=== PATIENT | male | born 1945 | race Caucasian/White ===

== ENCOUNTER 2016-12-11 10:32 | Inpatient (IN) | payer OTHER ==
[~2016-12-11] VITALS: Ht 175.3 cm; Wt 78.1 kg
[~2016-12-11 10:32] MED LIST: CETI10TA84 PO; IPRA1AER2 INH; ONDA-63 PO; PRLSR20 PO; RANI150T3 PO; ULT50 PO; VNTHFA/IN INH
[2016-12-11] MEDS ORDERED: SODIUM CHLORIDE 0.9% 1000ML 1,000 ML IV ONE (11:33)
[2016-12-11] MEDS ORDERED: SODIUM CHLORIDE 0.9% 1000ML 1,000 ML IV STA (11:33)
--- NOTE | 2016-12-11 12:10 | DIAGNOSTIC IMAGING REPORT ---
CHEST ONE VIEW PORTABLE CLINICAL HISTORY: CHEST PAIN dyspnea COMPARISON STUDY: 09/14/2016 FINDINGS: Somewhat limited study technically due to patient motion. Probable basilar infiltrates. Mid and upper lungs are considered clear. Central catheter in superior vena cava. IMPRESSION: Small bibasilar parenchymal infiltrates Electronically signed by: José Romero M.D. 12/11/2016 12:09 PM Dictated Date/Time: 12/11/2016 12:08 PM
[2016-12-11 12:24] LABS: HEMATOCRIT 26.3 % (42-52); MEAN CELL VOLUME 79.9 fL (80-100); MEAN CORPUSCULAR HEMOGLOBIN 27.4 pg (25-34); MEAN CORPUSCULAR HGB CONC 34.2 g/dl (32-36); MEAN PLATELET VOLUME 9.1 fL (7.4-10.4); PLATELET COUNT 187 K/uL (130-400); RED BLOOD COUNT 3.29 M/uL (4.7-6.1); WHITE BLOOD COUNT 3.93 K/uL (4.8-10.8)
[2016-12-11 12:53] LABS: BUN/CREATININE RATIO 9.5 (10-20); CALCIUM 8.5 mg/dl (8.5-10.1); CREATININE 0.85 mg/dl (0.60-1.40); POTASSIUM 4.1 mmol/L (3.5-5.1)
[2016-12-11 13:02] LABS: ANISOCYTOSIS PRESENT; BASO % 0.5 %; BASO ABS # 0.02 K/uL (0-0.2); COMPLETE YES; EOS % 0.3 %; IG% 3.1 %; LYMPH % 10.4 %; LYMPH ABS # 0.41 K/uL (1.2-3.4); MONO % 10.7 %; OVALOCYTES 1+; POLYCHROMASIA 1+; TOXIC GRANULATION 2+
[2016-12-11] MEDS ORDERED: LEVAQUIN 750MG / 150ML D5W IV STA (13:08)
[2016-12-11 13:19] LABS: URINE APPEARANCE CLEAR (CLEAR); URINE BILIRUBIN NEG (NEG); URINE COLOR YELLOW; URINE NITRITE NEG (NEG); URINE SPECIFIC GRAVITY 1.014 (1.000-1.030); UROBILINOGEN NEG (NEG)
[2016-12-11 13:38] LABS: MANUAL MICROSCOPIC REQUIRED? NO; REVIEW REQ? NO
[2016-12-11] MEDS ORDERED: ACETAMINOPHEN 325 MG TAB PO PRN (14:00)
[2016-12-11] MEDS ORDERED: SENN-65 PO (14:03)
[2016-12-11] MEDS ORDERED: LEVOFLOXACIN CONSULT ACTIVE PRN (14:05)
[2016-12-11] MEDS ORDERED: IPRATROPIUM BROMIDE/ALBUTEROL respimat INH INH PRN (14:15)
[2016-12-11] MEDS ORDERED: PIPERACILL/TAZOBAC CONSULT ACTIVE PRN (14:15)
[2016-12-11] MEDS ORDERED: VANCOMYCIN CONSULT ACTIVE PRN (14:15)
[2016-12-11] MEDS ORDERED: ALBUTEROL HFA 8 GM INHALER INH PRN (14:15)
[2016-12-11 14:36] LABS: PARTIAL THROMBOPLASTIN RATIO 1.1; PROTHROMBIN TIME (PATIENT) 11.2 SECONDS (9.0-12.0)
--- NOTE | 2016-12-11 14:39 | History and Physical ---
History & Physical Date & Time of Service: Dec 11, 2016 at 14:16 Chief Complaint: Fever Joint Pain Primary Care Physician: Faustino Ryan M.D. History of Present Illness Source: patient, family, clinic records, hospital records Patient seen and examined. 71 year old male with PMHx of lymphoma, GERD, and history of tobacco abuse presents to the ED complaining of fever this morning. Patient is currently undergoing chemo therapy and neupogen treatments. His last treatment was 11/26. He reports he gets severe myalgias, bone, and joint pain from the neupogen. He states he takes his temperature twice daily and this morning it was 101.9. He reports yesterday he had some rigors and chills. He reports associated cough with some sputum production and congestion. He has some SOB. He denies sick contacts and reports he is very careful to not be around sick people. He often wears a mask. He denies taking anything for the fever this morning. He did not get a flu shot. He denies chest pain, palpitations, diarrhea, dysuria, edema. He reports ongoing nausea and occasional vomiting secondary to chemo. In the ED patient is mildly tachycardic on arrival which improved with IVFs, BP is stable, he is afebrile, he is pancytopenic but not neutropenic, POC lactate is 2.05. CXR shows possible pneumonia. Blood cultures were drawn and patient was started on Levaquin. He will be admitted for further workup and treatment. Past Medical/Surgical History Medical Problems: (1) DLBCL (diffuse large B cell lymphoma) Status: Chronic (2) GERD (gastroesophageal reflux disease) Status: Chronic Surgical Problems: (1) H/O lymph node biopsy Permanent Comment: BIOPSY LYMPH NODE OPEN SUPERFICIAL performed by Cruz Narayanan MD at [facility] 03/2015 Status: Resolved (2) History of appendectomy Status: Resolved Family History FH: CAD (coronary artery disease) FATHER MOTHER FH: lung cancer SISTER Social History Smoking Status: Former Smoker Alcohol Use: none Drug Use: none Marital Status: Housing status: lives with significant other Occupational Status: employed Allergies Coded Allergies: Tetracycline (Verified Allergy, Unknown, water blisters, 12/11/16) Home Medications Scheduled Omeprazole (Prilosec), 20 MG PO DAILY Ranitidine Hcl (Zantac), 150 MG PO UD Sennosides-Docusate Sodium (Senokot S), 2 TAB PO BID Scheduled PRN Albuterol Hfa (Ventolin Hfa), 2 PUFFS INH Q6H PRN for SOB/Wheezing Cetirizine (Zyrtec), 10 MG PO DAILY PRN for UD Ipratropium-Albuterol (Combivent Respimat), 1 PUFFS INH QID PRN for SOB/Wheezing Ondansetron (Ondansetron HCl), 8 MG PO Q8 PRN for Nausea or Vomiting Tramadol HCl (Tramadol HCl), 50 MG PO Q4 PRN for Pain Review of Systems See above for pertinent positives & negatives. A total of 10 systems reviewed and were otherwise negative. Physical Exam Vital Signs Date Time Temp Pulse Resp B/P Pulse Ox O2 Delivery O2 Flow Rate FiO2 12/11/16 13:05 87 20 124/65 93 Room Air 12/11/16 12:07 92 Nasal Cannula 1.0 12/11/16 12:00 95 19 119/68 88 Room Air 12/11/16 11:26 37.1 12/11/16 10:37 37.1 106 22 124/70 92 Room Air General Appearance: + pertinent finding (Very pleasant WD/WN 71 year old male lying in bed in NAD with family at bedside ) Head: normocephalic, atraumatic Eyes: PERRL, EOMI, sclerae normal ENT: hearing grossly normal, pharynx normal Neck: supple, no JVD Respiratory/Chest: chest non-tender, no respiratory distress, no accessory muscle use, + pertinent finding (diffuse rhonchi, scattered crackles, scattered wheezing ) Cardiovascular: regular rate, rhythm, no edema, no gallop, no JVD, no murmur, normal peripheral pulses Abdomen/GI: normal bowel sounds, non tender, soft Back: normal inspection, no muscle spasm Extremities/Musculoskelatal: normal capillary refill, no pedal edema, + pertinent finding (generalized myalgias ) Neurologic/Psych: alert, oriented x 3, + pertinent finding (no focal deficits noted on gross exam ) Skin: normal color, warm/dry, no rash Lymphatic: no adenopathy Diagnostics Laboratory Results Results Past 24 Hours Test 12/11/16 11:50 12/11/16 11:57 12/11/16 13:00 12/11/16 14:14 Range/Units White Blood Count 3.93 4.8-10.8 K/uL Red Blood Count 3.29 4.7-6.1 M/uL Hemoglobin 9.0 14.0-18.0 g/dL Hematocrit 26.3 42-52 % Mean Corpuscular Volume 79.9 80-100 fL Mean Corpuscular Hemoglobin 27.4 25-34 pg Mean Corpuscular Hemoglobin Concent 34.2 32-36 g/dl Platelet Count 187 130-400 K/uL Mean Platelet Volume 9.1 7.4-10.4 fL Neutrophils (%) (Auto) 75.0 % Lymphocytes (%) (Auto) 10.4 % Monocytes (%) (Auto) 10.7 % Eosinophils (%) (Auto) 0.3 % Basophils (%) (Auto) 0.5 % Neutrophils # (Auto) 2.95 1.4-6.5 K/uL Lymphocytes # (Auto) 0.41 1.2-3.4 K/uL Monocytes # (Auto) 0.42 0.11-0.59 K/uL Eosinophils # (Auto) 0.01 0-0.5 K/uL Basophils # (Auto) 0.02 0-0.2 K/uL RDW Standard Deviation 56.7 36.4-46.3 fL RDW Coefficient of Variation 19.8 11.5-14.5 % Immature Granulocyte % (Auto) 3.1 % Immature Granulocyte # (Auto) 0.12 0.00-0.02 K/uL Toxic Granulation 2+ Polychromasia 1+ Anisocytosis PRESENT Ovalocytes 1+ Sodium Level 134 136-145 mmol/L Potassium Level 4.1 3.5-5.1 mmol/L Chloride Level 100 98-107 mmol/L Carbon Dioxide Level 22 21-32 mmol/L Anion Gap 12.0 3-11 mmol/L Blood Urea Nitrogen 8 7-18 mg/dl Creatinine 0.85 0.60-1.40 mg/dl Est Creatinine Clear Calc Drug Dose 78.6 ml/min Estimated GFR () 100.9 Estimated GFR (Non- 87.1 BUN/Creatinine Ratio 9.5 10-20 Random Glucose 94 70-99 mg/dl Calcium Level 8.5 8.5-10.1 mg/dl Total Bilirubin 0.5 0.2-1 mg/dl Direct Bilirubin 0.1 0-0.2 mg/dl Aspartate Amino Transf (AST/SGOT) 19 15-37 U/L Alanine Aminotransferase (ALT/SGPT) 15 12-78 U/L Alkaline Phosphatase 63 45-117 U/L Total Protein 6.3 6.4-8.2 gm/dl Albumin 3.2 3.4-5.0 gm/dl Lipase 113 73-393 U/L Bedside Lactic Acid Venous 2.05 0.90-1.70 mmol/L Urine Color YELLOW Urine Appearance CLEAR CLEAR Urine pH 7.0 4.5-7.5 Urine Specific [place] 1.014 1.000-1.030 Urine Protein NEG NEG Urine Glucose (UA) NEG NEG Urine Ketones NEG NEG Urine Occult Blood NEG NEG Urine Nitrite NEG NEG Urine Bilirubin NEG NEG Urine Urobilinogen NEG NEG Urine Leukocyte Esterase NEG NEG Microbiology Results 12/11/16 Blood Culture, Received Pending 12/11/16 Blood Culture, Received Pending 12/11/16 Urine Culture, Received Pending Diagnostic Radiology CXR Per radiologist read: IMPRESSION: Small bibasilar parenchymal infiltrates Impression Assessment and Plan 71 year old male with DLBCL actively on chemo presents to the ED complaining of fever SEPSIS - secondary to [facility] [employer] PNEUMONIA -Admit to tele -Presents with fever, tachycardia, elevated lactate -CXR with possible pneumonia -Lactate 2.05 at admission, will repeat in 6h and follow -Receive 1L IVF bolus in ED now on 125ml/hr - last echo with preserved EF -R/O Flu, PCR flu pending -Blood cultures, sputum culture pending -no neutropenia but d/t active chemotherapy will keep on neutropenic precautions -Empirically treat with Levaquin, vancomycin, Zosyn- d/t immunocompromised state. Pharmacy consulted for dosing -CBC, PRP, Mg daily -VSS monitor closely DIFFUSE LARGE B CELL LYMPHOMA -follows with Dr. Ryan, consult placed -recently finished chemo and Neupogen on 11/26 -continue Tramadol for pain -Zofran for nausea -neutropenic precautions GENERALIZED MYALGIAS -secondary to Neupogen, has documented reactions in the past -myalgias including BL calves, patient high risk for DVT, but with know edema, erythema, and diffuse nature of myalgias throughout body will not US at this time -continue Tramadol prn GERD -continue PPI PANCYTOPENIA -Platelets stable today - 187 -Hgb 9 which is baseline -WBC count 3.93- no neutropenia at this time -follow CBC with diff daily -okay to continue DVT prophylaxis at this time as patient is high risk for VTE and platelet count is stable, will follow daily H/O TOBACCO ABUSE -no formal pulmonary diagnosis but has 150 pack year history -continue home inhalers DVT PROPHYLAXIS: Sq Lovenox CODE STATUS: FULL CODE per my discussion with the patient and his DISPO:In my clinical judgment this beneficiary meets acute admission criteria, established by [facility], that includes being hospitalized through two midnights. discharge planning eval Patient seen in collaboration with Dr. Bird ADDENDUM: I have seen and examined the patient and have discussed the case with the provider above. I agree with the assessment and plan as stated. Pelon , DO VTE Prophylaxis VTE Risk Assessment Done? Y/N: Yes Risk Level: Moderate
[2016-12-11 14:45] VITALS: BP 131/71; PULSE 92; TEMP 37; O2SAT 98; Ht 175.3 cm; Wt 78.1 kg
[2016-12-11] MEDS: SODIUM CHLORIDE 0.9% 1000ML 1,000 ML IV SCH ×2 (14:48→22:00)
[2016-12-11] MEDS: TRAMADOL HCL 50 MG TAB PO PRN (14:53)
[2016-12-11 15:20] VITALS: BP 121/76; PULSE 87; TEMP 36.4; O2SAT 94
[2016-12-11] MEDS ORDERED: PIPERACILL/TAZOBAC IV 3.375 GM in DEXTROSE 5% 100ML IV ONE (15:30)
--- NOTE | 2016-12-11 15:31 | Pharmacy Progress Note ---
Pharmacy Antibiotic Consult Date of Service: Dec 11, 2016. Pharmacy Dosing Scope Pharmacy is consulted to initiate VANCOMYCIN + ZOSYN + LEVAQUIN IV dosing therapy, order appropriate labs and adjust drug dose/frequency. Subjective The patient is a 71 year old male admitted on Dec 11, 2016 at 13:56. Objective Height (Feet): 5 Height (Inches): 9.00 Weight (Kilograms): 79.700 Lab Results (24hrs): Laboratory Tests Test 12/11/16 11:50 BUN/Creatinine Ratio 9.5 Blood Urea Nitrogen 8 mg/dl Creatinine 0.85 mg/dl White Blood Count 3.93 K/uL Red Blood Count 3.29 M/uL Hemoglobin 9.0 g/dL Hematocrit 26.3 % Mean Corpuscular Volume 79.9 fL Mean Corpuscular Hemoglobin 27.4 pg Mean Corpuscular Hemoglobin Concent 34.2 g/dl Platelet Count 187 K/uL Mean Platelet Volume 9.1 fL Neutrophils (%) (Auto) 75.0 % Lymphocytes (%) (Auto) 10.4 % Monocytes (%) (Auto) 10.7 % Eosinophils (%) (Auto) 0.3 % Basophils (%) (Auto) 0.5 % Neutrophils # (Auto) 2.95 K/uL Lymphocytes # (Auto) 0.41 K/uL Monocytes # (Auto) 0.42 K/uL Eosinophils # (Auto) 0.01 K/uL Basophils # (Auto) 0.02 K/uL Micro Results: Item Value Date Time Blood Culture Received 12/11/16 1150 Blood Pending Blood Culture Received 12/11/16 1230 Blood Pending Urine Culture Received 12/11/16 1300 Urine , Clean Catch Pending Assessment & Plan ASSESSMENT: 71yo male initiated on broad spectrum empiric abx for sepsis secondary to lung source. Pt at mild risk for MDRO infection based on recent hospitalization within the last 90 days (09/2016) and ongoing chemotherapy. Renal function is normal. BMI within normal limits - mild risk of vancomycin accumulation once at steady state. PLAN: VANCOMYCIN: * Calc PK: ke ~ 0.07h-1 T1/2 ~ 9.9hrs Vd ~ 0.7L/kg * Loading dose: Vancomycin 2,000mg (25mg/kg) IV X 1 dose then: * Vancomycin 1,200mg (15mg/kg) IV every 12 hours. * Goal trough level estimate: between 15 - 20 mcg/mL as recommended by IDSA for complicated infection and for adequate pulmonary penetration * Trough level has been ordered prior to the 4th maintenance dose on: @ 1530. ZOSYN: * Piperacillin/Tazobactam Extended Infusion: * 3.375 grams IV bolus, 3.375 grams CI IV every 8 hours for est CrCL > 20mL/ min. * 3.375 grams IV bolus, 3.375 grams CI IV every 12 hours for est CrCL 20mL/min or below * Consider more aggressive regimen (4.5g) if: * critically ill, obese with BMI 35 or above, cystic fibrosis, EMMY > 16 g/mL LEVAQUIN: * Recommended dosing is Levaquin 750mg IV Q24hrs * No renal dose adjustment necessary for CrCl > 50 ml/min Pharmacy will continue to follow and will adjust dose/frequency as necessary. Thank you
[2016-12-11 16:00] VITALS: O2SAT 94
[2016-12-11] MEDS ORDERED: VANCOMYCIN INJ 2,000 MG in SODIUM CHLORIDE 0.9% 500ML 500 ML IV SCH (16:00)
[2016-12-11] MEDS: ONDANSETRON INJ 2 MG/ML 2 ML VIAL IV PRN (16:46)
[2016-12-11 19:29] VITALS: BP 135/75; PULSE 87; TEMP 36.6; O2SAT 94
[2016-12-11 20:00] VITALS: O2SAT 94
[2016-12-11] MEDS: ENOXAPARIN 40 MG/0.4 ML SYR SC SCH (20:38)
[2016-12-11] MEDS: DOCUSATE SODIUM/SENNA 50/8.6MG TAB PO SCH (20:38)
[2016-12-11] MEDS: PIPERACILL/TAZOBAC IV 3.375 GM in DEXTROSE 5% 100ML 100 ML IV SCH (20:50)
[2016-12-11] MEDS: PANTOprazole SOD 40 MG TAB PO SCH (20:51)
[2016-12-12] VITALS (19 sets, daily range): BP systolic 114–147; BP diastolic 58–80; PULSE 83–106; TEMP 36.4–37.5; O2SAT 90–97
--- NOTE | 2016-12-12 00:17 | Progress Note ---
Progress Note Post Crystalloid Evaluation Date: Dec 11, 2016 Time: 14:30 Subjective Patient seen and examined. 71 year old male with PMHx of lymphoma, GERD, and history of tobacco abuse presents to the ED complaining of fever this morning. Patient is currently undergoing chemo therapy and neupogen treatments. His last treatment was 11/26. He reports he gets severe myalgias, bone, and joint pain from the neupogen. He states he takes his temperature twice daily and this morning it was 101.9. He reports yesterday he had some rigors and chills. He reports associated cough with some sputum production and congestion. He has some SOB. He denies sick contacts and reports he is very careful to not be around sick people. He often wears a mask. He denies taking anything for the fever this morning. He did not get a flu shot. He denies chest pain, palpitations, diarrhea, dysuria, edema. He reports ongoing nausea and occasional vomiting secondary to chemo. In the ED patient is mildly tachycardic on arrival which improved with IVFs, BP is stable, he is afebrile, he is pancytopenic but not neutropenic, POC lactate is 2.05. CXR shows possible pneumonia. Blood cultures were drawn and patient was started on Levaquin. He will be admitted for further workup and treatment. Physical Exam Vital Signs: Vital Signs Date Time Temp Pulse Resp B/P Pulse Ox O2 Delivery O2 Flow Rate FiO2 12/11/16 20:00 94 Nasal Cannula 2.0 12/11/16 19:29 36.6 87 31 135/75 Lungs: lungs clear, normal breath sounds, no respiratory distress, no accessory muscle use Heart: regular rate, rhythm, no edema, no gallop, no JVD Assessment & Plan SEPSIS - secondary to [facility] PNEUMONIA -Admit to tele -Presents with fever, tachycardia, elevated lactate -CXR with possible pneumonia -Lactate 2.05 at admission, will repeat in 6h and follow -Receive 1L IVF bolus in ED now on 125ml/hr - last echo with preserved EF -R/O Flu, PCR flu pending -Blood cultures, sputum culture pending -no neutropenia but d/t active chemotherapy will keep on neutropenic precautions -Empirically treat with Levaquin, vancomycin, Zosyn- d/t immunocompromised state. Pharmacy consulted for dosing -CBC, PRP, Mg daily -VSS monitor closely
[2016-12-12 00:25] LABS: INFLUENZA A PCR Neg for Influ A (NEG); INFLUENZA B PCR Neg for Influ B (NEG)
[2016-12-12] MEDS: VANCOMYCIN INJ 1,200 MG in SODIUM CHLORIDE 0.9% 250ML 250 ML IV SCH ×2 (03:14→15:37)
[2016-12-12] MEDS: SODIUM CHLORIDE 0.9% 1000ML 1,000 ML IV SCH (03:14)
[2016-12-12] MEDS: PIPERACILL/TAZOBAC IV 3.375 GM in DEXTROSE 5% 100ML 100 ML IV SCH ×2 (06:09→13:15)
[2016-12-12 06:10] LABS: HEMATOCRIT 23.1 % (42-52); MEAN CELL VOLUME 79.9 fL (80-100); MEAN CORPUSCULAR HGB CONC 33.8 g/dl (32-36); MEAN PLATELET VOLUME 8.7 fL (7.4-10.4); PLATELET COUNT 179 K/uL (130-400); RED BLOOD COUNT 2.89 M/uL (4.7-6.1); WHITE BLOOD COUNT 2.67 K/uL (4.8-10.8)
[2016-12-12 06:45] LABS: BASO % 0.7 %; BASO ABS # 0.02 K/uL (0-0.2); BUN/CREATININE RATIO 9.9 (10-20); COMPLETE YES; CREATININE 0.75 mg/dl (0.60-1.40); EOS % 0.4 %; IG% 1.9 %; LYMPH % 7.9 %; LYMPH ABS # 0.21 K/uL (1.2-3.4); MAGNESIUM 1.6 mg/dl (1.8-2.4); MONO % 14.2 %; NEUT % 74.9 %; OVALOCYTES 1+; TOXIC GRANULATION 1+
[2016-12-12] MEDS ORDERED: MAGNESIUM SULFATE 1GM / D5W 1 GM in PREMIXED IN D5W 100 ML IV STA (07:41)
[2016-12-12] MEDS: PANTOprazole SOD 40 MG TAB PO SCH (08:20)
[2016-12-12] MEDS: TRAMADOL HCL 50 MG TAB PO PRN ×2 (08:20→18:17)
[2016-12-12] MEDS: ONDANSETRON INJ 2 MG/ML 2 ML VIAL IV PRN ×2 (08:20→18:17)
[2016-12-12] MEDS: DOCUSATE SODIUM/SENNA 50/8.6MG TAB PO SCH ×2 (08:22→20:07)
--- NOTE | 2016-12-12 08:50 | Clinical Documentation Query ---
JULIO Devlin : CLINICAL DOCUMENTATION QUERIES QUERY 1 OF 2 Patient is a 71 year old male admitted for evaluation and treatment of sepsis secondary to healthcare associated pneumonia. He is noted to be "empirically treated with Levaquin and Vancomycin". As appropriate, consider documentation as suggested below as to the possible types of pneumonia in which you are treating. In your clinical opinion is this patient being managed for: ( ) (Possible) gram-negative or MRSA pneumonia ( ) Other explanation of clinical findings (Please Explain) ( ) Unable to determine (Please Define) ( ) Need to Discuss ( ) Not Agree The medical record reflects the following clinical findings, treatment, and risk factors. Clinical Indicators: As above Treatment: IV Levaquin, IV Vancomycin, serial labs, IVF, blood and sputum cultures Risk Factors: Age, lymphoma undergoing chemotherapy/immunosuppression. QUERY 2 OF 2 Patient noted to be currently undergoing chemotherapy treatments. Patient has been recieving Neupogen. He has been transfused irradiated platelets on prior visits. Documentation includes pancytopenia. As appropriate, consider clarification as suggested below. Thank you. In your clinical opinion is this patient being managed for: ( ) Antineoplastic chemotherapy induced pancytopenia ( ) Other explanation of clinical findings (Please Explain) ( ) Unable to determine (Please Define) ( ) Need to Discuss ( ) Not Agree The medical record reflects the following clinical findings, treatment, and risk factors. Clinical Indicators: As above Treatment: Serial hematology, Neupogen, discontinuation of offending chemotherapeutics. Risk Factors: Chemotherapeutic administration. Please clarify and document your clinical opinion in the progress notes and discharge summary. Terms such as "probable", "suspected", "likely", "questionable", "possible", or "still to be ruled out" are acceptable. IF IN AGREEMENT, YOU MUST DOCUMENT ABOVE DIAGNOSTIC STATEMENT IN DAILY PROGRESS NOTES AND DISCHARGE SUMMARY. This document is not part of the patient's record. Thank You, Александр Ley, RN [phone]
--- NOTE | 2016-12-12 10:28 | DIAGNOSTIC IMAGING REPORT ---
CHEST 2 VIEWS ROUTINE CLINICAL HISTORY: Abnormal chest x-ray with basilar airspace opacities COMPARISON STUDY: 12/11/2016 FINDINGS: The cardiac and mediastinal contours remain stable. There is a right-sided A-Port catheter. There are persistent groundglass basal airspace opacities left greater than right, unchanged given the differences in technique.[ IMPRESSION: Bibasal airspace opacities similar to the preceding study. Electronically signed by: Bernard Elizondo M.D. 12/12/2016 10:26 AM Dictated Date/Time: 12/12/2016 10:25 AM
--- NOTE | 2016-12-12 11:26 | Progress Note ---
Subjective Date of Service: Dec 12, 2016. Subjective Pt evaluation today including: conversation w/ patient, physical exam, lab review, review of studies, review of inpatient medication list Saw/examined the patient in room 204 Patient feels weak, but otherwise, doing well +cough, +sputum no shortness of breath, no chest pain, no fevers overnight, no chills while inpatient Problem List Medical Problems: (1) COPD exacerbation Status: Acute (2) Ischemic bowel disease Status: Acute (3) Lactic acidosis Status: Acute (4) Splenic laceration Status: Acute Review of Systems Constitutional: + chills (prior to arrival), + fever Respiratory: + cough, + sputum, No dyspnea on exertion, No shortness of breath , No wheezing Cardiac: No chest pain, No edema, No palpitations Abdomen: No diarrhea, No nausea, No pain, No vomiting Medications Current Inpatient Medications Medications (Trade) Dose Ordered Sig/Flory Route Start Time Stop Time Status Last Admin Dose Admin Acetaminophen (Tylenol Tab) 650 mg Q4H PRN PO 12/11/16 14:00 01/10/17 13:59 Ondansetron HCl 4 mg 4 mg Q6H PRN IV 12/11/16 14:00 01/10/17 13:59 12/12/16 08:20 4 MG Piperacillin Sod/ Tazobactam Sod 3.375 gm/Dextrose 115 ml @ 28.75 mls/ hr Q8H IV 12/11/16 21:00 12/18/16 20:59 12/12/16 06:09 28.75 MLS/HR Levofloxacin/Prmx (Levaquin / D5W/ Premixed D5W) 150 ml @ 100 mls/hr Q24H IV 12/12/16 14:00 12/18/16 13:59 Levofloxacin 1 ea 1 ea UD PRN N/A 12/11/16 14:05 01/10/17 14:04 Vancomycin HCl/ Sodium Chloride (Vancomycin Inj/ Nss 250ml) 274 ml @ 125 mls/hr Q12H IV 12/12/16 04:00 12/19/16 03:59 12/12/16 03:14 125 MLS/HR Senna/Docusate Sodium (Senokot S Tab) 2 tab BID PO 12/11/16 21:00 01/10/17 20:59 12/12/16 08:22 2 TAB Tramadol HCl (Ultram Tab) 50 mg Q4 PRN PO 12/11/16 14:00 01/10/17 13:59 12/12/16 08:20 50 MG Pantoprazole Sodium (Protonix Tab) 40 mg DAILY PO 12/12/16 09:00 01/11/17 08:59 12/12/16 08:20 40 MG Vancomycin HCl (Consult) 1 ea UD PRN N/A 12/11/16 14:15 01/10/17 14:14 Piperacillin Sod/ Tazobactam Sod (Consult) 1 ea UD PRN N/A 12/11/16 14:15 01/10/17 14:14 Enoxaparin Sodium (Lovenox Inj) 40 mg QPM SC 12/11/16 21:00 01/10/17 14:14 12/11/16 20:38 40 MG Albuterol (Ventolin Hfa Inhaler) 2 puffs Q6H PRN INH 12/11/16 14:15 01/10/17 14:14 Albuterol/ Ipratropium (Combivent Respimat Inh) 1 puffs QID PRN INH 12/11/16 14:15 01/10/17 14:14 Objective Vital Signs Date Time Temp Pulse Resp B/P Pulse Ox O2 Delivery O2 Flow Rate FiO2 12/12/16 08:00 Nasal Cannula 2.0 12/12/16 07:00 37.2 93 16 147/74 91 Nasal Cannula 5.0 12/12/16 04:19 Nasal Cannula 2.0 12/12/16 04:06 37.2 84 18 147/75 91 12/12/16 00:16 36.8 83 18 146/63 94 12/12/16 00:00 Nasal Cannula 2.0 12/11/16 20:00 94 Nasal Cannula 2.0 12/11/16 19:29 36.6 87 31 135/75 94 Nasal Cannula 2.0 12/11/16 16:00 94 Nasal Cannula 2.0 12/11/16 15:20 36.4 87 20 121/76 94 Nasal Cannula 2.0 12/11/16 14:45 37.0 92 16 131/71 98 Nasal Cannula 12/11/16 14:33 80 20 126/80 99 12/11/16 13:05 87 20 124/65 93 Room Air 3/9/17 12:07 92 Nasal Cannula 1.0 12/11/16 12:00 95 19 119/68 88 Room Air 12/11/16 11:26 37.1 Physical Exam General Appearance: no apparent distress Respiratory/Chest: lungs clear, normal breath sounds, no respiratory distress, no accessory muscle use Cardiovascular: no edema, no murmur, + tachycardia Abdomen: normal bowel sounds, non tender, soft Extremities: normal inspection, no pedal edema Neurologic/Psychiatric: no motor/sensory deficits, alert, normal mood/affect Laboratory Results Last 24 Hours Test 12/11/16 11:50 12/11/16 11:57 12/11/16 13:00 12/11/16 15:30 White Blood Count 3.93 K/uL Red Blood Count 3.29 M/uL Hemoglobin 9.0 g/dL Hematocrit 26.3 % Mean Corpuscular Volume 79.9 fL Mean Corpuscular Hemoglobin 27.4 pg Mean Corpuscular Hemoglobin Concent 34.2 g/dl Platelet Count 187 K/uL Mean Platelet Volume 9.1 fL Neutrophils (%) (Auto) 75.0 % Lymphocytes (%) (Auto) 10.4 % Monocytes (%) (Auto) 10.7 % Eosinophils (%) (Auto) 0.3 % Basophils (%) (Auto) 0.5 % Neutrophils # (Auto) 2.95 K/uL Lymphocytes # (Auto) 0.41 K/uL Monocytes # (Auto) 0.42 K/uL Eosinophils # (Auto) 0.01 K/uL Basophils # (Auto) 0.02 K/uL RDW Standard Deviation 56.7 fL RDW Coefficient of Variation 19.8 % Immature Granulocyte % (Auto) 3.1 % Immature Granulocyte # (Auto) 0.12 K/uL Toxic Granulation 2+ Polychromasia 1+ Anisocytosis PRESENT Ovalocytes 1+ Prothrombin Time 11.2 SECONDS Prothromb Time International Ratio 1.0 Activated Partial Thromboplast Time 28.9 SECONDS Partial Thromboplastin Ratio 1.1 Sodium Level 134 mmol/L Potassium Level 4.1 mmol/L Chloride Level 100 mmol/L Carbon Dioxide Level 22 mmol/L Anion Gap 12.0 mmol/L Blood Urea Nitrogen 8 mg/dl Creatinine 0.85 mg/dl Est Creatinine Clear Calc Drug Dose 78.6 ml/min Estimated GFR () 100.9 Estimated GFR (Non- 87.1 BUN/Creatinine Ratio 9.5 Random Glucose 94 mg/dl Calcium Level 8.5 mg/dl Total Bilirubin 0.5 mg/dl Direct Bilirubin 0.1 mg/dl Aspartate Amino Transf (AST/SGOT) 19 U/L Alanine Aminotransferase (ALT/SGPT) 15 U/L Alkaline Phosphatase 63 U/L Total Protein 6.3 gm/dl Albumin 3.2 gm/dl Lipase 113 U/L Bedside Lactic Acid Venous 2.05 mmol/L Urine Color YELLOW Urine Appearance CLEAR Urine pH 7.0 Urine Specific [place] 1.014 Urine Protein NEG Urine Glucose (UA) NEG Urine Ketones NEG Urine Occult Blood NEG Urine Nitrite NEG Urine Bilirubin NEG Urine Urobilinogen NEG Urine Leukocyte Esterase NEG Lactic Acid Level 1.7 mmol/L Test 12/11/16 22:35 12/12/16 05:40 Influenza Type A (RT-PCR) Neg for Influ A Influenza Type B (RT-PCR) Neg for Influ B White Blood Count 2.67 K/uL Red Blood Count 2.89 M/uL Hemoglobin 7.8 g/dL Hematocrit 23.1 % Mean Corpuscular Volume 79.9 fL Mean Corpuscular Hemoglobin 27.0 pg Mean Corpuscular Hemoglobin Concent 33.8 g/dl Platelet Count 179 K/uL Mean Platelet Volume 8.7 fL Neutrophils (%) (Auto) 74.9 % Lymphocytes (%) (Auto) 7.9 % Monocytes (%) (Auto) 14.2 % Eosinophils (%) (Auto) 0.4 % Basophils (%) (Auto) 0.7 % Neutrophils # (Auto) 2.00 K/uL Lymphocytes # (Auto) 0.21 K/uL Monocytes # (Auto) 0.38 K/uL Eosinophils # (Auto) 0.01 K/uL Basophils # (Auto) 0.02 K/uL RDW Standard Deviation 57.2 fL RDW Coefficient of Variation 19.6 % Immature Granulocyte % (Auto) 1.9 % Immature Granulocyte # (Auto) 0.05 K/uL Toxic Granulation 1+ Ovalocytes 1+ Sodium Level 138 mmol/L Potassium Level 4.0 mmol/L Chloride Level 104 mmol/L Carbon Dioxide Level 25 mmol/L Anion Gap 9.0 mmol/L Blood Urea Nitrogen 7 mg/dl Creatinine 0.75 mg/dl Est Creatinine Clear Calc Drug Dose 89.1 ml/min Estimated GFR () 106.2 Estimated GFR (Non- 91.6 BUN/Creatinine Ratio 9.9 Random Glucose 94 mg/dl Calcium Level 8.0 mg/dl Magnesium Level 1.6 mg/dl Assessment and Plan This is a 71 year old male with PMH of lymphoma, history of tobacco abuse presents with fevers/chills, found to have pneumonia Mild Sepsis secondary to Pneumonia patient does get chemotherapy; immunocompromised +leukopenia, +thrombocytopenia, +tachycardia, +lactic acidosis Lactic acid is now down to < 2 repeat CXR shows bibasilar airspace consolidation broad spectrum antibiotics - Levaquin, Vanco, Zosyn will continue this for today hold off on additional fluids, encourage PO intake Anemia of chronic disease/inflammation and secondary to chemo/lymphoma appreciate hem/onc input on this patient ordered for two units of PRBCs monitor H/H post-transfusion Hypomagnesemia supplementing recheck in AM Diffuse Large B Cell Lymphoma last chemo and Neupogen dose on November 26 follows with oncology as an outpatient Generalized Myalgias likely related to neupogen use rigors secondary to pneumonia also a possibility DVT ppx Lovenox FULL CODE
[2016-12-12] MEDS: LEVOFLOXACIN / D5W 750 MG in PREMIXED IN D5W 150 ML IV SCH (17:06)
[2016-12-12] MEDS ORDERED: NURSING VERBAL MED ORDER ONE (20:00)
[2016-12-12] MEDS: ENOXAPARIN 40 MG/0.4 ML SYR SC SCH (20:07)
[2016-12-12] MEDS ORDERED: FUROSEMIDE INJ 40 MG in SYRINGE 0 ML IV PRN (20:15)
[2016-12-13] VITALS (10 sets, daily range): BP systolic 120–143; BP diastolic 70–81; PULSE 75–89; TEMP 36.4–36.6; O2SAT 87–95
[2016-12-13] MEDS: PIPERACILL/TAZOBAC IV 3.375 GM in DEXTROSE 5% 100ML 100 ML IV SCH ×2 (00:25→08:26)
[2016-12-13] MEDS: VANCOMYCIN INJ 1,200 MG in SODIUM CHLORIDE 0.9% 250ML 250 ML IV SCH (05:05)
[2016-12-13 06:14] LABS: HEMATOCRIT 30.2 % (42-52); MEAN CELL VOLUME 79.3 fL (80-100); MEAN CORPUSCULAR HEMOGLOBIN 26.8 pg (25-34); MEAN CORPUSCULAR HGB CONC 33.8 g/dl (32-36); MEAN PLATELET VOLUME 8.7 fL (7.4-10.4); PLATELET COUNT 211 K/uL (130-400); RED BLOOD COUNT 3.81 M/uL (4.7-6.1); WHITE BLOOD COUNT 2.57 K/uL (4.8-10.8)
[2016-12-13 06:48] LABS: BUN/CREATININE RATIO 10.5 (10-20); CALCIUM 8.3 mg/dl (8.5-10.1); CREATININE 0.81 mg/dl (0.60-1.40); MAGNESIUM 1.8 mg/dl (1.8-2.4); POTASSIUM 3.6 mmol/L (3.5-5.1)
[2016-12-13] MEDS: PANTOprazole SOD 40 MG TAB PO SCH (08:22)
[2016-12-13] MEDS: DOCUSATE SODIUM/SENNA 50/8.6MG TAB PO SCH (08:22)
[2016-12-13] MEDS: ONDANSETRON INJ 2 MG/ML 2 ML VIAL IV PRN (08:26)
--- NOTE | 2016-12-13 08:47 | HEMATOLOGY CONSULTATION ---
DATE OF CONSULTATION: 12/13/2016 DATE OF CONSULTATION: 12/13/2016. CONSULTATION WAS REQUESTED BY: Dr. Marinelli. REASON FOR CONSULTATION: Lymphoma. HISTORY OF PRESENT ILLNESS: Mr. Jeff is a 71-year-old gentleman whom I have been treating as an outpatient for a non-Hodgkin lymphoma. He was initially diagnosed with a low-grade non-Hodgkin lymphoma which was treated initially with Rituxan therapy. He did very well. Then several months later, he relapsed. Rituxan was again used for treatment, but he did not respond. He was subsequently transferred to the [facility] in [place] where he underwent a biopsy which showed transformation of his low-grade lymphoma to a high grade diffuse large cell lymphoma. He was then started on R-CHOP chemotherapy. He has tolerated his R-CHOP very poorly. He has been given Neupogen support but has tolerated that extremely poorly with severe fever, chills and arthralgias. I have used prednisone and tramadol during his course of Neupogen therapy to try and reduce his symptoms. He is now admitted to [facility] after calling my office complaining of shaking chills and a fever of approximately 102. When I saw him yesterday afternoon he was lying comfortably in bed, although he appeared to be dyspneic at rest. Examination was unremarkable with the exception of bibasilar crackles. On 12/12/2016 his hemoglobin was 7.8 and I ordered 2 units of packed red blood cells to be transfused. This morning his hemoglobin is 10.2. Urine culture was negative and blood cultures are still pending. During this hospitalization he has been afebrile. IMPRESSION: Transformed non-Hodgkin lymphoma. Clinically, he appears to be responding to his current chemotherapy regimen. He is scheduled for an outpatient staging evaluation in approximately 2 weeks with a subsequent follow-up visit with me afterwards. At the present time, he appears clinically stable. His chest x-rays have suggested possible bibasilar pneumonia. He has been afebrile since admission. If his blood cultures return negative and he is feeling stable I think he could be discharged home on oral Levaquin for an additional 5 to 7 days of therapy. I will then follow him as an outpatient. [facility]
--- NOTE | 2016-12-13 10:16 | Progress Note ---
Subjective Date of Service: Dec 13, 2016. Subjective Pt evaluation today including: conversation w/ patient, physical exam, lab review, review of studies, review of inpatient medication list Saw/examined the patient in room 204 No acute problems/issues to note +cough - chronic issue Problem List Medical Problems: (1) COPD exacerbation Status: Acute (2) Ischemic bowel disease Status: Acute (3) Lactic acidosis Status: Acute (4) Splenic laceration Status: Acute Review of Systems Constitutional: + weakness, No chills, No fever Respiratory: + cough, + wheezing, No dyspnea at rest, No dyspnea on exertion, No hemoptysis, No shortness of breath, No sputum Cardiac: No chest pain, No edema, No palpitations Abdomen: No diarrhea, No nausea, No pain, No vomiting Heme: No abnormal bleeding/bruising Medications Current Inpatient Medications Medications (Trade) Dose Ordered Sig/Flory Route Start Time Stop Time Status Last Admin Dose Admin Acetaminophen (Tylenol Tab) 650 mg Q4H PRN PO 12/11/16 14:00 01/10/17 13:59 Ondansetron HCl 4 mg 4 mg Q6H PRN IV 12/11/16 14:00 01/10/17 13:59 12/13/16 08:26 4 MG Piperacillin Sod/ Tazobactam Sod 3.375 gm/Dextrose 115 ml @ 28.75 mls/ hr Q8H IV 12/11/16 21:00 12/18/16 20:59 12/13/16 08:26 28.75 MLS/HR Levofloxacin/Prmx (Levaquin / D5W/ Premixed D5W) 150 ml @ 100 mls/hr Q24H IV 12/12/16 14:00 12/18/16 13:59 12/12/16 17:06 100 MLS/HR Levofloxacin 1 ea 1 ea UD PRN N/A 12/11/16 14:05 01/10/17 14:04 Vancomycin HCl/ Sodium Chloride (Vancomycin Inj/ Nss 250ml) 274 ml @ 125 mls/hr Q12H IV 12/12/16 04:00 12/19/16 03:59 12/13/16 05:05 125 MLS/HR Senna/Docusate Sodium (Senokot S Tab) 2 tab BID PO 12/11/16 21:00 4/8/17 20:59 12/13/16 08:22 2 TAB Tramadol HCl (Ultram Tab) 50 mg Q4 PRN PO 12/11/16 14:00 01/10/17 13:59 12/12/16 18:17 50 MG Pantoprazole Sodium (Protonix Tab) 40 mg DAILY PO 12/12/16 09:00 01/11/17 08:59 12/13/16 08:22 40 MG Vancomycin HCl (Consult) 1 ea UD PRN N/A 12/11/16 14:15 01/10/17 14:14 Piperacillin Sod/ Tazobactam Sod (Consult) 1 ea UD PRN N/A 12/11/16 14:15 01/10/17 14:14 Enoxaparin Sodium (Lovenox Inj) 40 mg QPM SC 12/11/16 21:00 01/10/17 14:14 12/12/16 20:07 40 MG Albuterol (Ventolin Hfa Inhaler) 2 puffs Q6H PRN INH 12/11/16 14:15 01/10/17 14:14 Albuterol/ Ipratropium (Combivent Respimat Inh) 1 puffs QID PRN INH 12/11/16 14:15 01/10/17 14:14 Objective Vital Signs Date Time Temp Pulse Resp B/P Pulse Ox O2 Delivery O2 Flow Rate FiO2 12/13/16 07:45 36.5 75 20 120/70 93 2.0 12/13/16 04:28 36.6 80 20 125/71 91 Nasal Cannula 2.0 12/13/16 04:07 90 Room Air 12/13/16 00:00 36.5 89 16 127/73 90 12/13/16 00:00 90 Room Air 12/12/16 23:59 37.5 93 20 135/69 97 Room Air 12/12/16 23:35 36.8 92 18 125/62 90 12/12/16 22:42 37.3 90 18 125/73 90 12/12/16 22:18 36.5 90 17 119/58 91 12/12/16 22:10 36.4 88 16 122/58 92 0.0 12/12/16 21:02 36.6 100 16 133/75 94 Nasal Cannula 4.0 12/12/16 20:36 36.6 87 16 133/75 94 4.0 12/12/16 20:04 36.8 90 16 131/76 96 5.0 12/12/16 20:00 95 Nasal Cannula 5.0 12/12/16 19:30 36.7 88 18 114/73 94 5.0 12/12/16 19:00 36.7 93 18 130/71 94 12/12/16 18:37 36.7 92 16 119/70 94 5.0 12/12/16 16:00 95 Nasal Cannula 5.0 12/12/16 15:05 36.9 100 18 125/78 92 Nasal Cannula 5.0 12/12/16 13:58 106 22 131/80 92 Nasal Cannula 5.0 12/12/16 12:00 95 Nasal Cannula 5.0 Physical Exam General Appearance: no apparent distress Respiratory/Chest: no respiratory distress, no accessory muscle use, + wheezing (end expiratory wheezing) Cardiovascular: regular rate, rhythm, no edema, no gallop, no JVD, no murmur Abdomen: normal bowel sounds, non tender, soft Extremities: normal inspection, no pedal edema Neurologic/Psychiatric: no motor/sensory deficits, alert, normal mood/affect Laboratory Results Last 24 Hours Test 12/13/16 05:26 12/13/16 05:36 Sodium Level 138 mmol/L Potassium Level 3.6 mmol/L Chloride Level 103 mmol/L Carbon Dioxide Level 24 mmol/L Anion Gap 11.0 mmol/L Blood Urea Nitrogen 9 mg/dl Creatinine 0.81 mg/dl Est Creatinine Clear Calc Drug Dose 82.5 ml/min Estimated GFR () 102.9 Estimated GFR (Non- 88.8 BUN/Creatinine Ratio 10.5 Random Glucose 109 mg/dl Calcium Level 8.3 mg/dl Magnesium Level 1.8 mg/dl White Blood Count 2.57 K/uL Red Blood Count 3.81 M/uL Hemoglobin 10.2 g/dL Hematocrit 30.2 % Mean Corpuscular Volume 79.3 fL Mean Corpuscular Hemoglobin 26.8 pg Mean Corpuscular Hemoglobin Concent 33.8 g/dl RDW Standard Deviation 51.5 fL RDW Coefficient of Variation 18.1 % Platelet Count 211 K/uL Mean Platelet Volume 8.7 fL Assessment and Plan This is a 71 year old male with PMH of lymphoma, history of tobacco abuse presents with fevers/chills, found to have pneumonia Mild Sepsis secondary to Pneumonia 12/13 appreciate Hem/Onc input patient is hemodynamically stable Lactic acid wnl leukopenia - chronic secondary to chemo (lymphoma) he is doing well today; no symptoms afebrile since admission blood cultures negative thus far will d/c home later today with Levaquin 12/12 patient does get chemotherapy; immunocompromised +leukopenia, +thrombocytopenia, +tachycardia, +lactic acidosis Lactic acid is now down to < 2 repeat CXR shows bibasilar airspace consolidation broad spectrum antibiotics - Levaquin, Vanco, Zosyn will continue this for today hold off on additional fluids, encourage PO intake Anemia 12/13 s/p two units PRBCs H/H > 10 12/12 of chronic disease/inflammation and secondary to chemo/lymphoma appreciate hem/onc input on this patient ordered for two units of PRBCs monitor H/H post-transfusion Hypomagnesemia - resolved now resolved after supplementin Diffuse Large B Cell Lymphoma last chemo and Neupogen dose on November 26 follows with oncology as an outpatient Generalized Myalgias likely related to neupogen use rigors secondary to pneumonia also a possibility DVT ppx Lovenox FULL CODE
[2016-12-13] MEDS: LEVOFLOXACIN / D5W 750 MG in PREMIXED IN D5W 150 ML IV SCH (13:21)
[2016-12-13] MEDS ORDERED: LEVO-18 PO (14:49)
--- NOTE | 2016-12-13 14:57 | Discharge Instructions ---
Discharge Instructions Date of Service Dec 13, 2016. Admission Reason for Admission: Fever Joint Pain Discharge Discharge Diagnosis / Problem: Mild sepsis secondary to pneumonia Discharge Goals Goal(s): Decrease discomfort, Improve function Activity Recommendations Activity Limitations: resume your previous activity . Instructions / Follow-Up Instructions / Follow-Up Please follow-up with Dr. Cain - you will get a phone call with an appointment date and time (Thursday, December 17) You will be discharged with Levaquin (antibiotic) for 7 days You will be sent home with oxygen 2L with ambulation - use this with any type of movement and have oxygen saturation rechecked with Dr. Cain Please follow-up with Dr. Ryan Current Hospital Diet Patient's current hospital diet: Regular Diet Discharge Diet Recommended Diet: Regular Diet Pending Studies Studies pending at discharge: no Medical Emergencies . Who to Call and When: Medical Emergencies: If at any time you feel your situation is an emergency, please call 911 immediately. . Non-Emergent Contact Non-Emergency issues call your: Primary Care Provider . . "Provider Documentation" section prepared by Clint Tyson. VTE Core Measure Inpt VTE Proph given/why not?: Enoxaparin (Lovenox)SQ
--- NOTE | 2016-12-13 15:00 | Discharge Summary ---
Discharge Summary Date of Service Dec 13, 2016. Discharge Summary Admission Date: Dec 11, 2016 at 13:56 Discharge Date: Dec 13, 2016 Discharge Disposition: Home Principal Diagnosis: Mild Sepsis secondary to Pneumonia Anemia s/p transfusion Medication Reconciliation New Medications: Levofloxacin (Levaquin) 750 Mg Tab 1 TAB PO DAILY for 7 Days, #7 TAB Oxygen (Oxygen) Gas 2 LITERS NA DIRECTED for 30 Days with exertion Continued Medications: Albuterol Hfa (Ventolin Hfa) 200 Puffs/92909 Mcg Aers 2 PUFFS INH Q6H PRN for SOB/Wheezing, #1 INHALER Cetirizine (Zyrtec) 10 Mg Tab 10 MG PO DAILY PRN for UD, TAB TAKE 1 CAPSULE IN AM BEGINNING 5 DAYS PRIOR TO RITUXAN TX. Ipratropium-Albuterol (Combivent Respimat) 1 Aer Aer 1 PUFFS INH QID PRN for SOB/Wheezing, INH Omeprazole (Prilosec) 20 Mg Capcr 20 MG PO DAILY Ondansetron (Ondansetron HCl) 8 Mg Tab 8 MG PO Q8 PRN for Nausea or Vomiting, #30 Ranitidine Hcl (Zantac) 150 Mg Tab 150 MG PO UD, TAB pretreatment with chemo Sennosides-Docusate Sodium (Senokot S) 1 Tab Tab 2 TAB PO BID for 15 Days, #60 TAB Tramadol HCl (Tramadol HCl) 50 Mg Tab 50 MG PO Q4 PRN for Pain, #50 Admission Information HPI (per Admitting provider): Patient seen and examined. 71 year old male with PMHx of lymphoma, GERD, and history of tobacco abuse presents to the ED complaining of fever this morning. Patient is currently undergoing chemo therapy and neupogen treatments. His last treatment was 11/26. He reports he gets severe myalgias, bone, and joint pain from the neupogen. He states he takes his temperature twice daily and this morning it was 101.9. He reports yesterday he had some rigors and chills. He reports associated cough with some sputum production and congestion. He has some SOB. He denies sick contacts and reports he is very careful to not be around sick people. He often wears a mask. He denies taking anything for the fever this morning. He did not get a flu shot. He denies chest pain, palpitations, diarrhea, dysuria, edema. He reports ongoing nausea and occasional vomiting secondary to chemo. In the ED patient is mildly tachycardic on arrival which improved with IVFs, BP is stable, he is afebrile, he is pancytopenic but not neutropenic, POC lactate is 2.05. CXR shows possible pneumonia. Blood cultures were drawn and patient was started on Levaquin. He will be admitted for further workup and treatment. Physical Exam (per Admitting): General Appearance: + pertinent finding (Very pleasant WD/WN 71 year old male lying in bed in NAD with family at bedside ) Head: normocephalic, atraumatic Eyes: PERRL, EOMI, sclerae normal ENT: hearing grossly normal, pharynx normal Neck: supple, no JVD Respiratory/Chest: chest non-tender, no respiratory distress, no accessory muscle use, + pertinent finding (diffuse rhonchi, scattered crackles, scattered wheezing ) Cardiovascular: regular rate, rhythm, no edema, no gallop, no JVD, no murmur , normal peripheral pulses Abdomen/GI: normal bowel sounds, non tender, soft Back: normal inspection, no muscle spasm Extremities/Musculoskelatal: normal capillary refill, no pedal edema, + pertinent finding (generalized myalgias ) Neurologic/Psych: alert, oriented x 3, + pertinent finding (no focal deficits noted on gross exam ) Skin: normal color, warm/dry, no rash Lymphatic: no adenopathy Hospital Course This is a 71 year old male with PMH of lymphoma, history of tobacco abuse presents with fevers/chills, found to have pneumonia Mild Sepsis secondary to Pneumonia 12/13 appreciate Hem/Onc input patient is hemodynamically stable Lactic acid wnl leukopenia - chronic secondary to chemo (lymphoma) he is doing well today; no symptoms afebrile since admission blood cultures negative thus far will d/c home later today with Levaquin 12/12 patient does get chemotherapy; immunocompromised +leukopenia, +thrombocytopenia, +tachycardia, +lactic acidosis Lactic acid is now down to < 2 repeat CXR shows bibasilar airspace consolidation broad spectrum antibiotics - Levaquin, Vanco, Zosyn will continue this for today hold off on additional fluids, encourage PO intake Anemia 12/13 s/p two units PRBCs H/H > 10 12/12 of chronic disease/inflammation and secondary to chemo/lymphoma appreciate hem/onc input on this patient ordered for two units of PRBCs monitor H/H post-transfusion Hypomagnesemia - resolved now resolved after supplementin Diffuse Large B Cell Lymphoma last chemo and Neupogen dose on November 26 follows with oncology as an outpatient Generalized Myalgias likely related to neupogen use rigors secondary to pneumonia also a possibility DVT ppx Lovenox FULL CODE Total time spent on discharge = 48 minutes This includes examination of the patient, discharge planning, medication reconciliation, and communication with other providers. Discharge Instructions Please follow-up with Dr. Cain - you will get a phone call with an appointment date and time (Thursday, December 17) You will be discharged with Levaquin (antibiotic) for 7 days You will be sent home with oxygen 2L with ambulation - use this with any type of movement and have oxygen saturation rechecked with Dr. Cain Please follow-up with Dr. Ryan
[2016-12-13] MEDS ORDERED: VANCOMYCIN TROUGH SCH (15:30)
[2016-12-13] MEDS ORDERED: OXGN (17:56)
--- NOTE | 2016-12-14 23:34 | EMERGENCY ROOM VISIT NOTE ---
History First contact with patient: 11:13 Chief Complaint: FEVER Stated Complaint: FEVER JOINT PAIN History of Present Illness The patient is a 71 year old male who presents to the Emergency Room with complaints of fever and joint aches. He does have a history of lymphoma and is currently undergoing chemotherapy and last had Neupogen a week or so ago. He tends to get myalgias and aches after the Neupogen but got concerned today when he spiked a temperature this morning of 101.9. He did have some chills with this. He has had occasional cough. He says he feels good right now. He denies dysuria or hematuria. He has no shortness of breath or chest pain no GI symptoms with exception of a occasional nausea. Since he came years temperature did come down. Review of Systems As above. All other systems reviewed were negative unless otherwise stated in history. At least 10 were reviewed Past Medical/Surgical History Medical Problems: (1) DLBCL (diffuse large B cell lymphoma) (2) GERD (gastroesophageal reflux disease) (3) Pneumonia (4) Sepsis (5) Shortness of breath (6) Thrombocytopenia Surgical Problems: (1) H/O lymph node biopsy (2) History of appendectomy Old medical records were reviewed. Nurse's notes were reviewed and I agree with. History is obtained from the patient as well as his was at the bedside. I also talked to Dr. Schumacher, his oncologist Family History FH: CAD (coronary artery disease) FATHER MOTHER FH: lung cancer SISTER Social History Smoking Status: Never Smoker Alcohol Use: none Drug Use: none Marital Status: Housing Status: lives with family Occupation Status: employed Current/Historical Medications Scheduled Levofloxacin (Levaquin), 1 TAB PO DAILY Omeprazole (Prilosec), 20 MG PO DAILY Oxygen (Oxygen), 2 LITERS NA DIRECTED Ranitidine Hcl (Zantac), 150 MG PO UD Sennosides-Docusate Sodium (Senokot S), 2 TAB PO BID Scheduled PRN Albuterol Hfa (Ventolin Hfa), 2 PUFFS INH Q6H PRN for SOB/Wheezing Cetirizine (Zyrtec), 10 MG PO DAILY PRN for UD Ipratropium-Albuterol (Combivent Respimat), 1 PUFFS INH QID PRN for SOB/Wheezing Ondansetron (Ondansetron HCl), 8 MG PO Q8 PRN for Nausea or Vomiting Tramadol HCl (Tramadol HCl), 50 MG PO Q4 PRN for Pain Allergies Coded Allergies: Tetracycline (Verified Allergy, Unknown, water blisters, 12/11/16) Physical Exam Vital Signs Date Time Temp Pulse Resp B/P Pulse Ox O2 Delivery O2 Flow Rate FiO2 12/11/16 13:05 87 20 124/65 93 Room Air 12/11/16 12:07 92 Nasal Cannula 1.0 12/11/16 12:00 95 19 119/68 88 Room Air 12/11/16 11:26 37.1 12/11/16 10:37 37.1 106 22 124/70 92 Room Air Pain Rating (0-10): 0 Physical Exam General: Well developed well nourished female who appears in no acute distress, breathing comfortably on room air. Normal speech HEENT: Normal cephalic atraumatic. Pupils are equal round and reactive to light. No photophobia. Extraocular movements are intact. Oropharynx is pink with moist mucous membranes. No swelling of the mouth lips or tongue. Neck: Supple with a midline trachea. No meningeal signs or stiffness, no JVD or bruits. No Stridor. Chest: Clear to auscultation bilaterally. No wheezes or rhonchi. No increased work of breathing. Heart: Regular rate and rhythm without murmurs or gallops. Abdomen: Soft nontender, nondistended without rebound guarding or rigidity. Extremities: No cyanosis clubbing or edema. No calf tenderness or assymetry Spine/Back. Non tender to palpation. No CVA tenderness Skin: Good turgor without rashes. Neurologic exam: Cranial nerves two through 12 are intact. Motor and sensation are intact and symmetrical throughout. Medical Decision & Procedures ER Provider Diagnostic Interpretation: Chest x-ray: He may have some mild infiltrates in the bases bilaterally Note: I have personally interpreted the x-ray as has the radiologist, and clinical decision-making is based upon my interpretation Laboratory Results Test 12/11/16 11:50 12/11/16 11:57 12/11/16 13:00 Polychromasia 1+ Anisocytosis PRESENT Prothrombin Time 11.2 SECONDS (9.0-12.0) Prothromb Time International Ratio 1.0 (0.9-1.1) Activated Partial Thromboplast Time 28.9 SECONDS (21.0-31.0) Partial Thromboplastin Ratio 1.1 Total Bilirubin 0.5 mg/dl (0.2-1) Direct Bilirubin 0.1 mg/dl (0-0.2) Aspartate Amino Transf (AST/SGOT) 19 U/L (15-37) Alanine Aminotransferase (ALT/SGPT) 15 U/L (12-78) Alkaline Phosphatase 63 U/L (45-117) Total Protein 6.3 gm/dl (6.4-8.2) Albumin 3.2 gm/dl (3.4-5.0) Lipase 113 U/L (73-393) Bedside Lactic Acid Venous 2.05 mmol/L (0.90-1.70) Urine Color YELLOW Urine Appearance CLEAR (CLEAR) Urine pH 7.0 (4.5-7.5) Urine Specific [place] 1.014 (1.000-1.030) Urine Protein NEG (NEG) Urine Glucose (UA) NEG (NEG) Urine Ketones NEG (NEG) Urine Occult Blood NEG (NEG) Urine Nitrite NEG (NEG) Urine Bilirubin NEG (NEG) Urine Urobilinogen NEG (NEG) Urine Leukocyte Esterase NEG (NEG) Date/Time Source Procedure Growth Status 12/11/16 13:00 Urine , Clean Catch Urine Culture - Final NO GROWTH - LESS THAN 1,000 COLONIES/ML Complete Medications Administered Medications (Trade) Dose Ordered Sig/Flory Route Start Time Stop Time Status Last Admin Dose Admin Sodium Chloride 1,000 ml @ 999 mls/hr Q1H1M STAT IV 12/11/16 11:33 12/11/16 12:33 DC 12/11/16 12:00 999 MLS/HR Sodium Chloride (Nss 1000ml) 1,000 ml @ 150 mls/hr Q6H40M ONCE IV 12/11/16 11:33 12/11/16 15:05 DC 12/11/16 13:10 150 MLS/HR Levofloxacin (Levaquin / D5W) 750 mg NOW STAT IV 12/11/16 13:08 12/11/16 13:10 DC 12/11/16 14:22 750 MG Medical Decision Differential diagnosis includes: Sepsis, neutropenia, pneumonia, viral illness, anemia, electrolyte or metabolic abnormality. This patient comes in as described above. He has lymphoma and is receiving chemotherapy and is potentially neutropenic. IV access was established and he was hydrated IV normal saline. He is afebrile here and his blood pressures been stable. His lactic acid is minimally elevated at 2.05. Chest x-ray shows possible infiltrates in the bases. He is not neutropenic. His hemoglobin is 9 which is about baseline for him and his platelets are 187. He had a cultures and urine cultures were obtained . he has nothing to suggest UTI. I did give him Levaquin 750 mg IV. I discussed the case with Dr. Schumacher ,his oncologist, and he felt we should admit him for observation and antibiotics. The patient was initially reluctant but did agree to be admitting for further treatment and evaluation. Impression Primary Impression: Fever Additional Impressions: Anemia DLBCL (diffuse large B cell lymphoma) Pneumonia Departure Information Dispostion Being Evaluated By Hospitalist Condition GOOD Prescriptions Oxygen (Oxygen) Gas 2 LITERS NA DIRECTED for 30 Days with exertion Prov: Clint Tyson DO 12/13/16 Levofloxacin (LEVAQUIN) 750 Mg Tab 1 TAB PO DAILY for 7 Days, #7 TAB Prov: Clint Tyson DO 12/13/16 Referrals Faustino Ryan M.D. (PCP) Forms HOME CARE DOCUMENTATION FORM, IMPORTANT VISIT INFORMATION Patient Instructions [facility] Problem Qualifiers
== END 2016-12-13 19:15 | disposition home or self-care (01) | DRG 871 ==
LOC: ENRESERVTM → CANRESERV → ENRESERVDT → C.EDB 10:34 → C.2E 13:56
PROVIDERS: ADMIT Hospitalist; ATTEND Family Medicine
DX: A41.9 Sepsis, unspecified organism (principal); J18.9 Pneumonia, unspecified organism; D61.810 Antineoplastic chemotherapy induced pancytopenia; C83.30 Diffuse large B-cell lymphoma, unspecified site; T45.1X5A Adverse effect of antineoplastic and immunosuppressive drugs, initial encounter; E83.42 Hypomagnesemia; R11.2 Nausea with vomiting, unspecified; D63.8 Anemia in other chronic diseases classified elsewhere; M79.1 Myalgia; T45.8X5A Adverse effect of other primarily systemic and hematological agents, initial encounter; K21.9 Gastro-esophageal reflux disease without esophagitis; Z99.81 Dependence on supplemental oxygen; Z87.891 Personal history of nicotine dependence; Z79.891 Long term (current) use of opiate analgesic; Z79.899 Other long term (current) drug therapy

== ENCOUNTER 2017-07-30 11:13 | Observation (INO) | payer OTHER ==
[~2017-07-30] VITALS: Ht 175.3 cm; Wt 77.8 kg
[~2017-07-30 11:13] MED LIST changes: +OXGN; +SENN-65 PO
[2017-07-30] MEDS ORDERED: DXM/4 PO ×2 (12:12→16:07)
[2017-07-30] MEDS ORDERED: DEXT30TA7 PO (12:12)
[2017-07-30] MEDS ORDERED: RTXI100 IV (12:12)
[2017-07-30] MEDS ORDERED: ALLO300T2 PO (12:12)
[2017-07-30] MEDS ORDERED: IBRU1CAP PO (12:12)
[2017-07-30] MEDS ORDERED: SODIUM CHLORIDE 0.9% 1000ML 1,000 ML IV STA ×2 (12:20→13:41)
--- NOTE | 2017-07-30 12:22 | EMERGENCY ROOM VISIT NOTE ---
History Report prepared by Myesha: Chanelle Sanderson Under the Supervision of: Dr. Wayne Artis M.D. First contact with patient: 12:11 Chief Complaint: LEG PAIN,LEG INJURY Stated Complaint: LEG CRAMP-LYMPHOMA History of Present Illness The patient is a 72 year old male who presents to the Emergency Room with complaints of persistent bilateral leg cramping over the past month. He currently rates his discomfort as a 4/10 in severity. The patient's daughter states that the patient is currently undergoing treatment for Non-Hodgkin's Mantle Cell Lymphoma. She states that the patient has been on chemotherapy up until this past Thursday, noting that he was taken off once his blood work revealed abnormalities in his liver enzymes. The patient's daughter states that the patient has been receiving his treatments locally, while his main oncologists have been located at [facility]. She states that the patient has been persistently dehydrated since his diagnosis. The patient's daughter states that the patient has been clammy at night, but denies any fever. The patient denies any urinary symptoms. Source of History: patient Onset: past month Position: leg (bilateral) Symptom Intensity: 4/10 Quality: cramping Timing: other (persistent) Associated Symptoms: No fevers, No urinary symptoms Note: Associated Symptoms: dehydration, clammy Review of Systems See HPI for pertinent positives and negatives. A total of ten systems were reviewed and were otherwise negative. Past Medical & Surgical Medical Problems: (1) Mantle cell lymphoma Surgical Problems: (1) History of appendectomy Family History FH: CAD (coronary artery disease) FATHER MOTHER FH: lung cancer SISTER Social History Smoking Status: Former Smoker Alcohol Use: none Drug Use: none Marital Status: Housing Status: lives with family Occupation Status: employed Current/Historical Medications Scheduled Allopurinol (Zyloprim), 300 MG PO DAILY Aspirin (Aspirin), 1 TAB PO DAILY Dexamethasone (Decadron), 5 TAB PO UD Dexamethasone (Decadron), 4 TAB PO DAILY Ibrutinib (Imbruvica), 4 CAP PO DAILY Omeprazole (Prilosec), 20 MG PO DAILY Ranitidine Hcl (Zantac), 150 MG PO UD Rituximab (Rituxan), 1 DOSE IV UD Scheduled PRN Cetirizine (Zyrtec), 10 MG PO UD PRN for UD Dextromethorphan-Guaifenesin (Mucinex Dm), 1 TAB PO BID PRN for Cough Ondansetron (Ondansetron HCl), 8 MG PO Q8 PRN for Nausea or Vomiting Allergies Coded Allergies: Tetracycline (Verified Allergy, Unknown, water blisters, 07/30/17) Physical Exam Vital Signs Date Time Temp Pulse Resp B/P (MAP) Pulse Ox O2 Delivery O2 Flow Rate FiO2 07/30/17 14:35 37.0 82 18 125/62 95 Room Air 07/30/17 12:54 89 07/30/17 11:16 37.0 92 17 148/75 93 Room Air Physical Exam GENERAL: Awake, alert, chronically ill-appearing, in no distress HENT: Normocephalic, atraumatic. Dry mucous membranes. EYES: Normal conjunctiva. Sclera non-icteric. NECK: Supple. No nuchal rigidity. FROM. No JVD. RESPIRATORY: Clear to auscultation. CARDIAC: Regular rate, normal rhythm. Extremities warm and well perfused. Pulses equal. ABDOMEN: Soft, non-distended. No tenderness to palpation. No rebound or guarding. No masses. RECTAL: Deferred. MUSCULOSKELETAL: Chest examination reveals no tenderness. The back is symmetrical on inspection without obvious abnormality. There is no CVA tenderness to palpation. No joint edema. LOWER EXTREMITIES: Mild tenderness in palpation of bilateral calves. No edema. No discoloration. NEURO: Normal sensorium. No sensory or motor deficits noted. SKIN: Pale skin, but warm and dry. No rash or jaundice noted. Medical Decision & Procedures ER Provider Diagnostic Interpretation: Radiology results as stated below per my review and radiologist interpretation: CHEST ONE VIEW PORTABLE CLINICAL HISTORY: ABDOMINAL PAIN/GI pain COMPARISON STUDY: 12/12/2016 FINDINGS: Bilateral parenchymal density/nodularity is again noted. Interstitial changes in the lung bases has improved. Diaphragms smooth. Central catheter remains in superior vena cava. IMPRESSION: 1. Improved exam with the interstitial changes at both lung bases diminished. 2. slight underlying nodular-like change persists. The above report was generated using voice recognition software. It may contain grammatical, syntax or spelling errors. Electronically signed by: José Romero M.D. 07/30/2017 12:46 PM Dictated Date/Time: 07/30/2017 12:39 PM\ BILATERAL LOWER EXTREMITY VENOUS DOPPLER HISTORY: Bilateral lower extremity pain - active cancer COMPARISON STUDY: None. FINDINGS: There is normal compressibility, flow, and augmentation within the bilateral lower extremity deep venous systems. IMPRESSION: No DVT within the right or left lower extremity. Electronically signed by: Fran Rubio M.D. 07/30/2017 2:07 PM Dictated Date/Time: 07/30/2017 2:07 PM Laboratory Results Test 07/30/17 12:17 07/30/17 13:59 Neutrophils % (Manual) 58.9 % Lymphocytes % (Manual) 9.6 % Monocytes % (Manual) 5.5 % Metamyelocytes % 1.4 % Myelocytes % 4.1 % Neutrophils # (Manual) 6.11 K/uL (1.4-6.5) Total Absolute Neutrophils 6.11 K/uL (1.4-6.5) Lymphocytes # (Manual) 1.00 K/uL (1.2-3.4) Total Absolute Lymphocytes 1.00 K/uL (1.2-3.4) Monocytes # (Manual) 0.57 K/uL (0.11-0.59) Metamyelocytes # 0.15 K/uL (0-0) Myelocytes # 0.43 K/uL (0-0) Other Cells # 2.13 K/uL (0-0) Other Cell Type 20.5 % Echinocytes 1+ Phosphorus Level 3.0 mg/dl (2.5-4.9) Direct Bilirubin 0.2 mg/dl (0-0.2) Total Creatine Kinase 16 U/L (39-308) Troponin I < 0.015 ng/ml (0-0.045) Lipase 194 U/L (73-393) Urine Color DK YELLOW Urine Appearance CLEAR (CLEAR) Urine pH 5.5 (4.5-7.5) Urine Specific [place] 1.023 (1.000-1.030) Urine Protein NEG (NEG) Urine Glucose (UA) NEG (NEG) Urine Ketones NEG (NEG) Urine Occult Blood NEG (NEG) Urine Nitrite NEG (NEG) Urine Bilirubin NEG (NEG) Urine Urobilinogen NEG (NEG) Urine Leukocyte Esterase NEG (NEG) Laboratory results reviewed by me Medications Administered Medications (Trade) Dose Ordered Sig/Flory Route Start Time Stop Time Status Last Admin Dose Admin Sodium Chloride 1,000 ml @ 999 mls/hr Q1H1M STAT IV 07/30/17 12:20 07/30/17 13:20 DC 07/30/17 12:20 999 MLS/HR Sodium Chloride 1,000 ml @ 999 mls/hr Q1H1M STAT IV 07/30/17 13:41 07/30/17 14:41 DC 07/30/17 13:41 999 MLS/HR ECG Indication: other (leg cramping) Rate (beats per minute): 83 Rhythm: normal sinus Findings: no acute ischemic change, other (normal axis) ED Course 1213: The patient was evaluated in room C11B. A complete history and physical exam was performed. 1220: Ordered Sodium Chloride 1000 ml @ 999 mls/hr IV. 1341: Ordered Sodium Chloride 1000 ml @ 999 mls/hr IV. 1355: Ordered Vancomycin HCl 1500 mg/Sodium Chloride 530 ml @ 200 mls/hr IV, Zosyn IV 4.5 gm IV. 1425: I reevaluated the patient and he is resting comfortably. I discussed the exam findings with him and I discussed the treatment plan. He verbalized complete understanding and agreement. He will be evaluated for further treatment. 1432: I discussed the patients case with Nikki Neumann. She is going to evaluate the patient for further treatment. Medical Decision I reviewed the patient's past medical history, medications, and the nursing notes as described above. The patient's presentation and history were concerning for Dehydration, electrolyte abnormalities, DVT, pneumonia, bronchitis, UTI, deconditioning. The patient is a 72 y/o gentlemen with a pmhx of mantle cell lymphoma undergoing chemotherapy who presents to the emergency department with worsening fatigue and BLE severe cramping per HPI. On arrival the patient is fatigued appearing but in NAD. AFVSS. Lactate 3.5 but labs otherwise unremarkable with wbc 10. CXR and UA negative. BLe duplex negative for DVT. While patient is AF with temp. of 37 unclear if this is accurate marker to r/o infection. Moreover, patient reports chills and night sweats that have persisted but this has been ongoing in the setting of his lymphoma. Considering patient is immun- compromised with elevated lactate will treat for early sepsis. I discussed plan for admission and abx with patient and family. They requested to hold on abx until they were able to confer with their cancer specialist at [facility]. Plan to hold until further d/w with patient and admitting team. Case d/w Nikki Neumann who will admit the patient for further management. Medication Reconcilliation Current Medication List: was personally reviewed by me Blood Pressure Screening Patient's blood pressure: Normal blood pressure Blood pressure disposition: Did not require urgent referral Consults Time Called: 1428 Consulting Physician: Nikki Neumann Returned Call: 1432 I discussed the patients case with Nikki Neumann. She is going to evaluate the patient for further treatment. Impression Primary Impression: Myalgia Additional Impressions: Sepsis High serum lactate Critical Care I have personally spent greater than 35 minutes of critical care time in the direct management of this patient. This includes bedside care, interpretation of diagnostic studies, and testing, discussion with consultants, patient, and family members, and other required patient management activities. This 35 minutes is in excess of all separately billable procedures. Scribe Attestation The scribe's documentation has been prepared under my direction and personally reviewed by me in its entirety. I confirm that the note above accurately reflects all work, treatment, procedures, and medical decision making performed by me. Departure Information Dispostion Being Evaluated By Hospitalist Faustino Singh M.D. (PCP) Problem Qualifiers
--- NOTE | 2017-07-30 12:47 | DIAGNOSTIC IMAGING REPORT ---
CHEST ONE VIEW PORTABLE CLINICAL HISTORY: ABDOMINAL PAIN/GI pain COMPARISON STUDY: 12/12/2016 FINDINGS: Bilateral parenchymal density/nodularity is again noted. Interstitial changes in the lung bases has improved. Diaphragms smooth. Central catheter remains in superior vena cava. IMPRESSION: 1. Improved exam with the interstitial changes at both lung bases diminished. 2. slight underlying nodular-like change persists. The above report was generated using voice recognition software. It may contain grammatical, syntax or spelling errors. Electronically signed by: José Romero M.D. 07/30/2017 12:46 PM Dictated Date/Time: 07/30/2017 12:39 PM
[2017-07-30 13:15] LABS: ALT/SGPT 89 U/L (12-78); BLOOD UREA NITROGEN 16 mg/dl (7-18); BUN/CREATININE RATIO 19.2 (10-20); CALCIUM 8.4 mg/dl (8.5-10.1); CARBON DIOXIDE 24 mmol/L (21-32); CHLORIDE 102 mmol/L (98-107); CREATININE 0.84 mg/dl (0.60-1.40); GLUCOSE 129 mg/dl (70-99); MAGNESIUM 1.9 mg/dl (1.8-2.4); POTASSIUM 3.5 mmol/L (3.5-5.1); SODIUM 136 mmol/L (136-145)
[2017-07-30 13:18] LABS: ALKALINE PHOSPHATASE 105 U/L (45-117); AST/SGOT 19 U/L (15-37)
[2017-07-30 13:28] LABS: HEMATOCRIT 38.3 % (42-52); MEAN CELL VOLUME 86.1 fL (80-100); MEAN CORPUSCULAR HEMOGLOBIN 28.3 pg (25-34); MEAN CORPUSCULAR HGB CONC 32.9 g/dl (32-36); MEAN PLATELET VOLUME 11.1 fL (7.4-10.4); PLATELET COUNT 88 K/uL (130-400); RED BLOOD COUNT 4.45 M/uL (4.7-6.1); WHITE BLOOD COUNT 10.37 K/uL (4.8-10.8)
[2017-07-30 13:54] LABS: ECHINOCYTES 1+; PLT ESTIMATE DECREASED
[2017-07-30] MEDS ORDERED: PIPERACILLIN/TAZOBACTAM 4.5 GM/100ML D5W IV STA (13:55)
[2017-07-30] MEDS ORDERED: VANCOMYCIN INJ 1,500 MG in SODIUM CHLORIDE 0.9% 500ML 500 ML IV STA (13:55)
[2017-07-30 13:57] LABS: COMPLETE YES; LYMPHOCYTE % 9.6 %; META ABS # 0.15 K/uL (0-0); METAMYELOCYTE % 1.4 %; MYELOCYTE % 4.1 %; NEUTROPHILS % 58.9 %; OTHER CELL TYPE ABS # 2.13 K/uL (0-0)
--- NOTE | 2017-07-30 14:09 | DIAGNOSTIC IMAGING REPORT ---
BILATERAL LOWER EXTREMITY VENOUS DOPPLER HISTORY: Bilateral lower extremity pain - active cancer COMPARISON STUDY: None. FINDINGS: There is normal compressibility, flow, and augmentation within the bilateral lower extremity deep venous systems. IMPRESSION: No DVT within the right or left lower extremity. Electronically signed by: Fran Rubio M.D. 07/30/2017 2:07 PM Dictated Date/Time: 07/30/2017 2:07 PM
[2017-07-30 14:11] LABS: URINE APPEARANCE CLEAR (CLEAR); URINE BILIRUBIN NEG (NEG); URINE COLOR DK YELLOW; URINE NITRITE NEG (NEG); URINE PH 5.5 (4.5-7.5); URINE SPECIFIC GRAVITY 1.023 (1.000-1.030); UROBILINOGEN NEG (NEG); ZZUR CULT IF INDIC CLEAN CATCH NO
[2017-07-30 14:25] LABS: MANUAL MICROSCOPIC REQUIRED? NO; REVIEW REQ? NO
[2017-07-30] MEDS ORDERED: OPTIRAY 320 IV PRN (15:45)
[2017-07-30] MEDS ORDERED: ONDANSETRON INJ 2 MG/ML 2 ML VIAL IV PRN (15:45)
[2017-07-30] MEDS ORDERED: ACETAMINOPHEN 325 MG TAB PO PRN (15:45)
[2017-07-30] MEDS ORDERED: IV FLUIDS COMPLETED PRN (15:45)
[2017-07-30] MEDS ORDERED: DIAZEPAM 5MG TAB PO PRN (16:00)
[2017-07-30] MEDS ORDERED: DIAZEPAM 5MG TAB PO ONE (16:00)
[2017-07-30] MEDS ORDERED: ASPI325T45 PO (16:07)
[2017-07-30 16:30] VITALS: BP 146/73; PULSE 77; TEMP 36.4; O2SAT 96; Ht 175.3 cm; Wt 77.8 kg
--- NOTE | 2017-07-30 16:38 | History and Physical ---
History & Physical Date & Time of Service: Jul 30, 2017 ~ 15:00 Chief Complaint: Leg Cramps Primary Care Physician: Dr. Cain History of Present Illness 72 year old male who presents to the ED with reports of leg cramps. Patient has history of mantel cell lymphoma and has been evaluated at [facility]. Patient was started on a new chemotherapy regimen about 3 weeks ago including Ibrutinib and Rituxan. Therapies were stopped on 07/27 due to increased LFTs. Patient reports increasing leg cramps over the past couple days. He reports it is in the calves and both legs equally. He takes his temperature regularly and has not had any fevers. He has had chills and clamminess since his diagnosis and his thinks they may have been a little worse recently. He also has chronic congestion and cough which is unchanged. He reports his appetite has been good. He denies abdominal pain, nausea, vomiting, or diarrhea. No urinary symptoms. In the ED, work up is essentially unremarkable with the exception of a lactic acid of 3.5. Patient was given IVF. He was ordered to receive Vanco and Zosyn however he declined these. Past Medical/Surgical History Medical Problems: (1) Mantle cell lymphoma Status: Chronic Surgical Problems: (1) History of appendectomy Status: Resolved Family History FH: CAD (coronary artery disease) FATHER MOTHER FH: lung cancer SISTER Social History Smoking Status: Former Smoker Alcohol Use: none Marital Status: Immunizations History of Influenza Vaccine: Yes Influenza Vaccine Date: Aug 08, 2015 History of Tetanus Vaccine?: Yes Tetanus Immunization Date: Oct 05, 2011 History of Pneumococcal: Yes Pneumococcal Date: Aug 08, 2015 Allergies Coded Allergies: Tetracycline (Verified Allergy, Unknown, water blisters, 07/30/17) Home Medications Scheduled Allopurinol (Zyloprim), 300 MG PO DAILY Aspirin (Aspirin), 1 TAB PO DAILY Dexamethasone (Decadron), 5 TAB PO UD Dexamethasone (Decadron), 4 TAB PO DAILY Ibrutinib (Imbruvica), 4 CAP PO DAILY Omeprazole (Prilosec), 20 MG PO DAILY Ranitidine Hcl (Zantac), 150 MG PO UD Rituximab (Rituxan), 1 DOSE IV UD Scheduled PRN Cetirizine (Zyrtec), 10 MG PO UD PRN for UD Dextromethorphan-Guaifenesin (Mucinex Dm), 1 TAB PO BID PRN for Cough Ondansetron (Ondansetron HCl), 8 MG PO Q8 PRN for Nausea or Vomiting Review of Systems ROS per HPI, all other systems reviewed and negative Physical Exam Vital Signs Date Time Temp Pulse Resp B/P (MAP) Pulse Ox O2 Delivery O2 Flow Rate FiO2 07/30/17 14:35 37.0 82 18 125/62 95 Room Air 07/30/17 12:54 89 07/30/17 11:16 37.0 92 17 148/75 93 Room Air General Appearance: WD/WN, no apparent distress Head: normocephalic, atraumatic Eyes: normal inspection, EOMI, sclerae normal ENT: hearing grossly normal, + pertinent finding (moist mucous membranes) Neck: supple, no JVD, trachea midline Respiratory/Chest: lungs clear, normal breath sounds, no respiratory distress Cardiovascular: regular rate, rhythm, no edema, normal peripheral pulses Abdomen/GI: normal bowel sounds, non tender, soft, no organomegaly Extremities/Musculoskelatal: normal inspection, no calf tenderness, normal capillary refill Neurologic/Psych: no motor/sensory deficits, alert, normal mood/affect, oriented x 3 Skin: normal color, warm/dry Diagnostics Laboratory Results Results Past 24 Hours Test 07/30/17 12:17 07/30/17 12:37 07/30/17 13:59 07/30/17 15:45 Range/Units White Blood Count 10.37 4.8-10.8 K/uL Red Blood Count 4.45 4.7-6.1 M/uL Hemoglobin 12.6 14.0-18.0 g/dL Hematocrit 38.3 42-52 % Mean Corpuscular Volume 86.1 80-100 fL Mean Corpuscular Hemoglobin 28.3 25-34 pg Mean Corpuscular Hemoglobin Concent 32.9 32-36 g/dl Platelet Count 88 130-400 K/uL Mean Platelet Volume 11.1 7.4-10.4 fL RDW Standard Deviation 50.4 36.4-46.3 fL RDW Coefficient of Variation 16.0 11.5-14.5 % Neutrophils % (Manual) 58.9 % Lymphocytes % (Manual) 9.6 % Monocytes % (Manual) 5.5 % Metamyelocytes % 1.4 % Myelocytes % 4.1 % Neutrophils # (Manual) 6.11 1.4-6.5 K/uL Total Absolute Neutrophils 6.11 1.4-6.5 K/uL Lymphocytes # (Manual) 1.00 1.2-3.4 K/uL Total Absolute Lymphocytes 1.00 1.2-3.4 K/uL Monocytes # (Manual) 0.57 0.11-0.59 K/uL Metamyelocytes # 0.15 0-0 K/uL Myelocytes # 0.43 0-0 K/uL Other Cells # 2.13 0-0 K/uL Other Cell Type 20.5 % Blood Smear Review Platelet Estimate DECREASED Echinocytes 1+ Sodium Level 136 136-145 mmol/L Potassium Level 3.5 3.5-5.1 mmol/L Chloride Level 102 98-107 mmol/L Carbon Dioxide Level 24 21-32 mmol/L Anion Gap 11.0 3-11 mmol/L Blood Urea Nitrogen 16 7-18 mg/dl Creatinine 0.84 0.60-1.40 mg/dl Est Creatinine Clear Calc Drug Dose 78.4 ml/min Estimated GFR () 100.7 Estimated GFR (Non- 86.9 BUN/Creatinine Ratio 19.2 10-20 Random Glucose 129 70-99 mg/dl Calcium Level 8.4 8.5-10.1 mg/dl Phosphorus Level 3.0 2.5-4.9 mg/dl Magnesium Level 1.9 1.8-2.4 mg/dl Total Bilirubin 0.5 0.2-1 mg/dl Direct Bilirubin 0.2 0-0.2 mg/dl Aspartate Amino Transf (AST/SGOT) 19 15-37 U/L Alanine Aminotransferase (ALT/SGPT) 89 12-78 U/L Alkaline Phosphatase 105 45-117 U/L Total Creatine Kinase 16 39-308 U/L Troponin I < 0.015 0-0.045 ng/ml Total Protein 6.2 6.4-8.2 gm/dl Albumin 2.8 3.4-5.0 gm/dl Lipase 194 73-393 U/L Lactic Acid Level 3.5 0.4-2.0 mmol/L Urine Color DK YELLOW Urine Appearance CLEAR CLEAR Urine pH 5.5 4.5-7.5 Urine Specific [place] 1.023 1.000-1.030 Urine Protein NEG NEG Urine Glucose (UA) NEG NEG Urine Ketones NEG NEG Urine Occult Blood NEG NEG Urine Nitrite NEG NEG Urine Bilirubin NEG NEG Urine Urobilinogen NEG NEG Urine Leukocyte Esterase NEG NEG Microbiology Results 07/30/17 Blood Culture, Received Pending 07/30/17 Blood Culture, Received Pending Diagnostic Radiology CXR IMPRESSION: 1. Improved exam with the interstitial changes at both lung bases diminished. 2. slight underlying nodular-like change persists. BLLE DOPPLER IMPRESSION: No DVT within the right or left lower extremity. Impression Assessment and Plan LACTIC ACIDEMIA LEG CRAMPS - admit to med/surg - patient presenting with increasing leg cramps x 2 days; work up in the ED essentially unrevealing with the exception of a lactic acid of 3.5 - currently no obvious symptoms or clinical signs of infection; afebrile, stable CBC - cased discussed with Dr. Ryan; will hold on antibiotics for now - follow blood cultures and CBC; low threshold for antibiotic initiation - lactic acidemia possibly due to underlying lymphoma or dehydration - leg cramps possibly due to dehydration or side effect of Ibrutinib - for completeness will check TSH, B12, Vitamin D, iron - IVF, recheck lactic acid later today - PRN Valium for severe cramping HX MANTEL CELL LYMPHOMA - follows at [facility] with Dr. Ochoa / Dr. Ryan locally - chemo regimen recently changed to oral Ibrutinib daily and IV Rituxan weekly however therapies placed on hold on 07/27 due to increased LFTs; noted LFTs basically normalized today with the exception of a mildly elevated ALT at 89 - discussed with Dr. Ryan; will check CT chest, abd, and pelvis to check progression of disease and he will evaluate the patient tomorrow DVT PROPHYLAXIS - SQ Lovenox DISPO - The patient will be placed as observation status for now until further work up is complete. - contact info for [facility]: Dr. Ochoa office - [phone], fax - [phone] (patient requesting records be sent at discharge), nurse coordinator - [phone] ADDENDUM: I have reviewed the record, examined the patient and agree with the assessment and plan above. His leg cramps were resolved after one dose of valium this afternoon. Also, his vitamin D was found to be deficient, so will nee weekly doses of ergocalciferol x 12 weeks. He also has iron deficiency, which may be contributing. Consider starting iron but due to constipation and other side effects, will defer to primary team to discuss with patient first. Otherwise he is not ill-appearing, HD stable, with normal WBC count, no fevers and overall doing well. CT c/a/p per Dr. Ryan who will be in to discuss future directions with him tomorrow. As PLTs>50K and no bleeding, cont Lovenox for DVT prophy with close monitoring of PLTs. Pelon, DO Level of Care Telemetry Resuscitation Status FULL RESUSCITATION VTE Prophylaxis VTE Risk Assessment Done? Y/N: Yes Risk Level: High Given or contraindicated: Enoxaparin (Lovenox)SQ
[2017-07-30] MEDS: SODIUM CHLORIDE 0.9% 1000ML 1,000 ML IV SCH (17:07)
--- NOTE | 2017-07-30 18:17 | DIAGNOSTIC IMAGING REPORT ---
CT OF THE CHEST WITH IV CONTRAST CLINICAL HISTORY: Lymphoma ABNORMAL CHEST X-RAY COMPARISON STUDY: 07/29/2016 TECHNIQUE: Following the IV administration of 116 mL of Optiray-320, CT of the thorax was performed from the thoracic inlet to the lung bases. Images are reviewed in the axial, sagittal, and coronal planes. IV contrast was administered without complication. A dose lowering technique was utilized adhering to the principles of ALARA. CT DOSE: FINDINGS: Thyroid: Imaged portions of the thyroid gland are normal in appearance. Thoracic aorta: The thoracic aorta is normal in course and caliber, noting standard 3-vessel arch anatomy. No aneurysm or dissection is seen. Pulmonary vasculature: The pulmonary trunk is normal in caliber. There are no central filling defects identified to suggest pulmonary embolus. Note that this examination was not protocoled for the evaluation of pulmonary emboli. HEART: The heart is normal in size and configuration, without pericardial effusion. There is a right-sided A-Port catheter present. Lungs and pleural spaces: No pleural effusions are visualized. There is pulmonary emphysema. Since the prior study, the patient has developed multiple irregular bilateral pulmonary nodules. There is a 19 mm nodule within the right lung apex. There are 2 tangential right upper lobe pulmonary nodules, each of which measures 9 mm. There are right middle lobe pulmonary nodules the largest of which measure 19 mm and 15 mm. There is a 7 mm left lower lobe pulmonary nodule. There are multiple left upper lobe pulmonary nodules the largest of which measures 26 mm. MEDIASTINUM: Mediastinal lymph nodes Taylor: There are mildly enlarged bilateral hilar lymph nodes Axilla: There is interval decrease in the size of the previously described enlarged left axillary lymph node. This currently measures 10 mm Upper abdomen: There is hepatic steatosis. The spleen is enlarged. Skeletal structures: There are no lytic or blastic osseous lesions. IMPRESSION: 1. Interval development of multiple irregular marginated bilateral pulmonary nodules. The appearance is nonspecific and could be infectious/inflammatory, neoplastic, or related to a drug reaction. 2. Emphysema 3. Mild mediastinal and hilar lymphadenopathy 4. Splenomegaly 5. Interval decrease in the size of the previously identified enlarged left axillary lymph node 6. Hepatic steatosis Electronically signed by: Bernard Elizondo M.D. 07/30/2017 6:15 PM Dictated Date/Time: 07/30/2017 6:07 PM
--- NOTE | 2017-07-30 18:38 | DIAGNOSTIC IMAGING REPORT ---
ABD/PELVIS IV AND ORAL CONT HISTORY: 72 years-old Male hx lymphoma follow-up study in a patient with lymphoma COMPARISON: CT chest of same day, CT abdomen and pelvis 09/14/2016 TECHNIQUE: Multiple axial CT images of the abdomen and pelvis were obtained following the intravenous administration of 116 mL Optiray 320. Oral contrast also administered. A dose lowering technique was used consistent with the principals of MICHEAL. FINDINGS: Nodules of the right lower lobe are seen measuring up to approximately 4-5 mm. Linear subsegmental consolidative opacities of the lung bases suggest atelectasis. No pneumoperitoneum identified. Imaged inferior cardiac chambers are unremarkable with coronary arterial calcifications noted. Liver, gallbladder, pancreas and adrenal glands are unremarkable. The spleen is again enlarged measuring up to approximately 15 cm. Kidneys, ureters are unremarkable. Mild urinary bladder distention. Prostate is mildly enlarged with coarse central calcifications. Moderate plaquing of the abdominal aorta. Redemonstration of bulky retroperitoneal adenopathy including pericaval, periaortic, iliac, inguinal and pelvic sidewall lymph nodes. Index periaortic lymph node on image 207 of series 6 measures 3.0 x 1.5 cm, previously measuring 2.4 x 1.4 cm on study dated 09/14/2016. Pericaval lymph node on image 233 series 6 measuring 2.1 x 1.2 cm previously measured 2.2 x 1.2 cm. Pelvic sidewall lymph node on image 358 series 6 measuring 10 mm in short axis previously measured 10 mm. No definite new lymph nodes identified. Periaortic node on image 181 series 6 measuring 2.1 x 1.4 cm previous measured 2.7 x 1.8 cm. No bowel obstruction. Soft tissues are unremarkable. No suspicious lytic or blastic bony lesions identified. IMPRESSION: 1. Persistent splenomegaly with bulky periaortic, pericaval, iliac chain and pelvic sidewall adenopathy. Lymph nodes appear stable to slightly decreased in size from comparison study 09/14/2016. 2. No bowel obstruction or other acute intra-abdominal abnormality identified. The above report was generated using voice recognition software. It may contain grammatical, syntax or spelling errors. Electronically signed by: Marcus Son M.D. 07/30/2017 6:37 PM Dictated Date/Time: 07/30/2017 6:12 PM
[2017-07-30 19:07] LABS: HEMATOCRIT 36.3 % (42-52); MEAN CELL VOLUME 86.2 fL (80-100); MEAN CORPUSCULAR HEMOGLOBIN 28.5 pg (25-34); MEAN CORPUSCULAR HGB CONC 33.1 g/dl (32-36); RED BLOOD COUNT 4.21 M/uL (4.7-6.1); WHITE BLOOD COUNT 9.29 K/uL (4.8-10.8)
[2017-07-30 19:19] LABS: PROTHROMBIN TIME (PATIENT) 11.2 SECONDS (9.0-12.0)
[2017-07-30 19:34] LABS: MEAN PLATELET VOLUME 10.7 fL (7.4-10.4); PLATELET COUNT 83 K/uL (130-400)
[2017-07-30 19:35] LABS: PLT ESTIMATE DECREASED
[2017-07-30 19:45] VITALS: BP 105/59; PULSE 80; TEMP 37; O2SAT 92
[2017-07-30 19:46] LABS: FERRITIN 594.2 ng/ml (8.0-388.0); THYROID STIMULATING HORMONE 2.26 uIu/ml (0.300-4.500)
[2017-07-30] MEDS ORDERED: ENOXAPARIN 40 MG/0.4 ML SYR SQ SCH (22:00)
[2017-07-31 00:01] VITALS: BP 121/86; PULSE 86; TEMP 37.6; O2SAT 90
[2017-07-31 04:04] VITALS: BP 123/70; PULSE 88; TEMP 37.2; O2SAT 93
[2017-07-31] MEDS: SODIUM CHLORIDE 0.9% 1000ML 1,000 ML IV SCH ×2 (04:22→13:10)
[2017-07-31 06:11] LABS: HEMATOCRIT 33.2 % (42-52); MEAN CELL VOLUME 86.5 fL (80-100); MEAN CORPUSCULAR HEMOGLOBIN 27.9 pg (25-34); MEAN CORPUSCULAR HGB CONC 32.2 g/dl (32-36); RED BLOOD COUNT 3.84 M/uL (4.7-6.1); WHITE BLOOD COUNT 6.93 K/uL (4.8-10.8)
[2017-07-31 06:15] LABS: MEAN PLATELET VOLUME 10.5 fL (7.4-10.4); PLATELET COUNT 74 K/uL (130-400)
[2017-07-31 06:45] LABS: BUN/CREATININE RATIO 18.4 (10-20); CALCIUM 7.5 mg/dl (8.5-10.1); CREATININE 0.66 mg/dl (0.60-1.40); MAGNESIUM 1.9 mg/dl (1.8-2.4); POTASSIUM 3.9 mmol/L (3.5-5.1)
[2017-07-31 06:46] LABS: ALB/GLOB RATIO 0.8 (0.9-2)
[2017-07-31 07:25] VITALS: BP 149/75; PULSE 77; TEMP 36.8; O2SAT 97
[2017-07-31] MEDS ORDERED: PANTOprazole SOD 40 MG TAB PO SCH (08:00)
[2017-07-31] MEDS ORDERED: ERGOCALCIFEROL 50,000 INTER.UNIT CAP PO SCH (09:00)
[2017-07-31 11:40] VITALS: BP 142/77; PULSE 77; TEMP 36.5; O2SAT 94
[2017-07-31 14:59] VITALS: BP 126/73; PULSE 81; TEMP 36.8; O2SAT 92
[2017-07-31 15:36] VITALS: BP 126/73; PULSE 81; TEMP 36.8; O2SAT 92
--- NOTE | 2017-07-31 16:42 | Progress Note ---
Medicine Progress Note Date & Time of Visit: Jul 31, 2017 at 16:24. Subjective Pt was seen and examined Sitting comfortable with no distress Pt said that he feels fine He said that he does not have any leg cram anymore denies any chest pain, palpitation, dizziness and SOB Objective Last 8 Hrs Date Time Temp Pulse Resp B/P (MAP) Pulse Ox O2 Delivery O2 Flow Rate FiO2 07/31/17 15:36 36.8 81 18 92 Room Air 07/31/17 14:59 36.8 81 18 126/73 (90) 92 Room Air 07/31/17 11:40 36.5 77 18 142/77 (98) 94 Room Air 07/31/17 08:50 Room Air Physical Exam: General- No acute distress Head- atraumatic Eyes- PERRL, EOMI ENT- oropharynx clear Neck- supple, no JVD Lungs- clear to auscultation Heart- regular rhythm Abdomen- normal bowel sounds, soft Extremities- no calf tenderness Neuro- alert, oriented x 3; PERRL, EOMI Skin- warm & dry Laboratory Results: Last 24 Hours Test 07/30/17 18:52 07/31/17 05:37 White Blood Count 9.29 K/uL 6.93 K/uL Red Blood Count 4.21 M/uL 3.84 M/uL Hemoglobin 12.0 g/dL 10.7 g/dL Hematocrit 36.3 % 33.2 % Mean Corpuscular Volume 86.2 fL 86.5 fL Mean Corpuscular Hemoglobin 28.5 pg 27.9 pg Mean Corpuscular Hemoglobin Concent 33.1 g/dl 32.2 g/dl RDW Standard Deviation 49.8 fL 50.2 fL RDW Coefficient of Variation 15.9 % 15.8 % Platelet Count 83 K/uL 74 K/uL Mean Platelet Volume 10.7 fL 10.5 fL Platelet Estimate DECREASED Prothrombin Time 11.2 SECONDS Prothromb Time International Ratio 1.0 Lactic Acid Level 1.7 mmol/L Iron Level 26 mcg/dl Total Iron Binding Capacity 194 mcg/dl Ferritin 594.2 ng/ml Vitamin B12 Level 1941 pg/mL 25-Hydroxy Vitamin D Total 18.4 ng/ml Thyroid Stimulating Hormone (TSH) 2.260 uIu/ml Blood Smear Review Sodium Level 139 mmol/L Potassium Level 3.9 mmol/L Chloride Level 107 mmol/L Carbon Dioxide Level 23 mmol/L Anion Gap 9.0 mmol/L Blood Urea Nitrogen 12 mg/dl Creatinine 0.66 mg/dl Est Creatinine Clear Calc Drug Dose 99.7 ml/min Estimated GFR () 111.2 Estimated GFR (Non- 95.9 BUN/Creatinine Ratio 18.4 Random Glucose 87 mg/dl Calcium Level 7.5 mg/dl Magnesium Level 1.9 mg/dl Total Bilirubin 0.5 mg/dl Aspartate Amino Transf (AST/SGOT) 15 U/L Alanine Aminotransferase (ALT/SGPT) 61 U/L Alkaline Phosphatase 87 U/L Total Protein 5.3 gm/dl Albumin 2.3 gm/dl Globulin 3.0 gm/dl Albumin/Globulin Ratio 0.8 Assessment & Plan LACTIC ACIDEMIA Possibly due to underlying lymphoma or dehydration Presenting with increasing leg cramps with elevated lactic acid on admission No signs of infection, afebrile, no leukocytosis Refused IV abx in the ER No abx given On IVF Lactic acid resolved UA negative Blood cx pending Clinically stable LEG CRAMP Possibly due to dehydration or side effect of Ibrutinib Received IV fluid Ambulating with no discomfort Symptoms resolved HX MANTEL CELL LYMPHOMA Follows at [facility] with Dr. Ochoa / Dr. Ryan locally Chemo regimen recently changed to oral Ibrutinib daily and IV Rituxan weekly however therapies placed on hold on 07/27 due to increased LFTs Oncology on board Case discussed with Dr. Ryan Follow up with Hem/Oncology CT abd/pelvis showed Persistent splenomegaly with bulky periaortic, pericaval, iliac chain and pelvic sidewall adenopathy. Lymph nodes appear stable to slightly decreased in size from comparison study 09/14/2016. CT Chest showed Interval development of multiple irregular marginated bilateral pulmonary nodules. DVT PROPHYLAXIS - SQ Lovenox DISPOSITION Follow up with primary care provider Dr. Cain on 08/06 @ 12:00 Follow up with Oncology Consultants: Oncology Current Inpatient Medications: Current Inpatient Medications Medications (Trade) Dose Ordered Sig/Flory Route Start Time Stop Time Status Last Admin Dose Admin Acetaminophen (Tylenol Tab) 650 mg Q4H PRN PO 07/30/17 15:45 08/29/17 15:44 Ondansetron HCl (Zofran Inj) 4 mg Q6H PRN IV 07/30/17 15:45 08/29/17 15:44 Miscellaneous (Iv Fluids Completed) 1 ea PRN PRN N/A 07/30/17 15:45 07/30/18 15:44 Sodium Chloride 1,000 ml @ 100 mls/hr Q10H IV 07/30/17 15:45 08/29/17 15:44 07/31/17 13:10 100 MLS/HR Ioversol (Optiray 320) 100 ml UD PRN IV 07/30/17 15:45 08/03/17 15:44 Diazepam (Valium Tab) 5 mg TID PRN PO 07/30/17 16:00 08/29/17 15:59 Pantoprazole Sodium (Protonix Tab) 40 mg DAILY PO 07/31/17 08:00 08/30/17 08:59 07/31/17 08:48 40 MG Enoxaparin Sodium (Lovenox Inj) 40 mg Q24H SQ 07/30/17 22:00 08/29/17 21:59 07/30/17 22:00 40 MG Ergocalciferol (Vitamin D Cap) 50,000 interunit Q7D PO 07/31/17 09:00 10/16/17 09:01 07/31/17 08:50 50,000 INTERUNIT
--- NOTE | 2017-07-31 16:50 | Discharge Instructions ---
Discharge Instructions Date of Service Jul 31, 2017. Admission Reason for Admission: Leg Cramps Discharge Discharge Diagnosis / Problem: Elevated Lactic Acid, Leg Cramp, HX MANTEL CELL LYMPHOMA Discharge Goals Goal(s): Decrease discomfort, Improve function, Improve disease control Activity Recommendations Activity Limitations: resume your previous activity (as tolerated) . Instructions / Follow-Up Instructions / Follow-Up Follow up with your primary care provider Dr. Cain on 08/06 @ 12:30 PM Follow up with oncology Dr. Ryan Continue holding chemotherapy agents Ibrutinib and Rituxan until Dr. Ryan instructs you to resume them. Keep yourself hydrate Blood culture pending ( your primary care physician will have the result) Current Hospital Diet Patient's current hospital diet: Regular Diet Discharge Diet Recommended Diet: Regular Diet Pending Studies Studies pending at discharge: yes List of pending studies: Blood culture Medical Emergencies . Who to Call and When: Medical Emergencies: If at any time you feel your situation is an emergency, please call 911 immediately. . Non-Emergent Contact Non-Emergency issues call your: Primary Care Provider, Oncologist Call Non-Emergent contact if: you have a fever, you have any medication questions . . "Provider Documentation" section prepared by David Rosen. . VTE Core Measure Inpt VTE Proph given/why not?: Enoxaparin (Lovenox)SQ
[2017-07-31 18:21] LABS: DOHLE BODIES 1+; ECHINOCYTES 1+
[2017-07-31 18:25] LABS: COMPLETE YES; EOSINOPHIL % 0.9 %; LYMPH ABS # 0.78 K/uL (1.2-3.4); LYMPHOCYTE % 11.2 %; MYELOCYTE % 2.6 %; NEUTROPHILS % 65.5 %; OTHER CELL TYPE ABS # 0.96 K/uL (0-0)
--- NOTE | 2017-08-03 07:44 | Discharge Summary ---
Discharge Summary Date of Service Aug 03, 2017. Discharge Summary Admission Date: Jul 30, 2017 at 14:45 Discharge Date: Jul 31, 2017 Discharge Disposition: Home Principal Diagnosis: Leg Cramp Secondary Diagnoses/Problems: Elevated Lactic Acid Leg Cramp HX MANTEL CELL LYMPHOMA Procedures: ABD/PELVIS IV AND ORAL CONT HISTORY: 72 years-old Male hx lymphoma follow-up study in a patient with lymphoma COMPARISON: CT chest of same day, CT abdomen and pelvis 09/14/2016 TECHNIQUE: Multiple axial CT images of the abdomen and pelvis were obtained following the intravenous administration of 116 mL Optiray 320. Oral contrast also administered. A dose lowering technique was used consistent with the principals of MICHEAL. FINDINGS: Nodules of the right lower lobe are seen measuring up to approximately 4-5 mm. Linear subsegmental consolidative opacities of the lung bases suggest atelectasis. No pneumoperitoneum identified. Imaged inferior cardiac chambers are unremarkable with coronary arterial calcifications noted. Liver, gallbladder, pancreas and adrenal glands are unremarkable. The spleen is again enlarged measuring up to approximately 15 cm. Kidneys, ureters are unremarkable. Mild urinary bladder distention. Prostate is mildly enlarged with coarse central calcifications. Moderate plaquing of the abdominal aorta. Redemonstration of bulky retroperitoneal adenopathy including pericaval, periaortic, iliac, inguinal and pelvic sidewall lymph nodes. Index periaortic lymph node on image 207 of series 6 measures 3.0 x 1.5 cm, previously measuring 2.4 x 1.4 cm on study dated 09/14/2016. Pericaval lymph node on image 233 series 6 measuring 2.1 x 1.2 cm previously measured 2.2 x 1.2 cm. Pelvic sidewall lymph node on image 358 series 6 measuring 10 mm in short axis previously measured 10 mm. No definite new lymph nodes identified. Periaortic node on image 181 series 6 measuring 2.1 x 1.4 cm previous measured 2.7 x 1.8 cm. No bowel obstruction. Soft tissues are unremarkable. No suspicious lytic or blastic bony lesions identified. IMPRESSION: 1. Persistent splenomegaly with bulky periaortic, pericaval, iliac chain and pelvic sidewall adenopathy. Lymph nodes appear stable to slightly decreased in size from comparison study 09/14/2016. 2. No bowel obstruction or other acute intra-abdominal abnormality identified. The above report was generated using voice recognition software. It may contain grammatical, syntax or spelling errors. Electronically signed by: Marcus Son M.D. 07/30/2017 6:37 PM Dictated Date/Time: 07/30/2017 6:[address] OF THE CHEST WITH IV CONTRAST CLINICAL HISTORY: Lymphoma ABNORMAL CHEST X-RAY COMPARISON STUDY: 07/29/2016 TECHNIQUE: Following the IV administration of 116 mL of Optiray-320, CT of the thorax was performed from the thoracic inlet to the lung bases. Images are reviewed in the axial, sagittal, and coronal planes. IV contrast was administered without complication. A dose lowering technique was utilized adhering to the principles of ALARA. CT DOSE: FINDINGS: Thyroid: Imaged portions of the thyroid gland are normal in appearance. Thoracic aorta: The thoracic aorta is normal in course and caliber, noting standard 3-vessel arch anatomy. No aneurysm or dissection is seen. Pulmonary vasculature: The pulmonary trunk is normal in caliber. There are no central filling defects identified to suggest pulmonary embolus. Note that this examination was not protocoled for the evaluation of pulmonary emboli. HEART: The heart is normal in size and configuration, without pericardial effusion. There is a right-sided A-Port catheter present. Lungs and pleural spaces: No pleural effusions are visualized. There is pulmonary emphysema. Since the prior study, the patient has developed multiple irregular bilateral pulmonary nodules. There is a 19 mm nodule within the right lung apex. There are 2 tangential right upper lobe pulmonary nodules, each of which measures 9 mm. There are right middle lobe pulmonary nodules the largest of which measure 19 mm and 15 mm. There is a 7 mm left lower lobe pulmonary nodule. There are multiple left upper lobe pulmonary nodules the largest of which measures 26 mm. MEDIASTINUM: Mediastinal lymph nodes Taylor: There are mildly enlarged bilateral hilar lymph nodes Axilla: There is interval decrease in the size of the previously described enlarged left axillary lymph node. This currently measures 10 mm Upper abdomen: There is hepatic steatosis. The spleen is enlarged. Skeletal structures: There are no lytic or blastic osseous lesions. IMPRESSION: 1. Interval development of multiple irregular marginated bilateral pulmonary nodules. The appearance is nonspecific and could be infectious/inflammatory, neoplastic, or related to a drug reaction. 2. Emphysema 3. Mild mediastinal and hilar lymphadenopathy 4. Splenomegaly 5. Interval decrease in the size of the previously identified enlarged left axillary lymph node 6. Hepatic steatosis Electronically signed by: Bernard Elizondo M.D. 07/30/2017 6:15 PM Dictated Date/Time: 07/30/2017 6:07 PM BILATERAL LOWER EXTREMITY VENOUS DOPPLER HISTORY: Bilateral lower extremity pain - active cancer COMPARISON STUDY: None. FINDINGS: There is normal compressibility, flow, and augmentation within the bilateral lower extremity deep venous systems. IMPRESSION: No DVT within the right or left lower extremity. Electronically signed by: Fran Rubio M.D. 07/30/2017 2:07 PM Dictated Date/Time: 07/30/2017 2:07 PM CHEST ONE VIEW PORTABLE CLINICAL HISTORY: ABDOMINAL PAIN/GI pain COMPARISON STUDY: 12/12/2016 FINDINGS: Bilateral parenchymal density/nodularity is again noted. Interstitial changes in the lung bases has improved. Diaphragms smooth. Central catheter remains in superior vena cava. IMPRESSION: 1. Improved exam with the interstitial changes at both lung bases diminished. 2. slight underlying nodular-like change persists. The above report was generated using voice recognition software. It may contain grammatical, syntax or spelling errors. Electronically signed by: José Romero M.D. 07/30/2017 12:46 PM Consultations: Oncology Medication Reconciliation Continued Medications: Allopurinol (Zyloprim) 300 Mg Tab 300 MG PO DAILY, TAB on hold since 07/27 Aspirin (Aspirin) 325 Mg Tab 1 TAB PO DAILY Cetirizine (Zyrtec) 10 Mg Tab 10 MG PO UD PRN for UD, TAB TAKE 1 CAPSULE IN AM BEGINNING 5 DAYS PRIOR TO RITUXAN TX. Dexamethasone (Decadron) 4 Mg Tab 5 TAB PO UD, TAB 5 TAB HS AND 5 TAB QAM MORNING OF RITUXIN TREATMENT. Dexamethasone (Decadron) 4 Mg Tab 4 TAB PO DAILY for 2 Days, #8 TAB on hold since 07/27 Dextromethorphan-Guaifenesin (Mucinex Dm) 1 Tab Tab 1 TAB PO BID PRN for Cough, TAB Ibrutinib (Imbruvica) 140 Mg Cap 4 CAP PO DAILY on hold since 07/27 Omeprazole (Prilosec) 20 Mg Capcr 20 MG PO DAILY Ondansetron (Ondansetron HCl) 8 Mg Tab 8 MG PO Q8 PRN for Nausea or Vomiting Ranitidine Hcl (Zantac) 150 Mg Tab 150 MG PO UD, TAB TAKE FOR 5 DAYS PRIOR TO RITUXIN TREATMENT Rituximab (Rituxan) 10 Mg/Ml Inj 1 DOSE IV UD for MONDAYS Admission Information HPI (per Admitting provider): 72 year old male who presents to the ED with reports of leg cramps. Patient has history of mantel cell lymphoma and has been evaluated at [facility]. Patient was started on a new chemotherapy regimen about 3 weeks ago including Ibrutinib and Rituxan. Therapies were stopped on 07/27 due to increased LFTs. Patient reports increasing leg cramps over the past couple days. He reports it is in the calves and both legs equally. He takes his temperature regularly and has not had any fevers. He has had chills and clamminess since his diagnosis and his thinks they may have been a little worse recently. He also has chronic congestion and cough which is unchanged. He reports his appetite has been good. He denies abdominal pain, nausea, vomiting, or diarrhea. No urinary symptoms. In the ED, work up is essentially unremarkable with the exception of a lactic acid of 3.5. Patient was given IVF. He was ordered to receive Vanco and Zosyn however he declined these. Physical Exam (per Admitting): General Appearance: WD/WN, no apparent distress Head: normocephalic, atraumatic Eyes: normal inspection, EOMI, sclerae normal ENT: hearing grossly normal, + pertinent finding (moist mucous membranes) Neck: supple, no JVD, trachea midline Respiratory/Chest: lungs clear, normal breath sounds, no respiratory distress Cardiovascular: regular rate, rhythm, no edema, normal peripheral pulses Abdomen/GI: normal bowel sounds, non tender, soft, no organomegaly Extremities/Musculoskelatal: normal inspection, no calf tenderness, normal capillary refill Neurologic/Psych: no motor/sensory deficits, alert, normal mood/affect, oriented x 3 Skin: normal color, warm/dry Hospital Course LACTIC ACIDEMIA Possibly due to underlying lymphoma or dehydration Presenting with increasing leg cramps with elevated lactic acid on admission No signs of infection, afebrile, no leukocytosis Refused IV abx in the ER No abx given On IVF Lactic acid resolved UA negative Blood cx pending Clinically stable LEG CRAMP Possibly due to dehydration or side effect of Ibrutinib Received IV fluid Ambulating with no discomfort Symptoms resolved HX MANTEL CELL LYMPHOMA Follows at [facility] with Dr. Ochoa / Dr. Ryan locally Chemo regimen recently changed to oral Ibrutinib daily and IV Rituxan weekly however therapies placed on hold on 07/27 due to increased LFTs Oncology on board Case discussed with Dr. Ryan Follow up with Hem/Oncology CT abd/pelvis showed Persistent splenomegaly with bulky periaortic, pericaval, iliac chain and pelvic sidewall adenopathy. Lymph nodes appear stable to slightly decreased in size from comparison study 09/14/2016. CT Chest showed Interval development of multiple irregular marginated bilateral pulmonary nodules. DVT PROPHYLAXIS - SQ Lovenox DISPOSITION Follow up with primary care provider Dr. Cain on 08/06 @ 12:00 Follow up with Oncology Total time spent on discharge = 35 minutes This includes examination of the patient, discharge planning, medication reconciliation, and communication with other providers. Discharge Instructions Discharge Instructions Date of Service Jul 31, 2017. Admission Reason for Admission: Leg Cramps Discharge Discharge Diagnosis / Problem: Elevated Lactic Acid, Leg Cramp, HX MANTEL CELL LYMPHOMA Discharge Goals Goal(s): Decrease discomfort, Improve function, Improve disease control Activity Recommendations Activity Limitations: resume your previous activity (as tolerated) . Instructions / Follow-Up Instructions / Follow-Up Follow up with your primary care provider Dr. Cain on 08/06 @ 12:30 PM Follow up with oncology Dr. Ryan Continue holding chemotherapy agents Ibrutinib and Rituxan until Dr. Ryan instructs you to resume them. Keep yourself hydrate Blood culture pending ( your primary care physician will have the result) Current Hospital Diet Patient's current hospital diet: Regular Diet Discharge Diet Recommended Diet: Regular Diet Pending Studies Studies pending at discharge: yes List of pending studies: Blood culture Medical Emergencies . Who to Call and When: Medical Emergencies: If at any time you feel your situation is an emergency, please call 911 immediately. . Non-Emergent Contact Non-Emergency issues call your: Primary Care Provider, Oncologist Call Non-Emergent contact if: you have a fever, you have any medication questions . . "Provider Documentation" section prepared by David Rosen. . VTE Core Measure Inpt VTE Proph given/why not?: Enoxaparin (Lovenox)SQ Additional Copies To Mikael Cain M.D.
== END 2017-07-31 17:12 | disposition home or self-care (01) ==
LOC: C.EDB 11:14 → C.4E 14:45 → ENRESERV 15:12
PROVIDERS: ADMIT Hospitalist; ATTEND Internal Medicine
DX: E87.2 Acidosis (principal); R25.2 Cramp and spasm; C83.13 Mantle cell lymphoma, intra-abdominal lymph nodes; Z87.891 Personal history of nicotine dependence; Z82.49 Family history of ischemic heart disease and other diseases of the circulatory system; Z80.1 Family history of malignant neoplasm of trachea, bronchus and lung; Z79.82 Long term (current) use of aspirin; Z79.899 Other long term (current) drug therapy

== ENCOUNTER 2017-08-25 12:11 | Emergency (ER) | payer OTHER ==
[~2017-08-25] VITALS: Ht 175.3 cm; Wt 80.3 kg
[~2017-08-25 12:11] MED LIST changes: +ALLO300T2 PO; +ASPI325T45 PO; +DEXT30TA7 PO; +DXM/4 PO; +IBRU1CAP PO; -IPRA1AER2 INH; -OXGN; +RTXI100 IV; -SENN-65 PO; -ULT50 PO; -VNTHFA/IN INH
[2017-08-25 12:19] VITALS: TEMP 36.4; Ht 175.3 cm; Wt 80.3 kg
[2017-08-25 12:46] LABS: HEMATOCRIT 32.5 % (42-52); IMMATURE RETIC FRACTION 20.9 % (2.3-13.4); MEAN CELL VOLUME 83.5 fL (80-100); MEAN CORPUSCULAR HEMOGLOBIN 27.8 pg (25-34); MEAN CORPUSCULAR HGB CONC 33.2 g/dl (32-36); MEAN PLATELET VOLUME 10.5 fL (7.4-10.4); PLATELET COUNT 100 K/uL (130-400); RED BLOOD COUNT 3.89 M/uL (4.7-6.1); RETHE 26.6 PG (28.2-36.6); WHITE BLOOD COUNT 10.19 K/uL (4.8-10.8)
[2017-08-25 12:47] VITALS: O2SAT 97
[2017-08-25] MEDS ORDERED: ZNTT/150 PO (12:47)
[2017-08-25 12:53] LABS: ISTAT CREATININE 0.9 mg/dl (0.6-1.3); ISTAT HEMOGLOBIN 10.5 g/dl (14.0-18.0); ISTAT IONIZED CALCIUM 1.1 mmol/l (1.12-1.32)
[2017-08-25 12:54] LABS: PARTIAL THROMBOPLASTIN RATIO 1.1; PROTHROMBIN TIME (PATIENT) 11.1 SECONDS (9.0-12.0)
[2017-08-25 13:04] LABS: ALT/SGPT 11 U/L (12-78); BLOOD UREA NITROGEN 13 mg/dl (7-18); BUN/CREATININE RATIO 13.1 (10-20); CALCIUM 8.4 mg/dl (8.5-10.1); CARBON DIOXIDE 24 mmol/L (21-32); CHLORIDE 104 mmol/L (98-107); CREATININE 0.97 mg/dl (0.60-1.40); GLUCOSE 110 mg/dl (70-99); POTASSIUM 3.8 mmol/L (3.5-5.1); SODIUM 138 mmol/L (136-145)
--- NOTE | 2017-08-25 13:07 | DIAGNOSTIC IMAGING REPORT ---
CHEST ONE VIEW PORTABLE CLINICAL HISTORY: palpitations cardiac arrhythmia COMPARISON STUDY: 07/30/2017 FINDINGS: Central catheter remains in superior vena cava. Lungs are clear. Diaphragms are smooth. Minimal residual interstitial change from the prior study improved. IMPRESSION: Improved exam with no acute process at the current time. The above report was generated using voice recognition software. It may contain grammatical, syntax or spelling errors. Electronically signed by: José Romero M.D. 08/25/2017 1:06 PM Dictated Date/Time: 08/25/2017 1:05 PM
[2017-08-25 13:10] LABS: ALKALINE PHOSPHATASE 81 U/L (45-117); AST/SGOT 12 U/L (15-37)
--- NOTE | 2017-08-25 13:18 | EMERGENCY ROOM VISIT NOTE ---
History Report prepared by Myesha: Marly Ibarra Under the Supervision of: Dr. Truman Ca D.O. First contact with patient: 12:27 Chief Complaint: TACHYCARDIA Stated Complaint: HEART POUNDING, SOB, POSSIBLE LOW PLATELETES Nursing Triage Summary: triage note: pt ambulatory to triage. pt has hx of lymphoma. pt reports he has had no energy for the past month. pt reports rash to bilat legs "they think the platelets are dropping." pt reports "my heart gets to be thumping pretty good." History of Present Illness The patient is a 72 year old male who presents to the Emergency Room with complaints of worsening fatigue for the past week. The patient has a history of lymphoma. He is currently being treated with chemotherapy pills. He stopped receiving chemotherapy treatments in January 2017. The patient follows with Dr. Ryan of oncology. He did not see Dr. Ryan today but was advised by their office to come into the ED for further evaluation. Daughter notes that the patient has a rash on his bilateral lower extremities, which is new. She is concerned that his platelet counts are low because she states that they have been dropping over the past few weeks. The patient is feeling more tired than usual. He appears pale. He has been experiencing some shortness of breath and palpitations. These symptoms are not worsened with exertion. He states that even when he is sitting still he feels like his heart is "pounding" and "racing. " The patient denies fever, headache, chest pain, abdominal pain, melena, and hematochezia. He denies any recent changes to his medications. He has had a transfusion in the past. He estimates it was about 1 year ago. He denies any history of bleeding problems. He has never had bleeding in his bowels or in his brain. The patient has a PET scan scheduled for tomorrow. Source of History: patient, family (daughter) Onset: 1 week ago Position: other (global) Quality: other (fatigue) Timing: worsening Associated Symptoms: + SOB, + rash, No fevers, No headache, No chest pain, No abdominal pain, No melena, No hematochezia Review of Systems See HPI for pertinent positives & negatives. A total of 10 systems reviewed and were otherwise negative. Past Medical & Surgical Medical Problems: (1) Mantle cell lymphoma Surgical Problems: (1) History of appendectomy Family History FH: CAD (coronary artery disease) FATHER MOTHER FH: lung cancer SISTER Social History Smoking Status: Never Smoker Alcohol Use: none Marital Status: Housing Status: lives with family Current/Historical Medications Scheduled Ibrutinib (Imbruvica), 4 CAP PO DAILY Omeprazole (Prilosec), 20 MG PO DAILY Ranitidine (Zantac), 300 MG PO DAILY Rituximab (Rituxan), 1 DOSE IV UD Scheduled PRN Ondansetron (Ondansetron HCl), 8 MG PO Q8 PRN for Nausea or Vomiting Allergies Coded Allergies: Tetracycline (Verified Allergy, Unknown, water blisters, 08/25/17) Physical Exam Vital Signs Date Time Temp Pulse Resp B/P (MAP) Pulse Ox O2 Delivery O2 Flow Rate FiO2 08/25/17 14:52 77 16 108/75 96 Room Air 08/25/17 13:48 78 16 119/64 97 Nasal Cannula 2.0 08/25/17 12:47 97 Nasal Cannula 2.0 08/25/17 12:31 84 08/25/17 12:19 36.4 90 18 138/76 96 Room Air Physical Exam GENERAL: Patient is awake, alert, and in no acute distress. Patient is resting comfortably and showing no signs of anxiety EYES: The conjunctivae are clear. The pupils are round and reactive. EARS, NOSE, MOUTH AND THROAT: The nose is without any evidence of any deformity. Mucous membranes are moist tongue is midline NECK: The neck is nontender and supple. RESPIRATORY: Diminished breath sounds noted in both bases. Rales in both bases. Normal respiratory effort is noted. No tachypnea or conversational dyspnea. CARDIOVASCULAR: Regular rate and rhythm noted there no murmurs rubs or gallops normal S1 normal S2 GASTROINTESTINAL: The abdomen is soft. Bowel sounds are present in all quadrants. Abdomen is nontender MUSCULOSKELETAL/EXTREMITIES: There is no evidence of gross deformity full range of motion is noted in the hips and shoulders SKIN: Pedal edema bilaterally. Skin is cool and dry.Petechial rash in both lower extremities.No pallor or cyanosis noted. NEUROLOGIC: Patient is awake alert and oriented x3. Medical Decision & Procedures ER Provider Diagnostic Interpretation: Radiology results as stated below per my review and radiologist interpretation: CHEST ONE VIEW PORTABLE CLINICAL HISTORY: palpitations cardiac arrhythmia COMPARISON STUDY: 07/30/2017 FINDINGS: Central catheter remains in superior vena cava. Lungs are clear. Diaphragms are smooth. Minimal residual interstitial change from the prior study improved. IMPRESSION: Improved exam with no acute process at the current time. The above report was generated using voice recognition software. It may contain grammatical, syntax or spelling errors. Electronically signed by: José Romero M.D. 08/25/2017 1:06 PM Dictated Date/Time: 08/25/2017 1:05 PM Laboratory Results 08/25/17 12:35 Red Blood Count 3.89, Mean Corpuscular Volume 83.5, Mean Corpuscular Hemoglobin 27.8, Mean Corpuscular Hemoglobin Concent 33.2, Mean Platelet Volume 10.5 08/25/17 12:35 Test 08/25/17 12:35 08/25/17 12:40 08/25/17 13:15 White Blood Count 10.19 K/uL (4.8-10.8) Red Blood Count 3.89 M/uL (4.7-6.1) Hemoglobin 10.8 g/dL (14.0-18.0) Hematocrit 32.5 % (42-52) Mean Corpuscular Volume 83.5 fL (80-100) Mean Corpuscular Hemoglobin 27.8 pg (25-34) Mean Corpuscular Hemoglobin Concent 33.2 g/dl (32-36) Platelet Count 100 K/uL (130-400) Mean Platelet Volume 10.5 fL (7.4-10.4) RDW Standard Deviation 46.5 fL (36.4-46.3) RDW Coefficient of Variation 15.3 % (11.5-14.5) Neutrophils % (Manual) 32.2 % Lymphocytes % (Manual) 23.5 % Variant Lymphocytes % (manual) 33.9 % Monocytes % (Manual) 7.8 % Basophils % (Manual) 0.9 % (0-2) Metamyelocytes % 1.7 % Neutrophils # (Manual) 3.28 K/uL (1.4-6.5) Total Absolute Neutrophils 3.28 K/uL (1.4-6.5) Lymphocytes # (Manual) 2.39 K/uL (1.2-3.4) Absolute Variant Lymphocytes 3.45 K/uL Total Absolute Lymphocytes 5.85 K/uL (1.2-3.4) Monocytes # (Manual) 0.79 K/uL (0.11-0.59) Basophils # (Manual) 0.09 K/uL (0-0.2) Metamyelocytes # 0.17 K/uL (0-0) Absolute Reticulocyte Count 0.11 10^6/uL (0.02-0.10) Percent Reticulocyte Count 2.7 % (0.5-2.0) Immature Reticulocyte Fraction 20.9 % (2.3-13.4) Reticulocyte Hemoglobin Content 26.6 PG (28.2-36.6) Prothrombin Time 11.1 SECONDS (9.0-12.0) Prothromb Time International Ratio 1.0 (0.9-1.1) Activated Partial Thromboplast Time 27.9 SECONDS (21.0-31.0) Partial Thromboplastin Ratio 1.1 Est Creatinine Clear Calc Drug Dose 67.9 ml/min Estimated GFR () 89.4 Estimated GFR (Non- 77.1 BUN/Creatinine Ratio 13.1 (10-20) Calcium Level 8.4 mg/dl (8.5-10.1) Total Bilirubin 0.4 mg/dl (0.2-1) Direct Bilirubin 0.2 mg/dl (0-0.2) Aspartate Amino Transf (AST/SGOT) 12 U/L (15-37) Alanine Aminotransferase (ALT/SGPT) 11 U/L (12-78) Alkaline Phosphatase 81 U/L (45-117) Total Creatine Kinase 19 U/L (39-308) Creatine Kinase MB < 0.5 ng/ml (0.5-3.6) Creatine Kinase MB Ratio (0-3.0) Troponin I < 0.015 ng/ml (0-0.045) Total Protein 6.2 gm/dl (6.4-8.2) Albumin 2.8 gm/dl (3.4-5.0) Lipase 158 U/L (73-393) Bedside Hemoglobin 10.5 g/dl (14.0-18.0) Bedside Hematocrit 31 % (42-52) Bedside Sodium 139 mEq/L (135-144) Bedside Potassium 3.8 mEq/L (3.3-5.0) Bedside Chloride 101 mEq/L (101-112) Bedside Total CO2 24 mEq/l (24-31) Anion Gap 19.0 mmol/L (16-25) Bedside Blood Urea Nitrogen 11 mg/dl (7-18) Bedside Creatinine 0.9 mg/dl (0.6-1.3) Bedside Glucose (other) 110 mg/dl (70-99) Bedside Ionized Calcium ([place]) 1.10 mmol/l (1.12-1.32) Urine Color DK YELLOW Urine Appearance CLOUDY (CLEAR) Urine pH 5.0 (4.5-7.5) Urine Specific [place] 1.028 (1.000-1.030) Urine Protein NEG (NEG) Urine Glucose (UA) NEG (NEG) Urine Ketones TRACE (NEG) Urine Occult Blood NEG (NEG) Urine Nitrite NEG (NEG) Urine Bilirubin NEG (NEG) Urine Urobilinogen NEG (NEG) Urine Leukocyte Esterase NEG (NEG) Urine WBC (Auto) 1-5 /hpf (0-5) Urine RBC (Auto) 0-4 /hpf (0-4) Urine Hyaline Casts (Auto) 5-10 /lpf (0-5) Urine Epithelial Cells (Auto) >30 /lpf (0-5) Urine Bacteria (Auto) NEG (NEG) Urine Renal Epithelial Cells 0-5 /lpf (0-5) Urine Crystals CALCIUM OXALATE (NONE Urine Mucus PRESENT (NONE PRSENT) Laboratory results per my review. ECG Indication: palpitations Rate (beats per minute): 80 Rhythm: normal sinus Findings: no acute ischemic change, no ectopy Comparison ECG Date: 07/30/2017 Change: no significant change ED Course 1227: The patient was evaluated in room A9B. A complete history and physical examination were performed. 1410: Upon reevaluation the patient is doing well. I updated him on the results. 1447: I spoke with Dr. Mistry of oncology. We discussed the patient's case. Dr. Mistry recommends followup in the office as an outpatient. 1459: I reassessed the patient at this time. He is feeling better and resting comfortably. I discussed the results and treatment plan with the patient. I answered all pertaining questions that he had. He expressed understanding and verbalized agreement. The patient will be discharged home. Case management set up a follow-up appointment for tomorrow. Medical Decision Differential diagnosis: Etiologies such as metabolic, infection, hypo/hyperglycemia, electrolyte abnormalities, cardiac sources, intracerebral event, toxicologic, neurologic, as well as others were entertained. Nursing notes reviewed. Additional history is obtained from the patient's family member. The patient is a 72-year-old male who has a history of lymphoma who presented to emergency department for rash and lower extremity's. The patient had a rash which appeared to be petechial nature. She has had thrombocytopenia in the past and his platelet count this time does not appear to be much lower than the last few lab draws. He also was found have some anemia compared to his baseline but it is not low enough to require transfusion. I discussed the patient's laboratory and radiographic studies with him. I discussed his case with the covering oncologist. At this time they've recommended outpatient follow-up. I encouraged him to continue all medications as prescribed and follow-up with his primary called us as soon as possible. He also has been having problems with palpitations. Given the medications that he is on he may be having atrial fibrillation. I recommended that he discuss this possibility with his primary care physician and discuss getting and a Holter monitor. Otherwise he was encouraged to return to the emergency department if symptoms change worsen or the need arises. Medication Reconcilliation Current Medication List: was personally reviewed by me Blood Pressure Screening Patient's blood pressure: Normal blood pressure Consults Time Called: 1445 Consulting Physician: Dr. Mistry Returned Call: [phone] Mistry of oncology. We discussed the patient's case. Dr. Mistry recommends followup in the office as an outpatient. Impression Primary Impression: Weakness Additional Impressions: Palpitations Thrombocytopenia Anemia Scribe Attestation The scribe's documentation has been prepared under my direction and personally reviewed by me in its entirety. I confirm that the note above accurately reflects all work, treatment, procedures, and medical decision making performed by me. Departure Information Dispostion Home / Self-Care Referrals Faustino Ryan M.D. (PCP) Kady Pendleton MD Forms HOME CARE DOCUMENTATION FORM, IMPORTANT VISIT INFORMATION, WORK / SCHOOL INSTRUCTIONS Patient Instructions ED Weakness [facility], Heart Palpitations, My [facility] Additional Instructions Follow-up tomorrow for your outpatient testing as scheduled. Continue all medications as prescribed. Rest and avoid any strenuous ectopy. Follow-up with your oncologist tomorrow. Return to the emergency department immediately if symptoms change worsen or the need arises. Problem Qualifiers Additional Impressions: Anemia Anemia type: unspecified type Qualified Codes: D64.9 - Anemia, unspecified
[2017-08-25 13:19] LABS: BASO ABS # 0.09 K/uL (0-0.2); BASOPHIL % 0.9 % (0-2); COMPLETE YES; LYMPH ABS # 2.39 K/uL (1.2-3.4); LYMPHOCYTE % 23.5 %; META ABS # 0.17 K/uL (0-0); METAMYELOCYTE % 1.7 %; NEUTROPHILS % 32.2 %; VARIANT LYM ABS # 3.45 K/uL; VARIANT LYMPHOCYTE % 33.9 %
[2017-08-25 13:28] LABS: URINE APPEARANCE CLOUDY (CLEAR); URINE BILIRUBIN NEG (NEG); URINE COLOR DK YELLOW; URINE EPITHELIAL CELL AUTO >30 /lpf (0-5); URINE NITRITE NEG (NEG); URINE SPECIFIC GRAVITY 1.028 (1.000-1.030); UROBILINOGEN NEG (NEG)
[2017-08-25 13:30] LABS: MANUAL MICROSCOPIC REQUIRED? NO; REVIEW REQ? YES
[2017-08-25 13:46] LABS: URINE MUCUS PRESENT (NONE PRSENT)
[2017-08-25 14:52] VITALS: BP 108/75; PULSE 77; O2SAT 96
== END 2017-08-25 15:23 | disposition home or self-care (01) ==
LOC: C.EDB 12:12 → C.EDA 15:23
DX: R53.1 Weakness (principal); R00.2 Palpitations; D69.6 Thrombocytopenia, unspecified; D64.9 Anemia, unspecified; Z85.72 Personal history of non-Hodgkin lymphomas; Z98.890 Other specified postprocedural states; Z79.899 Other long term (current) drug therapy; Z88.8 Allergy status to other drugs, medicaments and biological substances; Z82.49 Family history of ischemic heart disease and other diseases of the circulatory system

== ENCOUNTER 2017-09-18 10:41 | Inpatient (IN) | payer OTHER ==
[2017-09-18] VITALS (11 sets, daily range): BP systolic 104–146; BP diastolic 56–74; PULSE 70–91; TEMP 36.4–36.8; O2SAT 95–100; Ht 175.3 cm; Wt 72.6 kg
[~2017-09-18] VITALS: Ht 175.3 cm; Wt 72.6 kg
[~2017-09-18 10:41] MED LIST changes: -ALLO300T2 PO; -ASPI325T45 PO; -CETI10TA84 PO; -DEXT30TA7 PO; -DXM/4 PO; -RANI150T3 PO; +ZNTT/150 PO
[2017-09-18] MEDS ORDERED: ULT50 PO (11:00)
[2017-09-18] MEDS ORDERED: PROM25TA9 PO (11:00)
[2017-09-18] MEDS ORDERED: SODIUM CHLORIDE 0.9% 1000ML 1,000 ML IV STA (11:50)
--- NOTE | 2017-09-18 11:56 | EMERGENCY ROOM VISIT NOTE ---
History Report prepared by Myesha: Jessi Ramirez Under the Supervision of: Dr. Wayne Artis M.D. First contact with patient: 11:44 Chief Complaint: COUGH Stated Complaint: CHEMO PATIENT - COUGHING/CONGESTION Nursing Triage Summary: pt reports cough and congestion for 11-12 pt reports yellow mucus cough is worse when lying " I start wheezing and can not stop" last chemo 7 days ago History of Present Illness The patient is a 72 year old male who presents to the Emergency Room with complaints of a worsening cough for the past 2 weeks. He is accompanied by his . He has a history of mantle cell lymphoma and is currently taking chemotherapy. His last chemo treatment was 7 days CUPOLA MELTER and his chemo regime includes Imbruvica and Rituxan. The patient states when he starts coughing, he can't stop wheezing and has been unable to sleep because of his breathing issues. The cough is productive with yellow sputum. He also complains of a fever that started this morning, a sore throat and the chills. His states his temperature was over 100 when she checked it at home. The patient denies any recent chest pain, nausea, vomiting, urinary symptoms. His states his recent blood work has been stable. Source of History: patient Onset: 2 weeks CUPOLA MELTER Position: chest Timing: worsening Associated Symptoms: + fevers, + chills, + sorethroat, No chest pain, No nausea, No vomiting, No urinary symptoms Review of Systems See HPI for pertinent positives and negatives. A total of ten systems were reviewed and were otherwise negative. Past Medical & Surgical Medical Problems: (1) Mantle cell lymphoma Surgical Problems: (1) History of appendectomy Family History FH: CAD (coronary artery disease) FATHER MOTHER FH: lung cancer SISTER Social History Smoking Status: Never Smoker Alcohol Use: none Drug Use: none Marital Status: Housing Status: lives with family Occupation Status: retired Current/Historical Medications Scheduled Dexamethasone (Decadron), 4 MG PO QAM Dexamethasone (Decadron), 2 MG PO QPM Omeprazole (Prilosec), 20 MG PO DAILY Rituximab (Rituxan), 1 DOSE IV MONTHLY Scheduled PRN Ondansetron (Ondansetron HCl), 8 MG PO Q8 PRN for Nausea or Vomiting Promethazine Hcl (Phenergan), 25 MG PO Q4 PRN for Nausea Tramadol HCl (Tramadol HCl), 50 MG PO Q6 PRN for Pain Allergies Coded Allergies: Tetracycline (Verified Allergy, Unknown, water blisters, 09/18/17) Physical Exam Vital Signs Date Time Temp Pulse Resp B/P (MAP) Pulse Ox O2 Delivery O2 Flow Rate FiO2 09/18/17 13:21 95 20 121/64 100 Nebulizer 7.0 09/18/17 12:54 70 20 96 Room Air 09/18/17 12:47 88 09/18/17 11:22 96 Room Air 09/18/17 11:11 98 09/18/17 10:45 36.5 102 20 133/77 97 Room Air Physical Exam GENERAL: Awake, alert, chronically ill-appearing, uncomfortable appearing, in no distress HENT: Normocephalic, atraumatic. Oropharynx unremarkable. Dry cracked mucous membranes. EYES: Normal conjunctiva. Sclera non-icteric. NECK: Supple. No nuchal rigidity. FROM. No JVD. RESPIRATORY: Scattered rhonchi. CARDIAC: Regular rate, normal rhythm. Extremities warm and well perfused. Pulses equal. ABDOMEN: Soft, non-distended. No tenderness to palpation. No rebound or guarding. No masses. RECTAL: Deferred. MUSCULOSKELETAL: Chest examination reveals no tenderness. The back is symmetrical on inspection without obvious abnormality. There is no CVA tenderness to palpation. No joint edema. LOWER EXTREMITIES: Calves are equal size bilaterally and non-tender. No edema. No discoloration. NEURO: Normal sensorium. No sensory or motor deficits noted. SKIN: No rash or jaundice noted. Medical Decision & Procedures ER Provider Diagnostic Interpretation: Radiology results as stated below per my review and radiologist interpretation: CHEST ONE VIEW PORTABLE CLINICAL HISTORY: CHEST PAIN dyspnea COMPARISON STUDY: 08/25/2017 FINDINGS: Lungs remain clear. Central catheter in superior vena cava. No evidence for cardiac enlargement. Diaphragms are smooth. IMPRESSION: No acute process. The lungs are clear. The above report was generated using voice recognition software. It may contain grammatical, syntax or spelling errors. Electronically signed by: José Romero M.D. 09/18/2017 12:17 PM (CHEST FOR PE) ANGIO WITH CT DOSE: 354.07 mGycm HISTORY: 72 years-old Male acute atypical chest pain TECHNIQUE: Multiple CTA images of the chest were obtained after the intravenous administration of 93 ml Optiray 320. Coronal and sagittal MIPS were obtained from the axial data set and were submitted for review. A dose lowering technique was utilized adhering to the principles of ALARA. COMPARISON: Chest CT 07/30/2017. FINDINGS: CTA: Heart is upper limits of normal in size. Coronary arterial disease. Moderate atherosclerosis of the aorta without aneurysm or dissection. Imaged great vessels appear patent. The urinary arterial tree is opacified to the level of the segmental branches. The distal segmental and subsegmental branches are not well-seen secondary to respiratory motion. No definite pulmonary embolus identified. Right pectoral Accvmg-v-Bczi catheter is noted, distal tip in the SVC. CT CHEST: Thyroid is homogeneous without dominant nodule identified. Mild mediastinal and hilar adenopathy redemonstrated. Right hilar lymph nodes measure up to 1.6 x 1.17 m. Left hilar lymph nodes measure up to 9 mm in short axis. 1.4 x 1.2 cm AP window lymph node is unchanged. Moderate severe upper lobe predominant emphysema. 6 x 6 mm solid nodule with peripheral groundglass attenuation is seen within the right lung apex, image 212 series 4 which has decreased from prior study, previously measuring 1.9 cm on study dated 07/30/2017. There is only minimal scattered groundglass opacities of the lungs bilaterally correlating with previous described nodular densities. 4 mm pulmonary nodule of the left upper lobe on image 152 series 4 likely correlates with previously noted 9 mm pulmonary nodule. No new pulmonary nodules identified. Minimal irregular consolidation of the right lower lobe on image 103 series 4 appears new from prior exam. Mild dependent subsegmental bibasilar atelectasis. Central airways are patent. Mild bilateral bronchial wall thickening. Spleen is enlarged, 15 x 12 cm. No acute abnormality of the imaged upper abdomen. Bones appear intact without suspicious lytic or blastic bony lesions. IMPRESSION: 1. No acute aortic pathology or evidence of pulmonary thromboembolic disease. 2. Improved aeration of the bilateral lungs with near complete resolution of the previously described multiple irregular bilateral pulmonary nodules. A few scattered pulmonary nodules persist measuring up to 6 mm. Mild residual groundglass opacities are also seen suggesting resolving pneumonitis. 3. Subsegmental bibasilar dependent opacities suggest atelectasis. 4. Emphysema. 5. Unchanged mediastinal and hilar lymphadenopathy. 6. Splenomegaly. The above report was generated using voice recognition software. It may contain grammatical, syntax or spelling errors. Electronically signed by: Marcus Son M.D. 09/18/2017 2:50 PM Laboratory Results 09/18/17 11:15 Red Blood Count 3.20, Mean Corpuscular Volume 82.2, Mean Corpuscular Hemoglobin 26.3, Mean Corpuscular Hemoglobin Concent 31.9 09/18/17 11:15 Test 09/18/17 11:15 09/18/17 14:00 White Blood Count 0.69 K/uL (4.8-10.8) Red Blood Count 3.20 M/uL (4.7-6.1) Hemoglobin 8.4 g/dL (14.0-18.0) Hematocrit 26.3 % (42-52) Mean Corpuscular Volume 82.2 fL (80-100) Mean Corpuscular Hemoglobin 26.3 pg (25-34) Mean Corpuscular Hemoglobin Concent 31.9 g/dl (32-36) Platelet Count 3 K/uL (130-400) RDW Standard Deviation 45.7 fL (36.4-46.3) RDW Coefficient of Variation 15.1 % (11.5-14.5) Neutrophils % (Manual) 1.2 % Lymphocytes % (Manual) 56.4 % Variant Lymphocytes % (manual) 42.4 % Neutrophils # (Manual) 0.01 K/uL (1.4-6.5) Total Absolute Neutrophils 0.01 K/uL (1.4-6.5) Lymphocytes # (Manual) 0.39 K/uL (1.2-3.4) Absolute Variant Lymphocytes 0.29 K/uL Total Absolute Lymphocytes 0.68 K/uL (1.2-3.4) Platelet Estimate SIGNIFIC DECREASED Ovalocytes 1+ Anion Gap 9.0 mmol/L (3-11) Est Creatinine Clear Calc Drug Dose 91.4 ml/min Estimated GFR () 107.3 Estimated GFR (Non- 92.5 BUN/Creatinine Ratio 23.2 (10-20) Calcium Level 8.4 mg/dl (8.5-10.1) Total Bilirubin 1.0 mg/dl (0.2-1) Direct Bilirubin 0.3 mg/dl (0-0.2) Aspartate Amino Transf (AST/SGOT) 20 U/L (15-37) Alanine Aminotransferase (ALT/SGPT) 29 U/L (12-78) Alkaline Phosphatase 83 U/L (45-117) Troponin I 0.020 ng/ml (0-0.045) Pro-B-Type Natriuretic Peptide 390 pg/ml (0-900) Total Protein 6.1 gm/dl (6.4-8.2) Albumin 2.6 gm/dl (3.4-5.0) Lipase 149 U/L (73-393) Urine Color YELLOW Urine Appearance CLEAR (CLEAR) Urine pH 5.0 (4.5-7.5) Urine Specific [place] 1.016 (1.000-1.030) Urine Protein NEG (NEG) Urine Glucose (UA) NEG (NEG) Urine Ketones NEG (NEG) Urine Occult Blood NEG (NEG) Urine Nitrite NEG (NEG) Urine Bilirubin NEG (NEG) Urine Urobilinogen NEG (NEG) Urine Leukocyte Esterase NEG (NEG) Laboratory results reviewed by me Medications Administered Medications (Trade) Dose Ordered Sig/Flory Route Start Time Stop Time Status Last Admin Dose Admin Albuterol/ Ipratropium (Duoneb) 12 ml ONE ONCE INH 09/18/17 12:00 09/18/17 12:01 DC 09/18/17 12:54 12 ML Sodium Chloride 1,000 ml @ 999 mls/hr Q1H1M STAT IV 09/18/17 11:50 09/18/17 12:50 DC 09/18/17 11:50 999 MLS/HR Levofloxacin (Levaquin / D5W) 750 mg NOW ONCE IV 09/18/17 15:00 09/18/17 15:01 DC 09/18/17 16:10 750 MG ED Course 1149: The patient was evaluated in room C9. A complete history and physical exam was performed. 1405: Nursing informed me the patient would like me to speak to his oncologist. 1413: I discussed the patients case with [facility] Roca Hematology/ Oncology. He recommends I discuss the patients case with the inpatient hospital medicine team. 1458: I reevaluated the patient. I discussed my recommendation he remain in hospital for further evaluation and management and he and his verbalized complete understanding and agreement. 1500: I discussed the patients case with Pilar Jefferson PA-C, [facility] Hospitalist. The patient will be further evaluated. Medical Decision I reviewed the patient's past medical history, medications, and the nursing notes as described above. Differential Diagnoses: Pneumonia, bronchitis, ACS, CHF, PE, UTI and sepsis. The patient is a 72-year-old gentleman with a past medical history of mantle cell lymphoma currently undergoing chemotherapy who presents to emergency department with generalized fatigue, chills, productive cough and shortness of breath per hpi. On arrival the patient is chronically ill-appearing but in no acute distress, afebrile with stable vital signs. Labs notable for neutropenia with WBC 0.69 and ANC of 0.01 and thrombocytopenia with platelets of 3. CT PE study negative for PE or discrete pneumonia. Case was discussed with Dr. Schumacher, patient's oncologist, and we agree that given patient's profound neutropenia and persistent respiratory symptoms will treat empirically with levofloxacin. Also recommending transfusion of platelets given his profound thrombocytopenia. Given no signs of active bleeding at this time and hospital shortage of platelets will defer platelet transfusion to admitting team for transfusion at some point during this admission. Case was d/w Nikki Coronado, who will admit the patient for further management. Medication Reconcilliation Current Medication List: was personally reviewed by me Blood Pressure Screening Patient's blood pressure: Normal blood pressure Blood pressure disposition: Did not require urgent referral Consults Time Called: 1410 Consulting Physician: Nikki Roca Hemoatology/Oncology Returned Call: 1413 I discussed the patients case with Nikki Roca Hematology/Oncology. He recommends I discuss the patients case with the inpatient hospital medicine team. Additional Consults: Time Called: 1456 Consulted Physician: Pilar Jefferson PA-C, [facility]ist Returned Call: 1500 Additional Comments: I discussed the patients case with Pilar Jefferson PA-C, [facility] Hospitalist. The patient will be further evaluated. Impression Primary Impression: Neutropenia Additional Impression: Bronchitis Scribe Attestation The scribe's documentation has been prepared under my direction and personally reviewed by me in its entirety. I confirm that the note above accurately reflects all work, treatment, procedures, and medical decision making performed by me. Departure Information Dispostion Being Evaluated By Hospitalist Referrals Faustino Ryan M.D. (PCP) Patient Instructions My [facility] Problem Qualifiers
[2017-09-18] MEDS ORDERED: ALBUT/IPRATROP 3MG/0.5MG NEB 3 ML VIAL INH ONE (12:00)
--- NOTE | 2017-09-18 12:18 | DIAGNOSTIC IMAGING REPORT ---
CHEST ONE VIEW PORTABLE CLINICAL HISTORY: CHEST PAIN dyspnea COMPARISON STUDY: 08/25/2017 FINDINGS: Lungs remain clear. Central catheter in superior vena cava. No evidence for cardiac enlargement. Diaphragms are smooth. IMPRESSION: No acute process. The lungs are clear. The above report was generated using voice recognition software. It may contain grammatical, syntax or spelling errors. Electronically signed by: José Romero M.D. 09/18/2017 12:17 PM Dictated Date/Time: 09/18/2017 12:17 PM
[2017-09-18 12:20] LABS: BUN/CREATININE RATIO 23.2 (10-20); CALCIUM 8.4 mg/dl (8.5-10.1); CREATININE 0.72 mg/dl (0.60-1.40); POTASSIUM 4.4 mmol/L (3.5-5.1)
[2017-09-18 12:24] LABS: HEMATOCRIT 26.3 % (42-52); MEAN CELL VOLUME 82.2 fL (80-100); MEAN CORPUSCULAR HEMOGLOBIN 26.3 pg (25-34); MEAN CORPUSCULAR HGB CONC 31.9 g/dl (32-36); WHITE BLOOD COUNT 0.69 K/uL (4.8-10.8)
[2017-09-18 12:45] LABS: OVALOCYTES 1+; PLT ESTIMATE SIGNIFIC DECREASED
[2017-09-18 12:48] LABS: COMPLETE YES; LYMPH ABS # 0.39 K/uL (1.2-3.4); LYMPHOCYTE % 56.4 %; NEUTROPHILS % 1.2 %; PLATELET COUNT 3 K/uL (130-400); VARIANT LYM ABS # 0.29 K/uL; VARIANT LYMPHOCYTE % 42.4 %
[2017-09-18] MEDS ORDERED: DXM/4 PO ×2 (13:24)
[2017-09-18] MEDS ORDERED: OPTIRAY 320 IV PRN (13:30)
[2017-09-18 14:13] LABS: URINE APPEARANCE CLEAR (CLEAR); URINE BILIRUBIN NEG (NEG); URINE COLOR YELLOW; URINE NITRITE NEG (NEG); URINE SPECIFIC GRAVITY 1.016 (1.000-1.030); UROBILINOGEN NEG (NEG); ZZUR CULT IF INDIC CLEAN CATCH NO
[2017-09-18 14:15] LABS: MANUAL MICROSCOPIC REQUIRED? NO; REVIEW REQ? NO
--- NOTE | 2017-09-18 14:51 | DIAGNOSTIC IMAGING REPORT ---
(CHEST FOR PE) ANGIO WITH CT DOSE: 354.07 mGycm HISTORY: 72 years-old Male acute atypical chest pain TECHNIQUE: Multiple CTA images of the chest were obtained after the intravenous administration of 93 ml Optiray 320. Coronal and sagittal MIPS were obtained from the axial data set and were submitted for review. A dose lowering technique was utilized adhering to the principles of ALARA. COMPARISON: Chest CT 07/30/2017. FINDINGS: CTA: Heart is upper limits of normal in size. Coronary arterial disease. Moderate atherosclerosis of the aorta without aneurysm or dissection. Imaged great vessels appear patent. The urinary arterial tree is opacified to the level of the segmental branches. The distal segmental and subsegmental branches are not well-seen secondary to respiratory motion. No definite pulmonary embolus identified. Right pectoral Yglnsi-p-Beto catheter is noted, distal tip in the SVC. CT CHEST: Thyroid is homogeneous without dominant nodule identified. Mild mediastinal and hilar adenopathy redemonstrated. Right hilar lymph nodes measure up to 1.6 x 1.17 m. Left hilar lymph nodes measure up to 9 mm in short axis. 1.4 x 1.2 cm AP window lymph node is unchanged. Moderate severe upper lobe predominant emphysema. 6 x 6 mm solid nodule with peripheral groundglass attenuation is seen within the right lung apex, image 212 series 4 which has decreased from prior study, previously measuring 1.9 cm on study dated 07/30/2017. There is only minimal scattered groundglass opacities of the lungs bilaterally correlating with previous described nodular densities. 4 mm pulmonary nodule of the left upper lobe on image 152 series 4 likely correlates with previously noted 9 mm pulmonary nodule. No new pulmonary nodules identified. Minimal irregular consolidation of the right lower lobe on image 103 series 4 appears new from prior exam. Mild dependent subsegmental bibasilar atelectasis. Central airways are patent. Mild bilateral bronchial wall thickening. Spleen is enlarged, 15 x 12 cm. No acute abnormality of the imaged upper abdomen. Bones appear intact without suspicious lytic or blastic bony lesions. IMPRESSION: 1. No acute aortic pathology or evidence of pulmonary thromboembolic disease. 2. Improved aeration of the bilateral lungs with near complete resolution of the previously described multiple irregular bilateral pulmonary nodules. A few scattered pulmonary nodules persist measuring up to 6 mm. Mild residual groundglass opacities are also seen suggesting resolving pneumonitis. 3. Subsegmental bibasilar dependent opacities suggest atelectasis. 4. Emphysema. 5. Unchanged mediastinal and hilar lymphadenopathy. 6. Splenomegaly. The above report was generated using voice recognition software. It may contain grammatical, syntax or spelling errors. Electronically signed by: Marcus Son M.D. 09/18/2017 2:50 PM Dictated Date/Time: 09/18/2017 2:41 PM
[2017-09-18] MEDS ORDERED: LEVAQUIN 750MG / 150ML D5W IV ONE (15:00)
[2017-09-18] MEDS ORDERED: ENOXAPARIN 40 MG/0.4 ML SYR SQ SCH (15:30)
[2017-09-18] MEDS ORDERED: ONDANSETRON 8 MG TAB PO PRN (15:30)
[2017-09-18] MEDS ORDERED: PROMETHAZINE HCL 25 MG TAB PO PRN (15:30)
[2017-09-18] MEDS ORDERED: ACETAMINOPHEN 325 MG TAB PO PRN (15:30)
[2017-09-18] MEDS: BOOST VANILLA PO SCH ×2 (17:48)
--- NOTE | 2017-09-18 18:12 | History and Physical ---
History & Physical Date & Time of Service: Sep 18, 2017 at 17:50 Chief Complaint: Bronchitis, Mantle Cell Lymphoma, Neutropenia Primary Care Physician: Faustino Ryan M.D. History of Present Illness Source: patient, clinic records, hospital records This is a 72 year old male with a PMH of mantle cell lymphoma and ongoing chemotherapy, presents with a two week history of cough, congestion. He has been feeling weak and decreased PO intake as well. States that the cough has been keeping him up at night. He was seen by Hematology on 09/15, was given some IVFs - and recommendation was made for ER evaluation, but he declined at that time. He received Neupogen from 09/08 to 09/11. No fevers/chills, no chest pain, no palpitations. Past Medical/Surgical History Medical Problems: (1) Mantle cell lymphoma Status: Chronic Surgical Problems: (1) History of appendectomy Status: Resolved Family History FH: CAD (coronary artery disease) FATHER MOTHER FH: lung cancer SISTER Social History Smoking Status: Never Smoker Drug Use: none Marital Status: Occupational Status: retired Immunizations History of Influenza Vaccine: Yes Influenza Vaccine Date: Aug 08, 2015 History of Tetanus Vaccine?: Yes Tetanus Immunization Date: Oct 05, 2011 History of Pneumococcal: Yes Pneumococcal Date: Aug 08, 2015 Allergies Coded Allergies: Tetracycline (Verified Allergy, Unknown, water blisters, 09/18/17) Home Medications Scheduled Dexamethasone (Decadron), 4 MG PO QAM Dexamethasone (Decadron), 2 MG PO QPM Omeprazole (Prilosec), 20 MG PO DAILY Rituximab (Rituxan), 1 DOSE IV MONTHLY Scheduled PRN Ondansetron (Ondansetron HCl), 8 MG PO Q8 PRN for Nausea or Vomiting Promethazine Hcl (Phenergan), 25 MG PO Q4 PRN for Nausea Tramadol HCl (Tramadol HCl), 50 MG PO Q6 PRN for Pain Review of Systems Constitutional: + weakness, + fatigue, + problem reported (decreased appetite) , No fever, No chills Respiratory: + cough, + sputum, No wheezing, No shortness of breath, No dyspnea on exertion, No dyspnea at rest, No hemoptysis Cardiovascular: No chest pain, No edema, No palpitations Abdomen: No pain, No nausea, No vomiting, No diarrhea, No constipation, No GI bleeding Musculoskeletal: No joint pain, No muscle pain Genitourinary - Male: No hematuria, No dysuria, No urinary frequency, No urinary urgency Neurologic: + weakness, No memory loss, No vertigo Psychiatric: No depression symptoms, No anxiety, No insomnia Endocrine: No fatigue, No excessive urination Hematologic / Lymphatic: No abnormal bleeding/bruising Integumentary: No rash Allergic / Immunologic: No environmental allergies, No seasonal allergies Physical Exam Vital Signs Date Time Temp Pulse Resp B/P (MAP) Pulse Ox O2 Delivery O2 Flow Rate FiO2 09/18/17 16:53 36.5 85 18 118/70 (86) 100 Room Air 09/18/17 16:12 90 20 90/48 95 Room Air 09/18/17 13:21 95 20 121/64 100 Nebulizer 7.0 09/18/17 12:54 70 20 96 Room Air 09/18/17 12:47 88 09/18/17 11:22 96 Room Air 09/18/17 11:11 98 09/18/17 10:45 36.5 102 20 133/77 97 Room Air General Appearance: no apparent distress, + pertinent finding (weak, chronically ill appearing) Head: normocephalic, atraumatic Eyes: normal inspection ENT: hearing grossly normal Neck: supple Respiratory/Chest: chest non-tender, lungs clear, normal breath sounds, no respiratory distress, no accessory muscle use Cardiovascular: regular rate, rhythm, no edema, no murmur Abdomen/GI: normal bowel sounds, non tender, soft Extremities/Musculoskelatal: normal capillary refill, no pedal edema Neurologic/Psych: no motor/sensory deficits, alert, normal mood/affect Skin: normal color Lymphatic: no adenopathy Diagnostics Laboratory Results Results Past 24 Hours Test 09/18/17 11:15 09/18/17 14:00 Range/Units White Blood Count 0.69 4.8-10.8 K/uL Red Blood Count 3.20 4.7-6.1 M/uL Hemoglobin 8.4 14.0-18.0 g/dL Hematocrit 26.3 42-52 % Mean Corpuscular Volume 82.2 80-100 fL Mean Corpuscular Hemoglobin 26.3 25-34 pg Mean Corpuscular Hemoglobin Concent 31.9 32-36 g/dl Platelet Count 3 130-400 K/uL RDW Standard Deviation 45.7 36.4-46.3 fL RDW Coefficient of Variation 15.1 11.5-14.5 % Neutrophils % (Manual) 1.2 % Lymphocytes % (Manual) 56.4 % Variant Lymphocytes % (manual) 42.4 % Neutrophils # (Manual) 0.01 1.4-6.5 K/uL Total Absolute Neutrophils 0.01 1.4-6.5 K/uL Lymphocytes # (Manual) 0.39 1.2-3.4 K/uL Absolute Variant Lymphocytes 0.29 K/uL Total Absolute Lymphocytes 0.68 1.2-3.4 K/uL Platelet Estimate SIGNIFIC DECREASED Ovalocytes 1+ Sodium Level 134 136-145 mmol/L Potassium Level 4.4 3.5-5.1 mmol/L Chloride Level 100 98-107 mmol/L Carbon Dioxide Level 25 21-32 mmol/L Anion Gap 9.0 3-11 mmol/L Blood Urea Nitrogen 17 7-18 mg/dl Creatinine 0.72 0.60-1.40 mg/dl Est Creatinine Clear Calc Drug Dose 91.4 ml/min Estimated GFR () 107.3 Estimated GFR (Non- 92.5 BUN/Creatinine Ratio 23.2 10-20 Random Glucose 97 70-99 mg/dl Calcium Level 8.4 8.5-10.1 mg/dl Total Bilirubin 1.0 0.2-1 mg/dl Direct Bilirubin 0.3 0-0.2 mg/dl Aspartate Amino Transf (AST/SGOT) 20 15-37 U/L Alanine Aminotransferase (ALT/SGPT) 29 12-78 U/L Alkaline Phosphatase 83 45-117 U/L Troponin I 0.020 0-0.045 ng/ml Pro-B-Type Natriuretic Peptide 390 0-900 pg/ml Total Protein 6.1 6.4-8.2 gm/dl Albumin 2.6 3.4-5.0 gm/dl Lipase 149 73-393 U/L Urine Color YELLOW Urine Appearance CLEAR CLEAR Urine pH 5.0 4.5-7.5 Urine Specific [place] 1.016 1.000-1.030 Urine Protein NEG NEG Urine Glucose (UA) NEG NEG Urine Ketones NEG NEG Urine Occult Blood NEG NEG Urine Nitrite NEG NEG Urine Bilirubin NEG NEG Urine Urobilinogen NEG NEG Urine Leukocyte Esterase NEG NEG Microbiology Results 09/18/17 Blood Culture, Received Pending 09/18/17 Blood Culture, Received Pending Diagnostic Radiology CHEST ONE VIEW PORTABLE CLINICAL HISTORY: CHEST PAIN dyspnea COMPARISON STUDY: 08/25/2017 FINDINGS: Lungs remain clear. Central catheter in superior vena cava. No evidence for cardiac enlargement. Diaphragms are smooth. IMPRESSION: No acute process. The lungs are clear. (CHEST FOR PE) ANGIO WITH CT DOSE: 354.07 mGycm HISTORY: 72 years-old Male acute atypical chest pain TECHNIQUE: Multiple CTA images of the chest were obtained after the intravenous administration of 93 ml Optiray 320. Coronal and sagittal MIPS were obtained from the axial data set and were submitted for review. A dose lowering technique was utilized adhering to the principles of ALARA. COMPARISON: Chest CT 07/30/2017. FINDINGS: CTA: Heart is upper limits of normal in size. Coronary arterial disease. Moderate atherosclerosis of the aorta without aneurysm or dissection. Imaged great vessels appear patent. The urinary arterial tree is opacified to the level of the segmental branches. The distal segmental and subsegmental branches are not well-seen secondary to respiratory motion. No definite pulmonary embolus identified. Right pectoral [id number] catheter is noted, distal tip in the SVC. CT CHEST: Thyroid is homogeneous without dominant nodule identified. Mild mediastinal and hilar adenopathy redemonstrated. Right hilar lymph nodes measure up to 1.6 x 1.17 m. Left hilar lymph nodes measure up to 9 mm in short axis. 1.4 x 1.2 cm AP window lymph node is unchanged. Moderate severe upper lobe predominant emphysema. 6 x 6 mm solid nodule with peripheral groundglass attenuation is seen within the right lung apex, image 212 series 4 which has decreased from prior study, previously measuring 1.9 cm on study dated 07/30/2017. There is only minimal scattered groundglass opacities of the lungs bilaterally correlating with previous described nodular densities. 4 mm pulmonary nodule of the left upper lobe on image 152 series 4 likely correlates with previously noted 9 mm pulmonary nodule. No new pulmonary nodules identified. Minimal irregular consolidation of the right lower lobe on image 103 series 4 appears new from prior exam. Mild dependent subsegmental bibasilar atelectasis. Central airways are patent. Mild bilateral bronchial wall thickening. Spleen is enlarged, 15 x 12 cm. No acute abnormality of the imaged upper abdomen. Bones appear intact without suspicious lytic or blastic bony lesions. IMPRESSION: 1. No acute aortic pathology or evidence of pulmonary thromboembolic disease. 2. Improved aeration of the bilateral lungs with near complete resolution of the previously described multiple irregular bilateral pulmonary nodules. A few scattered pulmonary nodules persist measuring up to 6 mm. Mild residual groundglass opacities are also seen suggesting resolving pneumonitis. 3. Subsegmental bibasilar dependent opacities suggest atelectasis. 4. Emphysema. 5. Unchanged mediastinal and hilar lymphadenopathy. 6. Splenomegaly. EKG Normal sinus rhythm Normal ECG Impression Assessment and Plan This is a 72 year old male with a PMH of mantle cell lymphoma and ongoing chemotherapy presents with cough and weakness Viral Bronchitis possible viral bronchitis, with chest congestion, cough, CXR negative CT ruled out PE; possible pneumonitis spoke with Dr. Ryan; recommendation made for Levaquin, which we will start nebs added as needed Tessalon as needed for cough cont. home dose of dexamethasone check a flu swab Chemo-induced Neutropenia patient received Neupogen on 09/08 to 09/11 WBC still very low < 1k neutropenic precautions consulted hematology for possible Neupogen use? Thrombocytopenia platelets at 3k will transfuse 1 unit of platelets patient has had platelets in the past hematology consulted for further input DVT ppx SCDs secondary to thrombocytopenia DNR VTE Prophylaxis VTE Risk Assessment Done? Y/N: Yes Risk Level: Moderate
[2017-09-18] MEDS: LEVALBUTEROL 0.63MG/3 ML NEB INH SCH (19:00)
[2017-09-18] MEDS: DEXAMETHASONE 4 MG TAB PO SCH (20:39)
[2017-09-18 22:40] LABS: INFLUENZA A PCR Neg for Influ A (NEG); INFLUENZA B PCR Neg for Influ B (NEG)
[2017-09-18] MEDS ORDERED: COUGH DROP (SUGAR FREE) LOZ 24 LOZ/1 BOX ONE (23:44)
[2017-09-18] MEDS ORDERED: COUGH DROP (SUGAR FREE) LOZ 24 LOZ/1 BOX PO PRN (23:45)
[2017-09-19] VITALS (16 sets, daily range): BP systolic 111–126; BP diastolic 60–74; PULSE 78–90; TEMP 36.4–36.9; O2SAT 93–99
[2017-09-19] MEDS: TRAMADOL HCL 50 MG TAB PO PRN ×2 (01:03→07:41)
[2017-09-19] MEDS: LEVALBUTEROL 0.63MG/3 ML NEB INH SCH ×4 (01:51→19:20)
[2017-09-19] MEDS ORDERED: VANCOMYCIN INJ 0 MG in SODIUM CHLORIDE 0.9% 250ML 250 ML IV STA (06:37)
[2017-09-19] MEDS ORDERED: VANCOMYCIN CONSULT ACTIVE PRN (07:00)
[2017-09-19] MEDS ORDERED: VANCOMYCIN INJ 2,000 MG in SODIUM CHLORIDE 0.9% 500ML 500 ML IV SCH (07:00)
[2017-09-19] MEDS: DEXAMETHASONE 4 MG TAB PO SCH ×2 (07:38→20:52)
[2017-09-19] MEDS: PANTOprazole SOD 40 MG TAB PO SCH (07:38)
[2017-09-19] MEDS: BENZONATATE 100MG CAP PO PRN ×3 (07:39→23:11)
[2017-09-19] MEDS: BOOST VANILLA PO SCH ×4 (07:42→19:39)
[2017-09-19 07:57] LABS: BUN/CREATININE RATIO 27.4 (10-20); CALCIUM 8.6 mg/dl (8.5-10.1); CREATININE 0.64 mg/dl (0.60-1.40); POTASSIUM 4.5 mmol/L (3.5-5.1)
[2017-09-19 07:59] LABS: HEMATOCRIT 23.4 % (42-52); MEAN CORPUSCULAR HEMOGLOBIN 26.6 pg (25-34); MEAN CORPUSCULAR HGB CONC 32.9 g/dl (32-36); MEAN PLATELET VOLUME 8.3 fL (7.4-10.4); PLATELET COUNT 11 K/uL (130-400); RED BLOOD COUNT 2.89 M/uL (4.7-6.1); WHITE BLOOD COUNT 1.06 K/uL (4.8-10.8)
[2017-09-19 08:16] LABS: BASO % 0.9 %; BASO ABS # 0.01 K/uL (0-0.2); COMPLETE YES; LYMPH % 86.8 %; LYMPH ABS # 0.92 K/uL (1.2-3.4); MONO % 12.3 %; TEAR DROP CELLS 1+
--- NOTE | 2017-09-19 10:25 | Pharmacy Progress Note ---
Pharmacy Abx Dose Short Note Date of Service Sep 19, 2017. Assessment & Plan Assessment 72 year old male receiving VANC/LVQ for treatment of BACTEREMIA (Vanc) & pulmonary source (LVQ--per hematology) * Day # 1 of antimicrobial therapy. Pertinent PMH: Immunosuppression on chemo (mantle cell), neutropenic. Received Neupogen recently. Blood culture 1/2 Gm+ cocci. Plan Vancomycin * Estimated p'kinetic: Vd~0.7L/kg, Ke~0.0741hr-1, T1/2~9 hrs * LOADING DOSE: Vanc 2000mg (~24mg/kg) IV x 1 * MAINTENANCE DOSE: VANC 1250mg (~15mg/kg) IV q 12 hours * Goal trough level: 15 to 20 mcg/mL * VANC Trough level @ Css prior to 09/21/17 0600 dose. Pharmacy will continue to follow and will adjust dose/frequency as necessary. Thank you.
[2017-09-19] MEDS ORDERED: LEVOFLOXACIN / D5W 750 MG in PREMIXED IN D5W 150 ML IV SCH (16:00)
[2017-09-19] MEDS: VANCOMYCIN INJ 1,250 MG in SODIUM CHLORIDE 0.9% 250ML 250 ML IV SCH (17:38)
--- NOTE | 2017-09-19 17:53 | Progress Note ---
Progress Note Date of Service Sep 19, 2017. Progress Note Subjective Patient seen and examined. Patient denies acute pain. Breathing on room air. Reports that he feels some chest discomfort when lying flat and is comfortable in a reclined position. Some cough. Otherwise no other acute complaints Physical Exam General Appearance: no apparent distress Head: normocephalic, atraumatic Eyes: normal inspection ENT: hearing grossly normal Neck: supple Respiratory/Chest: chest non-tender, lungs clear, normal breath sounds, no respiratory distress, no accessory muscle use Cardiovascular: regular rate, rhythm, no edema, no murmur Abdomen/GI: normal bowel sounds, non tender, soft Extremities/Musculoskelatal: normal capillary refill, no pedal edema Neurologic/Psych: no motor deficits, alert, normal mood/affect Skin: normal color Imaging to date 09/18/17 CT scan of Chest 1. No acute aortic pathology or evidence of pulmonary thromboembolic disease. 2. Improved aeration of the bilateral lungs with near complete resolution of the previously described multiple irregular bilateral pulmonary nodules. A few scattered pulmonary nodules persist measuring up to 6 mm. Mild residual groundglass opacities are also seen suggesting resolving pneumonitis. 3. Subsegmental bibasilar dependent opacities suggest atelectasis. 4. Emphysema. 5. Unchanged mediastinal and hilar lymphadenopathy. 6. Splenomegaly. Plan This is a 72 year old male with a PMH of mantle cell lymphoma and ongoing chemotherapy presents with cough and weakness with labs significant for thrombocytopenia and neutropenia Viral Bronchitis possible viral bronchitis, with chest congestion, cough, CXR negative Flu swab negative CT ruled out PE; possible pneumonitis Dr. Ryan; recommendation made for Levaquin, which was started nebs added as needed Tessalon as needed for cough cont. home dose of dexamethasone Chemo-induced Neutropenia patient received Neupogen on 09/08 to 09/11 WBC trended up from 0.63 on admission 09/18/17 to 1.06 on 09/19/17, continue to trend WBC neutropenic precautions Hematology consult recommendations on 09/19/17: Dr. Pendleton recommended to give Neupogen 480 mcg Thrombocytopenia on 09/18/17 platelets was 3000, s/p 1 unit of platelet with 09/19/17 lab of 11, 000 No bleeding Hematology consult recommendations on 09/19/17: Dr. Pendleton recommended to transfuse platelets if platelets less than 10,000 Anemia No bleeding Hgb 8.4 to 7.7 Hematology consult recommendations on 09/19/17: Dr. Pendleton recommended to transfuse 1 unit PRBC to maintain Hgb above 8 DVT ppx SCDs
[2017-09-19] MEDS ORDERED: FILGRASTIM 480 MCG/1.6 ML VIAL SC ONE (20:00)
[2017-09-20] VITALS (10 sets, daily range): BP systolic 106–130; BP diastolic 57–75; PULSE 81–106; TEMP 36.4–36.9; O2SAT 93–98
[2017-09-20] MEDS: LEVALBUTEROL 0.63MG/3 ML NEB INH SCH ×3 (01:38→14:24)
[2017-09-20] MEDS: VANCOMYCIN INJ 1,250 MG in SODIUM CHLORIDE 0.9% 250ML 250 ML IV SCH ×2 (05:35→17:44)
[2017-09-20 06:31] LABS: CREATININE 0.67 mg/dl (0.60-1.40)
[2017-09-20] MEDS: DEXAMETHASONE 4 MG TAB PO SCH ×2 (08:13→20:08)
[2017-09-20] MEDS: PANTOprazole SOD 40 MG TAB PO SCH (08:13)
--- NOTE | 2017-09-20 08:55 | DIAGNOSTIC IMAGING REPORT ---
CHEST 2 VIEWS ROUTINE CLINICAL HISTORY: 72 years-old Male presenting with cough. TECHNIQUE: PA and lateral views of the chest were obtained. COMPARISON: 09/18/2017. FINDINGS: Right internal jugular Mediport terminates at the superior cavoatrial junction. Atherosclerosis of aortic arch. Cardiac silhouette normal in size. Osseous structures normal. Upper abdomen normal. IMPRESSION: 1. No acute cardiopulmonary disease. Electronically signed by: Mikael Langford M.D. 09/20/2017 8:53 AM Dictated Date/Time: 09/20/2017 8:52 AM
[2017-09-20] MEDS: BOOST VANILLA PO SCH ×4 (09:47→19:35)
[2017-09-20 11:12] LABS: COMPLETE YES; DOHLE BODIES 1+; HEMATOCRIT 29.2 % (42-52); LYMPH ABS # 1.78 K/uL (1.2-3.4); MEAN CELL VOLUME 82.5 fL (80-100); MEAN CORPUSCULAR HEMOGLOBIN 26.6 pg (25-34); MEAN CORPUSCULAR HGB CONC 32.2 g/dl (32-36); MEAN PLATELET VOLUME 8.7 fL (7.4-10.4); OVALOCYTES 1+; PLATELET COUNT 14 K/uL (130-400); RED BLOOD COUNT 3.54 M/uL (4.7-6.1); TEAR DROP CELLS 1+; WHITE BLOOD COUNT 2.17 K/uL (4.8-10.8)
[2017-09-20] MEDS ORDERED: SENNA 8.6 MG TAB PO STA (14:36)
--- NOTE | 2017-09-20 14:43 | Progress Note ---
Internal Med Progress Note Date of Service: Sep 20, 2017. Provider Documentation: Subjective Patient seen and examined. Patient denies acute pain. Breathing on room air. Reports that he feels some chest discomfort when lying flat and is comfortable in a reclined position. Otherwise no other acute complaints Physical Exam General Appearance: no apparent distress Head: normocephalic, atraumatic Eyes: normal inspection ENT: hearing grossly normal Neck: no JVD Respiratory/Chest: chest non-tender, lungs clear, normal breath sounds, no respiratory distress, no accessory muscle use Cardiovascular: regular rate, rhythm, no edema, no murmur Abdomen/GI: normal bowel sounds, non tender, soft Extremities/Musculoskelatal: pedal edema Neurologic/Psych: no motor deficits, alert, normal mood/affect Skin: normal color ASSESSMENT & PLAN: Imaging to date 09/18/17 CT scan of Chest 1. No acute aortic pathology or evidence of pulmonary thromboembolic disease. 2. Improved aeration of the bilateral lungs with near complete resolution of the previously described multiple irregular bilateral pulmonary nodules. A few scattered pulmonary nodules persist measuring up to 6 mm. Mild residual groundglass opacities are also seen suggesting resolving pneumonitis. 3. Subsegmental bibasilar dependent opacities suggest atelectasis. 4. Emphysema. 5. Unchanged mediastinal and hilar lymphadenopathy. 6. Splenomegaly. 09/20/17 CXR Right internal jugular Mediport terminates at the superior cavoatrial junction. Atherosclerosis of aortic arch. Cardiac silhouette normal in size. Osseous structures normal. Upper abdomen normal. IMPRESSION: 1. No acute cardiopulmonary disease Plan This is a 72 year old male with a PMH of mantle cell lymphoma and ongoing chemotherapy presents with cough and weakness with labs significant for thrombocytopenia and neutropenia Viral Bronchitis possible viral bronchitis, with chest congestion, cough Flu swab negative CT ruled out PE; possible pneumonitis patient of Dr. Ryan and recommendation made for Levaquin which was started on 09/19/17 nebulizers Tessalon as needed for cough cont. home dose of dexamethasone patient has been receiving IV vancomycin since 09/19/17 for gram positive cocci from blood culture drawn on 09/18/17, the same blood culture has resulted as ALPHA STREP NOT S.PNE/ENTEROCO Blood culture ordered on 09/20/17 to confirm possible blood culture contamination, will continue IV vancomycin for now, will stop Levaquin IV on as no acute pulmonary process, ID consultation requested Chemo-induced Neutropenia patient received Neupogen on 09/08 to 09/11 as outpatient WBC trended up from 0.63 on admission 09/18/17 to 1.06 on 09/19/17, 09/20/17 WBC is 2.16 but total absolute neutrophils still low, continue to trend Hematology consult recommendations on 09/19/17: Dr. Pendleton recommended to give Neupogen 480 mcg neutropenic precautions Thrombocytopenia on 09/18/17 platelets was 3000, s/p 1 unit of platelet with 09/19/17 lab of 11, 000, 09/20/17 platelet level is 14,000, continue to trend platelets No bleeding Hematology consult recommendations on 09/19/17: Dr. Pendleton recommended to transfuse platelets if platelets less than 10,000 Anemia No bleeding Hgb 8.4 to 7.7 Hematology consult recommendations on 09/19/17: Dr. Pendleton recommended to transfuse 1 unit PRBC to maintain Hgb above 8, 09/20/17 CBC is 9.4 DVT ppx SCDs Vital Signs: Date Time Temp Pulse Resp B/P (MAP) Pulse Ox O2 Delivery O2 Flow Rate FiO2 09/20/17 14:25 81 18 98 Room Air 09/20/17 11:09 36.7 97 20 122/66 (84) 95 Room Air 09/20/17 08:00 Room Air 09/20/17 07:42 106 18 96 Room Air 09/20/17 07:15 36.6 87 16 130/73 (92) 93 Room Air 09/20/17 04:36 36.7 86 20 118/75 (89) 96 Room Air 09/20/17 01:38 81 18 97 Room Air 09/20/17 00:00 Room Air 09/19/17 23:10 36.6 78 18 126/74 96 09/19/17 22:10 36.7 82 18 122/70 97 09/19/17 21:40 36.7 87 18 122/70 95 09/19/17 21:10 36.7 85 18 121/69 96 09/19/17 20:55 36.5 90 18 111/69 95 09/19/17 20:40 36.5 84 20 119/70 95 09/19/17 19:39 36.9 85 18 117/60 (79) 99 Room Air 09/19/17 19:22 84 20 96 Room Air 09/19/17 16:00 Room Air 09/19/17 15:00 36.4 85 18 125/68 (87) 93 Lab Results: Results Past 24 Hours Test 09/20/17 05:19 09/20/17 10:00 Range/Units Creatinine 0.67 0.60-1.40 mg/dl Est Creatinine Clear Calc Drug Dose 98.2 ml/min Estimated GFR () 110.5 Estimated GFR (Non- 95.3 White Blood Count 2.17 4.8-10.8 K/uL Red Blood Count 3.54 4.7-6.1 M/uL Hemoglobin 9.4 14.0-18.0 g/dL Hematocrit 29.2 42-52 % Mean Corpuscular Volume 82.5 80-100 fL Mean Corpuscular Hemoglobin 26.6 25-34 pg Mean Corpuscular Hemoglobin Concent 32.2 32-36 g/dl Platelet Count 14 130-400 K/uL Mean Platelet Volume 8.7 7.4-10.4 fL RDW Standard Deviation 45.0 36.4-46.3 fL RDW Coefficient of Variation 14.8 11.5-14.5 % Neutrophils % (Manual) 5.0 % Lymphocytes % (Manual) 82.0 % Monocytes % (Manual) 13.0 % Neutrophils # (Manual) 0.11 1.4-6.5 K/uL Total Absolute Neutrophils 0.11 1.4-6.5 K/uL Lymphocytes # (Manual) 1.78 1.2-3.4 K/uL Total Absolute Lymphocytes 1.78 1.2-3.4 K/uL Monocytes # (Manual) 0.28 0.11-0.59 K/uL Dohle Bodies 1+ Tear Drop Cells 1+ Ovalocytes 1+ Microbiology Results 09/20/17 Blood Culture, Ordered Pending 09/20/17 Blood Culture, Ordered Pending
[2017-09-20] MEDS: BENZONATATE 100MG CAP PO PRN ×2 (15:09→20:08)
--- NOTE | 2017-09-20 18:08 | Medical Consult ---
Consultation Date of Consultation: Sep 20, 2017. Attending Physician: Oliver Sharma M.D. Reason for Consultation: Neutropenic patient, on chemotherapy, positive blood culture History of Present Illness 72-year-old male with history of mantle cell lymphoma, currently receiving chemotherapy, who was now admitted to the hospital with 1-2 week history of progressively worsening cough and fever. He has been having difficulty with shortness of breath, and finds it impossible to lie flat in bed without severe coughing fits. His workup thus far shows significant neutropenia which has now improved, and pulmonary nodules which have improved since last scan, no obvious worsening pneumonia. Now with single positive blood culture for alpha Streptococcus. Patient currently on IV vancomycin, follow-up blood cultures are pending. Apart from his cough, patient denies any specific complaints. No other localizing symptoms. Past Medical/Surgical History Medical Problems: (1) Anemia Status: Acute (2) Bronchitis Status: Acute (3) COPD exacerbation Status: Acute (4) High serum lactate Status: Acute (5) Ischemic bowel disease Status: Acute (6) Lactic acidosis Status: Acute (7) Myalgia Status: Acute (8) Neutropenia Status: Acute (9) Palpitations Status: Acute (10) Splenic laceration Status: Acute (11) Thrombocytopenia Status: Acute (12) Weakness Status: Acute Medical Problems: (1) Mantle cell lymphoma Surgical Problems: (1) History of appendectomy Family History FH: CAD (coronary artery disease) FATHER MOTHER FH: lung cancer SISTER Social History Smoking Status: Never Smoker Drug Use: none Marital Status: Housing Status: lives with family Occupation Status: retired Allergies Coded Allergies: Tetracycline (Verified Allergy, Unknown, water blisters, 09/18/17) Current Inpatient Medications Current Inpatient Medications Medications (Trade) Dose Ordered Sig/Flory Route Start Time Stop Time Status Last Admin Dose Admin Ioversol (Optiray 320) 111 ml UD PRN IV 09/18/17 13:30 09/22/17 13:29 Acetaminophen (Tylenol Tab) 650 mg Q4H PRN PO 09/18/17 15:30 10/18/17 15:29 Dexamethasone (Decadron Tab) 2 mg QPM PO 09/18/17 21:00 10/18/17 20:59 09/19/17 20:52 2 MG Dexamethasone (Decadron Tab) 4 mg QAM PO 09/19/17 08:00 10/19/17 08:59 09/20/17 08:13 4 MG Ondansetron HCl (Zofran Tab) 8 mg Q8 PRN PO 09/18/17 15:30 10/18/17 15:29 Promethazine HCl (Phenergan Tab) 25 mg Q4 PRN PO 09/18/17 15:30 10/18/17 15:29 Tramadol HCl (Ultram Tab) 50 mg Q6 PRN PO 09/18/17 15:30 10/18/17 15:29 09/19/17 07:41 50 MG Pantoprazole Sodium (Protonix Tab) 40 mg DAILY PO 09/19/17 08:00 10/19/17 08:59 09/20/17 08:13 40 MG Benzonatate (Tessalon Perles Cap) 100 mg TID PRN PO 09/18/17 16:00 10/18/17 15:59 09/20/17 15:09 100 MG Menthol (Nice Eleazar) 1 eleazar Q2H PRN PO 09/18/17 23:45 10/18/17 23:44 Vancomycin HCl (Consult) 1 ea UD PRN N/A 09/19/17 07:00 10/19/17 06:59 Vancomycin HCl 1250 mg/Sodium Chloride 275 ml @ 125 mls/hr Q12H IV 09/19/17 18:00 10/03/17 17:59 09/20/17 17:44 125 MLS/HR Enteral Nutritional Formula (Boost) 1 can BID PO 09/19/17 20:00 10/19/17 19:59 09/20/17 09:47 1 CAN Senna (Senokot Tab) 8.6 mg QAM PO 09/21/17 08:00 10/21/17 07:59 Levalbuterol (Xopenex 0.63 Mg/ 3 Ml Neb) 0.63 mg Q6H PRN INH 09/20/17 15:00 10/20/17 14:59 Review of Systems Constitutional: + fever, + weakness, + fatigue Eyes: No problem reported ENT: No problem reported Respiratory: + cough, + shortness of breath Cardiovascular: No problem reported Abdomen: No problem reported Musculoskeletal: No problem reported Genitourinary - Male: No problem reported Neurologic: No problem reported Psychiatric: No problem reported Endocrine: No problem reported Hematologic / Lymphatic: No problem reported Integumentary: No problem reported Allergic / Immunologic: No problem reported Physical Exam Date Time Temp Pulse Resp B/P (MAP) Pulse Ox O2 Delivery O2 Flow Rate FiO2 09/20/17 16:00 Room Air 09/20/17 14:54 36.7 94 16 115/70 (85) 94 09/20/17 14:25 81 18 98 Room Air 09/20/17 11:09 36.7 97 20 122/66 (84) 95 Room Air 09/20/17 08:00 Room Air 09/20/17 07:42 106 18 96 Room Air 09/20/17 07:15 36.6 87 16 130/73 (92) 93 Room Air 09/20/17 04:36 36.7 86 20 118/75 (89) 96 Room Air 09/20/17 01:38 81 18 97 Room Air 09/20/17 00:00 Room Air 09/19/17 23:10 36.6 78 18 126/74 96 09/19/17 22:10 36.7 82 18 122/70 97 09/19/17 21:40 36.7 87 18 122/70 95 09/19/17 21:10 36.7 85 18 121/69 96 09/19/17 20:55 36.5 90 18 111/69 95 09/19/17 20:40 36.5 84 20 119/70 95 09/19/17 19:39 36.9 85 18 117/60 (79) 99 Room Air 09/19/17 19:22 84 20 96 Room Air General Appearance: WD/WN, no apparent distress Head: normocephalic, atraumatic Eyes: normal inspection, EOMI, sclerae normal ENT: normal ENT inspection, hearing grossly normal, pharynx normal Neck: supple, no adenopathy, thyroid normal, trachea midline Respiratory/Chest: chest non-tender, lungs clear, normal breath sounds, no respiratory distress Cardiovascular: regular rate, rhythm, no gallop, no murmur Abdomen/GI: normal bowel sounds, non tender, soft, no organomegaly Back: normal inspection, no CVA tenderness Extremities/Musculoskelatal: no calf tenderness, non-tender Neurologic/Psych: alert, oriented x 3 Skin: normal color, warm/dry, no rash Lymphatic: no adenopathy Laboratory Results RUN DATE: 09/20/17 [facility] LAB PAGE 1 RUN TIME: 1146 Specimen Inquiry PATIENT: NAVYA ANDERSEN LOC: [facility] U # : [id number] AGE/SX: 72/M ROOM: [facility] REG : 09/18/[address]: Oliver Sharma M.D. : 1945 BED: 1 DIS : STATUS: ADM IN TLOC: SPEC #: [id number] DOYLE: 09/18/17 STATUS: RES REQ #: [id number] RECD: 09/18/17-[address]: Wayne Artis M.D. SOURCE: BLOOD ENTR: 09/18/17-1157 [facility] DR: Faustino Ryan M.D. [facility]: ORDERED: BLOOD CULTURE Procedure Result Verified Site BLD CULT Preliminary 09/20/17-1146 Organism 1 ALPHA STREP NOT S.PNE/ENTEROCO SENS NO SENSITIVITY TO FOLLOW Phoned Positive Blood Culture Gram Stain Report to DOMINIC PHELPS on 09/19/17 At 0633 By [employer]. Results were verbalized back to [employer]. One set of two positive. Isolation does not necessarily mean infection. No susceptibility tests performed. Contact microbiology laboratory [phone]) if further studies are indicated. Date/Time Source Procedure Growth Status 09/20/17 15:09 Blood Blood Culture Pending Received 09/20/17 14:56 Blood Blood Culture Pending Received Last 24 Hours Test 09/20/17 05:19 09/20/17 10:00 Creatinine 0.67 mg/dl Est Creatinine Clear Calc Drug Dose 98.2 ml/min Estimated GFR () 110.5 Estimated GFR (Non- 95.3 White Blood Count 2.17 K/uL Red Blood Count 3.54 M/uL Hemoglobin 9.4 g/dL Hematocrit 29.2 % Mean Corpuscular Volume 82.5 fL Mean Corpuscular Hemoglobin 26.6 pg Mean Corpuscular Hemoglobin Concent 32.2 g/dl Platelet Count 14 K/uL Mean Platelet Volume 8.7 fL RDW Standard Deviation 45.0 fL RDW Coefficient of Variation 14.8 % Neutrophils % (Manual) 5.0 % Lymphocytes % (Manual) 82.0 % Monocytes % (Manual) 13.0 % Neutrophils # (Manual) 0.11 K/uL Total Absolute Neutrophils 0.11 K/uL Lymphocytes # (Manual) 1.78 K/uL Total Absolute Lymphocytes 1.78 K/uL Monocytes # (Manual) 0.28 K/uL Dohle Bodies 1+ Tear Drop Cells 1+ Ovalocytes 1+ Patient Name: NAVYA ANDERSEN Unit Number: [id number] Dictated: 09/20/17851 Transcribed: 09/20/17851 PBS Printed Date/Time: [~ rep prt dt]/[~ rep prt tm] [~ rep ct labl] - [~ rep ct ivnm] [facility] [place] [address] Dictated: 09/20/17851 Transcribed: 09/20/17851 PBS Printed Date/Time: [~ rep prt dt]/[~ rep prt tm] [~ rep ct labl] - [~ rep ct ivnm] [~ rep ct add3]] CHEST 2 VIEWS ROUTINE CLINICAL HISTORY: 72 years-old Male presenting with cough. TECHNIQUE: PA and lateral views of the chest were obtained. COMPARISON: 09/18/2017. FINDINGS: Right internal jugular Mediport terminates at the superior cavoatrial junction. Atherosclerosis of aortic arch. Cardiac silhouette normal in size. Osseous structures normal. Upper abdomen normal. IMPRESSION: 1. No acute cardiopulmonary disease. Electronically signed by: Mikael Langford M.D. 09/20/2017 8:53 AM Dictated Date/Time: 09/20/2017 8:52 AM The status of this report is Signed. Draft = Not yet reviewed or approved by Radiologist. Signed = Reviewed and approved by Radiologist. <AttendingPhy>Oliver Sharma M.D.</AttendingPhy> <FamilyPhy>Faustino Ryan M.D. </FamilyPhy> <PrimaryPhy>Faustino Ryan M.D.</PrimaryPhy> <UnitNumber> [id number]</UnitNumber> <VisitNumber>[id number]</VisitNumber> <PatientName> NAVYA ANDERSEN</PatientName> <DateOfBirth>1945</DateOfBirth> <Location> C.4E</Location> <ServiceDate>09/18/17</ServiceDate> <MNE>ESINDI</MNE> < OrderingPhy>Oliver Sharma M.D.</OrderingPhy> <OrderingPhyMNE>f rep ord dr whitman</ OrderingPhyMNE> <DictatingPhyMNE>f rep dict dr whitman</DictatingPhyMNE> <CCListMNE> f rep ct mne</CCListMNE> <AdmittingPhyMNE>f pt admit dr whitman</AdmittingPhyMNE> < AttendingPhyMNE>f pt attend dr whitman</AttendingPhyMNE> <ConsultingPhyMNE>f pt consult dr whitman</ConsultingPhyMNE> <FamilyPhyMNE>f pt fam dr whitman</FamilyPhyMNE> <OtherPhyMNE>f pt other dr whitman</OtherPhyMNE> < PrimaryPhyMNE>f pt prim care dr whitman</PrimaryPhyMNE> <ReferringPhyMNE>f pt referring dr whitman</ReferringPhyMNE> Assessment & Plan 72-year-old male with history of mantle cell lymphoma on chemotherapy, now presents with fever and profound neutropenia, which appears to have recovered with Neulasta. Single positive blood culture for Streptococcus of unclear significance, given indwelling a port must be concerned about potential line infection. Not clear whether this is related to his pulmonary symptoms. Patient be continued on IV antibiotics, follow-up blood cultures have been obtained. Discussed with Dr. Sharma. Will follow.
[2017-09-20] MEDS: LEVALBUTEROL 0.63MG/3 ML NEB INH PRN (20:22)
[2017-09-21] VITALS (8 sets, daily range): BP systolic 102–119; BP diastolic 54–74; PULSE 73–95; TEMP 36.6–36.8; O2SAT 95–98
[2017-09-21] MEDS ORDERED: VANCOMYCIN TROUGH ONE (05:30)
[2017-09-21] MEDS: VANCOMYCIN INJ 1,250 MG in SODIUM CHLORIDE 0.9% 250ML 250 ML IV SCH ×3 (05:54→21:17)
[2017-09-21 06:25] LABS: CREATININE 0.71 mg/dl (0.60-1.40)
[2017-09-21 06:53] LABS: HEMATOCRIT 27.4 % (42-52); MEAN CELL VOLUME 81.8 fL (80-100); MEAN CORPUSCULAR HEMOGLOBIN 26.9 pg (25-34); MEAN CORPUSCULAR HGB CONC 32.8 g/dl (32-36); PLATELET COUNT 13 K/uL (130-400); RED BLOOD COUNT 3.35 M/uL (4.7-6.1); WHITE BLOOD COUNT 3.21 K/uL (4.8-10.8)
[2017-09-21 07:40] LABS: DOHLE BODIES 1+; OVALOCYTES 1+; TOXIC GRANULATION 1+
[2017-09-21 07:45] LABS: COMPLETE YES; LYMPH ABS # 2.71 K/uL (1.2-3.4); LYMPHOCYTE % 84.3 %; META ABS # 0.06 K/uL (0-0); NEUTROPHILS % 7.8 %
[2017-09-21] MEDS: BOOST VANILLA PO SCH ×4 (08:00→20:00)
[2017-09-21] MEDS: PANTOprazole SOD 40 MG TAB PO SCH (08:11)
[2017-09-21] MEDS: SENNA 8.6 MG TAB PO SCH (08:11)
[2017-09-21] MEDS: DEXAMETHASONE 4 MG TAB PO SCH ×2 (08:11→21:16)
--- NOTE | 2017-09-21 09:52 | Pharmacy Progress Note ---
Pharmacy Abx Dose Short Note Date of Service Sep 21, 2017. Assessment & Plan Assessment * 72 year old male receiving vancomycin IV for treatment of gram + cocci bacteremia * Day # 3 of antimicrobial therapy * Alpha-strep growing in 1 of 2 BLCX's (preliminary report) * Neutrophil count improving daily, however still neutropenic * Renal fxn is stable / unchanged based upon labs Plan Vancomycin * Trough level of 9 mcg/mL is subtherapeutic. Prior doses had been hung on schedule and this level was drawn at the appropriate time. * Change to 1250 mg IV every 8 hours * Goal trough level for bacteremia in the setting of neutropenia : 15 to 20 mcg/ mL * Trough level ordered for: 09/22/17 w/ 5th dose of new regimen * Monitor renal fxn closely with Q 8 hr regimen Pharmacy will continue to follow and will adjust dose/frequency as necessary. Thank you.
[2017-09-21] MEDS ORDERED: GUAIFENESIN SUGAR FREE 100 MG/5 ML UDC PO STA (11:25)
--- NOTE | 2017-09-21 12:10 | Clinical Documentation Query ---
MANNY Michelle : CLINICAL DOCUMENTATION QUERY Patient is a 72 year old male admitted for evaluation and treatment of cough and weakness, currently being treated for viral bronchitis in the setting of mantle cell lymphoma undergoing current chemotherapy. He is recieving Neupogen, has been transfused a unit of PRBC's, recent transfusion of platelets. As appropriate, consider documentation as suggested below in order to capture the severity of illness and risk of mortality associated with this important clinical diagnosis. In your clinical opinion is this patient being managed for: ( x) Chemotherapy induced pancytopenia ( ) Not Agree ( ) Other explanation of clinical findings (Please Explain) ( ) Unable to determine (Please Define) ( ) Need to Discuss The medical record reflects the following clinical findings, treatment, and risk factors. Clinical Indicators: As above Treatment: As above Risk Factors: Mantle cell lymphoma, associated chemotherapy Please clarify and document your clinical opinion in the progress notes and discharge summary. Terms such as "probable", "suspected", "likely", "questionable", "possible", or "still to be ruled out" are acceptable. IF IN AGREEMENT, YOU MUST DOCUMENT ABOVE DIAGNOSTIC STATEMENT IN DAILY PROGRESS NOTES AND DISCHARGE SUMMARY. This document is not part of the patient's record. Thank You, Александр Ley, RN [phone]
--- NOTE | 2017-09-21 14:24 | Progress Note ---
Internal Med Progress Note Date of Service: Sep 21, 2017. Provider Documentation: Subjective Patient seen and examined. Patient denies acute pain. Breathing on room air. Still Reports that he feels some chest discomfort when lying flat and is comfortable in a reclined position. Continues to have cough without sputum Physical Exam General Appearance: no apparent distress Head: normocephalic, atraumatic Eyes: normal inspection ENT: hearing grossly normal Neck: no JVD Respiratory/Chest: chest non-tender, lungs clear, normal breath sounds, no respiratory distress, no accessory muscle use Cardiovascular: regular rate, rhythm, no edema, no murmur Abdomen/GI: normal bowel sounds, non tender, soft Extremities/Musculoskelatal: pedal edema Neurologic/Psych: no motor deficits, alert, normal mood/affect Skin: normal color ASSESSMENT & PLAN: ASSESSMENT & PLAN: Imaging to date 09/18/17 CT scan of Chest 1. No acute aortic pathology or evidence of pulmonary thromboembolic disease. 2. Improved aeration of the bilateral lungs with near complete resolution of the previously described multiple irregular bilateral pulmonary nodules. A few scattered pulmonary nodules persist measuring up to 6 mm. Mild residual groundglass opacities are also seen suggesting resolving pneumonitis. 3. Subsegmental bibasilar dependent opacities suggest atelectasis. 4. Emphysema. 5. Unchanged mediastinal and hilar lymphadenopathy. 6. Splenomegaly. 09/20/17 CXR Right internal jugular Mediport terminates at the superior cavoatrial junction. Atherosclerosis of aortic arch. Cardiac silhouette normal in size. Osseous structures normal. Upper abdomen normal. IMPRESSION: 1. No acute cardiopulmonary disease Plan This is a 72 year old male with a PMH of mantle cell lymphoma and ongoing chemotherapy presents with cough and weakness with labs significant for Chemotherapy-induced pancytopenia with severe thrombocytopenia and neutropenia. Patient's preliminary admission diagnosis of viral bronchitis however Flu swab negative and no acute infectious pulmonary process noted on CT of lungs ( negative for pulmonary embolism) and on repeated Chest X rays. Levaquin started on 09/19/17 has been discontinued on 09/20/17. Patient has not had fever but may not be able to mount febrile response given neutropenia. Still, patient has been doing well on room air and not tachypneic. However having dry cough and mainly does not feel comfortably when lying on his back. Patient's symptoms managed with nebulizers, Tessalon, home dose dexamethasone, adding Robitussin today for symptomatic relief Patient does have 1 positive blood culture: patient has been receiving IV vancomycin since 09/19/17 for gram positive cocci from blood culture drawn on 09/18/17, the same blood culture has resulted as ALPHA STREP NOT S.PNE/ENTEROCO Blood culture ordered on 09/20/17 to confirm possible blood culture contamination, will continue IV vancomycin for now, will stop Levaquin IV on as no acute pulmonary process, ID consultation on 09/20/17 "given indwelling a port must be concerned about potential line infection recommending continuing IV antibiotic," blood culture drawn on 09/21/17 As discussed with the patient, even if cough is unremitting and if pulmonary bronchoscopy may be needed for further diagnosis, these interventions cannot be done at this time due to pancytopenia. Patient needs hematology-oncology consultation to continue follow the patient and further assist in management of pancytopenia Chemotherapy-induced Neutropenia patient received Neupogen on 09/08 to 09/11 as outpatient WBC trended up from 0.63 on admission 09/18/17 to 1.06 on 09/19/17, to 2.16 on 09/20/17, to 3.21 on 09/21/17 but total absolute neutrophils still low, continue to trend Hematology consult recommendations on 09/19/17: Dr. Pendleton recommended to give Neupogen 480 mcg neutropenic precautions Chemotherapy-induced thrombocytopenia on 09/18/17 platelets was 3000, s/p 1 unit of platelet with 09/19/17 lab of 11, 000, 09/20/17 platelet level is 14,000, 09/21/17 is 13,000. No bleeding Hematology consult recommendations on 09/19/17: Dr. Pendleton recommended to transfuse platelets if platelets less than 10,000 Chemotherapy-induced anemia, anemia of chronic disease no acute bleed Hematology consult recommendations on 09/19/17: Dr. Pendleton recommended to transfuse 1 unit PRBC to maintain Hgb above 8, 09/20/17 Hgb is 9.4, 09/21/17 Hgb is 9 Acute cardiac process unlikely but given persistent cough without acute pulmonary process and inability to lay flat, will try to obtain echocardiogram to noninvasiveness explore other cardio-pulmonary possible differentials for symptoms DVT ppx SCDs Vital Signs: Date Time Temp Pulse Resp B/P (MAP) Pulse Ox O2 Delivery O2 Flow Rate FiO2 09/21/17 15:42 88 18 97 Room Air 09/21/17 14:42 36.8 75 18 112/66 (81) 95 Room Air 09/21/17 11:56 36.6 93 22 103/60 (74) 95 Room Air 09/21/17 09:00 Room Air 09/21/17 07:30 36.8 73 16 113/71 (85) 98 Room Air 09/21/17 03:47 36.6 85 18 119/74 (89) 95 Room Air 09/21/17 00:00 Room Air 09/20/17 22:54 36.9 85 18 106/57 (73) 93 Room Air 09/20/17 20:22 88 18 94 Room Air 09/20/17 20:00 Room Air 09/20/17 19:32 36.4 84 16 106/59 (75) 94 Room Air Lab Results: Results Past 24 Hours Test 09/21/17 05:17 Range/Units White Blood Count 3.21 4.8-10.8 K/uL Red Blood Count 3.35 4.7-6.1 M/uL Hemoglobin 9.0 14.0-18.0 g/dL Hematocrit 27.4 42-52 % Mean Corpuscular Volume 81.8 80-100 fL Mean Corpuscular Hemoglobin 26.9 25-34 pg Mean Corpuscular Hemoglobin Concent 32.8 32-36 g/dl Platelet Count 13 130-400 K/uL Mean Platelet Volume 9.0 7.4-10.4 fL RDW Standard Deviation 44.8 36.4-46.3 fL RDW Coefficient of Variation 14.9 11.5-14.5 % Neutrophils % (Manual) 7.8 % Lymphocytes % (Manual) 84.3 % Monocytes % (Manual) 5.9 % Metamyelocytes % 2.0 % Neutrophils # (Manual) 0.25 1.4-6.5 K/uL Total Absolute Neutrophils 0.25 1.4-6.5 K/uL Lymphocytes # (Manual) 2.71 1.2-3.4 K/uL Total Absolute Lymphocytes 2.71 1.2-3.4 K/uL Monocytes # (Manual) 0.19 0.11-0.59 K/uL Metamyelocytes # 0.06 0-0 K/uL Toxic Granulation 1+ Dohle Bodies 1+ Ovalocytes 1+ Creatinine 0.71 0.60-1.40 mg/dl Est Creatinine Clear Calc Drug Dose 92.7 ml/min Estimated GFR () 107.9 Estimated GFR (Non- 93.1 Vancomycin Level Trough 9.0 SEE COMMENT mcg/ml Microbiology Results 09/21/17 Blood Culture, Received Pending 09/21/17 Blood Culture, Received Pending
[2017-09-21] MEDS: BENZONATATE 100MG CAP PO PRN (15:23)
[2017-09-21] MEDS: LEVALBUTEROL 0.63MG/3 ML NEB INH PRN ×2 (15:42→22:25)
--- NOTE | 2017-09-21 17:30 | Infectious Disease Progress Nt ---
Progress Note Date of Service Sep 21, 2017. Subjective Pt evaluation today including: conversation w/ patient, physical exam, chart review, lab review, review of studies, conversation w/ clinical consultant, review of inpatient medication list Patient offering no new complaints today. Remains afebrile. Follow-up blood cultures negative to date. All Other Systems: Reviewed and Negative Medications Current Inpatient Medications Medications (Trade) Dose Ordered Sig/Flory Route Start Time Stop Time Status Last Admin Dose Admin Ioversol (Optiray 320) 111 ml UD PRN IV 09/18/17 13:30 09/22/17 13:29 Acetaminophen (Tylenol Tab) 650 mg Q4H PRN PO 09/18/17 15:30 10/18/17 15:29 Dexamethasone (Decadron Tab) 2 mg QPM PO 09/18/17 21:00 10/18/17 20:59 09/20/17 20:08 2 MG Dexamethasone (Decadron Tab) 4 mg QAM PO 09/19/17 08:00 10/19/17 08:59 09/21/17 08:11 4 MG Ondansetron HCl (Zofran Tab) 8 mg Q8 PRN PO 09/18/17 15:30 10/18/17 15:29 Promethazine HCl (Phenergan Tab) 25 mg Q4 PRN PO 09/18/17 15:30 10/18/17 15:29 Tramadol HCl (Ultram Tab) 50 mg Q6 PRN PO 09/18/17 15:30 10/18/17 15:29 09/19/17 07:41 50 MG Pantoprazole Sodium (Protonix Tab) 40 mg DAILY PO 09/19/17 08:00 10/19/17 08:59 09/21/17 08:11 40 MG Benzonatate (Tessalon Perles Cap) 100 mg TID PRN PO 09/18/17 16:00 10/18/17 15:59 09/21/17 15:23 100 MG Menthol (Nice Eleazar) 1 eleazar Q2H PRN PO 09/18/17 23:45 10/18/17 23:44 Vancomycin HCl (Consult) 1 ea UD PRN N/A 09/19/17 07:00 10/19/17 06:59 Enteral Nutritional Formula (Boost) 1 can BID PO 09/19/17 20:00 10/19/17 19:59 09/20/17 09:47 1 CAN Senna (Senokot Tab) 8.6 mg QAM PO 09/21/17 08:00 10/21/17 07:59 09/21/17 08:11 8.6 MG Levalbuterol (Xopenex 0.63 Mg/ 3 Ml Neb) 0.63 mg Q6H PRN INH 09/20/17 15:00 10/20/17 14:59 09/21/17 15:42 0.63 MG Vancomycin HCl 1250 mg/Sodium Chloride 275 ml @ 125 mls/hr Q8H IV 09/21/17 14:00 10/03/17 17:59 09/21/17 15:13 125 MLS/HR Guaifenesin (Robitussin Sugar Free Syrup) 100 mg Q6H PRN PO 09/21/17 17:30 10/21/17 17:29 Objective Vital Signs Date Time Temp Pulse Resp B/P (MAP) Pulse Ox O2 Delivery O2 Flow Rate FiO2 09/21/17 15:42 88 18 97 Room Air 09/21/17 14:42 36.8 75 18 112/66 (81) 95 Room Air 09/21/17 11:56 36.6 93 22 103/60 (74) 95 Room Air 09/21/17 09:00 Room Air 09/21/17 07:30 36.8 73 16 113/71 (85) 98 Room Air 09/21/17 03:47 36.6 85 18 119/74 (89) 95 Room Air 09/21/17 00:00 Room Air 09/20/17 22:54 36.9 85 18 106/57 (73) 93 Room Air 09/20/17 20:22 88 18 94 Room Air 09/20/17 20:00 Room Air 09/20/17 19:32 36.4 84 16 106/59 (75) 94 Room Air Physical Exam General Appearance: WD/WN, no apparent distress Eyes: normal inspection, EOMI, sclerae normal ENT: normal ENT inspection, pharynx normal Neck: supple, no adenopathy, thyroid normal, trachea midline Respiratory/Chest: chest non-tender, lungs clear, normal breath sounds, no respiratory distress Cardiovascular: regular rate, rhythm, no gallop, no murmur Abdomen: normal bowel sounds, non tender, soft, no organomegaly Extremities: non-tender, no calf tenderness Neurologic/Psychiatric: alert, oriented x 3 Skin: normal color, warm/dry, no rash Lymphatic: no adenopathy Laboratory Results Last 24 Hours Test 09/21/17 05:17 White Blood Count 3.21 K/uL Red Blood Count 3.35 M/uL Hemoglobin 9.0 g/dL Hematocrit 27.4 % Mean Corpuscular Volume 81.8 fL Mean Corpuscular Hemoglobin 26.9 pg Mean Corpuscular Hemoglobin Concent 32.8 g/dl Platelet Count 13 K/uL Mean Platelet Volume 9.0 fL RDW Standard Deviation 44.8 fL RDW Coefficient of Variation 14.9 % Neutrophils % (Manual) 7.8 % Lymphocytes % (Manual) 84.3 % Monocytes % (Manual) 5.9 % Metamyelocytes % 2.0 % Neutrophils # (Manual) 0.25 K/uL Total Absolute Neutrophils 0.25 K/uL Lymphocytes # (Manual) 2.71 K/uL Total Absolute Lymphocytes 2.71 K/uL Monocytes # (Manual) 0.19 K/uL Metamyelocytes # 0.06 K/uL Toxic Granulation 1+ Dohle Bodies 1+ Ovalocytes 1+ Creatinine 0.71 mg/dl Est Creatinine Clear Calc Drug Dose 92.7 ml/min Estimated GFR () 107.9 Estimated GFR (Non- 93.1 Vancomycin Level Trough 9.0 mcg/ml Assessment and Plan 72-year-old male with history of mantle cell lymphoma on chemotherapy, now presents with fever and profound neutropenia, which appears to have recovered with Neulasta. Single positive blood culture for Streptococcus of unclear significance, repeat blood cultures suggesting this may be contaminant. May be able discontinue antibiotics tomorrow if cultures remain negative. Will discuss with all involved. Will follow.
--- NOTE | 2017-09-21 18:24 | Medical Consult ---
Consultation Date of Consultation: Sep 21, 2017. Attending Physician: Oliver Sharma M.D. History of Present Illness NAME: Joey Jeff :1945 72-year-old male DIAGNOSIS: Mantle cell lymphoma Follicular lymphoma Diffuse large B-cell lymphoma CURRENT TREATMENT: ON 09/08/2017 started on following chemotherapy schedule: Rituxan 375 mg/M2 IV day 1 Bendamustine 70 mg/M2 IV days 2-3 Cytarabine 500 mg/M2 IV days 2, 3 & 4 PREVIOUS TREATMENT: - Bendamustine and Rituxan x4 between 03/29/2015-07/04/2015 - Rituxan x2 and steroid August, - R-CHOP September,-January, - Rituxan and Ibrutinib between 07/07/2017-09/02/2017. DIAGNOSTIC WORKUP: - Diagnosed a case of follicular lymphoma in 2008, he remained under observation. -In Feb, 2015 imaging study showed progressive lymphadenopathy, biopsy from the right neck lymph nodes showed grade 2/3A predominantly follicular pattern of lymphoma. He received 4 cycles of chemotherapy with bendamustine Rituxan between 03/29/2015 -07/04/2015. PET-CT scan done in August, showed very good response with no evidence of lymphoma. Follow-up PET-CT scan done in January, showed recurrence of lymphoma involving left axilla, right external iliac and right inguinal lymph nodes. He remained asymptomatic and so decided to observe. In June,, he started having more increasing fatigue, PET-CT scan done at that time showed marked progression of the lymphadenopathy in the mediastinal , hilar, periportal, portacaval, mesenteric and retroperitoneal region, bilateral inguinal lymph nodes, splenomegaly, diffuse activity noted in the bones consistent bone marrow infiltration. His platelet count was around 112, hemoglobin was 12, WBC was around 5400 at that time. -He received Rituxan in August, Biopsy of right groin node from 09/17/16 confirmed transformation to DLBCL. R-CHOP x 6 between September,-January,. PET-CT scan from 12/24/16 showed dramatic improvement in size, number, and metabolic activity in the extensive adenopathy, and in the spleen. 0.9 cm right inguinal node with SUV max 6.3 remains. Dramatic improvement in the skeleton including clavicles, scapula, ribs, diaphysis of bilateral humeri and femori, and osseous structures including acetabula. The most intense uptake is noted in T5 and L2. Deauville 4 , uptake slightly to moderately higher than the liver. PET-CT scan from 03/18/17: Subcentimeter mild metabolically active lymph node in right cervical area with SUV of 3.7 is new. Metabolically active lymph nodes in the left lower paratracheal, subcarinal, and bilateral hilar regions with SUV max 10 in the left hilum versus 4.1 on previous exam. Metabolically active mediastinal lymphadenopathy is new. Increased metabolic activity identified in 1.4 x 1.1 cm right inguinal node with SUV max of 24.1 previously 6.4. The spleen is borderline enlarged without significant activity. No discrete focal uptake at T5 or L2, where increased activity was seen on previous PET-CT. 06/24/[address] Yuliet Ochoa from [facility]: Pathology was reviewed over there, also tested positive for mantle cell lymphoma involvement. Pathology: - Right cervical excisional node biopsy from 03/21/15 showed follicular lymphoma grade 2-3A. - Excisional biopsy of right groin lymph node from 09/17/16 showed DLBCL positive for BCL-2 and positive for c-MYC (double expressor). Positive for additional copies of IGH gene ore chromosome 14, negative for gene rearrangements. - Right external iliac lymph node excisional biopsy from 04/10/17 reportedly again showed DLBCL non-GCB subtype. - Pathology reviewed at [facility], he also reported to have mantle cell lymphoma.(06/2017) His slides were reviewed at [facility] which confirmed follicular lymphoma involving the right cervical lymph node from 2014 but also mantle cell lymphoma involvement noted. - Rituxan and Ibrutinib between 07/07/2017-09/02/2017. -PET-CT scan done on 08/26/2017 showed progressive hypermetabolic lymphadenopathy noted in the neck, chest, abdomen and pelvis. Left T8 around vertebral lesion and right iliac wing the lesion noted. New splenomegaly noted. New multiple bilateral subcentimeter lung nodules noted. Past medical and surgical history: -nephrolithiasis, GERD, appendectomy in the past, removal of the kidney stone, -cervical lymph melvina biopsy in 2014, a right inguinal lymph melvina biopsy in August,, right external iliac lymph melvina biopsy in March,. Social history: Nonsmoker, denies any ETOH abuse. Family history: Not significant. Medications: Please review his chart for detailed list of medications. Allergies: He has allergy to Neulasta, Neupogen but I am not sure about the the exact nature of that at this time. INTERVAL HISTORY: Now he is admitted at [facility] on 2016 for increasing cough, congestion, feeling weak and tired, decreased oral intake, he received 1 unit of PRBC, 1 unit of platelet, no fever, received 1 dose of Neupogen, he says that he is feeling much better, no fever or chills at present, REVIEW OF SYSTEMS: Constitutional: no weight loss, weakness and fatigue, no fever. Head: No new headache, no dizziness Eyes: no recent change in the vision, no diplopia ENT: no hearing loss, no earache.No epistaxis, No nasal discharge or stuffiness Resp: cough and shortness of breath, no hemoptysis, no chest pain, No wheezing. Cardiac: no anginal chest pain, no dyspnea on exertion and no edema GI: no abdominal pain, no heartburn, no diarrhea, no constipation, no blood/ melena, no nausea, no vomiting Musculoskeletal: no significant joint or muscle pain and no swelling : no nocturia and no frequency, no hematuria. Neuro: no memory loss, no weakness, no falling, no numbness or tingling and no vertigo Psych: Spirits good. No depression. No anxiety. No psychosis Heme: No bleeding, no swollen nodes Endo: no thyroid disease; Skin: No rash, no itching. no bruising. Legs: no leg edema. Current weight --> 160 lb On exam: - Alert and oriented x3, well built man, not in any distress. - HEENT: no icterus, no pallor, Throat: Normal. - Neck: No palpable cervical lymphadenopathy. - Chest: clear to auscultation. - Abdomen: soft, nontender, no hepatomegaly, no splenomegaly. - No focal neuro deficit. - Extremities: no finger clubbing, no leg edema. Lab: Blood workup done on 09/15/2017: -WBC 3700, H&H of 9.3/29, Platelet count of 35,000, ANC 3000, absolute lymphocyte count 270 -BUN/Creat: 20/0.9, calcium 9.0, normal liver function test. -WBC 0.69, H&H of 8.4/26.3, Platelet count of 3000. He received 1 dose of Neupogen on 09/18/2017. -white blood cell count increased to around 3200 on 09/21/2017, he received 1 unit of PRBC, hemoglobin level is around 9 g/dL, he also received 1 unit of platelet transfusion, platelet count increased to around 13,000. -BUN/Creat: 18/0.6, normal liver function test -proBNP 390 which is in normal range. Imaging: -CT scan of chest done on 09/18/2017--> no evidence of pulmonary embolism, improvement of the previously noted lung nodules noted. Atelectatic changes noted. Unchanged mediastinal hilar lymphadenopathy, splenomegaly noted. (Hilar lymph node measuring 1.6 x 1.1 cm, left hilar lymph node measuring 9 mm, AP window lymph node measuring 1.4 x 1.2 cm) ASSESSMENT AND PLAN:72-year-old male, history of stage LORIN follicular lymphoma diagnosed in 2008 but did not require treatment until 2014, he received 4 cycles of chemotherapy with bendamustine Rituxan which resulted in complete response on the follow-up PET-CT scan done in 2014. In July, he had thrombocytopenia, generalized weakness, lethargic status , he received steroid, Rituxan x2, unfortunately disease further progressed and in September, he had excisional biopsy which is considered transformation to diffuse large B-cell lymphoma, Excisional biopsy of right groin lymph node from 09/17/16 showed DLBCL positive for BCL-2 and positive for c-MYC (double expressor). Positive for additional copies of IGH gene ore chromosome 14, negative for gene rearrangements. He then received 6 cycles of R-CHOP. His slides were reviewed at [facility] which confirmed follicular lymphoma involving the right cervical lymph node from 2014 but also mantle cell lymphoma involvement noted. In fact relapse noted in the late 2015 was of mantle cell component with blastoid features which responded with R-CHOP chemotherapy briefly. His case was discussed lung cancer and recommended to have Rituxan and IIbrutinib. He received Rituxan weekly between 07/07/2017-09/08/2017 and Ibrutinib 560 mg daily. He had abnormal liver function test required a dose reduction with Ibrutinib. Blood workup done on 09/08/2017: -WBC 06179, H&H of 9.8/31, Platelet count of 109,000. -ANC 7300, absolute lymphocyte count 1800. Some limited WBC and nucleated RBCs noted. -BUN/Creat: 70.6, calcium 9.3, normal liver function test. On 09/08/2017 started on following chemotherapy schedule: Rituxan 375 mg/M2 IV day 1 Bendamustine 70 mg/M2 IV days 2-3 Cytarabine 500 mg/M2 IV days 2, 3 & 4 He received 5 days of Neupogen as an outpatient between day 5 0- day 10, last dose of Neupogen was received on 09/16/2017. Now he is admitted Hospital for increasing cough, shortness of breath, Single positive blood culture for Streptococcus of unclear significance, seen by ID, repeat culture is pending. Presently he is receiving vancomycin, also received Neupogen x1 dose, blood and platelet transfusion x1, clinically he is doing much better, hemodynamically stable. Gradual improvement of the white cell count noted. Platelet count has remained on the lower side around 13,000-14, 000 without any new bleeding episodes. He is due for next cycle of chemotherapy on 10/06/2016. Once he is discharged from the hospital, he will have daily CBCD checkup at the local clinic and the will decide further need for blood component support. If he needs blood complement support, he will come at [facility] for that. Thanks for the consultation. Dr. John Mistry Hem/Onc (This note was completed using the dictation program Fluency Direct. As such, there may be misspellings, word substitutions, or other variations that should not change the essence of the clinical content of this encounter note. If there is need for further clarification, please direct questions to the provider listed above.) Past Medical/Surgical History Medical Problems: (1) Anemia Status: Acute (2) Bronchitis Status: Acute (3) COPD exacerbation Status: Acute (4) High serum lactate Status: Acute (5) Ischemic bowel disease Status: Acute (6) Lactic acidosis Status: Acute (7) Myalgia Status: Acute (8) Neutropenia Status: Acute (9) Palpitations Status: Acute (10) Splenic laceration Status: Acute (11) Thrombocytopenia Status: Acute (12) Weakness Status: Acute Family History FH: CAD (coronary artery disease) FATHER MOTHER FH: lung cancer SISTER Social History Smoking Status: Never Smoker Drug Use: none Marital Status: Housing Status: lives with family Occupation Status: retired Allergies Coded Allergies: Tetracycline (Verified Allergy, Unknown, water blisters, 09/18/17) Current Inpatient Medications Current Inpatient Medications Medications (Trade) Dose Ordered Sig/Flory Route Start Time Stop Time Status Last Admin Dose Admin Ioversol (Optiray 320) 111 ml UD PRN IV 09/18/17 13:30 09/22/17 13:29 Acetaminophen (Tylenol Tab) 650 mg Q4H PRN PO 09/18/17 15:30 10/18/17 15:29 Dexamethasone (Decadron Tab) 2 mg QPM PO 09/18/17 21:00 10/18/17 20:59 09/20/17 20:08 2 MG Dexamethasone (Decadron Tab) 4 mg QAM PO 09/19/17 08:00 10/19/17 08:59 09/21/17 08:11 4 MG Ondansetron HCl (Zofran Tab) 8 mg Q8 PRN PO 09/18/17 15:30 10/18/17 15:29 Promethazine HCl (Phenergan Tab) 25 mg Q4 PRN PO 09/18/17 15:30 10/18/17 15:29 Tramadol HCl (Ultram Tab) 50 mg Q6 PRN PO 09/18/17 15:30 10/18/17 15:29 09/19/17 07:41 50 MG Pantoprazole Sodium (Protonix Tab) 40 mg DAILY PO 09/19/17 08:00 10/19/17 08:59 09/21/17 08:11 40 MG Benzonatate (Tessalon Perles Cap) 100 mg TID PRN PO 09/18/17 16:00 10/18/17 15:59 09/21/17 15:23 100 MG Menthol (Nice Eleazar) 1 eleazar Q2H PRN PO 09/18/17 23:45 10/18/17 23:44 Vancomycin HCl (Consult) 1 ea UD PRN N/A 09/19/17 07:00 10/19/17 06:59 Enteral Nutritional Formula (Boost) 1 can BID PO 09/19/17 20:00 10/19/17 19:59 09/20/17 09:47 1 CAN Senna (Senokot Tab) 8.6 mg QAM PO 09/21/17 08:00 10/21/17 07:59 09/21/17 08:11 8.6 MG Levalbuterol (Xopenex 0.63 Mg/ 3 Ml Neb) 0.63 mg Q6H PRN INH 09/20/17 15:00 10/20/17 14:59 09/21/17 15:42 0.63 MG Vancomycin HCl 1250 mg/Sodium Chloride 275 ml @ 125 mls/hr Q8H IV 09/21/17 14:00 10/03/17 17:59 09/21/17 15:13 125 MLS/HR Guaifenesin (Robitussin Sugar Free Syrup) 100 mg Q6H PRN PO 09/21/17 17:30 10/21/17 17:29 Physical Exam Date Time Temp Pulse Resp B/P (MAP) Pulse Ox O2 Delivery O2 Flow Rate FiO2 09/21/17 15:42 88 18 97 Room Air 09/21/17 14:42 36.8 75 18 112/66 (81) 95 Room Air 09/21/17 11:56 36.6 93 22 103/60 (74) 95 Room Air 09/21/17 09:00 Room Air 09/21/17 07:30 36.8 73 16 113/71 (85) 98 Room Air 09/21/17 03:47 36.6 85 18 119/74 (89) 95 Room Air 09/21/17 00:00 Room Air 09/20/17 22:54 36.9 85 18 106/57 (73) 93 Room Air 09/20/17 20:22 88 18 94 Room Air 09/20/17 20:00 Room Air 09/20/17 19:32 36.4 84 16 106/59 (75) 94 Room Air Laboratory Results Last 24 Hours Test 09/21/17 05:17 White Blood Count 3.21 K/uL Red Blood Count 3.35 M/uL Hemoglobin 9.0 g/dL Hematocrit 27.4 % Mean Corpuscular Volume 81.8 fL Mean Corpuscular Hemoglobin 26.9 pg Mean Corpuscular Hemoglobin Concent 32.8 g/dl Platelet Count 13 K/uL Mean Platelet Volume 9.0 fL RDW Standard Deviation 44.8 fL RDW Coefficient of Variation 14.9 % Neutrophils % (Manual) 7.8 % Lymphocytes % (Manual) 84.3 % Monocytes % (Manual) 5.9 % Metamyelocytes % 2.0 % Neutrophils # (Manual) 0.25 K/uL Total Absolute Neutrophils 0.25 K/uL Lymphocytes # (Manual) 2.71 K/uL Total Absolute Lymphocytes 2.71 K/uL Monocytes # (Manual) 0.19 K/uL Metamyelocytes # 0.06 K/uL Toxic Granulation 1+ Dohle Bodies 1+ Ovalocytes 1+ Creatinine 0.71 mg/dl Est Creatinine Clear Calc Drug Dose 92.7 ml/min Estimated GFR () 107.9 Estimated GFR (Non- 93.1 Vancomycin Level Trough 9.0 mcg/ml
[2017-09-21] MEDS: GUAIFENESIN SUGAR FREE 100 MG/5 ML UDC PO PRN (21:15)
--- NOTE | 2017-09-22 05:54 | Clinical Documentation Query ---
ARTHUR Cuevas : CLINICAL DOCUMENTATION QUERY Patient is a 72 year old male admitted for evaluation and treatment of cough and weakness, currently being treated for viral bronchitis in the setting of mantle cell lymphoma undergoing current chemotherapy. He is recieving Neupogen, has been transfused a unit of PRBC's, recent transfusion of platelets. As appropriate, consider documentation as suggested below in order to capture the severity of illness and risk of mortality associated with this important clinical diagnosis. In your clinical opinion is this patient being managed for: ( ) Chemotherapy induced pancytopenia ( ) Not Agree ( ) Other explanation of clinical findings (Please Explain) ( ) Unable to determine (Please Define) ( ) Need to Discuss The medical record reflects the following clinical findings, treatment, and risk factors. Clinical Indicators: As above Treatment: As above Risk Factors: Mantle cell lymphoma, associated chemotherapy Please clarify and document your clinical opinion in the progress notes and discharge summary. Terms such as "probable", "suspected", "likely", "questionable", "possible", or "still to be ruled out" are acceptable. IF IN AGREEMENT, YOU MUST DOCUMENT ABOVE DIAGNOSTIC STATEMENT IN DAILY PROGRESS NOTES AND DISCHARGE SUMMARY. This document is not part of the patient's record. Thank You, Александр Ley, RN [phone]
[2017-09-22] MEDS: VANCOMYCIN INJ 1,250 MG in SODIUM CHLORIDE 0.9% 250ML 250 ML IV SCH (06:06)
[2017-09-22] MEDS: GUAIFENESIN SUGAR FREE 100 MG/5 ML UDC PO PRN (06:12)
[2017-09-22 07:17] VITALS: BP 118/71; PULSE 73; TEMP 36.6; O2SAT 96
[2017-09-22] MEDS: LEVALBUTEROL 0.63MG/3 ML NEB INH PRN (07:33)
[2017-09-22 07:35] VITALS: PULSE 83; O2SAT 96
[2017-09-22] MEDS: BOOST VANILLA PO SCH ×2 (08:00)
[2017-09-22] MEDS: SENNA 8.6 MG TAB PO SCH (08:18)
[2017-09-22] MEDS: BENZONATATE 100MG CAP PO PRN (08:18)
[2017-09-22] MEDS: DEXAMETHASONE 4 MG TAB PO SCH (08:19)
[2017-09-22] MEDS: PANTOprazole SOD 40 MG TAB PO SCH (08:19)
[2017-09-22 09:26] LABS: ALB/GLOB RATIO 0.9 (0.9-2); BUN/CREATININE RATIO 24.1 (10-20); CALCIUM 8.7 mg/dl (8.5-10.1); CREATININE 0.72 mg/dl (0.60-1.40); POTASSIUM 3.7 mmol/L (3.5-5.1)
[2017-09-22] MEDS ORDERED: POTASSIUM CHLORIDE 20 MEQ TABCR PO ONE (10:00)
--- NOTE | 2017-09-22 10:01 | Infectious Disease Progress Nt ---
Progress Note Date of Service Sep 22, 2017. Subjective Pt evaluation today including: conversation w/ patient, physical exam, chart review, lab review, review of studies, conversation w/ pre sales technical consultant, review of inpatient medication list Patient feeling much better. Able to sleep lying flat. No fever. Follow-up blood cultures negative. WBC im proved. All Other Systems: Reviewed and Negative Medications Current Inpatient Medications Medications (Trade) Dose Ordered Sig/Flory Route Start Time Stop Time Status Last Admin Dose Admin Ioversol (Optiray 320) 111 ml UD PRN IV 09/18/17 13:30 09/22/17 13:29 Acetaminophen (Tylenol Tab) 650 mg Q4H PRN PO 09/18/17 15:30 10/18/17 15:29 Dexamethasone (Decadron Tab) 2 mg QPM PO 09/18/17 21:00 10/18/17 20:59 09/21/17 21:16 2 MG Dexamethasone (Decadron Tab) 4 mg QAM PO 09/19/17 08:00 10/19/17 08:59 09/22/17 08:19 4 MG Ondansetron HCl (Zofran Tab) 8 mg Q8 PRN PO 09/18/17 15:30 10/18/17 15:29 Promethazine HCl (Phenergan Tab) 25 mg Q4 PRN PO 09/18/17 15:30 10/18/17 15:29 Tramadol HCl (Ultram Tab) 50 mg Q6 PRN PO 09/18/17 15:30 10/18/17 15:29 09/19/17 07:41 50 MG Pantoprazole Sodium (Protonix Tab) 40 mg DAILY PO 09/19/17 08:00 10/19/17 08:59 09/22/17 08:19 40 MG Benzonatate (Tessalon Perles Cap) 100 mg TID PRN PO 09/18/17 16:00 10/18/17 15:59 09/22/17 08:18 100 MG Menthol (Nice Eleazar) 1 eleazar Q2H PRN PO 09/18/17 23:45 10/18/17 23:44 Vancomycin HCl (Consult) 1 ea UD PRN N/A 09/19/17 07:00 10/19/17 06:59 Enteral Nutritional Formula (Boost) 1 can BID PO 09/19/17 20:00 10/19/17 19:59 09/20/17 09:47 1 CAN Senna (Senokot Tab) 8.6 mg QAM PO 09/21/17 08:00 10/21/17 07:59 09/22/17 08:18 8.6 MG Levalbuterol (Xopenex 0.63 Mg/ 3 Ml Neb) 0.63 mg Q6H PRN INH 09/20/17 15:00 10/20/17 14:59 09/22/17 07:33 0.63 MG Vancomycin HCl 1250 mg/Sodium Chloride 275 ml @ 125 mls/hr Q8H IV 09/21/17 14:00 10/03/17 17:59 09/22/17 06:06 125 MLS/HR Guaifenesin (Robitussin Sugar Free Syrup) 100 mg Q6H PRN PO 09/21/17 17:30 10/21/17 17:29 09/22/17 06:12 100 MG Potassium Chloride (Klor-Con Tab) 20 meq NOW ONCE PO 09/22/17 10:00 09/22/17 10:01 Objective Vital Signs Date Time Temp Pulse Resp B/P (MAP) Pulse Ox O2 Delivery O2 Flow Rate FiO2 09/22/17 08:30 Room Air 09/22/17 07:35 83 18 96 Room Air 09/22/17 07:17 36.6 73 16 118/71 (87) 96 09/22/17 00:00 Room Air 09/21/17 23:32 36.6 95 18 117/61 (79) 95 Room Air 09/21/17 22:26 80 18 95 Room Air 09/21/17 20:06 36.6 84 18 102/54 (70) 97 Room Air 09/21/17 15:42 88 18 97 Room Air 09/21/17 14:42 36.8 75 18 112/66 (81) 95 Room Air 09/21/17 11:56 36.6 93 22 103/60 (74) 95 Room Air Physical Exam General Appearance: WD/WN, no apparent distress Eyes: normal inspection, EOMI, sclerae normal ENT: normal ENT inspection, pharynx normal Neck: supple, no adenopathy, thyroid normal, trachea midline Respiratory/Chest: chest non-tender, lungs clear, normal breath sounds, no respiratory distress Cardiovascular: regular rate, rhythm, no gallop, no murmur Abdomen: normal bowel sounds, non tender, soft, no organomegaly Extremities: non-tender, no calf tenderness Neurologic/Psychiatric: alert, oriented x 3 Skin: normal color, warm/dry, no rash Lymphatic: no adenopathy Laboratory Results RUN DATE: 09/22/17 [facility] PAGE 1 RUN TIME: 703 Specimen Inquiry PATIENT: NAVYA ANDERSEN LOC: Von # : [id number] AGE/SX: 72/M ROOM: [facility] REG : 09/18/[address]: Oliver Sharma M.D. : 1945 BED: 1 DIS : STATUS: ADM IN TLOC: SPEC #: [id number] DOYLE: 09/21/17 STATUS: RES REQ #: [id number] RECD: 09/21/[address]: Oliver Sharma M.D. SOURCE: BLOOD ENTR: 09/21/17-[address]: Keron Boateng MD [facility]: Clint Tyson DO Schreckengost, Janea ., Faustino Salazar M.D. ORDERED: BLOOD CULTURE Procedure Result Verified Site BLD CULT Preliminary 09/22/17-702 NO GROWTH TO DATE. Last 24 Hours Test 09/22/17 08:34 09/22/17 09:51 Sodium Level 136 mmol/L Potassium Level 3.7 mmol/L Chloride Level 102 mmol/L Carbon Dioxide Level 24 mmol/L Anion Gap 11.0 mmol/L Blood Urea Nitrogen 17 mg/dl Creatinine 0.72 mg/dl Est Creatinine Clear Calc Drug Dose 91.4 ml/min Estimated GFR () 107.3 Estimated GFR (Non- 92.5 BUN/Creatinine Ratio 24.1 Random Glucose 160 mg/dl Calcium Level 8.7 mg/dl Total Bilirubin 0.4 mg/dl Aspartate Amino Transf (AST/SGOT) 12 U/L Alanine Aminotransferase (ALT/SGPT) 19 U/L Alkaline Phosphatase 74 U/L Total Protein 5.8 gm/dl Albumin 2.7 gm/dl Globulin 3.1 gm/dl Albumin/Globulin Ratio 0.9 CHEST 2 VIEWS ROUTINE CLINICAL HISTORY: 72 years-old Male presenting with cough. TECHNIQUE: PA and lateral views of the chest were obtained. COMPARISON: 09/18/2017. FINDINGS: Right internal jugular Mediport terminates at the superior cavoatrial junction. Atherosclerosis of aortic arch. Cardiac silhouette normal in size. Osseous structures normal. Upper abdomen normal. IMPRESSION: 1. No acute cardiopulmonary disease. Assessment and Plan 72-year-old male with history of mantle cell lymphoma on chemotherapy, presented with fever and profound neutropenia, which appears to have recovered with Neulasta. Single positive blood culture for Streptococcus likely represents "contaminant". Recommend d/c of vancomycin. Will discuss.
[2017-09-22 10:27] LABS: HEMATOCRIT 26.8 % (42-52); MEAN CELL VOLUME 81.5 fL (80-100); MEAN CORPUSCULAR HEMOGLOBIN 26.7 pg (25-34); MEAN CORPUSCULAR HGB CONC 32.8 g/dl (32-36); PLATELET COUNT 12 K/uL (130-400); RED BLOOD COUNT 3.29 M/uL (4.7-6.1); WHITE BLOOD COUNT 4.33 K/uL (4.8-10.8)
[2017-09-22 10:49] LABS: COMPLETE YES; LYMPH ABS # 1.95 K/uL (1.2-3.4)
[2017-09-22 11:03] LABS: DOHLE BODIES 1+; OVALOCYTES 1+; TOXIC GRANULATION 2+
[2017-09-22 11:08] VITALS: BP 116/72; PULSE 83; TEMP 36.6; O2SAT 96
--- NOTE | 2017-09-22 11:43 | Progress Note ---
Internal Med Progress Note Date of Service: Sep 22, 2017. Provider Documentation: Subjective Patient seen and examined. Patient today denies further cough and pleuritic chest pain. He reports that he was able to sleep yesterday night on his back without significant discomfort Physical Exam General Appearance: no apparent distress Head: normocephalic, atraumatic Eyes: normal inspection ENT: hearing grossly normal Neck: no JVD Respiratory/Chest: chest non-tender, lungs clear, normal breath sounds, no respiratory distress, no accessory muscle use Cardiovascular: regular rate, rhythm, no edema, no murmur Abdomen/GI: normal bowel sounds, non tender, soft Extremities/Musculoskelatal: pedal edema Neurologic/Psych: no motor deficits, alert, normal mood/affect Skin: normal color ASSESSMENT & PLAN: ASSESSMENT & PLAN: Imaging to date 09/18/17 CT scan of Chest 1. No acute aortic pathology or evidence of pulmonary thromboembolic disease. 2. Improved aeration of the bilateral lungs with near complete resolution of the previously described multiple irregular bilateral pulmonary nodules. A few scattered pulmonary nodules persist measuring up to 6 mm. Mild residual groundglass opacities are also seen suggesting resolving pneumonitis. 3. Subsegmental bibasilar dependent opacities suggest atelectasis. 4. Emphysema. 5. Unchanged mediastinal and hilar lymphadenopathy. 6. Splenomegaly. 09/20/17 CXR Right internal jugular Mediport terminates at the superior cavoatrial junction. Atherosclerosis of aortic arch. Cardiac silhouette normal in size. Osseous structures normal. Upper abdomen normal. IMPRESSION: 1. No acute cardiopulmonary disease Assessment This is a 72 year old male with a PMH of mantle cell lymphoma and ongoing chemotherapy presents with cough, chest/back discomfort suggestive of pleuritic chest pain (could not lay flat to sleep at night)with labs significant for Chemotherapy-induced pancytopenia with severe thrombocytopenia and neutropenia. Patient's preliminary admission diagnosis of viral bronchitis however Flu swab negative and no acute infectious pulmonary process noted on CT of lungs ( negative for pulmonary embolism) and on repeated Chest X rays. Levaquin started on 09/19/17 has been discontinued on 09/20/17. Patient's symptoms managed with nebulizers, Tessalon, home dose dexamethasone, an Robitussin for symptomatic relief patient has been receiving IV vancomycin since 09/19/17 for gram positive cocci from blood culture drawn on 09/18/17, the same blood culture has resulted as ALPHA STREP NOT S.PNE/ENTEROCO Blood cultures from 09/20/17 to 09/21/17 with no growth to date As per infectious disease service: vancomycin to be stopped on 09/22/17 as the 09/18/17 likely to be a contaminant Chemotherapy-induced Neutropenia patient received Neupogen on 09/08 to 09/11 as outpatient Hematology consult recommendations on 09/19/17: Dr. Pendleton recommended to give Neupogen 480 mcg WBC trended up from 0.63 on admission 09/18/17 to 1.06 on 09/19/17, to 2.16 on 09/20/17, to 3.21 on 09/21/17, to 4.33 on 09/22/17 Chemotherapy-induced thrombocytopenia Hematology consult recommendations on 09/19/17: Dr. Pendleton recommended to transfuse platelets if platelets less than 10,000 on 09/18/17 platelets was 3000, s/p 1 unit of platelet with 09/19/17 lab of 11, 000, 09/20/17 platelet level is 14,000, 09/21/17 is 13,000, 09/22/17 is 12,000 No bleeding As discussed with Hematology, Dr. Mistry with whom patient has appointment on 10/06, patient's platelet count is okay for hospital discharge Chemotherapy-induced anemia, anemia of chronic disease no acute bleed Hematology consult recommendations on 09/19/17: Dr. Pendleton recommended to transfuse 1 unit PRBC to maintain Hgb above 8, 09/20/17 Hgb is 9.4, 09/21/17 Hgb is 9, 09/22/17 Hgb is 8.8 Echocardiogram was performed on this admission, Mycoplasma, and Legionella studies have been sent because of cough and pleuritic chest pain. However symptoms have resolved Discharge home and follow up appointments: 09/23/2017 9:00 AM Lab [facility] Laboratory [facility] 09/23/2017 10:00 AM [facility] Nurse Hem/Onc Hematology/Oncology [facility] 09/24/2017 10:40 AM Mikael Cain MD [facility] 09/30/2017 9:00 AM Lab [facility] Laboratory [facility] 09/30/2017 10:00 AM [facility] Nurse Hem/Onc Hematology/Oncology [facility] 10/06/2017 11:15 AM John Mistry MD Hematology/Oncology [facility] 10/06/2017 11:45 AM Chair 4 Hem Onc [facility] 2:00 PM Mikael Cain MD [facility] Vital Signs: Date Time Temp Pulse Resp B/P (MAP) Pulse Ox O2 Delivery O2 Flow Rate FiO2 09/22/17 11:08 36.6 83 18 116/72 (87) 96 09/22/17 08:30 Room Air 09/22/17 07:35 83 18 96 Room Air 09/22/17 07:17 36.6 73 16 118/71 (87) 96 09/22/17 00:00 Room Air 09/21/17 23:32 36.6 95 18 117/61 (79) 95 Room Air 09/21/17 22:26 80 18 95 Room Air 09/21/17 20:06 36.6 84 18 102/54 (70) 97 Room Air 09/21/17 15:42 88 18 97 Room Air 09/21/17 14:42 36.8 75 18 112/66 (81) 95 Room Air 09/21/17 11:56 36.6 93 22 103/60 (74) 95 Room Air Lab Results: Results Past 24 Hours Test 09/22/17 08:34 09/22/17 09:51 Range/Units Sodium Level 136 136-145 mmol/L Potassium Level 3.7 3.5-5.1 mmol/L Chloride Level 102 98-107 mmol/L Carbon Dioxide Level 24 21-32 mmol/L Anion Gap 11.0 3-11 mmol/L Blood Urea Nitrogen 17 7-18 mg/dl Creatinine 0.72 0.60-1.40 mg/dl Est Creatinine Clear Calc Drug Dose 91.4 ml/min Estimated GFR () 107.3 Estimated GFR (Non- 92.5 BUN/Creatinine Ratio 24.1 10-20 Random Glucose 160 70-99 mg/dl Calcium Level 8.7 8.5-10.1 mg/dl Total Bilirubin 0.4 0.2-1 mg/dl Aspartate Amino Transf (AST/SGOT) 12 15-37 U/L Alanine Aminotransferase (ALT/SGPT) 19 12-78 U/L Alkaline Phosphatase 74 45-117 U/L Total Protein 5.8 6.4-8.2 gm/dl Albumin 2.7 3.4-5.0 gm/dl Globulin 3.1 2.5-4.0 gm/dl Albumin/Globulin Ratio 0.9 0.9-2 White Blood Count 4.33 4.8-10.8 K/uL Red Blood Count 3.29 4.7-6.1 M/uL Hemoglobin 8.8 14.0-18.0 g/dL Hematocrit 26.8 42-52 % Mean Corpuscular Volume 81.5 80-100 fL Mean Corpuscular Hemoglobin 26.7 25-34 pg Mean Corpuscular Hemoglobin Concent 32.8 32-36 g/dl Platelet Count 12 130-400 K/uL RDW Standard Deviation 44.5 36.4-46.3 fL RDW Coefficient of Variation 14.8 11.5-14.5 % Neutrophils % (Manual) 36.0 % Lymphocytes % (Manual) 45.0 % Monocytes % (Manual) 9.0 % Myelocytes % 7.0 % Promyelocytes % 3.0 % Neutrophils # (Manual) 1.56 1.4-6.5 K/uL Total Absolute Neutrophils 1.56 1.4-6.5 K/uL Lymphocytes # (Manual) 1.95 1.2-3.4 K/uL Total Absolute Lymphocytes 1.95 1.2-3.4 K/uL Monocytes # (Manual) 0.39 0.11-0.59 K/uL Myelocytes # 0.30 0-0 K/uL Promyelocytes # 0.13 0-0 K/uL Toxic Granulation 2+ Dohle Bodies 1+ Ovalocytes 1+
--- NOTE | 2017-09-22 11:53 | Discharge Instructions ---
Discharge Instructions Date of Service Sep 22, 2017. Admission Reason for Admission: Bronchitis, Mantle Cell Lymphoma, Neutropenia Discharge Discharge Diagnosis / Problem: cough and pleuritic chest discomfort (pain), pancytopenia from chemotherapy Discharge Goals Goal(s): Decrease discomfort, Improve function, Increase independence Activity Recommendations Activity Limitations: resume your previous activity Shower/Bathe: no limitations . Instructions / Follow-Up Instructions / Follow-Up Imaging to date 09/18/17 CT scan of Chest 1. No acute aortic pathology or evidence of pulmonary thromboembolic disease. 2. Improved aeration of the bilateral lungs with near complete resolution of the previously described multiple irregular bilateral pulmonary nodules. A few scattered pulmonary nodules persist measuring up to 6 mm. Mild residual groundglass opacities are also seen suggesting resolving pneumonitis. 3. Subsegmental bibasilar dependent opacities suggest atelectasis. 4. Emphysema. 5. Unchanged mediastinal and hilar lymphadenopathy. 6. Splenomegaly. 09/20/17 CXR Right internal jugular Mediport terminates at the superior cavoatrial junction. Atherosclerosis of aortic arch. Cardiac silhouette normal in size. Osseous structures normal. Upper abdomen normal. IMPRESSION: 1. No acute cardiopulmonary disease Assessment This is a 72 year old male with a PMH of mantle cell lymphoma and ongoing chemotherapy presents with cough, chest/back discomfort suggestive of pleuritic chest pain (could not lay flat to sleep at night)with labs significant for Chemotherapy-induced pancytopenia with severe thrombocytopenia and neutropenia. Patient's preliminary admission diagnosis of viral bronchitis however Flu swab negative and no acute infectious pulmonary process noted on CT of lungs ( negative for pulmonary embolism) and on repeated Chest X rays. Levaquin started on 09/19/17 has been discontinued on 09/20/17. Patient's symptoms managed with nebulizers, Tessalon, home dose dexamethasone, an Robitussin for symptomatic relief patient has been receiving IV vancomycin since 09/19/17 for gram positive cocci from blood culture drawn on 09/18/17, the same blood culture has resulted as ALPHA STREP NOT S.PNE/ENTEROCO Blood cultures from 09/20/17 to 09/21/17 with no growth to date As per infectious disease service: vancomycin to be stopped on 09/22/17 as the 09/18/17 likely to be a contaminant Chemotherapy-induced Neutropenia patient received Neupogen on 09/08 to 09/11 as outpatient Hematology consult recommendations on 09/19/17: Dr. Pendleton recommended to give Neupogen 480 mcg WBC trended up from 0.63 on admission 09/18/17 to 1.06 on 09/19/17, to 2.16 on 09/20/17, to 3.21 on 09/21/17, to 4.33 on 09/22/17 Chemotherapy-induced thrombocytopenia Hematology consult recommendations on 09/19/17: Dr. Pendleton recommended to transfuse platelets if platelets less than 10,000 on 09/18/17 platelets was 3000, s/p 1 unit of platelet with 09/19/17 lab of 11, 000, 09/20/17 platelet level is 14,000, 09/21/17 is 13,000, 09/22/17 is 12,000 No bleeding As discussed with Hematology, Dr. Mistry with whom patient has appointment on 10/06, patient's platelet count is okay for hospital discharge Chemotherapy-induced anemia, anemia of chronic disease no acute bleed Hematology consult recommendations on 09/19/17: Dr. Pendleton recommended to transfuse 1 unit PRBC to maintain Hgb above 8, 09/20/17 Hgb is 9.4, 09/21/17 Hgb is 9, 09/22/17 Hgb is 8.8 Echocardiogram was performed on this admission, Mycoplasma, and Legionella studies have been sent because of cough and pleuritic chest pain. However symptoms have resolved Discharge home and follow up appointments: 09/23/2017 9:00 AM Lab [facility] 09/23/2017 10:00 AM [facility] Nurse Hem/Onc Hematology/Oncology [facility] 09/24/2017 10:40 AM Mikael Cain MD [facility] 09/30/2017 9:00 AM Lab [facility] Laboratory [facility] 09/30/2017 10:00 AM [facility] Nurse Hem/Onc Hematology/Oncology [facility] 10/06/2017 11:15 AM John Mistry MD Hematology/Oncology [facility] 10/06/2017 11:45 AM Chair 4 Hem Onc [facility] Hematology/Oncology [facility] 11/04/2017 2:00 PM Mikael Cain MD [facility] [place] Current Hospital Diet Patient's current hospital diet: Regular Diet Discharge Diet Recommended Diet: Regular Diet Pending Studies Studies pending at discharge: yes List of pending studies: echocardiogram, legionella, mycoplasma Laboratory Results 09/22/17 09:51 Red Blood Count 3.29, Mean Corpuscular Volume 81.5, Mean Corpuscular Hemoglobin 26.7, Mean Corpuscular Hemoglobin Concent 32.8 09/22/17 08:34 Test 09/18/17 11:15 09/18/17 14:00 09/18/17 20:35 09/19/17 07:11 Variant Lymphocytes % (manual) 42.4 % Absolute Variant Lymphocytes 0.29 K/uL Platelet Estimate SIGNIFIC DECREASED Direct Bilirubin 0.3 mg/dl (0-0.2) Troponin I 0.020 ng/ml (0-0.045) Pro-B-Type Natriuretic Peptide 390 pg/ml (0-900) Lipase 149 U/L (73-393) Urine Color YELLOW Urine Appearance CLEAR (CLEAR) Urine pH 5.0 (4.5-7.5) Urine Specific [place] 1.016 (1.000-1.030) Urine Protein NEG (NEG) Urine Glucose (UA) NEG (NEG) Urine Ketones NEG (NEG) Urine Occult Blood NEG (NEG) Urine Nitrite NEG (NEG) Urine Bilirubin NEG (NEG) Urine Urobilinogen NEG (NEG) Urine Leukocyte Esterase NEG (NEG) Influenza Type A (RT-PCR) Neg for Influ A (NEG) Influenza Type A Antigen Neg for Influ A (NEG) Influenza Type B Antigen Neg for Influ B (NEG) Influenza Type B (RT-PCR) Neg for Influ B (NEG) Immature Granulocyte % (Auto) 0.0 % White Blood Count 1.06 K/uL (4.8-10.8) Red Blood Count 2.89 M/uL (4.7-6.1) Hemoglobin 7.7 g/dL (14.0-18.0) Hematocrit 23.4 % (42-52) Mean Corpuscular Volume 81.0 fL (80-100) Mean Corpuscular Hemoglobin 26.6 pg (25-34) Mean Corpuscular Hemoglobin Concent 32.9 g/dl (32-36) Platelet Count 11 K/uL (130-400) Mean Platelet Volume 8.3 fL (7.4-10.4) Neutrophils (%) (Auto) 0.0 % Lymphocytes (%) (Auto) 86.8 % Monocytes (%) (Auto) 12.3 % Eosinophils (%) (Auto) 0.0 % Basophils (%) (Auto) 0.9 % Neutrophils # (Auto) 0.00 K/uL (1.4-6.5) Lymphocytes # (Auto) 0.92 K/uL (1.2-3.4) Monocytes # (Auto) 0.13 K/uL (0.11-0.59) Eosinophils # (Auto) 0.00 K/uL (0-0.5) Basophils # (Auto) 0.01 K/uL (0-0.2) Immature Granulocyte # (Auto) 0.00 K/uL (0.00-0.02) Test 09/20/17 10:00 09/21/17 05:17 09/22/17 08:34 09/22/17 09:51 Tear Drop Cells 1+ White Blood Count 3.21 K/uL (4.8-10.8) 4.33 K/uL (4.8-10.8) Red Blood Count 3.35 M/uL (4.7-6.1) 3.29 M/uL (4.7-6.1) Hemoglobin 9.0 g/dL (14.0-18.0) 8.8 g/dL (14.0-18.0) Hematocrit 27.4 % (42-52) 26.8 % (42-52) Mean Corpuscular Volume 81.8 fL (80-100) 81.5 fL (80-100) Mean Corpuscular Hemoglobin 26.9 pg (25-34) 26.7 pg (25-34) Mean Corpuscular Hemoglobin Concent 32.8 g/dl (32-36) 32.8 g/dl (32-36) Platelet Count 13 K/uL (130-400) 12 K/uL (130-400) Mean Platelet Volume 9.0 fL (7.4-10.4) Metamyelocytes % 2.0 % Metamyelocytes # 0.06 K/uL (0-0) Vancomycin Level Trough 9.0 mcg/ml (SEE COMMENT) Anion Gap 11.0 mmol/L (3-11) Est Creatinine Clear Calc Drug Dose 91.4 ml/min Estimated GFR () 107.3 Estimated GFR (Non- 92.5 BUN/Creatinine Ratio 24.1 (10-20) Calcium Level 8.7 mg/dl (8.5-10.1) Total Bilirubin 0.4 mg/dl (0.2-1) Aspartate Amino Transf (AST/SGOT) 12 U/L (15-37) Alanine Aminotransferase (ALT/SGPT) 19 U/L (12-78) Alkaline Phosphatase 74 U/L (45-117) Total Protein 5.8 gm/dl (6.4-8.2) Albumin 2.7 gm/dl (3.4-5.0) Globulin 3.1 gm/dl (2.5-4.0) Albumin/Globulin Ratio 0.9 (0.9-2) RDW Standard Deviation 44.5 fL (36.4-46.3) RDW Coefficient of Variation 14.8 % (11.5-14.5) Neutrophils % (Manual) 36.0 % Lymphocytes % (Manual) 45.0 % Monocytes % (Manual) 9.0 % Myelocytes % 7.0 % Promyelocytes % 3.0 % Neutrophils # (Manual) 1.56 K/uL (1.4-6.5) Total Absolute Neutrophils 1.56 K/uL (1.4-6.5) Lymphocytes # (Manual) 1.95 K/uL (1.2-3.4) Total Absolute Lymphocytes 1.95 K/uL (1.2-3.4) Monocytes # (Manual) 0.39 K/uL (0.11-0.59) Myelocytes # 0.30 K/uL (0-0) Promyelocytes # 0.13 K/uL (0-0) Toxic Granulation 2+ Dohle Bodies 1+ Ovalocytes 1+ Date/Time Source Procedure Growth Status 09/21/17 05:30 Blood Blood Culture - Preliminary NO GROWTH TO DATE. Resulted Medical Emergencies . Who to Call and When: Medical Emergencies: If at any time you feel your situation is an emergency, please call 911 immediately. . Non-Emergent Contact Non-Emergency issues call your: Primary Care Provider, Oncologist Call Non-Emergent contact if: you have a fever . . "Provider Documentation" section prepared by Oliver Sharma. . VTE Core Measure Inpt VTE Proph given/why not?: SCD's
[2017-09-22 11:57] VITALS: BP 116/72; PULSE 83; TEMP 36.6; O2SAT 96
--- NOTE | 2017-09-22 11:58 | Discharge Summary ---
Discharge Summary Date of Service Sep 22, 2017. Discharge Summary Admission Date: Sep 18, 2017 at 15:34 Discharge Date: Sep 22, 2017 Discharge Disposition: Home Principal Diagnosis: persistent cough, chest pain (pleuritic), possible bronchitis, pancytopenia ( severe thrombocytopenia, and neutropenia) from recent chemotherapy for mantle cell lymphoma Pending Studies/Follow-Up: echocardiogram results, serum legionella, serum mycoplasma Medication Reconciliation Continued Medications: Dexamethasone (Decadron) 4 Mg Tab 4 MG PO QAM Dexamethasone (Decadron) 4 Mg Tab 2 MG PO QPM, TAB Omeprazole (Prilosec) 20 Mg Capcr 20 MG PO DAILY Ondansetron (Ondansetron HCl) 8 Mg Tab 8 MG PO Q8 PRN for Nausea or Vomiting Promethazine Hcl (Phenergan) 25 Mg Tab 25 MG PO Q4 PRN for Nausea Rituximab (Rituxan) 10 Mg/Ml Inj 1 DOSE IV MONTHLY Tramadol HCl (Tramadol HCl) 50 Mg Tab 50 MG PO Q6 PRN for Pain Admission Information HPI (per Admitting provider): This is a 72 year old male with a PMH of mantle cell lymphoma and ongoing chemotherapy, presents with a two week history of cough, congestion. He has been feeling weak and decreased PO intake as well. States that the cough has been keeping him up at night. He was seen by Hematology on 09/15, was given some IVFs - and recommendation was made for ER evaluation, but he declined at that time. He received Neupogen from 09/08 to 09/11. No fevers/chills, no chest pain, no palpitations. Physical Exam (per Admitting): General Appearance: no apparent distress, + pertinent finding (weak, chronically ill appearing) Head: normocephalic, atraumatic Eyes: normal inspection ENT: hearing grossly normal Neck: supple Respiratory/Chest: chest non-tender, lungs clear, normal breath sounds, no respiratory distress, no accessory muscle use Cardiovascular: regular rate, rhythm, no edema, no murmur Abdomen/GI: normal bowel sounds, non tender, soft Extremities/Musculoskelatal: normal capillary refill, no pedal edema Neurologic/Psych: no motor/sensory deficits, alert, normal mood/affect Skin: normal color Lymphatic: no adenopathy Hospital Course ASSESSMENT & PLAN: Imaging to date 09/18/17 CT scan of Chest 1. No acute aortic pathology or evidence of pulmonary thromboembolic disease. 2. Improved aeration of the bilateral lungs with near complete resolution of the previously described multiple irregular bilateral pulmonary nodules. A few scattered pulmonary nodules persist measuring up to 6 mm. Mild residual groundglass opacities are also seen suggesting resolving pneumonitis. 3. Subsegmental bibasilar dependent opacities suggest atelectasis. 4. Emphysema. 5. Unchanged mediastinal and hilar lymphadenopathy. 6. Splenomegaly. 09/20/17 CXR Right internal jugular Mediport terminates at the superior cavoatrial junction. Atherosclerosis of aortic arch. Cardiac silhouette normal in size. Osseous structures normal. Upper abdomen normal. IMPRESSION: 1. No acute cardiopulmonary disease Assessment This is a 72 year old male with a PMH of mantle cell lymphoma and ongoing chemotherapy presents with cough, chest/back discomfort suggestive of pleuritic chest pain (could not lay flat to sleep at night)with labs significant for Chemotherapy-induced pancytopenia with severe thrombocytopenia and neutropenia. Patient's preliminary admission diagnosis of viral bronchitis however Flu swab negative and no acute infectious pulmonary process noted on CT of lungs ( negative for pulmonary embolism) and on repeated Chest X rays. Levaquin started on 09/19/17 has been discontinued on 09/20/17. Patient's symptoms managed with nebulizers, Tessalon, home dose dexamethasone, an Robitussin for symptomatic relief patient has been receiving IV vancomycin since 09/19/17 for gram positive cocci from blood culture drawn on 09/18/17, the same blood culture has resulted as ALPHA STREP NOT S.PNE/ENTEROCO Blood cultures from 09/20/17 to 09/21/17 with no growth to date As per infectious disease service: vancomycin to be stopped on 09/22/17 as the 09/18/17 likely to be a contaminant Chemotherapy-induced Neutropenia patient received Neupogen on 09/08 to 09/11 as outpatient Hematology consult recommendations on 09/19/17: Dr. Pendleton recommended to give Neupogen 480 mcg WBC trended up from 0.63 on admission 09/18/17 to 1.06 on 09/19/17, to 2.16 on 09/20/17, to 3.21 on 09/21/17, to 4.33 on 09/22/17 Chemotherapy-induced thrombocytopenia Hematology consult recommendations on 09/19/17: Dr. Pendleton recommended to transfuse platelets if platelets less than 10,000 on 09/18/17 platelets was 3000, s/p 1 unit of platelet with 09/19/17 lab of 11, 000, 09/20/17 platelet level is 14,000, 09/21/17 is 13,000, 09/22/17 is 12,000 No bleeding As discussed with Hematology, Dr. Mistry with whom patient has appointment on 10/06, patient's platelet count is okay for hospital discharge Chemotherapy-induced anemia, anemia of chronic disease no acute bleed Hematology consult recommendations on 09/19/17: Dr. Pendleton recommended to transfuse 1 unit PRBC to maintain Hgb above 8, 09/20/17 Hgb is 9.4, 09/21/17 Hgb is 9, 09/22/17 Hgb is 8.8 Echocardiogram was performed on this admission, Mycoplasma, and Legionella studies have been sent because of cough and pleuritic chest pain. However symptoms have resolved Discharge home and follow up appointments: 09/23/2017 9:00 AM Lab [facility] 09/23/2017 10:00 AM [facility] Nurse Hem/Onc Hematology/Oncology [facility] 09/24/2017 10:40 AM Mikael Cain MD [facility] 09/30/2017 9:00 AM Lab [facility] 09/30/2017 10:00 AM [facility] Nurse Hem/Onc Hematology/Oncology [facility] 10/06/2017 11:15 AM John Mistry MD Hematology/Oncology [facility] 10/06/2017 11:45 AM Chair 4 Hem Onc [facility] Hematology/Oncology [facility] 11/04/2017 2:00 PM Mikael Cain MD [facility] Total time spent on discharge = 60 minutes This includes examination of the patient, discharge planning, medication reconciliation, and communication with other providers. Discharge Instructions see above
--- NOTE | 2017-09-22 13:01 | ECHOCARDIOGRAM REPORT ---
*NOTICE TO RECEIVING LIBERTARIAN AGENCY This information is strictly Confidential and protected under [place] law. [place] law prohibits you from making any further disclosure of this information unless further disclosure is expressly permitted by the written consent of the person to whom it pertains or is authorized by law. A general authorization for the release of medical or other information is not sufficient for this purpose. Hospital accepts no responsibility if the information is made available to any other person, INCLUDING THE PATIENT. Interpretation Summary * Name: NAVYA ANDERSEN Study Date: 09/22/2017 06:44 AM BP: 118/71 mmHg * Patient Location: C.4E\S\E410\S\1 HR: 83 * : 1945 (M/d/yyyy) Gender: Male Height: 69 in * Age: 72 yrs Ethnicity: CA Weight: 161 lb * Ordering Physician: Oliver Sharma * Referring Physician: No Doctor, Assigned * Performed By: Chanelle Stewart RDCS * * Reason For Study: PERSISTENT COUGH WITHOUT ACUTE PULMONARY PROCESS * BSA: 1.9 m2 * -- Conclusions -- * Normal LV chamber size with mild concentric LVH. * Normal LV systolic function, EF 55-60%. * No segmental left ventricular wall motion abnormalities are noted. * Grade I diastolic dysfunction. * No significant valvular pathology. Procedure Details * A complete two-dimensional transthoracic echocardiogram was performed (2D, M-mode, Doppler and color flow Doppler). Left Ventricle * The left ventricle is normal in size. * There is mild concentric left ventricular hypertrophy. * Ejection Fraction = 55-60%. * Left ventricular systolic function is normal. * No segmental left ventricular wall motion abnormalities are noted. * The left ventricular wall motion is normal. Right Ventricle * The right ventricular cavity size is normal (basal dimension <4.2 cm in right ventricular apical 4-chamber view). * The right ventricular systolic function is normal as assessed by tricuspid annular plane systolic excursion (TAPSE) (normal >1.5 cm). Atria * The left atrial size is normal. * Right atrial size is normal. * No ASD detected; PFO is not assessed. Mitral Valve * The mitral valve is normal in structure and function. Tricuspid Valve * The tricuspid valve is normal in structure and function. Aortic Valve * The aortic valve is normal in structure and function. Pulmonic Valve * The pulmonary valve is not well seen, but the Doppler examination is normal without significant regurgitation or stenosis. Great Vessels * The aortic root is normal size. Pericardium/Pleural * There is no pericardial effusion. Left Ventricular Diastolic Function * Grade I diastolic dysfunction, (abnormal relaxation pattern). MMode 2D Measurements and Calculations IVSd 1.4 cm IVSs 2.1 cm LVIDd 4.5 cm LVIDs 3.2 cm LVPWd 1.2 cm LVPWs 1.9 cm IVS/LVPW 1.2 FS 28.4 % EDV(Teich) 94.2 ml ESV(Teich) 42.5 ml EF(Teich) 54.9 % EDV(cubed) 93.4 ml ESV(cubed) 34.3 ml EF(cubed) 63.3 % % IVS thick 44.8 % % LVPW thick 50.1 % LV mass(C)d 236.9 grams LV mass(C)dI 125.8 grams/m\S\2 LV mass(C)s 284.0 grams LV mass(C)sI 150.8 grams/m\S\2 SV(Teich) 51.8 ml SI(Teich) 27.5 ml/m\S\2 SV(cubed) 59.1 ml SI(cubed) 31.4 ml/m\S\2 Ao root diam 3.4 cm Ao root area 9.0 cm\S\2 LA dimension 3.6 cm LA/Ao 1.1 LVAd ap4 31.8 cm\S\2 LVLd ap4 9.0 cm EDV(MOD-sp4) 92.2 ml EDV(sp4-el) 95.2 ml LVAs ap4 20.3 cm\S\2 LVLs ap4 7.9 cm ESV(MOD-sp4) 43.3 ml ESV(sp4-el) 44.2 ml EF(MOD-sp4) 53.0 % EF(sp4-el) 53.5 % LVAd ap2 28.7 cm\S\2 LVLd ap2 8.8 cm EDV(MOD-sp2) 77.4 ml EDV(sp2-el) 79.5 ml LVAs ap2 18.1 cm\S\2 LVLs ap2 7.6 cm ESV(MOD-sp2) 40.3 ml ESV(sp2-el) 36.4 ml EF(MOD-sp2) 47.9 % EF(sp2-el) 54.2 % LVLd %diff -2.07 % EDV(MOD-bp) 85.7 ml LVLs %diff -3.98 % ESV(MOD-bp) 41.6 ml EF(MOD-bp) 51.5 % SV(MOD-sp4) 48.8 ml SI(MOD-sp4) 25.9 ml/m\S\2 SV(MOD-sp2) 37.1 ml SI(MOD-sp2) 19.7 ml/m\S\2 SV(MOD-bp) 44.1 ml SI(MOD-bp) 23.4 ml/m\S\2 SV(sp4-el) 51.0 ml SI(sp4-el) 27.1 ml/m\S\2 SV(sp2-el) 43.1 ml SI(sp2-el) 22.9 ml/m\S\2 Doppler Measurements and Calculations MV E max naga 59.5 cm/sec MV A max naga 86.2 cm/sec MV E/A 0.69 MV dec time 0.16 sec Ao V2 max 117.0 cm/sec Ao max PG 5.5 mmHg Ao max PG (full) 2.1 mmHg LV V1 max PG 3.3 mmHg LV V1 max 91.2 cm/sec
[2017-09-22] MEDS ORDERED: BOOST VANILLA PO SCH ×2 (20:00)
[2017-09-22] MEDS ORDERED: VANCOMYCIN TROUGH ONE (21:30)
== END 2017-09-22 13:40 | disposition home or self-care (01) | DRG 809 ==
LOC: C.EDB 10:42 → C.4E 15:34 → UNDOADMIN 15:34 → ENRESERV 15:48
PROVIDERS: ADMIT Family Medicine; ATTEND Internal Medicine
DX: D61.810 Antineoplastic chemotherapy induced pancytopenia (principal); C83.10 Mantle cell lymphoma, unspecified site; J20.8 Acute bronchitis due to other specified organisms; Z79.899 Other long term (current) drug therapy; Z79.52 Long term (current) use of systemic steroids; Z66 Do not resuscitate; Z80.1 Family history of malignant neoplasm of trachea, bronchus and lung; Z82.49 Family history of ischemic heart disease and other diseases of the circulatory system

== ENCOUNTER 2017-10-05 10:49 | Inpatient (IN) | payer OTHER ==
[~2017-10-05] VITALS: Ht 175.3 cm; Wt 72.1 kg
[~2017-10-05 10:49] MED LIST changes: +DXM/4 PO; -IBRU1CAP PO; +PROM25TA9 PO; +ULT50 PO; -ZNTT/150 PO
[2017-10-05] MEDS ORDERED: ACETAMINOPHEN 325 MG TAB PO STA (11:14)
[2017-10-05] MEDS ORDERED: CEFEPIME IV 2,000 MG in DEXTROSE 5% 100ML 100 ML IV STA (11:14)
[2017-10-05] MEDS ORDERED: MoRPHine SULFATE 4 MG/ML 1 ML CARP\\VIAL IV STA (11:14)
[2017-10-05] MEDS ORDERED: ALBUT/IPRATROP 3MG/0.5MG NEB 3 ML VIAL INH STA ×2 (11:14→13:03)
[2017-10-05] MEDS ORDERED: SODIUM CHLORIDE 0.9% 1000ML 2,000 ML IV STA (11:14)
[2017-10-05] MEDS ORDERED: RANI150T2 PO (11:18)
[2017-10-05] MEDS ORDERED: CETI10TA84 PO (11:31)
[2017-10-05] MEDS ORDERED: VANCOMYCIN INJ 2,000 MG in SODIUM CHLORIDE 0.9% 500ML 500 ML IV STA (11:38)
[2017-10-05 11:49] LABS: HEMATOCRIT 31.9 % (42-52); HEMOGLOBIN 10.2 g/dL (14.0-18.0); MEAN CELL VOLUME 85.3 fL (80-100); MEAN CORPUSCULAR HEMOGLOBIN 27.3 pg (25-34); MEAN PLATELET VOLUME 9.4 fL (7.4-10.4); NUCLEATED RED BLOOD CELL ABS 0.04 K/uL (0-0); PLATELET COUNT 107 K/uL (130-400); RED CELL DISTRIBUTION WIDTH CV 18.6 % (11.5-14.5); RED CELL DISTRIBUTION WIDTH SD 56.4 fL (36.4-46.3)
--- NOTE | 2017-10-05 12:00 | EMERGENCY ROOM VISIT NOTE ---
History First contact with patient: 11:04 Chief Complaint: FEVER Stated Complaint: PT HAS LYMPHOMA,FEVER,SOB History of Present Illness The patient is a 72 year old male who presents to the Emergency Room with complaints of fevers >101 with body aches, shortness of breath, and increasing cough since last night. He has wheezing associated with the cough. He also notes constant sinus drainage that seems to be triggering his coughing spells. Patient has lymphoma, is being treated with chemotherapy, his last treatment was 3 weeks ago and he is due to have another treatment tomorrow. He has an indwelling Mediport for chemo treatments. Patient states he was recently admitted 2 weeks ago for similar symptoms of cough and trouble breathing, was noted to be neutropenic and was also possibly septic. He states that he was discharged home on 09/[address] Mistry is his oncologist that he follows with routinely. He took a Tramadol for his pain and fever, with some relief. Patient denies any headaches, vision changes, neck pain or stiffness, sore throat, ear pain, chest pain, abdominal pain, nausea/vomiting, diarrhea, bloody or black stools, or rash. Review of Systems A complete 10 point review of systems was reviewed with the patient with pertinent positives and negatives as per history of present illness. All else were negative. Past Medical/Surgical History Medical Problems: (1) Fever (2) Mantle cell lymphoma (3) Right maxillary sinusitis Surgical Problems: (1) History of appendectomy (2) Status post chemotherapy Family History FH: CAD (coronary artery disease) FATHER MOTHER FH: lung cancer SISTER Social History Smoking Status: Never Smoker Alcohol Use: none Drug Use: none Marital Status: Housing Status: lives with family Occupation Status: retired Current/Historical Medications Scheduled Dexamethasone (Decadron), 4 MG PO QAM Omeprazole (Prilosec), 20 MG PO DAILY Ranitidine HCl (Ranitidine HCl), 150 MG PO UD Rituximab (Rituxan), 1 DOSE IV MONTHLY Scheduled PRN Cetirizine (Zyrtec), 10 MG PO UD PRN for PRIOR TO CHEMO Ondansetron (Ondansetron HCl), 8 MG PO Q8 PRN for Nausea or Vomiting Promethazine Hcl (Phenergan), 25 MG PO Q4 PRN for Nausea Tramadol HCl (Tramadol HCl), 50 MG PO Q6 PRN for Pain Allergies Reviewed in chart Physical Exam Vital Signs Date Time Temp Pulse Resp B/P (MAP) Pulse Ox O2 Delivery O2 Flow Rate FiO2 10/05/17 14:35 112 21 10/05/17 14:30 138/59 10/05/17 14:05 108 20 91 10/05/17 14:00 125/64 10/05/17 13:30 129/62 10/05/17 13:05 114 22 92 10/05/17 13:01 118/43 10/05/17 12:35 120 19 93 10/05/17 12:30 144/62 10/05/17 12:24 120 10/05/17 12:19 126 27 93 10/05/17 12:14 128 17 93 10/05/17 12:09 132 23 95 Room Air 10/05/17 12:04 129 24 94 10/05/17 12:01 147/76 95 Room Air 10/05/17 11:59 130 22 95 10/05/17 11:54 135 21 98 10/05/17 11:49 129 21 118/89 99 10/05/17 11:47 95 Room Air 10/05/17 11:44 132 20 10/05/17 11:02 37.7 137 20 133/75 95 Room Air Physical Exam CONSTITUTIONAL: No acute distress, but appears uncomfortable. Moderately dehydrated. Pale. HEENT: Normocephalic, atraumatic. Pupils equal, round and reactive to light, EOMI. TMs normal. Pharynx normal. Dry mucous membranes. NECK: Supple, full active range of motion without discomfort. RESPIRATORY: Diminished bilaterally with scant expiratory wheezing, no crackles , rhonchi or stridor. Mildly tachypneic. Able to speak in full sentences. No accessory muscle use. Equal expansion bilaterally. CARDIOVASCULAR: Tachycardic. Regular rhythm with no murmurs, rubs or gallops. Normal peripheral perfusion. No edema. GASTROINTESTINAL: Soft, nontender, nondistended. No palpable masses or HSM. Bowel sounds present in all quadrants. MUSCULOSKELETAL: Generalized tenderness to palpation of the bilateral legs. No swelling or erythema of the calves. Full range of motion of all joints without discomfort. INTEGUMENTARY: No rash or other significant dermatologic conditions noted. NEUROLOGIC: Alert and oriented X 4 with normal affect. Cranial nerves II-XII grossly intact. No focal neurologic deficits noted. Medical Decision & Procedures ER Provider Diagnostic Interpretation: SINGLE VIEW CHEST CLINICAL HISTORY: Fever. Sepsis. FINDINGS: An AP, portable, upright chest radiograph is compared to study dated 09/20/2017 and correlated with chest CT dated 09/18/2017. The examination is degraded by portable technique and patient rotation. A right subclavian central venous infusion port is unchanged in position. The cardiomediastinal silhouette is unremarkable. There is atherosclerotic calcification of the thoracic aorta. The lungs and pleural spaces are clear noting minimal left basilar atelectasis. No pneumothorax is seen. The skeletal structures appear osteopenic. The bony thorax is grossly intact. IMPRESSION: No acute cardiopulmonary abnormality. Laboratory Results 10/05/17 11:28 Red Blood Count 3.74, Mean Corpuscular Volume 85.3, Mean Corpuscular Hemoglobin 27.3, Mean Corpuscular Hemoglobin Concent 32.0, Mean Platelet Volume 9.4 10/05/17 11:28 Test 10/05/17 11:14 10/05/17 11:28 10/05/17 11:30 10/05/17 11:36 White Blood Count 10.00 K/uL (4.8-10.8) Red Blood Count 3.74 M/uL (4.7-6.1) Hemoglobin 10.2 g/dL (14.0-18.0) Hematocrit 31.9 % (42-52) Mean Corpuscular Volume 85.3 fL (80-100) Mean Corpuscular Hemoglobin 27.3 pg (25-34) Mean Corpuscular Hemoglobin Concent 32.0 g/dl (32-36) Platelet Count 107 K/uL (130-400) Mean Platelet Volume 9.4 fL (7.4-10.4) RDW Standard Deviation 56.4 fL (36.4-46.3) RDW Coefficient of Variation 18.6 % (11.5-14.5) Nucleated RBC Absolute Count (auto) 0.04 K/uL (0-0) Neutrophils % (Manual) 59.7 % Lymphocytes % (Manual) 28.9 % Monocytes % (Manual) 7.9 % Myelocytes % 3.5 % Nucleated Red Blood Cells % 0.4 % Neutrophils # (Manual) 5.97 K/uL (1.4-6.5) Total Absolute Neutrophils 5.97 K/uL (1.4-6.5) Lymphocytes # (Manual) 2.89 K/uL (1.2-3.4) Total Absolute Lymphocytes 2.89 K/uL (1.2-3.4) Monocytes # (Manual) 0.79 K/uL (0.11-0.59) Myelocytes # 0.35 K/uL (0-0) Red Blood Cell Morphology Unremarkable Anion Gap 10.0 mmol/L (3-11) Est Creatinine Clear Calc Drug Dose 72.6 ml/min Estimated GFR () 88.3 Estimated GFR (Non- 76.2 BUN/Creatinine Ratio 20.1 (10-20) Calcium Level 8.6 mg/dl (8.5-10.1) Total Bilirubin 0.6 mg/dl (0.2-1) Direct Bilirubin 0.2 mg/dl (0-0.2) Aspartate Amino Transf (AST/SGOT) 14 U/L (15-37) Alanine Aminotransferase (ALT/SGPT) 21 U/L (12-78) Alkaline Phosphatase 80 U/L (45-117) Total Creatine Kinase 10 U/L (39-308) Troponin I < 0.015 ng/ml (0-0.045) Total Protein 6.5 gm/dl (6.4-8.2) Albumin 3.0 gm/dl (3.4-5.0) Influenza Type A Antigen Neg for Influ A (NEG) Influenza Type B Antigen Neg for Influ B (NEG) Bedside Lactic Acid Venous 3.96 mmol/L (0.90-1.70) Test 10/05/17 12:09 Venous Blood pH 7.44 (7.36-7.41) Venous Blood Partial Pressure CO2 37 mmHg (38.0-50.0) Venous Blood Partial Pressure O2 35 mmHg Venous Blood HCO3 24 mmol/L Venous Blood Oxygen Saturation 65.6 % Venous Blood Base Excess 0.2 mEq/L Medications Administered Medications (Trade) Dose Ordered Sig/Flory Route Start Time Stop Time Status Last Admin Dose Admin Sodium Chloride 2,000 ml @ 999 mls/hr Q2H1M STAT IV 10/05/17 11:14 10/05/17 13:14 DC 10/05/17 11:51 999 MLS/HR Albuterol/ Ipratropium (Duoneb) 3 ml NOW STAT INH 1/1/18 11:14 10/05/17 11:20 DC 10/05/17 11:49 3 ML Acetaminophen (Tylenol Tab) 650 mg NOW STAT PO 10/05/17 11:14 10/05/17 11:20 DC 10/05/17 11:53 650 MG Morphine Sulfate (MoRPHine SULFATE INJ) 4 mg NOW STAT IV 10/05/17 11:14 10/05/17 11:20 DC 10/05/17 11:50 4 MG Cefepime HCl 2000 mg/Dextrose 122 ml @ 200 mls/hr NOW STAT IV 10/05/17 11:14 10/05/17 11:50 DC 10/05/17 11:50 200 MLS/HR Vancomycin HCl 2000 mg/Sodium Chloride 540 ml @ 200 mls/hr ONE STAT IV 10/05/17 11:38 10/05/17 14:19 DC 10/05/17 12:16 200 MLS/HR Albuterol/ Ipratropium (Duoneb) 3 ml NOW STAT INH 10/05/17 13:03 10/05/17 13:05 DC 10/05/17 13:19 3 ML ECG Indication: SOB/dyspnea, tachycardia Rate (beats per minute): 136 Rhythm: sinus tachycardia Findings: nonspecific-ST abn (Anterolateral), no ectopy Change: nonspecific ST changes when compared to EKG from 09/18/2017 Medical Decision CC: Patient presenting with complaint of fever and SOB Interpretation of Labs: No leukocytosis, mild anemia (improved from baseline), no significant electrolyte abnormalities, normal renal function, normal liver enzymes. Negative troponin. Negative total creatinine kinase. Elevated lactic acid. Influenza A/B is negative. UA pending. Differential Diagnosis: Includes, but not limited to viral URI, bronchitis, pneumonia, influenza, COPD exacerbation, CHF, ACS, dehydration, sepsis/ bacteremia, UTI, sinusitis, among others. Medication Reconciliation: I attest that I have personally reviewed the patient' s current medication list. Vital signs review: I reviewed the patient's vital signs and interpret them as follows: T: Febrile (38.1); BP: Normotensive; HR: Tachycardic; RR: Tachypneic ; Pulse Ox:[]. Blood pressure screening: The patient was found to have normal blood pressure on screening and does not require follow-up for repeat blood pressure check. Summary: Patient was evaluated at bedside, history and physical exam performed. Patient is alert and oriented, in no acute distress but does appear uncomfortable. He is mildly tachypneic, but speaking in full sentences and not using accessory muscles. Oxygen saturations are within normal limits on room air. Lungs are diminished throughout with excellent or wheezes, no focal consolidation or rhonchi heard. Patient is noted to be febrile and quite tachycardic on arrival, and also appears moderately dehydrated. Given his history of lymphoma and previous neutropenia, the patient was immediately placed on neutropenic precautions. Orders were placed for sepsis workup at bedside for labs, blood culture 2 (one set from [facility]), UA and urine culture, lactic acid level, Tylenol for fever, EKG, chest x-ray to evaluate for pneumonia. DuoNeb treatment was ordered for wheezing. Broad-spectrum antibiotics with IV cefepime and vancomycin ordered. 2 L IV fluid bolus. I did speak briefly on the phone with Dr. Mistry, patient's oncologist, who agreed with our workup and agreed that the port should be accessed to rule out line infection. Patient discussed with Dr. Ca, ED attending, who agrees with my assessment and plan. On reassessment after DuoNeb treatment, patient states he feels somewhat improved. Reassessment of his lungs reveals better movement of air and increased expiratory wheezes. Given improvement but continued wheezing, a second DuoNeb was ordered. Labs reviewed as above, patient is not neutropenic. Lactic acid level is significantly elevated. Troponin is negative. Negative influenza. EKG shows sinus tachycardia with nonspecific ST changes. Chest x-ray does not show any signs of pneumonia or acute cardiopulmonary disease. Patient was discussed with Dr. Beaver, hospitalist, who agrees to admit the patient for further management and sepsis workup. Patient reassessed multiple times throughout ED stay, continues to feel improved , tachycardia improving with IV fluids and treatment of fever. Patient also reports that his body aches are improved. I discussed all results and plan for admission with the patient and his , they verbalized understanding and were agreeable to this plan. Patient was stable at time of admission. Head Trauma GCS Score: 15 Medication Reconcilliation Current Medication List: was personally reviewed by me Blood Pressure Screening Patient's blood pressure: Normal blood pressure Impression Primary Impression: Sepsis Additional Impression: Shortness of breath Departure Information Referrals Mikael Cain M.D. (PCP) Patient Instructions My [facility] Problem Qualifiers Primary Impression: Sepsis Sepsis type: sepsis due to unspecified organism Qualified Codes: A41.9 - Sepsis, unspecified organism
[2017-10-05 12:02] LABS: ALT/SGPT 21 U/L (12-78); BLOOD UREA NITROGEN 20 mg/dl (7-18); CALCIUM 8.6 mg/dl (8.5-10.1); CARBON DIOXIDE 24 mmol/L (21-32); CREATININE 0.98 mg/dl (0.60-1.40); GLUCOSE 104 mg/dl (70-99); POTASSIUM 4.2 mmol/L (3.5-5.1); SODIUM 134 mmol/L (136-145)
[2017-10-05 12:07] LABS: ALKALINE PHOSPHATASE 80 U/L (45-117); AST/SGOT 14 U/L (15-37); TOTAL PROTEIN 6.5 gm/dl (6.4-8.2)
--- NOTE | 2017-10-05 12:09 | DIAGNOSTIC IMAGING REPORT ---
SINGLE VIEW CHEST CLINICAL HISTORY: Fever. Sepsis. FINDINGS: An AP, portable, upright chest radiograph is compared to study dated 09/20/2017 and correlated with chest CT dated 09/18/2017. The examination is degraded by portable technique and patient rotation. A right subclavian central venous infusion port is unchanged in position. The cardiomediastinal silhouette is unremarkable. There is atherosclerotic calcification of the thoracic aorta. The lungs and pleural spaces are clear noting minimal left basilar atelectasis. No pneumothorax is seen. The skeletal structures appear osteopenic. The bony thorax is grossly intact. IMPRESSION: No acute cardiopulmonary abnormality. Electronically signed by: Dixon Orozco M.D. 10/05/2017 12:08 PM Dictated Date/Time: 10/05/2017 12:07 PM
[2017-10-05 12:43] LABS: INFLUENZA B ANTIGEN Neg for Influ B (NEG)
--- NOTE | 2017-10-05 14:03 | DIAGNOSTIC IMAGING REPORT ---
CT SCAN OF THE PARANASAL SINUSES CLINICAL HISTORY: Sinusitis. COMPARISON STUDY: No priors. TECHNIQUE: High-resolution CT scan of the paranasal sinuses is performed. Images are reviewed in the axial, sagittal, and coronal planes. IV contrast was not administered for this examination. A dose lowering technique was utilized adhering to the principles of ALARA. CT DOSE: 568.67 mGy.cm FINDINGS: Maxillary antra: There is near complete opacification of the right maxillary antrum with frothy secretions. Trace mucosal thickening is seen on the left. Anterior ethmoid sinuses: Clear. Posterior ethmoid sinuses: Clear. Sphenoid sinuses: Clear. Frontal sinuses: Clear. Ostiomeatal complexes: The right ostiomeatal complex is significantly narrowed by mucosal thickening. The right ostiomeatal complex is patent. Frontoethmoidal and sphenoethmoidal recesses: Patent bilaterally. Carotid arteries: The carotid arteries are covered and without septal attachments. Ethmoid roofs: The ethmoid roofs are symmetric. Nasal turbinates: Normal in appearance. Nasal septum: There is minimal rightward deviation of the bony nasal septum. Optic nerves: Covered. Orbits: The bony orbits are intact. Orbital contents are normal in appearance. Calvarium: The imaged calvarium is normal in appearance Mastoid air cells: There is a trace left mastoid effusion. The right mastoid air cells are clear. Brain parenchyma: Partially visualized brain parenchyma is within normal limits. IMPRESSION: Right maxillary sinus disease as above. Electronically signed by: Dixon Orozco M.D. 10/05/2017 2:02 PM Dictated Date/Time: 10/05/2017 1:58 PM
[2017-10-05] MEDS ORDERED: RANITIDINE HCL 150 MG TAB PO PRN (15:00)
[2017-10-05] MEDS ORDERED: ONDANSETRON INJ 2 MG/ML 2 ML VIAL IV PRN (15:00)
[2017-10-05] MEDS ORDERED: PROMETHAZINE HCL 25 MG TAB PO PRN (15:00)
[2017-10-05] MEDS ORDERED: CETIRIZINE HCL 10 MG TAB PO PRN (15:00)
--- NOTE | 2017-10-05 16:14 | HISTORY & PHYSICAL EXAMINATION ---
DATE OF ADMISSION: 10/05/2017 PRIMARY CARE PHYSICIAN: Dr. Cain. CHIEF COMPLAINT: Congestion in the head since about with a postnasal drip and cough with wheezing. HISTORY OF PRESENT COMPLAINT: He is a 72-year-old male with significant past medical history of diffuse large B cell lymphoma with ongoing chemotherapy and also history of chemotherapy-induced neutropenia and thrombocytopenia, nephrolithiasis, GERD and also history of emphysema, apparently was discharged from the hospital following an attack of neutropenia on 22 of September. According to the patient, he has not been feeling well since discharge. He complained about sinus congestion with postnasal drip and cough, following the cough he has had attack of wheezing with some shortness of breath. He received his chemotherapy about 3 weeks ago and he is supposed to receive 1 chemo tomorrow. He has had chills and also fever yesterday and this morning and that is the reason he was brought into the Emergency Room. He denies to have any chest pain, but does have cough with productive of whitish yellow phlegm with some wheezing and some shortness of breath. He complains to have pain in the sinus area, mostly maxillary on right side with some postnasal drip. He does not have any abdominal pain, no nausea, no vomiting. He denies to have any numbness or tingling in the extremities, but he complained to have nonspecific pain at the back, thigh and the legs and he has been generally weak. He does not have any headache, any blurred vision, any numbness or tingling in the extremities or any weakness involving any side. PAST MEDICAL HISTORY: Significant for diffuse large B cell lymphoma, mantle cell lymphoma with ongoing chemo, chemotherapy-induced thrombocytopenia and neutropenia in the past, nephrolithiasis, GERD and also emphysema. PAST SURGICAL HISTORY: Significant for a lymph node biopsy quite a few times, appendectomy as a child and Lithotripsy of kidney stone in the past. FAMILY HISTORY: Significant that father had CAD, mother had CAD, and brother has heart disorder. SOCIAL HISTORY: He is single. He has 2 children. He quit smoking in 1986 with a 2-pack per day smoking for 5 years. He does not use any alcohol and he has been reasonably ambulant. ALLERGIES: TETRACYCLINE. MEDICATIONS: He has been on dexamethasone 4 mg in the morning, Zofran 8 mg q. 8 hourly p.r.n. for nausea, Rituxan 10 mg IV monthly, cetirizine 10 mg daily, omeprazole 20 mg daily, Phenergan 25 mg q. 4 hourly p.r.n., ranitidine 150 mg as directed, and Ultram 50 mg q. 6 hourly p.r.n. REVIEW OF SYSTEMS: Other system reviewed are unremarkable except those mentioned in history of present complaint. PHYSICAL EXAMINATION: GENERAL: On examination in the Emergency Room, he was having moderate distress at rest with some shortness of breath and wheezing. VITAL SIGNS: Temperature 37.7, pulse initially 137.91 that went down to 129, blood pressure 147/76, saturation 94% on room air. HEENT: Remarkable for flushed facies with right maxillary sinus area tenderness. NECK: Supple. No JVD, no bruit. CHEST: Decreased breath sounds all over with wheezing all over. HEART: S1, S2 regular. ABDOMEN: Soft, benign, nontender, no organomegaly. Bowel sounds present. EXTREMITIES: Negative for any edema. MUSCULOSKELETAL: Did not show any acute arthritis involving any joint. CENTRAL NERVOUS SYSTEM: He was alert, awake, oriented x3, no focal sensory and/or motor deficit appreciated. SPINE: Examination of the lumbar spine did not show any significant abnormality. LABORATORY DATA: Noted today - white count was 10.0, H&H 10.2/31.9, platelets was 107. Venous blood gas - pH 7.44, pCO2 of 37, pO2 35. Sodium was 134, potassium 4.2, chloride 99, carbon dioxide 24, BUN 20, creatinine 0.98, random glucose 104. Lactic acid was 3.7. LFTs unremarkable. Albumin of 3.0. Influenza A and B negative. IMAGING DATA: Chest x-ray, no acute cardiopulmonary abnormality and sinus CT showed near complete opacification of the right maxillary antrum with frothy secretions. EKG was in sinus rhythm, rate of 136 per minute and minor nonspecific ST-T wave abnormalities. Troponin was less than 0.015. IMPRESSION AND PLAN: 1. Fever with ongoing chemotherapy, likely secondary to maxillary sinusitis. Blood culture and urine culture has been taken. He was started with broad spectrum antibiotics with vancomycin, cefepime. Will continue the antibiotics for now. We need to change to Augmentin on discharge, if the blood culture comes back negative. 2. Right maxillary sinusitis with postnasal drip and cough, and wheezing. Treatment as above. 3. Emphysema with exacerbation. He has a [id number] history of smoking and he has emphysema. He may have exacerbation with acute bronchitis, no pneumonia. He will be given Solu-Medrol and also nebulized bronchodilator. He may need at p.r.n. inhaler on discharge. 4. Mantle cell lymphoma with ongoing chemo. He got the chemo 3 sets, supposed to get chemo tomorrow as well. We will hold the chemo for now. We may inform Dr. Mistry about that. 5. Gastroesophageal reflux disease. Continue with antireflux medications. 6. Deep venous thrombosis prophylaxis. Platelet count is going down. We will hold off any pharmacological anticoagulation right now, sequential compression devices and advice ambulation. He has had very low platelet count during his last admission. 7. Code status. He will be a full code. In my clinical judgment, the beneficiary meets criteria as per CMS for 2-midnight stay in the hospital. MTDD
[2017-10-05] MEDS: SODIUM CHLORIDE 0.9% 1000ML 1,000 ML IV SCH (16:22)
[2017-10-05 16:28] VITALS: BP 133/72; PULSE 107; TEMP 36.6; O2SAT 92
[2017-10-05] MEDS ORDERED: VANCOMYCIN CONSULT ACTIVE PRN (16:30)
[2017-10-05] MEDS ORDERED: METHYLPREDNISOLONE IV 40 MG in SYRINGE 0 ML IV ONE (16:30)
--- NOTE | 2017-10-05 16:35 | Pharmacy Progress Note ---
Pharmacy Abx Dose Short Note Date of Service Oct 05, 2017. Assessment & Plan Item Value Date Time Urine Culture Received 10/05/17 1330 Urine , Clean Catch Pending Blood Culture Received 10/05/17 1202 Blood Pending Blood Culture Received 10/05/17 1125 Blood Pending White Blood Count 10.00 K/uL 10/05/17 1128 Neutrophils # (Manual) 5.97 K/uL 10/05/17 1128 Creatinine 0.98 mg/dl 10/05/17 1128 Est Creatinine Clear Calc Drug Dose 72.6 ml/min 10/05/17 1128 Vital Signs Label Value Date Time Patient Temperature 37.7 C. H 10/05/17 1550 Assessment 72 year old male receiving VANC/Cefepime for empiric treatment of febrile neutropenia. Cultures pending. Day # 1/2 of antimicrobial therapy. Please reorder these antibiotics if should continue beyond 48 hours? Plan Vancomycin * On Vanc-IV with recent ADM 09/19/17. Similar weight & renal function. Will use similar dose/interval. * LOADING DOSE: VANC 2000mg (~24m/kg) IV x 1 in ED * MAINTENANCE DOSE: VANC 1250mg (~15mg/kg) IV every 10 hours * Goal trough level: 15 to 20 mcg/mL * Ordered Trough level @ [facility] prior to 10/07/17 0400 dose. Pharmacy will continue to follow and will adjust dose/frequency as necessary. Thank you.
[2017-10-05 17:00] VITALS: BP 133/72; PULSE 107; TEMP 36.6; O2SAT 92; BMI 27.7
[2017-10-05] MEDS: TRAMADOL HCL 50 MG TAB PO PRN (18:58)
[2017-10-05] MEDS: ALBUTEROL 0.083% NEBU SOLN 3 ML VIAL INH SCH (19:16)
[2017-10-05 19:19] VITALS: PULSE 110; O2SAT 93
[2017-10-05] MEDS: CEFEPIME IV 2,000 MG in SYRINGE 7.5 ML IV SCH (20:07)
[2017-10-05] MEDS: VANCOMYCIN INJ 1,250 MG in SODIUM CHLORIDE 0.9% 250ML 250 ML IV SCH (21:37)
[2017-10-05 23:40] VITALS: BP 104/56; PULSE 91; TEMP 36.6; O2SAT 92
[2017-10-05] MEDS: METHYLPREDNISOLONE IV 40 MG in SYRINGE 0 ML IV SCH (23:44)
[2017-10-06] VITALS (10 sets, daily range): BP systolic 111–135; BP diastolic 61–79; PULSE 73–86; TEMP 34.7–36.5; O2SAT 80–94
[2017-10-06] MEDS: ALBUTEROL 0.083% NEBU SOLN 3 ML VIAL INH SCH ×4 (01:37→19:15)
[2017-10-06] MEDS: CEFEPIME IV 2,000 MG in SYRINGE 7.5 ML IV SCH ×3 (04:02→20:43)
[2017-10-06] MEDS: SODIUM CHLORIDE 0.9% 1000ML 1,000 ML IV SCH (05:03)
[2017-10-06 06:37] LABS: HEMATOCRIT 28.6 % (42-52); HEMOGLOBIN 9.2 g/dL (14.0-18.0); MEAN CELL VOLUME 84.4 fL (80-100); MEAN CORPUSCULAR HEMOGLOBIN 27.1 pg (25-34); MEAN CORPUSCULAR HGB CONC 32.2 g/dl (32-36); RED CELL DISTRIBUTION WIDTH CV 18.5 % (11.5-14.5); RED CELL DISTRIBUTION WIDTH SD 55.8 fL (36.4-46.3); WHITE BLOOD COUNT 6.06 K/uL (4.8-10.8)
[2017-10-06 06:48] LABS: PLATELET COUNT 86 K/uL (130-400)
[2017-10-06 07:08] LABS: CALCIUM 8.5 mg/dl (8.5-10.1); CREATININE 0.64 mg/dl (0.60-1.40); PHOSPHORUS 5.7 mg/dl (2.5-4.9); POTASSIUM 4.3 mmol/L (3.5-5.1)
[2017-10-06] MEDS: VANCOMYCIN INJ 1,250 MG in SODIUM CHLORIDE 0.9% 250ML 250 ML IV SCH ×3 (07:52→22:00)
[2017-10-06] MEDS: METHYLPREDNISOLONE IV 40 MG in SYRINGE 0 ML IV SCH ×2 (07:52→15:56)
[2017-10-06] MEDS: PANTOprazole SOD 40 MG TAB PO SCH (07:52)
[2017-10-06] MEDS ORDERED: MAGNESIUM SULFATE 1GM / D5W 1 GM in PREMIXED IN D5W 100 ML IV ONE (12:30)
--- NOTE | 2017-10-06 16:11 | Progress Note ---
Subjective Date of Service: Oct 06, 2017. Subjective Pt evaluation today including: conversation w/ patient, physical exam, lab review, review of studies, review of inpatient medication list Saw/examined the patient in room 404 He feels better today, breathing status improved; cough is improving Some sinus pressure on R side remains No chest pain, good PO intake Problem List Medical Problems: (1) Anemia Status: Acute (2) Bronchitis Status: Acute (3) COPD exacerbation Status: Acute (4) High serum lactate Status: Acute (5) Ischemic bowel disease Status: Acute (6) Lactic acidosis Status: Acute (7) Myalgia Status: Acute (8) Neutropenia Status: Acute (9) Palpitations Status: Acute (10) Sepsis Status: Acute (11) Shortness of breath Status: Acute (12) Splenic laceration Status: Acute (13) Thrombocytopenia Status: Acute (14) Weakness Status: Acute Review of Systems Constitutional: No fever, No chills, No weakness Respiratory: + cough, + wheezing, + shortness of breath, No sputum, No dyspnea on exertion, No dyspnea at rest, No hemoptysis Cardiac: No chest pain, No edema, No palpitations Heme: No abnormal bleeding/bruising Medications Current Inpatient Medications Medications (Trade) Dose Ordered Sig/Flory Route Start Time Stop Time Status Last Admin Dose Admin Ondansetron HCl (Zofran Inj) 4 mg Q6H PRN IV 10/05/17 15:00 11/04/17 14:59 Cetirizine HCl (zyrTEC TAB) 10 mg UD PRN PO 10/05/17 15:00 11/04/17 14:59 Promethazine HCl (Phenergan Tab) 25 mg Q4H PRN PO 10/05/17 15:00 11/04/17 14:59 Ranitidine HCl (zANTac TAB) 150 mg DAILY PRN PO 10/05/17 15:00 11/04/17 14:59 Tramadol HCl (Ultram Tab) 50 mg Q6H PRN PO 10/05/17 15:00 11/04/17 14:59 10/05/17 18:58 50 MG Pantoprazole Sodium (Protonix Tab) 40 mg DAILY PO 10/06/17 08:00 11/05/17 08:59 10/06/17 07:52 40 MG Methylprednisolone Sodium Succinate 40 mg/Syringe 0.64 ml @ 1.5 mls/min Q8H IV 10/06/17 00:00 11/05/17 00:00 10/06/17 07:52 1.5 MLS/MIN Albuterol Sulfate (Ventolin 0.083% 2.5MG/3ML Neb) 2.5 mg Q6R INH 10/05/17 15:00 11/04/17 14:59 10/06/17 14:25 2.5 MG Cefepime HCl 2000 mg/Syringe 20 ml @ 5 mls/min Q8H IV 10/05/17 20:00 10/07/17 04:03 10/06/17 12:04 5 MLS/MIN Vancomycin HCl (Consult) 1 ea UD PRN N/A 10/05/17 16:30 11/04/17 16:29 Vancomycin HCl 1250 mg/Sodium Chloride 275 ml @ 125 mls/hr Q8H IV 10/06/17 14:00 10/07/17 23:59 10/06/17 13:16 125 MLS/HR Objective Vital Signs Date Time Temp Pulse Resp B/P (MAP) Pulse Ox O2 Delivery O2 Flow Rate FiO2 10/06/17 14:26 76 16 94 Room Air 10/06/17 11:15 36.3 79 18 111/65 (80) 94 10/06/17 09:00 Room Air 10/06/17 07:25 36.5 77 18 111/61 (78) 93 Room Air 10/06/17 07:12 84 16 91 Room Air 10/06/17 03:58 36.5 83 135/79 (97) 92 Room Air 10/06/17 01:37 86 18 92 Room Air 10/06/17 00:05 Room Air 10/05/17 23:40 36.6 91 17 104/56 (72) 92 Room Air 10/05/17 19:19 110 18 93 Room Air 10/05/17 17:00 36.6 107 18 133/72 92 Room Air 10/05/17 16:28 36.6 107 18 133/72 (92) 92 Room Air Physical Exam General Appearance: no apparent distress Respiratory/Chest: no respiratory distress, no accessory muscle use, + decreased breath sounds Cardiovascular: regular rate, rhythm, no edema, no murmur Extremities: normal inspection, no pedal edema Neurologic/Psychiatric: no motor/sensory deficits, alert, normal mood/affect Laboratory Results Last 24 Hours Test 10/05/17 18:32 10/06/17 06:04 Lactic Acid Level 5.1 mmol/L White Blood Count 6.06 K/uL Red Blood Count 3.39 M/uL Hemoglobin 9.2 g/dL Hematocrit 28.6 % Mean Corpuscular Volume 84.4 fL Mean Corpuscular Hemoglobin 27.1 pg Mean Corpuscular Hemoglobin Concent 32.2 g/dl RDW Standard Deviation 55.8 fL RDW Coefficient of Variation 18.5 % Platelet Count 86 K/uL Mean Platelet Volume 10.0 fL Sodium Level 136 mmol/L Potassium Level 4.3 mmol/L Chloride Level 101 mmol/L Carbon Dioxide Level 25 mmol/L Anion Gap 10.0 mmol/L Blood Urea Nitrogen 15 mg/dl Creatinine 0.64 mg/dl Est Creatinine Clear Calc Drug Dose 102.8 ml/min Estimated GFR () 112.6 Estimated GFR (Non- 97.1 BUN/Creatinine Ratio 23.9 Random Glucose 180 mg/dl Calcium Level 8.5 mg/dl Phosphorus Level 5.7 mg/dl Magnesium Level 1.6 mg/dl Assessment and Plan This is a 72 year old male with a PMH of mantle cell lymphoma with ongoing chemotherapy with hx. of chemo-induced neutropenia/thrombocytopenia, hx. of emphysema, recurrent sinusitis presents with sinus congestion, shortness of breath and cough Acute Maxillary Sinusitis Acute COPD Exacerbation patient presents with facial congestion CT of the sinuses suggest maxillary sinusitis +wheezing on exam added Solu-medrol 40mg q8, will taper in AM (10/07) Vancomycin and Cefepime cultures pending Mantle Cell Lymphoma hold chemotherapy for now outpatient follow-up with oncology Chronic Thrombocytopenia monitor platelets DVT ppx SCDs FULL CODE
[2017-10-07] VITALS (12 sets, daily range): BP systolic 120–137; BP diastolic 71–87; PULSE 73–99; TEMP 36.3–36.4; O2SAT 92–96
[2017-10-07] MEDS: METHYLPREDNISOLONE IV 40 MG in SYRINGE 0 ML IV SCH ×3 (00:25→16:14)
[2017-10-07] MEDS: ALBUTEROL 0.083% NEBU SOLN 3 ML VIAL INH SCH ×4 (03:23→19:38)
[2017-10-07] MEDS ORDERED: VANCOMYCIN TROUGH ONE ×2 (03:30→07:30)
[2017-10-07] MEDS: CEFEPIME IV 2,000 MG in SYRINGE 7.5 ML IV SCH (04:03)
[2017-10-07] MEDS: VANCOMYCIN INJ 1,250 MG in SODIUM CHLORIDE 0.9% 250ML 250 ML IV SCH (06:14)
[2017-10-07] MEDS: PANTOprazole SOD 40 MG TAB PO SCH (08:15)
[2017-10-07 08:18] LABS: HEMATOCRIT 26.2 % (42-52); HEMOGLOBIN 8.5 g/dL (14.0-18.0); MEAN CORPUSCULAR HEMOGLOBIN 27.2 pg (25-34); MEAN CORPUSCULAR HGB CONC 32.4 g/dl (32-36); RED CELL DISTRIBUTION WIDTH CV 18.3 % (11.5-14.5); RED CELL DISTRIBUTION WIDTH SD 54.6 fL (36.4-46.3); WHITE BLOOD COUNT 9.37 K/uL (4.8-10.8)
[2017-10-07 08:23] LABS: MEAN PLATELET VOLUME 9.5 fL (7.4-10.4); PLATELET COUNT 79 K/uL (130-400)
[2017-10-07 09:14] LABS: CALCIUM 8.7 mg/dl (8.5-10.1); CREATININE 0.71 mg/dl (0.60-1.40); POTASSIUM 4.1 mmol/L (3.5-5.1)
[2017-10-07] MEDS: AMPICILLIN/SULBACTAM SOD INJ 3,000 MG in SODIUM CHLORIDE 0.9% 100ML 100 ML IV SCH ×3 (10:51→23:09)
[2017-10-07] MEDS ORDERED: CETIRIZINE HCL 10 MG TAB PO ONE (16:00)
--- NOTE | 2017-10-07 16:36 | Progress Note ---
Subjective Date of Service: Oct 07, 2017. Subjective Pt evaluation today including: conversation w/ patient, physical exam, lab review, review of studies, review of inpatient medication list Saw/examined the patient in room 404 States his sinus congestion and pain are worse today Breathing is about the same Denies chest pain/palpitations or fevers/chills Problem List Medical Problems: (1) Anemia Status: Acute (2) Bronchitis Status: Acute (3) COPD exacerbation Status: Acute (4) High serum lactate Status: Acute (5) Ischemic bowel disease Status: Acute (6) Lactic acidosis Status: Acute (7) Myalgia Status: Acute (8) Neutropenia Status: Acute (9) Palpitations Status: Acute (10) Sepsis Status: Acute (11) Shortness of breath Status: Acute (12) Splenic laceration Status: Acute (13) Thrombocytopenia Status: Acute (14) Weakness Status: Acute Review of Systems Constitutional: No fever, No chills Respiratory: + wheezing, + shortness of breath, No cough, No sputum Cardiac: No chest pain Abdomen: No pain, No nausea, No vomiting, No diarrhea Medications Current Inpatient Medications Medications (Trade) Dose Ordered Sig/Flory Route Start Time Stop Time Status Last Admin Dose Admin Ondansetron HCl (Zofran Inj) 4 mg Q6H PRN IV 10/05/17 15:00 11/04/17 14:59 Cetirizine HCl (zyrTEC TAB) 10 mg UD PRN PO 10/05/17 15:00 11/04/17 14:59 Promethazine HCl (Phenergan Tab) 25 mg Q4H PRN PO 10/05/17 15:00 11/04/17 14:59 Ranitidine HCl (zANTac TAB) 150 mg DAILY PRN PO 10/05/17 15:00 11/04/17 14:59 10/06/17 18:44 150 MG Tramadol HCl (Ultram Tab) 50 mg Q6H PRN PO 10/05/17 15:00 11/04/17 14:59 10/05/17 18:58 50 MG Pantoprazole Sodium (Protonix Tab) 40 mg DAILY PO 10/06/17 08:00 11/05/17 08:59 10/07/17 08:15 40 MG Methylprednisolone Sodium Succinate 40 mg/Syringe 0.64 ml @ 1.5 mls/min Q8H IV 10/06/17 00:00 11/05/17 00:00 10/07/17 16:14 1.5 MLS/MIN Albuterol Sulfate (Ventolin 0.083% 2.5MG/3ML Neb) 2.5 mg Q6R INH 10/05/17 15:00 11/04/17 14:59 10/07/17 14:35 2.5 MG Ampicillin Sodium/ Sulbactam Sodium 3000 mg/Sodium Chloride 108 ml @ 200 mls/hr Q6H IV 10/07/17 10:00 10/17/17 09:44 10/07/17 16:14 200 MLS/HR Objective Vital Signs Date Time Temp Pulse Resp B/P (MAP) Pulse Ox O2 Delivery O2 Flow Rate FiO2 10/07/17 16:07 36.4 94 18 129/71 (90) 92 Room Air 10/07/17 14:35 82 18 95 Room Air 10/07/17 11:43 36.4 78 18 120/71 (87) 93 Room Air 10/07/17 08:30 95 Room Air 10/07/17 08:10 86 18 95 Room Air 10/07/17 07:21 36.3 82 18 128/75 (92) 95 Room Air 10/07/17 03:51 36.4 85 16 133/75 (94) 94 Room Air 10/07/17 03:24 77 18 93 Room Air 10/07/17 00:23 Room Air 10/07/17 00:01 36.3 81 16 135/72 (93) 96 Room Air 10/06/17 19:48 34.7 80 18 120/72 (88) 80 Room Air 10/06/17 19:17 79 16 94 Room Air Physical Exam General Appearance: no apparent distress ENT: + pertinent finding (+sinus pain to palpation) Respiratory/Chest: no respiratory distress, no accessory muscle use, + wheezing (end expiratory wheezing diffusely) Cardiovascular: regular rate, rhythm, no edema, no murmur Extremities: normal inspection, no pedal edema Laboratory Results Last 24 Hours Test 10/07/17 00:00 10/07/17 07:37 Urine Color YELLOW Urine Appearance CLEAR Urine pH 5.0 Urine Specific [place] 1.028 Urine Protein NEG Urine Glucose (UA) TRACE Urine Ketones NEG Urine Occult Blood NEG Urine Nitrite NEG Urine Bilirubin NEG Urine Urobilinogen NEG Urine Leukocyte Esterase NEG Urine WBC (Auto) 1-5 /hpf Urine RBC (Auto) 0-4 /hpf Urine Hyaline Casts (Auto) 1-5 /lpf Urine Epithelial Cells (Auto) 5-10 /lpf Urine Bacteria (Auto) NEG White Blood Count 9.37 K/uL Red Blood Count 3.12 M/uL Hemoglobin 8.5 g/dL Hematocrit 26.2 % Mean Corpuscular Volume 84.0 fL Mean Corpuscular Hemoglobin 27.2 pg Mean Corpuscular Hemoglobin Concent 32.4 g/dl RDW Standard Deviation 54.6 fL RDW Coefficient of Variation 18.3 % Platelet Count 79 K/uL Mean Platelet Volume 9.5 fL Sodium Level 139 mmol/L Potassium Level 4.1 mmol/L Chloride Level 107 mmol/L Carbon Dioxide Level 23 mmol/L Anion Gap 9.0 mmol/L Blood Urea Nitrogen 16 mg/dl Creatinine 0.71 mg/dl Est Creatinine Clear Calc Drug Dose 92.7 ml/min Estimated GFR () 107.9 Estimated GFR (Non- 93.1 BUN/Creatinine Ratio 22.8 Random Glucose 162 mg/dl Calcium Level 8.7 mg/dl Vancomycin Level Trough 35.8 mcg/ml Assessment and Plan This is a 72 year old male with a PMH of mantle cell lymphoma with ongoing chemotherapy with hx. of chemo-induced neutropenia/thrombocytopenia, hx. of emphysema, recurrent sinusitis presents with sinus congestion, shortness of breath and cough Acute Maxillary Sinusitis Acute COPD Exacerbation 1/3 continue Solu-medrol added Zyrtec and Flonase for sinusitis Currently on Unasyn will switch to Augmentin on discharge chemotherapy next week 1/2 patient presents with facial congestion CT of the sinuses suggest maxillary sinusitis +wheezing on exam added Solu-medrol 40mg q8, will taper in AM (3) Vancomycin and Cefepime cultures pending Mantle Cell Lymphoma hold chemotherapy for now outpatient follow-up with oncology Chronic Thrombocytopenia monitor platelets DVT ppx SCDs FULL CODE
[2017-10-08] VITALS (7 sets, daily range): BP systolic 120–139; BP diastolic 64–81; PULSE 59–88; TEMP 36.4–36.6; O2SAT 94–97
[2017-10-08] MEDS: ALBUTEROL 0.083% NEBU SOLN 3 ML VIAL INH SCH ×4 (02:34→20:02)
[2017-10-08] MEDS: AMPICILLIN/SULBACTAM SOD INJ 3,000 MG in SODIUM CHLORIDE 0.9% 100ML 100 ML IV SCH ×4 (05:07→22:05)
[2017-10-08 06:07] LABS: HEMATOCRIT 25.5 % (42-52); MEAN CELL VOLUME 85.3 fL (80-100); MEAN CORPUSCULAR HEMOGLOBIN 26.8 pg (25-34); MEAN CORPUSCULAR HGB CONC 31.4 g/dl (32-36); NUCLEATED RED BLOOD CELL ABS 0.03 K/uL (0-0); RED CELL DISTRIBUTION WIDTH CV 18.6 % (11.5-14.5); RED CELL DISTRIBUTION WIDTH SD 56.4 fL (36.4-46.3); WHITE BLOOD COUNT 9.47 K/uL (4.8-10.8)
[2017-10-08 06:08] LABS: MEAN PLATELET VOLUME 9.6 fL (7.4-10.4); PLATELET COUNT 75 K/uL (130-400)
[2017-10-08 06:49] LABS: CALCIUM 8.5 mg/dl (8.5-10.1); CREATININE 0.71 mg/dl (0.60-1.40)
[2017-10-08] MEDS: PANTOprazole SOD 40 MG TAB PO SCH (08:01)
[2017-10-08] MEDS: FLUTICASONE PROPIONATE NA SPR 16 GM BTL NAE SCH (08:02)
--- NOTE | 2017-10-08 18:31 | Progress Note ---
Subjective Date of Service: Oct 08, 2017. Subjective Pt evaluation today including: conversation w/ patient, physical exam, lab review, review of studies, review of inpatient medication list Problem List Medical Problems: (1) Anemia Status: Acute (2) Bronchitis Status: Acute (3) COPD exacerbation Status: Acute (4) High serum lactate Status: Acute (5) Ischemic bowel disease Status: Acute (6) Lactic acidosis Status: Acute (7) Myalgia Status: Acute (8) Neutropenia Status: Acute (9) Palpitations Status: Acute (10) Sepsis Status: Acute (11) Shortness of breath Status: Acute (12) Splenic laceration Status: Acute (13) Thrombocytopenia Status: Acute (14) Weakness Status: Acute Review of Systems Constitutional: No fever, No chills, No weakness ENT: No nasal symptoms, No sore throat, No trouble swallowing Respiratory: No cough, No sputum, No wheezing, No shortness of breath, No dyspnea on exertion, No dyspnea at rest, No hemoptysis Cardiac: No chest pain Medications Current Inpatient Medications Medications (Trade) Dose Ordered Sig/Flory Route Start Time Stop Time Status Last Admin Dose Admin Ondansetron HCl (Zofran Inj) 4 mg Q6H PRN IV 10/05/17 15:00 11/04/17 14:59 Cetirizine HCl (zyrTEC TAB) 10 mg UD PRN PO 10/05/17 15:00 11/04/17 14:59 Promethazine HCl (Phenergan Tab) 25 mg Q4H PRN PO 10/05/17 15:00 11/04/17 14:59 Ranitidine HCl (zANTac TAB) 150 mg DAILY PRN PO 10/05/17 15:00 11/04/17 14:59 10/06/17 18:44 150 MG Tramadol HCl (Ultram Tab) 50 mg Q6H PRN PO 10/05/17 15:00 11/04/17 14:59 10/05/17 18:58 50 MG Pantoprazole Sodium (Protonix Tab) 40 mg DAILY PO 10/06/17 08:00 11/05/17 08:59 10/08/17 08:01 40 MG Albuterol Sulfate (Ventolin 0.083% 2.5MG/3ML Neb) 2.5 mg Q6R INH 10/05/17 15:00 11/04/17 14:59 10/08/17 14:16 2.5 MG Ampicillin Sodium/ Sulbactam Sodium 3000 mg/Sodium Chloride 108 ml @ 200 mls/hr Q6H IV 10/07/17 10:00 10/17/17 09:44 10/08/17 17:27 200 MLS/HR Fluticasone Propionate (Flonase Nasal [place]) 2 sprays QAM PERLA 10/08/17 08:00 11/07/17 07:59 10/08/17 08:02 2 SPRAYS Prednisone (PredniSONE TAB) 40 mg DAILY PO 10/08/17 08:00 11/07/17 07:59 10/08/17 08:02 40 MG Objective Vital Signs Date Time Temp Pulse Resp B/P (MAP) Pulse Ox O2 Delivery O2 Flow Rate FiO2 10/08/17 14:55 36.6 85 18 120/66 (84) 94 Room Air 10/08/17 14:17 88 16 96 Room Air 10/08/17 09:26 Room Air 10/08/17 07:23 36.5 59 18 126/77 (93) 97 Room Air 10/08/17 07:07 74 16 97 Room Air 10/08/17 03:33 36.6 74 19 139/81 (100) 95 Room Air 10/08/17 00:00 Room Air 10/07/17 23:59 36.3 73 20 137/82 (100) 96 Room Air 10/07/17 20:00 Room Air 10/07/17 19:39 99 16 95 Room Air 10/07/17 19:11 36.4 94 18 136/87 (103) 96 Room Air Physical Exam General Appearance: no apparent distress ENT: + pertinent finding (no sinus pressure/tenderness) Respiratory/Chest: chest non-tender, lungs clear, normal breath sounds, no respiratory distress, no accessory muscle use Cardiovascular: regular rate, rhythm Laboratory Results Last 24 Hours Test 10/07/17 19:55 10/08/17 05:18 10/08/17 07:35 10/08/17 11:40 Bedside Glucose 290 mg/dl 98 mg/dl 101 mg/dl White Blood Count 9.47 K/uL Red Blood Count 2.99 M/uL Hemoglobin 8.0 g/dL Hematocrit 25.5 % Mean Corpuscular Volume 85.3 fL Mean Corpuscular Hemoglobin 26.8 pg Mean Corpuscular Hemoglobin Concent 31.4 g/dl RDW Standard Deviation 56.4 fL RDW Coefficient of Variation 18.6 % Platelet Count 75 K/uL Mean Platelet Volume 9.6 fL Nucleated RBC Absolute Count (auto) 0.03 K/uL Nucleated Red Blood Cells % 0.3 % Sodium Level 140 mmol/L Potassium Level 4.0 mmol/L Chloride Level 107 mmol/L Carbon Dioxide Level 24 mmol/L Anion Gap 9.0 mmol/L Blood Urea Nitrogen 20 mg/dl Creatinine 0.71 mg/dl Est Creatinine Clear Calc Drug Dose 92.7 ml/min Estimated GFR () 107.9 Estimated GFR (Non- 93.1 BUN/Creatinine Ratio 27.5 Random Glucose 101 mg/dl Calcium Level 8.5 mg/dl Test 10/08/17 16:42 Bedside Glucose 168 mg/dl Assessment and Plan This is a 72 year old male with a PMH of mantle cell lymphoma with ongoing chemotherapy with hx. of chemo-induced neutropenia/thrombocytopenia, hx. of emphysema, recurrent sinusitis presents with sinus congestion, shortness of breath and cough Acute Maxillary Sinusitis Acute COPD Exacerbation 10/08 plan to continue Flonase changed to prednisone, which we can continue for now Unasyn for now, Augmentin on discharge for a total of 10 days 10/07 continue Solu-medrol added Zyrtec and Flonase for sinusitis Currently on Unasyn will switch to Augmentin on discharge chemotherapy next week 1/2 patient presents with facial congestion CT of the sinuses suggest maxillary sinusitis +wheezing on exam added Solu-medrol 40mg q8, will taper in AM (10/07) Vancomycin and Cefepime cultures pending Mantle Cell Lymphoma hold chemotherapy for now outpatient follow-up with oncology 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
[2017-10-09] VITALS (10 sets, daily range): BP systolic 122–160; BP diastolic 70–81; PULSE 80–118; TEMP 36.6–38.5; O2SAT 90–95; BMI 24.5
[2017-10-09] MEDS: ALBUTEROL 0.083% NEBU SOLN 3 ML VIAL INH SCH ×4 (02:15→18:11)
[2017-10-09] MEDS: AMPICILLIN/SULBACTAM SOD INJ 3,000 MG in SODIUM CHLORIDE 0.9% 100ML 100 ML IV SCH ×4 (03:49→22:04)
[2017-10-09] MEDS: TRAMADOL HCL 50 MG TAB PO PRN ×3 (03:54→18:04)
[2017-10-09] MEDS ORDERED: ACETAMINOPHEN 325 MG TAB PO ONE (05:03)
[2017-10-09] MEDS ORDERED: ACETAMINOPHEN 325 MG TAB PO PRN (05:15)
[2017-10-09] MEDS ORDERED: SODIUM CHLORIDE 0.9% 1000ML 1,000 ML IV ONE (05:15)
[2017-10-09 06:00] LABS: HEMATOCRIT 30.5 % (42-52); HEMOGLOBIN 9.7 g/dL (14.0-18.0); MEAN CELL VOLUME 85.9 fL (80-100); MEAN CORPUSCULAR HEMOGLOBIN 27.3 pg (25-34); MEAN CORPUSCULAR HGB CONC 31.8 g/dl (32-36); NUCLEATED RED BLOOD CELL ABS 0.06 K/uL (0-0); RED CELL DISTRIBUTION WIDTH CV 18.6 % (11.5-14.5); RED CELL DISTRIBUTION WIDTH SD 57.1 fL (36.4-46.3); WHITE BLOOD COUNT 8.53 K/uL (4.8-10.8)
[2017-10-09 06:01] LABS: MEAN PLATELET VOLUME 9.8 fL (7.4-10.4); PLATELET COUNT 78 K/uL (130-400)
[2017-10-09 06:36] LABS: CREATININE 0.82 mg/dl (0.60-1.40); POTASSIUM 3.9 mmol/L (3.5-5.1)
[2017-10-09 06:49] LABS: BASO % 0.2 %; BASO ABS # 0.02 K/uL (0-0.2); EOS % 0.5 %; EOS ABS # 0.04 K/uL (0-0.5); IG# 0.74 K/uL (0.00-0.02); LYMPH % 14.5 %; LYMPH ABS # 1.24 K/uL (1.2-3.4); MONO % 11.5 %; MONO ABS # 0.98 K/uL (0.11-0.59); NEUT % 64.6 %; NEUT ABS # 5.51 K/uL (1.4-6.5)
[2017-10-09] MEDS: PANTOprazole SOD 40 MG TAB PO SCH (07:42)
[2017-10-09] MEDS: FLUTICASONE PROPIONATE NA SPR 16 GM BTL NAE SCH (07:43)
[2017-10-09] MEDS ORDERED: NURSING VERBAL MED ORDER ONE (08:00)
[2017-10-09] MEDS ORDERED: MAGNESIUM SULFATE 1GM / D5W 1 GM in PREMIXED IN D5W 100 ML IV ONE (08:00)
[2017-10-09] MEDS ORDERED: CETIRIZINE HCL 10 MG TAB PO ONE (10:30)
--- NOTE | 2017-10-09 17:55 | Progress Note ---
Subjective Date of Service: Oct 09, 2017. Subjective Pt evaluation today including: conversation w/ patient, physical exam, lab review, review of studies, review of inpatient medication list Saw/examined the patient in room 404 He is doing worse today; worsening facial pressure +cough, shortness of breath Problem List Medical Problems: (1) Anemia Status: Acute (2) Bronchitis Status: Acute (3) COPD exacerbation Status: Acute (4) High serum lactate Status: Acute (5) Ischemic bowel disease Status: Acute (6) Lactic acidosis Status: Acute (7) Myalgia Status: Acute (8) Neutropenia Status: Acute (9) Palpitations Status: Acute (10) Sepsis Status: Acute (11) Shortness of breath Status: Acute (12) Splenic laceration Status: Acute (13) Thrombocytopenia Status: Acute (14) Weakness Status: Acute Review of Systems Constitutional: + fever, + chills, + weakness Eyes: No worsening of vision ENT: + problem reported (+sinus pressure) Respiratory: + cough, + shortness of breath Cardiac: No chest pain, No edema, No palpitations Medications Current Inpatient Medications Medications (Trade) Dose Ordered Sig/Flory Route Start Time Stop Time Status Last Admin Dose Admin Ondansetron HCl (Zofran Inj) 4 mg Q6H PRN IV 10/05/17 15:00 11/04/17 14:59 Cetirizine HCl (zyrTEC TAB) 10 mg UD PRN PO 10/05/17 15:00 11/04/17 14:59 Promethazine HCl (Phenergan Tab) 25 mg Q4H PRN PO 10/05/17 15:00 11/04/17 14:59 Ranitidine HCl (zANTac TAB) 150 mg DAILY PRN PO 10/05/17 15:00 11/04/17 14:59 10/06/17 18:44 150 MG Tramadol HCl (Ultram Tab) 50 mg Q6H PRN PO 10/05/17 15:00 11/04/17 14:59 10/09/17 11:26 50 MG Pantoprazole Sodium (Protonix Tab) 40 mg DAILY PO 10/06/17 08:00 11/05/17 08:59 10/09/17 07:42 40 MG Albuterol Sulfate (Ventolin 0.083% 2.5MG/3ML Neb) 2.5 mg Q6R INH 10/05/17 15:00 11/04/17 14:59 10/09/17 14:10 2.5 MG Ampicillin Sodium/ Sulbactam Sodium 3000 mg/Sodium Chloride 108 ml @ 200 mls/hr Q6H IV 10/07/17 10:00 10/17/17 09:44 10/09/17 16:29 200 MLS/HR Fluticasone Propionate (Flonase Nasal [place]) 2 sprays QAM PERLA 10/08/17 08:00 11/07/17 07:59 10/09/17 07:43 2 SPRAYS Prednisone (PredniSONE TAB) 40 mg DAILY PO 10/08/17 08:00 11/07/17 07:59 10/09/17 07:42 40 MG Acetaminophen (Tylenol Tab) 650 mg Q6H PRN PO 10/09/17 05:15 11/08/17 05:14 Cetirizine HCl (zyrTEC TAB) 10 mg QAM PO 10/10/17 08:00 11/09/17 07:59 Objective Vital Signs Date Time Temp Pulse Resp B/P (MAP) Pulse Ox O2 Delivery O2 Flow Rate FiO2 10/09/17 14:10 102 18 92 Room Air 10/09/17 11:18 36.8 118 18 153/77 (102) 91 10/09/17 08:45 Room Air 10/09/17 07:49 37.3 113 18 135/77 (96) 90 Room Air 10/09/17 06:54 113 18 93 Room Air 10/09/17 04:43 38.5 105 20 151/76 (101) 94 Room Air 10/09/17 00:18 36.7 80 20 160/81 (107) 95 Room Air 10/09/17 00:00 94 Room Air 10/08/17 19:18 36.4 79 18 130/64 (86) 96 Room Air Physical Exam General Appearance: no apparent distress ENT: + pertinent finding (+sinus pressure) Respiratory/Chest: lungs clear, normal breath sounds, no respiratory distress, no accessory muscle use, + decreased breath sounds Cardiovascular: regular rate, rhythm, no edema, no murmur Extremities: non-tender, normal inspection, no pedal edema Neurologic/Psychiatric: no motor/sensory deficits, alert, normal mood/affect Laboratory Results Last 24 Hours Test 10/08/17 20:05 10/08/17 23:44 10/09/17 05:26 10/09/17 05:47 Bedside Glucose 146 mg/dl 117 mg/dl White Blood Count 8.53 K/uL Red Blood Count 3.55 M/uL Hemoglobin 9.7 g/dL Hematocrit 30.5 % Mean Corpuscular Volume 85.9 fL Mean Corpuscular Hemoglobin 27.3 pg Mean Corpuscular Hemoglobin Concent 31.8 g/dl Platelet Count 78 K/uL Mean Platelet Volume 9.8 fL Neutrophils (%) (Auto) 64.6 % Lymphocytes (%) (Auto) 14.5 % Monocytes (%) (Auto) 11.5 % Eosinophils (%) (Auto) 0.5 % Basophils (%) (Auto) 0.2 % Neutrophils # (Auto) 5.51 K/uL Lymphocytes # (Auto) 1.24 K/uL Monocytes # (Auto) 0.98 K/uL Eosinophils # (Auto) 0.04 K/uL Basophils # (Auto) 0.02 K/uL RDW Standard Deviation 57.1 fL RDW Coefficient of Variation 18.6 % Immature Granulocyte % (Auto) 8.7 % Immature Granulocyte # (Auto) 0.74 K/uL Nucleated RBC Absolute Count (auto) 0.06 K/uL Nucleated Red Blood Cells % 0.7 % Toxic Vacuolation 1+ Poikilocytosis PRESENT Sodium Level 138 mmol/L Potassium Level 3.9 mmol/L Chloride Level 102 mmol/L Carbon Dioxide Level 29 mmol/L Anion Gap 7.0 mmol/L Blood Urea Nitrogen 15 mg/dl Creatinine 0.82 mg/dl Est Creatinine Clear Calc Drug Dose 80.3 ml/min Estimated GFR () 101.7 Estimated GFR (Non- 87.7 BUN/Creatinine Ratio 18.8 Random Glucose 61 mg/dl Calcium Level 9.0 mg/dl Magnesium Level 1.7 mg/dl Procalcitonin 0.12 ng/ml Lactic Acid Level 4.6 mmol/L Test 10/09/17 06:41 10/09/17 07:41 10/09/17 11:24 10/09/17 13:00 Bedside Glucose 73 mg/dl 77 mg/dl 94 mg/dl Lactic Acid Level 2.1 mmol/L Test 10/09/17 16:47 Bedside Glucose 122 mg/dl Assessment and Plan This is a 72 year old male with a PMH of mantle cell lymphoma with ongoing chemotherapy with hx. of chemo-induced neutropenia/thrombocytopenia, hx. of emphysema, recurrent sinusitis presents with sinus congestion, shortness of breath and cough Acute on Chronic Maxillary Sinusitis Acute COPD Exacerbation 10/09 still spiking fevers even with Unasyn tried some Zyrtec and Flonase, but condition is not improving will consult ENT in the AM; possibly fungal sinusitis due to immunocompromised state? 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
[2017-10-10] VITALS (12 sets, daily range): BP systolic 118–153; BP diastolic 72–75; PULSE 71–109; TEMP 36.2–37.6; O2SAT 90–100; Ht 175.3 cm; Wt 72.1 kg
[2017-10-10] MEDS: ALBUTEROL 0.083% NEBU SOLN 3 ML VIAL INH SCH ×4 (01:42→19:54)
[2017-10-10] MEDS: AMPICILLIN/SULBACTAM SOD INJ 3,000 MG in SODIUM CHLORIDE 0.9% 100ML 100 ML IV SCH ×4 (03:31→19:40)
[2017-10-10 06:55] LABS: HEMOGLOBIN 8.5 g/dL (14.0-18.0); MEAN CELL VOLUME 84.9 fL (80-100); MEAN CORPUSCULAR HEMOGLOBIN 26.7 pg (25-34); MEAN CORPUSCULAR HGB CONC 31.5 g/dl (32-36); NUCLEATED RED BLOOD CELL ABS 0.03 K/uL (0-0); RED CELL DISTRIBUTION WIDTH CV 18.8 % (11.5-14.5); RED CELL DISTRIBUTION WIDTH SD 56.8 fL (36.4-46.3); WHITE BLOOD COUNT 6.17 K/uL (4.8-10.8)
[2017-10-10 07:19] LABS: PLATELET COUNT 63 K/uL (130-400)
[2017-10-10 07:26] LABS: CALCIUM 8.3 mg/dl (8.5-10.1); CREATININE 0.75 mg/dl (0.60-1.40); POTASSIUM 3.7 mmol/L (3.5-5.1)
[2017-10-10] MEDS: CETIRIZINE HCL 10 MG TAB PO SCH (07:59)
[2017-10-10] MEDS: PANTOprazole SOD 40 MG TAB PO SCH (07:59)
[2017-10-10] MEDS: FLUTICASONE PROPIONATE NA SPR 16 GM BTL NAE SCH (07:59)
--- NOTE | 2017-10-10 10:53 | Medical Consult ---
Consultation Date of Consultation: Oct 10, 2017. Attending Physician: Clint Tyson DO History of Present Illness 72 yo male with lymphoma undergoing chemotherapy admitted with acute sinusitis. Has had issues with recurrent sinusitis for the past 2 months. He was admitted on for sinusitis. Had CT scan on 10/06/17 which showed right sided maxillary sinusitis with air fluid level and frothy secretions consistent with an acute sinusitis. All of the other sinuses were normal appearing. Patient is on unasyn and prednisone. Still symptomatic with nasal congestion and post nasal drip. He does state that he feels much better than he did when he was initially admitted. He has been afebrile the last 24 hrs. No history of sinus surgery. He is thrombocytopenic and anemic. Is not currently on any saline irrigations or afrin spray. He is on flonase. He specifically denies any facial pain or paraesthesias. States at time of admission he was coughing up and blowing out purulent mucous. This has improved. Past Medical/Surgical History Medical Problems: (1) Anemia Status: Acute (2) Bronchitis Status: Acute (3) COPD exacerbation Status: Acute (4) High serum lactate Status: Acute (5) Ischemic bowel disease Status: Acute (6) Lactic acidosis Status: Acute (7) Myalgia Status: Acute (8) Neutropenia Status: Acute (9) Palpitations Status: Acute (10) Sepsis Status: Acute (11) Shortness of breath Status: Acute (12) Splenic laceration Status: Acute (13) Thrombocytopenia Status: Acute (14) Weakness Status: Acute Family History FH: CAD (coronary artery disease) FATHER MOTHER FH: lung cancer SISTER Social History Smoking Status: Never Smoker Drug Use: none Marital Status: Housing Status: lives with family Occupation Status: retired Allergies Coded Allergies: Tetracycline (Verified Allergy, Unknown, water blisters, 10/05/17) Current Inpatient Medications Current Inpatient Medications Medications (Trade) Dose Ordered Sig/Flory Route Start Time Stop Time Status Last Admin Dose Admin Ondansetron HCl (Zofran Inj) 4 mg Q6H PRN IV 10/05/17 15:00 11/04/17 14:59 Cetirizine HCl (zyrTEC TAB) 10 mg UD PRN PO 10/05/17 15:00 11/04/17 14:59 Promethazine HCl (Phenergan Tab) 25 mg Q4H PRN PO 10/05/17 15:00 11/04/17 14:59 Ranitidine HCl (zANTac TAB) 150 mg DAILY PRN PO 10/05/17 15:00 11/04/17 14:59 10/06/17 18:44 150 MG Tramadol HCl (Ultram Tab) 50 mg Q6H PRN PO 10/05/17 15:00 11/04/17 14:59 10/09/17 18:04 50 MG Pantoprazole Sodium (Protonix Tab) 40 mg DAILY PO 10/06/17 08:00 11/05/17 08:59 10/10/17 07:59 40 MG Albuterol Sulfate (Ventolin 0.083% 2.5MG/3ML Neb) 2.5 mg Q6R INH 10/05/17 15:00 11/04/17 14:59 10/10/17 07:36 2.5 MG Ampicillin Sodium/ Sulbactam Sodium 3000 mg/Sodium Chloride 108 ml @ 200 mls/hr Q6H IV 10/07/17 10:00 10/17/17 09:44 10/10/17 09:42 200 MLS/HR Fluticasone Propionate (Flonase Nasal [place]) 2 sprays QAM PERLA 10/08/17 08:00 11/07/17 07:59 10/10/17 07:59 2 SPRAYS Prednisone (PredniSONE TAB) 40 mg DAILY PO 10/08/17 08:00 11/07/17 07:59 10/10/17 08:00 40 MG Acetaminophen (Tylenol Tab) 650 mg Q6H PRN PO 10/09/17 05:15 11/08/17 05:14 Cetirizine HCl (zyrTEC TAB) 10 mg QAM PO 10/10/17 08:00 11/09/17 07:59 10/10/17 07:59 10 MG Review of Systems Constitutional: No fever, No chills, No sweats, No weight loss, No weakness, No fatigue, No problem reported Eyes: No worsening of vision, No eye pain, No redness, No discharge, No diplopia, No problem reported ENT: + problem reported (see HPI) Respiratory: No cough, No sputum, No wheezing, No shortness of breath, No dyspnea on exertion, No dyspnea at rest, No hemoptysis, No problem reported Cardiovascular: No chest pain, No orthopnea, No PND, No edema, No claudication , No palpitations, No problem reported Abdomen: No pain, No nausea, No vomiting, No diarrhea, No constipation, No GI bleeding, No problem reported Musculoskeletal: No joint pain, No muscle pain, No swelling, No calf pain, No problem reported Integumentary: No rash, No itch, No new/changing skin lesions, No color change , No bleeding, No problem reported Physical Exam Date Time Temp Pulse Resp B/P (MAP) Pulse Ox O2 Delivery O2 Flow Rate FiO2 10/10/17 07:40 37.6 101 20 153/74 (100) 100 10/10/17 07:37 92 18 91 Room Air 10/10/17 04:03 36.7 87 20 123/72 (89) 91 Room Air 10/10/17 01:42 94 18 90 Room Air 10/10/17 00:00 92 Room Air 10/09/17 23:14 36.8 82 20 122/70 (87) 93 Room Air 10/09/17 19:56 36.6 94 20 135/73 (93) 94 Room Air 10/09/17 18:11 90 18 92 Room Air 10/09/17 16:00 Room Air 10/09/17 14:10 102 18 92 Room Air 10/09/17 11:18 36.8 118 18 153/77 (102) 91 PROCEDURE The nose was decongested and anesthetized with afrin and lidocaine spray. Attention was directed to each side of the nose using the 30 degree telescope. The right middle meatus had scan mucopus which was cultured. The left middle meatus was clear. There was an accessory ostium in the lateral nasal wall. The left maxillary antrum was visualized through this ostium and noted to be normal appearing. There was no mucosal necrosis or pallor or any other stigmata of fungal sinusitis noted on endoscopic examination. Nasopharynx was normal appearing. Patient tolerated procedure. General Appearance: WD/WN, no apparent distress Head: normocephalic, atraumatic Eyes: normal inspection, PERRL, EOMI ENT: hearing grossly normal, pharynx normal, + pertinent finding (Palate normal appearing. No necrosis or pallor. Oropharyngeal exam normal. Oral cavity normal. ) Neck: supple, no adenopathy Respiratory/Chest: no respiratory distress, no accessory muscle use Cardiovascular: no edema, no JVD Neurologic/Psych: machine edge bander II-XII nml as tested Skin: normal color, warm/dry Lymphatic: no adenopathy Laboratory Results Last 24 Hours Test 10/09/17 11:24 10/09/17 13:00 10/09/17 16:47 10/09/17 20:02 Bedside Glucose 94 mg/dl 122 mg/dl 126 mg/dl Lactic Acid Level 2.1 mmol/L Test 10/10/17 06:22 10/10/17 07:34 White Blood Count 6.17 K/uL Red Blood Count 3.18 M/uL Hemoglobin 8.5 g/dL Hematocrit 27.0 % Mean Corpuscular Volume 84.9 fL Mean Corpuscular Hemoglobin 26.7 pg Mean Corpuscular Hemoglobin Concent 31.5 g/dl RDW Standard Deviation 56.8 fL RDW Coefficient of Variation 18.8 % Platelet Count 63 K/uL Mean Platelet Volume 10.0 fL Nucleated RBC Absolute Count (auto) 0.03 K/uL Nucleated Red Blood Cells % 0.4 % Sodium Level 135 mmol/L Potassium Level 3.7 mmol/L Chloride Level 100 mmol/L Carbon Dioxide Level 28 mmol/L Anion Gap 7.0 mmol/L Blood Urea Nitrogen 13 mg/dl Creatinine 0.75 mg/dl Est Creatinine Clear Calc Drug Dose 87.8 ml/min Estimated GFR () 105.5 Estimated GFR (Non- 91.0 BUN/Creatinine Ratio 17.0 Random Glucose 78 mg/dl Calcium Level 8.3 mg/dl Magnesium Level 1.9 mg/dl Bedside Glucose 85 mg/dl Assessment & Plan 72 yo male with lymphoma, undergoing chemotherapy who has an acute right sided maxillary sinusitis, no physical exam or endoscopic evidence of fungal sinusitis - no evidence of fungal sinusitis. - recommend addition of afrin nasal spray BID and saline irrigation/spray every 4 hrs while awake - unasyn is usually adequate coverage for acute sinusitis but will not cover gram negative bacteria. Primary team could consider switching to levaquin or considering ID consult for assistance with antibiotic choice - continue prednisone - no acute surgical intervention warranted at this time. - will follow.
[2017-10-10] MEDS ORDERED: LEVOFLOXACIN / D5W 750 MG in PREMIXED IN D5W 150 ML IV SCH (12:00)
--- NOTE | 2017-10-10 12:29 | Medical Consult ---
Consultation Date of Consultation: Oct 10, 2017. Attending Physician: Clint Tyson DO Reason for Consultation: Recurrent sinusitis History of Present Illness 72-year-old male known to me from recent hospitalization with history of aggressive B-cell lymphoma, status post chemotherapy 3 weeks ago, hospitalized with neutropenia with improvement, and now with 2nd round of chemo upcoming. Patient has had several weeks of complaints of sinus congestion, nasal discharge , slight cough, slight shortness of breath, with CT scan showing significant right-sided sinusitis. He was admitted to the hospital and started on IV Unasyn and prednisone, and has noted some improvement. He was seen by ENT today , and they felt that there was no evidence of fungal sinusitis. He was changed to levofloxacin. Still complaining of moderate right-sided sinus tenderness, cough, slight shortness of breath. Currently afebrile. Blood cultures have been negative. Cultures of secretions are pending. Past Medical/Surgical History Medical Problems: (1) Anemia Status: Acute (2) Bronchitis Status: Acute (3) COPD exacerbation Status: Acute (4) High serum lactate Status: Acute (5) Ischemic bowel disease Status: Acute (6) Lactic acidosis Status: Acute (7) Myalgia Status: Acute (8) Neutropenia Status: Acute (9) Palpitations Status: Acute (10) Sepsis Status: Acute (11) Shortness of breath Status: Acute (12) Splenic laceration Status: Acute (13) Thrombocytopenia Status: Acute (14) Weakness Status: Acute Medical Problems: (1) Fever (2) Mantle cell lymphoma (3) Right maxillary sinusitis Surgical Problems: (1) History of appendectomy (2) Status post chemotherapy Family History FH: CAD (coronary artery disease) FATHER MOTHER FH: lung cancer SISTER Social History Smoking Status: Never Smoker Drug Use: none Marital Status: Housing Status: lives with family Occupation Status: retired Allergies Coded Allergies: Tetracycline (Verified Allergy, Unknown, water blisters, 10/05/17) Current Inpatient Medications Current Inpatient Medications Medications (Trade) Dose Ordered Sig/Flory Route Start Time Stop Time Status Last Admin Dose Admin Ondansetron HCl (Zofran Inj) 4 mg Q6H PRN IV 10/05/17 15:00 11/04/17 14:59 Cetirizine HCl (zyrTEC TAB) 10 mg UD PRN PO 1/1/18 15:00 11/04/17 14:59 Promethazine HCl (Phenergan Tab) 25 mg Q4H PRN PO 10/05/17 15:00 11/04/17 14:59 Ranitidine HCl (zANTac TAB) 150 mg DAILY PRN PO 10/05/17 15:00 11/04/17 14:59 10/06/17 18:44 150 MG Tramadol HCl (Ultram Tab) 50 mg Q6H PRN PO 10/05/17 15:00 11/04/17 14:59 10/09/17 18:04 50 MG Pantoprazole Sodium (Protonix Tab) 40 mg DAILY PO 10/06/17 08:00 11/05/17 08:59 10/10/17 07:59 40 MG Albuterol Sulfate (Ventolin 0.083% 2.5MG/3ML Neb) 2.5 mg Q6R INH 10/05/17 15:00 11/04/17 14:59 10/10/17 07:36 2.5 MG Fluticasone Propionate (Flonase Nasal [place]) 2 sprays QAM PERLA 10/08/17 08:00 11/07/17 07:59 10/10/17 07:59 2 SPRAYS Prednisone (PredniSONE TAB) 40 mg DAILY PO 10/08/17 08:00 11/07/17 07:59 10/10/17 08:00 40 MG Acetaminophen (Tylenol Tab) 650 mg Q6H PRN PO 10/09/17 05:15 11/08/17 05:14 Cetirizine HCl (zyrTEC TAB) 10 mg QAM PO 10/10/17 08:00 11/09/17 07:59 10/10/17 07:59 10 MG Oxymetazoline HCl (Afrin 0.05% Nasal [place]) 2 sprays BID NA 10/10/17 20:00 10/13/17 19:59 Sodium Chloride (Chaun[place]y Nasal [place]) 2 sprays Q4 NA 10/10/17 12:00 11/09/17 11:59 Levofloxacin 750 mg/Prmx 150 ml @ 100 mls/hr Q24H IV 10/10/17 12:00 10/20/17 10:59 Review of Systems All systems were reviewed and are negative except as per HPI Physical Exam Date Time Temp Pulse Resp B/P (MAP) Pulse Ox O2 Delivery O2 Flow Rate FiO2 10/10/17 11:32 37.5 102 18 118/72 (87) 90 10/10/17 07:40 37.6 101 20 153/74 (100) 100 10/10/17 07:37 92 18 91 Room Air 10/10/17 04:03 36.7 87 20 123/72 (89) 91 Room Air 10/10/17 01:42 94 18 90 Room Air 10/10/17 00:00 92 Room Air 10/09/17 23:14 36.8 82 20 122/70 (87) 93 Room Air 10/09/17 19:56 36.6 94 20 135/73 (93) 94 Room Air 10/09/17 18:11 90 18 92 Room Air 10/09/17 16:00 Room Air 10/09/17 14:10 102 18 92 Room Air General Appearance: WD/WN, no apparent distress Head: normocephalic, atraumatic Eyes: normal inspection, EOMI, sclerae normal ENT: normal ENT inspection, pharynx normal Neck: supple, no adenopathy, thyroid normal, trachea midline Respiratory/Chest: chest non-tender, lungs clear, normal breath sounds, no respiratory distress Cardiovascular: regular rate, rhythm, no gallop, no murmur Abdomen/GI: normal bowel sounds, non tender, soft, no organomegaly Back: normal inspection, no CVA tenderness Extremities/Musculoskelatal: normal inspection, no calf tenderness, non-tender Neurologic/Psych: alert, oriented x 3 Skin: normal color, warm/dry, no rash Lymphatic: no adenopathy Laboratory Results Date/Time Source Procedure Growth Status 10/10/17 10:40 Sinus/Antrum Right Gram Stain Pending Received 10/10/17 10:40 Sinus/Antrum Right Bacterial Culture Pending Received Last 24 Hours Test 10/09/17 13:00 10/09/17 16:47 10/09/17 20:02 10/10/17 06:22 Lactic Acid Level 2.1 mmol/L Bedside Glucose 122 mg/dl 126 mg/dl White Blood Count 6.17 K/uL Red Blood Count 3.18 M/uL Hemoglobin 8.5 g/dL Hematocrit 27.0 % Mean Corpuscular Volume 84.9 fL Mean Corpuscular Hemoglobin 26.7 pg Mean Corpuscular Hemoglobin Concent 31.5 g/dl RDW Standard Deviation 56.8 fL RDW Coefficient of Variation 18.8 % Platelet Count 63 K/uL Mean Platelet Volume 10.0 fL Nucleated RBC Absolute Count (auto) 0.03 K/uL Nucleated Red Blood Cells % 0.4 % Sodium Level 135 mmol/L Potassium Level 3.7 mmol/L Chloride Level 100 mmol/L Carbon Dioxide Level 28 mmol/L Anion Gap 7.0 mmol/L Blood Urea Nitrogen 13 mg/dl Creatinine 0.75 mg/dl Est Creatinine Clear Calc Drug Dose 87.8 ml/min Estimated GFR () 105.5 Estimated GFR (Non- 91.0 BUN/Creatinine Ratio 17.0 Random Glucose 78 mg/dl Calcium Level 8.3 mg/dl Magnesium Level 1.9 mg/dl Test 10/10/17 07:34 10/10/17 11:17 Bedside Glucose 85 mg/dl 151 mg/dl Patient Name: NAVYA ANDERSEN Unit Number: [id number] Dictated: 10/05/171357 Transcribed: 10/05/171357 EV Printed Date/Time: [~ rep prt dt]/[~ rep prt tm] [~ rep ct labl] - [~ rep ct ivnm] [facility] [place] [address] Dictated: 10/05/171357 Transcribed: 10/05/171357 EV Printed Date/Time: [~ rep prt dt]/[~ rep prt tm] [~ rep ct labl] - [~ rep ct ivnm] CT SCAN OF THE PARANASAL SINUSES CLINICAL HISTORY: Sinusitis. COMPARISON STUDY: No priors. TECHNIQUE: High-resolution CT scan of the paranasal sinuses is performed. Images are reviewed in the axial, sagittal, and coronal planes. IV contrast was not administered for this examination. A dose lowering technique was utilized adhering to the principles of ALARA. CT DOSE: 568.67 mGy.cm FINDINGS: Maxillary antra: There is near complete opacification of the right maxillary antrum with frothy secretions. Trace mucosal thickening is seen on the left. Anterior ethmoid sinuses: Clear. Posterior ethmoid sinuses: Clear. Sphenoid sinuses: Clear. Frontal sinuses: Clear. Ostiomeatal complexes: The right ostiomeatal complex is significantly narrowed by mucosal thickening. The right ostiomeatal complex is patent. Frontoethmoidal and sphenoethmoidal recesses: Patent bilaterally. Carotid arteries: The carotid arteries are covered and without septal attachments. Ethmoid roofs: The ethmoid roofs are symmetric. Nasal turbinates: Normal in appearance. Nasal septum: There is minimal rightward deviation of the bony nasal septum. Optic nerves: Covered. Orbits: The bony orbits are intact. Orbital contents are normal in appearance. Calvarium: The imaged calvarium is normal in appearance Mastoid air cells: There is a trace left mastoid effusion. The right mastoid air cells are clear. Brain parenchyma: Partially visualized brain parenchyma is within normal limits. IMPRESSION: Right maxillary sinus disease as above. Electronically signed by: Dixon Orozco M.D. 10/05/2017 2:02 PM Dictated Date/Time: 10/05/2017 1:58 PM The status of this report is Signed. Draft = Not yet reviewed or approved by Radiologist. Signed = Reviewed and approved by Radiologist. <AttendingPhy></AttendingPhy> <FamilyPhy>Mikael Cain M.D.</FamilyPhy> < PrimaryPhy>Mikael Cain M.D.</PrimaryPhy> <UnitNumber>[id number]</UnitNumber> < VisitNumber>[id number]</VisitNumber> <PatientName>NAVYA ANDERSEN</PatientName > <DateOfBirth>1945</DateOfBirth> <Location>[facility]</Location> <ServiceDate> 10/05/17</ServiceDate> <MNE>ESINDI</MNE> <OrderingPhy>Nola Gutierrez [employer]</ OrderingPhy> <OrderingPhyMNE>f rep ord dr whitman</OrderingPhyMNE> <DictatingPhyMNE> f rep dict dr whitman</DictatingPhyMNE> <CCListMNE>f rep ct j carlos</CCListMNE> < AdmittingPhyMNE>f pt admit dr whitman</AdmittingPhyMNE> <AttendingPhyMNE>f pt attend dr whitman</AttendingPhyMNE> <ConsultingPhyMNE>f pt consult dr whitman</ConsultingPhyMNE> <FamilyPhyMNE>f pt fam dr whitman</FamilyPhyMNE> <OtherPhyMNE>f pt other dr whitman</OtherPhyMNE> < PrimaryPhyMNE>f pt prim care dr whitman</PrimaryPhyMNE> <ReferringPhyMNE>f pt referring dr whitman</ReferringPhyMNE> Assessment & Plan Right maxillary sinusitis in the setting of aggressive lymphoma on chemotherapy. Agree with ENT that patient at risk for more resistant pathogens especially given recent hospitalization and chemotherapy. However he appeared to have been improving on Unasyn, so would recommend restarting on Unasyn and adding cefepime for better gram-negative coverage. Length of IV antibiotics will be determined by clinical response and culture results. Will follow.
[2017-10-10] MEDS: SODIUM CHLORIDE 0.65% NA SOLN 45 ML (OCEAN) SCH ×4 (13:29→21:27)
[2017-10-10] MEDS: CEFEPIME IV 2,000 MG in SYRINGE 7.5 ML IV SCH ×2 (13:32→21:27)
--- NOTE | 2017-10-10 17:47 | Progress Note ---
Subjective Date of Service: Oct 10, 2017. Subjective Pt evaluation today including: conversation w/ patient, physical exam, lab review, review of studies, review of inpatient medication list Saw/examined the patient in room 404 He's doing slightly better than before Breathing improving Problem List Medical Problems: (1) Anemia Status: Acute (2) Bronchitis Status: Acute (3) COPD exacerbation Status: Acute (4) High serum lactate Status: Acute (5) Ischemic bowel disease Status: Acute (6) Lactic acidosis Status: Acute (7) Myalgia Status: Acute (8) Neutropenia Status: Acute (9) Palpitations Status: Acute (10) Sepsis Status: Acute (11) Shortness of breath Status: Acute (12) Splenic laceration Status: Acute (13) Thrombocytopenia Status: Acute (14) Weakness Status: Acute Review of Systems Constitutional: No fever, No chills Respiratory: No cough, No sputum, No shortness of breath Cardiac: No chest pain Medications Current Inpatient Medications Medications (Trade) Dose Ordered Sig/Flory Route Start Time Stop Time Status Last Admin Dose Admin Ondansetron HCl (Zofran Inj) 4 mg Q6H PRN IV 10/05/17 15:00 11/04/17 14:59 Cetirizine HCl (zyrTEC TAB) 10 mg UD PRN PO 10/05/17 15:00 11/04/17 14:59 Promethazine HCl (Phenergan Tab) 25 mg Q4H PRN PO 10/05/17 15:00 11/04/17 14:59 Ranitidine HCl (zANTac TAB) 150 mg DAILY PRN PO 10/05/17 15:00 11/04/17 14:59 10/06/17 18:44 150 MG Tramadol HCl (Ultram Tab) 50 mg Q6H PRN PO 10/05/17 15:00 11/04/17 14:59 10/09/17 18:04 50 MG Pantoprazole Sodium (Protonix Tab) 40 mg DAILY PO 10/06/17 08:00 11/05/17 08:59 10/10/17 07:59 40 MG Albuterol Sulfate (Ventolin 0.083% 2.5MG/3ML Neb) 2.5 mg Q6R INH 10/05/17 15:00 11/04/17 14:59 10/10/17 14:26 2.5 MG Fluticasone Propionate (Flonase Nasal [place]) 2 sprays QAM PERLA 10/08/17 08:00 11/07/17 07:59 10/10/17 07:59 2 SPRAYS Prednisone (PredniSONE TAB) 40 mg DAILY PO 10/08/17 08:00 11/07/17 07:59 10/10/17 08:00 40 MG Acetaminophen (Tylenol Tab) 650 mg Q6H PRN PO 10/09/17 05:15 11/08/17 05:14 Cetirizine HCl (zyrTEC TAB) 10 mg QAM PO 10/10/17 08:00 11/09/17 07:59 10/10/17 07:59 10 MG Oxymetazoline HCl (Afrin 0.05% Nasal [place]) 2 sprays BID NA 10/10/17 20:00 10/13/17 19:59 Sodium Chloride ([place] Nasal [place]) 2 sprays Q4 NA 10/10/17 12:00 11/09/17 11:59 10/10/17 13:29 2 SPRAYS Ampicillin Sodium/ Sulbactam Sodium 3000 mg/Sodium Chloride 108 ml @ 200 mls/hr Q6H IV 10/10/17 13:00 10/17/17 01:33 10/10/17 13:30 200 MLS/HR Cefepime HCl 2000 mg/Syringe 20 ml @ 5 mls/min Q8 IV 10/10/17 14:00 10/20/17 13:59 10/10/17 13:32 5 MLS/MIN Objective Vital Signs Date Time Temp Pulse Resp B/P (MAP) Pulse Ox O2 Delivery O2 Flow Rate FiO2 10/10/17 15:15 36.5 109 18 145/75 (98) 92 Room Air 10/10/17 14:26 90 18 92 Room Air 10/10/17 11:32 37.5 102 18 118/72 (87) 90 10/10/17 08:00 100 Room Air 10/10/17 07:40 37.6 101 20 153/74 (100) 100 10/10/17 07:37 92 18 91 Room Air 10/10/17 04:03 36.7 87 20 123/72 (89) 91 Room Air 10/10/17 01:42 94 18 90 Room Air 10/10/17 00:00 92 Room Air 10/09/17 23:14 36.8 82 20 122/70 (87) 93 Room Air 10/09/17 19:56 36.6 94 20 135/73 (93) 94 Room Air 10/09/17 18:11 90 18 92 Room Air Physical Exam General Appearance: no apparent distress ENT: + pertinent finding (R sinus pressure) Respiratory/Chest: lungs clear, normal breath sounds, no respiratory distress, no accessory muscle use Cardiovascular: regular rate, rhythm, no edema, no murmur Laboratory Results Last 24 Hours Test 10/09/17 20:02 10/10/17 06:22 10/10/17 07:34 10/10/17 11:17 Bedside Glucose 126 mg/dl 85 mg/dl 151 mg/dl White Blood Count 6.17 K/uL Red Blood Count 3.18 M/uL Hemoglobin 8.5 g/dL Hematocrit 27.0 % Mean Corpuscular Volume 84.9 fL Mean Corpuscular Hemoglobin 26.7 pg Mean Corpuscular Hemoglobin Concent 31.5 g/dl RDW Standard Deviation 56.8 fL RDW Coefficient of Variation 18.8 % Platelet Count 63 K/uL Mean Platelet Volume 10.0 fL Nucleated RBC Absolute Count (auto) 0.03 K/uL Nucleated Red Blood Cells % 0.4 % Sodium Level 135 mmol/L Potassium Level 3.7 mmol/L Chloride Level 100 mmol/L Carbon Dioxide Level 28 mmol/L Anion Gap 7.0 mmol/L Blood Urea Nitrogen 13 mg/dl Creatinine 0.75 mg/dl Est Creatinine Clear Calc Drug Dose 87.8 ml/min Estimated GFR () 105.5 Estimated GFR (Non- 91.0 BUN/Creatinine Ratio 17.0 Random Glucose 78 mg/dl Calcium Level 8.3 mg/dl Magnesium Level 1.9 mg/dl Test 10/10/17 16:19 10/10/17 16:20 Bedside Glucose 350 mg/dl 342 mg/dl Assessment and Plan This is a 72 year old male with a PMH of mantle cell lymphoma with ongoing chemotherapy with hx. of chemo-induced neutropenia/thrombocytopenia, hx. of emphysema, recurrent sinusitis presents with sinus congestion, shortness of breath and cough Acute on Chronic Maxillary Sinusitis Acute COPD Exacerbation 10/10 appreciate ID and ENT input Cefepime + Unasyn as per ID Afrin, Zyrtec, Flonase 1/5 still spiking fevers even with Unasyn tried some Zyrtec and Flonase, but condition is not improving will consult ENT in the AM; possibly fungal sinusitis due to immunocompromised state? 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
[2017-10-10] MEDS: OXYMETAZOLINE HCL 0.05% NA SPR 15 ML BTL SCH (19:41)
[2017-10-11] VITALS (11 sets, daily range): BP systolic 115–152; BP diastolic 66–73; PULSE 74–111; TEMP 36.3–38.5; O2SAT 92–95
[2017-10-11] MEDS: AMPICILLIN/SULBACTAM SOD INJ 3,000 MG in SODIUM CHLORIDE 0.9% 100ML 100 ML IV SCH ×4 (00:51→19:30)
[2017-10-11] MEDS: ALBUTEROL 0.083% NEBU SOLN 3 ML VIAL INH SCH ×4 (01:54→19:01)
[2017-10-11] MEDS: CEFEPIME IV 2,000 MG in SYRINGE 7.5 ML IV SCH ×3 (06:00→21:43)
[2017-10-11] MEDS: SODIUM CHLORIDE 0.65% NA SOLN 45 ML (OCEAN) SCH ×5 (06:00→21:43)
[2017-10-11] MEDS: CETIRIZINE HCL 10 MG TAB PO SCH (06:03)
[2017-10-11] MEDS: TRAMADOL HCL 50 MG TAB PO PRN (06:03)
[2017-10-11 07:06] LABS: CREATININE 0.68 mg/dl (0.60-1.40)
[2017-10-11] MEDS: OXYMETAZOLINE HCL 0.05% NA SPR 15 ML BTL SCH ×2 (07:27→19:30)
[2017-10-11] MEDS: PANTOprazole SOD 40 MG TAB PO SCH (07:27)
[2017-10-11] MEDS: FLUTICASONE PROPIONATE NA SPR 16 GM BTL NAE SCH (07:27)
[2017-10-11 08:21] LABS: HEMATOCRIT 26.6 % (42-52); HEMOGLOBIN 8.6 g/dL (14.0-18.0); MEAN CELL VOLUME 83.9 fL (80-100); MEAN CORPUSCULAR HEMOGLOBIN 27.1 pg (25-34); MEAN CORPUSCULAR HGB CONC 32.3 g/dl (32-36); MEAN PLATELET VOLUME 9.6 fL (7.4-10.4); PLATELET COUNT 57 K/uL (130-400); RED CELL DISTRIBUTION WIDTH CV 18.4 % (11.5-14.5); RED CELL DISTRIBUTION WIDTH SD 55.8 fL (36.4-46.3); WHITE BLOOD COUNT 7.74 K/uL (4.8-10.8)
[2017-10-11 09:03] LABS: CALCIUM 8.3 mg/dl (8.5-10.1); CREATININE 0.7 mg/dl (0.60-1.40); POTASSIUM 3.7 mmol/L (3.5-5.1)
[2017-10-11 09:04] LABS: PHOSPHORUS 1.9 mg/dl (2.5-4.9)
[2017-10-11] MEDS ORDERED: SODIUM PHOSPHATE 3 MMOL/1 ML INFUSION IV STA (09:22)
[2017-10-11] MEDS: MAGNESIUM SULFATE 1GM / D5W 1 GM in PREMIXED IN D5W 100 ML IV SCH ×2 (09:41→11:25)
[2017-10-11] MEDS ORDERED: SODIUM PHOSPHATE INJ 21 MMOL in SODIUM CHLORIDE 0.9% 500ML 500 ML IV ONE (10:00)
--- NOTE | 2017-10-11 11:56 | Ears,Nose,Throat Progress Note ---
Progress Note Date of Service Oct 11, 2017. Subjective Pt evaluation today including: conversation w/ patient, physical exam, chart review, lab review Patient did well yesterday. Woke up this am and had fever. This is the only fever in the past 24 hrs. Otherwise has been afebrile. ID saw patient, recommended restarting unasyn and adding cefepime. Objective Vital Signs Date Time Temp Pulse Resp B/P (MAP) Pulse Ox O2 Delivery O2 Flow Rate FiO2 10/11/17 11:28 36.5 93 18 115/66 (82) 95 10/11/17 08:59 37.7 10/11/17 08:00 92 Room Air 10/11/17 07:48 38.5 111 18 152/73 (99) 92 10/11/17 07:43 82 16 92 Room Air 10/11/17 00:00 92 Room Air 10/10/17 20:11 36.2 88 18 147/74 (98) 90 Room Air 10/10/17 20:00 92 Room Air 10/10/17 19:56 71 16 92 Room Air 10/10/17 15:15 36.5 109 18 145/75 (98) 92 Room Air 10/10/17 14:26 90 18 92 Room Air Physical Exam General Appearance: WD/WN, no apparent distress ENT: normal ENT inspection Notes: PROCEDURE Nasal endoscopy was performed. Bilateral middle meati are without mucopus on exam today. No necrosis on endoscopic exam. Patient tolerated procedure well. Laboratory Results Last 24 Hours Test 10/10/17 16:19 10/10/17 16:20 10/10/17 19:40 10/11/17 05:36 Bedside Glucose 350 mg/dl 342 mg/dl 284 mg/dl Creatinine 0.68 mg/dl Est Creatinine Clear Calc Drug Dose 96.8 ml/min Estimated GFR () 109.8 Estimated GFR (Non- 94.7 Test 10/11/17 07:41 10/11/17 08:10 10/11/17 11:25 Bedside Glucose 97 mg/dl 149 mg/dl White Blood Count 7.74 K/uL Red Blood Count 3.17 M/uL Hemoglobin 8.6 g/dL Hematocrit 26.6 % Mean Corpuscular Volume 83.9 fL Mean Corpuscular Hemoglobin 27.1 pg Mean Corpuscular Hemoglobin Concent 32.3 g/dl RDW Standard Deviation 55.8 fL RDW Coefficient of Variation 18.4 % Platelet Count 57 K/uL Mean Platelet Volume 9.6 fL Sodium Level 133 mmol/L Potassium Level 3.7 mmol/L Chloride Level 100 mmol/L Carbon Dioxide Level 25 mmol/L Anion Gap 8.0 mmol/L Blood Urea Nitrogen 10 mg/dl Creatinine 0.70 mg/dl Est Creatinine Clear Calc Drug Dose 94.0 ml/min Estimated GFR () 108.5 Estimated GFR (Non- 93.6 BUN/Creatinine Ratio 13.6 Random Glucose 87 mg/dl Calcium Level 8.3 mg/dl Phosphorus Level 1.9 mg/dl Magnesium Level 1.5 mg/dl Assessment and Plan 72 yo male with lymphoma, undergoing chemotherapy who has an acute right sided maxillary sinusitis, no physical exam or endoscopic evidence of fungal sinusitis - currently on unasyn and cefepime at the recommendation of ID service. Has not yet had 24 hrs of that drug combination - continue prednisone, steroid spray, saline spray and afrin - would give the current abx combination time to work. - if no improvement, he may need maxillary antrostomy. If it were to come to this, he would need platelet transfusion and PRBCs prior to surgery as he is anemic and thrombocytopenic - Dr. Borjas will be taking over call at 5pm this evening. Case will be discussed with him in detail.
--- NOTE | 2017-10-11 12:54 | Progress Note ---
Subjective Date of Service: Oct 11, 2017. Subjective Pt evaluation today including: conversation w/ patient, physical exam, lab review, review of studies, review of inpatient medication list Saw/examined the patient in room 404 He spiked a fever this morning Is not feeling well, short of breath, sinus pressure Problem List Medical Problems: (1) Anemia Status: Acute (2) Bronchitis Status: Acute (3) COPD exacerbation Status: Acute (4) High serum lactate Status: Acute (5) Ischemic bowel disease Status: Acute (6) Lactic acidosis Status: Acute (7) Myalgia Status: Acute (8) Neutropenia Status: Acute (9) Palpitations Status: Acute (10) Sepsis Status: Acute (11) Shortness of breath Status: Acute (12) Splenic laceration Status: Acute (13) Thrombocytopenia Status: Acute (14) Weakness Status: Acute Review of Systems Constitutional: + fever, + chills, + weakness Respiratory: + cough, + sputum, + wheezing, + shortness of breath, No dyspnea on exertion, No dyspnea at rest, No hemoptysis Cardiac: No chest pain, No edema, No palpitations Medications Current Inpatient Medications Medications (Trade) Dose Ordered Sig/Flory Route Start Time Stop Time Status Last Admin Dose Admin Ondansetron HCl (Zofran Inj) 4 mg Q6H PRN IV 10/05/17 15:00 11/04/17 14:59 Cetirizine HCl (zyrTEC TAB) 10 mg UD PRN PO 10/05/17 15:00 11/04/17 14:59 Promethazine HCl (Phenergan Tab) 25 mg Q4H PRN PO 10/05/17 15:00 11/04/17 14:59 Ranitidine HCl (zANTac TAB) 150 mg DAILY PRN PO 10/05/17 15:00 11/04/17 14:59 10/06/17 18:44 150 MG Tramadol HCl (Ultram Tab) 50 mg Q6H PRN PO 10/05/17 15:00 11/04/17 14:59 10/11/17 06:03 50 MG Pantoprazole Sodium (Protonix Tab) 40 mg DAILY PO 10/06/17 08:00 11/05/17 08:59 10/11/17 07:27 40 MG Albuterol Sulfate (Ventolin 0.083% 2.5MG/3ML Neb) 2.5 mg Q6R INH 10/05/17 15:00 11/04/17 14:59 10/11/17 07:43 2.5 MG Fluticasone Propionate (Flonase Nasal [place]) 2 sprays QAM PERLA 10/08/17 08:00 11/07/17 07:59 10/11/17 07:27 2 SPRAYS Prednisone (PredniSONE TAB) 40 mg DAILY PO 10/08/17 08:00 11/07/17 07:59 10/11/17 07:26 40 MG Acetaminophen (Tylenol Tab) 650 mg Q6H PRN PO 10/09/17 05:15 11/08/17 05:14 10/11/17 07:25 650 MG Cetirizine HCl (zyrTEC TAB) 10 mg QAM PO 10/10/17 08:00 11/09/17 07:59 10/11/17 06:03 10 MG Oxymetazoline HCl (Afrin 0.05% Nasal [place]) 2 sprays BID NA 10/10/17 20:00 10/13/17 19:59 10/11/17 07:27 2 SPRAYS Sodium Chloride ([place] Nasal [place]) 2 sprays Q4 NA 10/10/17 12:00 11/09/17 11:59 10/11/17 07:26 2 SPRAYS Ampicillin Sodium/ Sulbactam Sodium 3000 mg/Sodium Chloride 108 ml @ 200 mls/hr Q6H IV 10/10/17 13:00 10/17/17 01:33 10/11/17 06:04 200 MLS/HR Cefepime HCl 2000 mg/Syringe 20 ml @ 5 mls/min Q8 IV 10/10/17 14:00 10/20/17 13:59 10/11/17 06:00 5 MLS/MIN Sodium Phosphate 21 mmol/Sodium Chloride 507 ml @ 144 mls/hr 1000 ONCE IV 10/11/17 10:00 10/11/17 13:31 10/11/17 09:41 144 MLS/HR Objective Vital Signs Date Time Temp Pulse Resp B/P (MAP) Pulse Ox O2 Delivery O2 Flow Rate FiO2 10/11/17 11:28 36.5 93 18 115/66 (82) 95 10/11/17 08:59 37.7 10/11/17 08:00 92 Room Air 1/7/18 07:48 38.5 111 18 152/73 (99) 92 10/11/17 07:43 82 16 92 Room Air 10/11/17 00:00 92 Room Air 10/10/17 20:11 36.2 88 18 147/74 (98) 90 Room Air 10/10/17 20:00 92 Room Air 10/10/17 19:56 71 16 92 Room Air 10/10/17 15:15 36.5 109 18 145/75 (98) 92 Room Air 10/10/17 14:26 90 18 92 Room Air Physical Exam General Appearance: no apparent distress Respiratory/Chest: lungs clear, normal breath sounds, no respiratory distress, no accessory muscle use Cardiovascular: regular rate, rhythm, no edema, no murmur Abdomen: normal bowel sounds, non tender, soft Extremities: normal inspection, no pedal edema Neurologic/Psychiatric: no motor/sensory deficits, alert, normal mood/affect Laboratory Results Last 24 Hours Test 10/10/17 16:19 10/10/17 16:20 10/10/17 19:40 10/11/17 05:36 Bedside Glucose 350 mg/dl 342 mg/dl 284 mg/dl Creatinine 0.68 mg/dl Est Creatinine Clear Calc Drug Dose 96.8 ml/min Estimated GFR () 109.8 Estimated GFR (Non- 94.7 Test 10/11/17 07:41 10/11/17 08:10 10/11/17 11:25 Bedside Glucose 97 mg/dl 149 mg/dl White Blood Count 7.74 K/uL Red Blood Count 3.17 M/uL Hemoglobin 8.6 g/dL Hematocrit 26.6 % Mean Corpuscular Volume 83.9 fL Mean Corpuscular Hemoglobin 27.1 pg Mean Corpuscular Hemoglobin Concent 32.3 g/dl RDW Standard Deviation 55.8 fL RDW Coefficient of Variation 18.4 % Platelet Count 57 K/uL Mean Platelet Volume 9.6 fL Sodium Level 133 mmol/L Potassium Level 3.7 mmol/L Chloride Level 100 mmol/L Carbon Dioxide Level 25 mmol/L Anion Gap 8.0 mmol/L Blood Urea Nitrogen 10 mg/dl Creatinine 0.70 mg/dl Est Creatinine Clear Calc Drug Dose 94.0 ml/min Estimated GFR () 108.5 Estimated GFR (Non- 93.6 BUN/Creatinine Ratio 13.6 Random Glucose 87 mg/dl Calcium Level 8.3 mg/dl Phosphorus Level 1.9 mg/dl Magnesium Level 1.5 mg/dl Assessment and Plan This is a 72 year old male with a PMH of mantle cell lymphoma with ongoing chemotherapy with hx. of chemo-induced neutropenia/thrombocytopenia, hx. of emphysema, recurrent sinusitis presents with sinus congestion, shortness of breath and cough Acute on Chronic Maxillary Sinusitis Acute COPD Exacerbation 10/11 appreciate ID and ENT input Cefepime + Unasyn will see how he improves clinically 10/10 appreciate ID and ENT input Cefepime + Unasyn as per ID Afrin, Zyrtec, Flonase 10/09 still spiking fevers even with Unasyn tried some Zyrtec and Flonase, but condition is not improving will consult ENT in the AM; possibly fungal sinusitis due to immunocompromised state? 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
[2017-10-12] VITALS (13 sets, daily range): BP systolic 108–134; BP diastolic 61–80; PULSE 80–118; TEMP 36.4–37.5; O2SAT 91–97
[2017-10-12] MEDS: AMPICILLIN/SULBACTAM SOD INJ 3,000 MG in SODIUM CHLORIDE 0.9% 100ML 100 ML IV SCH ×4 (01:02→21:29)
[2017-10-12] MEDS: ALBUTEROL 0.083% NEBU SOLN 3 ML VIAL INH SCH ×4 (02:01→19:28)
[2017-10-12] MEDS: SODIUM CHLORIDE 0.65% NA SOLN 45 ML (OCEAN) SCH ×5 (05:55→20:16)
[2017-10-12] MEDS: CEFEPIME IV 2,000 MG in SYRINGE 7.5 ML IV SCH ×3 (05:55→21:29)
[2017-10-12 06:06] LABS: HEMATOCRIT 25.7 % (42-52); HEMOGLOBIN 8.1 g/dL (14.0-18.0); MEAN CELL VOLUME 84.5 fL (80-100); MEAN CORPUSCULAR HEMOGLOBIN 26.6 pg (25-34); MEAN CORPUSCULAR HGB CONC 31.5 g/dl (32-36); RED CELL DISTRIBUTION WIDTH CV 18.4 % (11.5-14.5); WHITE BLOOD COUNT 6.59 K/uL (4.8-10.8)
[2017-10-12 06:19] LABS: MEAN PLATELET VOLUME 10.2 fL (7.4-10.4); PLATELET COUNT 67 K/uL (130-400)
[2017-10-12 06:36] LABS: CALCIUM 8.3 mg/dl (8.5-10.1); CREATININE 0.73 mg/dl (0.60-1.40); POTASSIUM 3.7 mmol/L (3.5-5.1)
[2017-10-12] MEDS: FLUTICASONE PROPIONATE NA SPR 16 GM BTL NAE SCH (08:00)
[2017-10-12] MEDS: CETIRIZINE HCL 10 MG TAB PO SCH (08:28)
[2017-10-12] MEDS: PANTOprazole SOD 40 MG TAB PO SCH (08:28)
[2017-10-12] MEDS: OXYMETAZOLINE HCL 0.05% NA SPR 15 ML BTL SCH ×2 (08:29→20:16)
--- NOTE | 2017-10-12 12:01 | Progress Note ---
Subjective Date of Service: Oct 12, 2017. Subjective Pt evaluation today including: conversation w/ patient, physical exam, lab review, review of studies, review of inpatient medication list Saw/examined the patient in room 404 He is still feeling weak and tired Insistent on receiving a blood transfusion, saying he will feel better afterwards mild fever persists Problem List Medical Problems: (1) Anemia Status: Acute (2) Bronchitis Status: Acute (3) COPD exacerbation Status: Acute (4) High serum lactate Status: Acute (5) Ischemic bowel disease Status: Acute (6) Lactic acidosis Status: Acute (7) Myalgia Status: Acute (8) Neutropenia Status: Acute (9) Palpitations Status: Acute (10) Sepsis Status: Acute (11) Shortness of breath Status: Acute (12) Splenic laceration Status: Acute (13) Thrombocytopenia Status: Acute (14) Weakness Status: Acute Review of Systems Constitutional: + fever, + chills, + sweats, + weakness ENT: + problem reported (+sinus pressure/congestion) Respiratory: No shortness of breath Cardiac: No chest pain Medications Current Inpatient Medications Medications (Trade) Dose Ordered Sig/Flory Route Start Time Stop Time Status Last Admin Dose Admin Ondansetron HCl (Zofran Inj) 4 mg Q6H PRN IV 10/05/17 15:00 11/04/17 14:59 Cetirizine HCl (zyrTEC TAB) 10 mg UD PRN PO 10/05/17 15:00 11/04/17 14:59 Promethazine HCl (Phenergan Tab) 25 mg Q4H PRN PO 10/05/17 15:00 11/04/17 14:59 Ranitidine HCl (zANTac TAB) 150 mg DAILY PRN PO 10/05/17 15:00 11/04/17 14:59 10/06/17 18:44 150 MG Tramadol HCl (Ultram Tab) 50 mg Q6H PRN PO 10/05/17 15:00 11/04/17 14:59 10/11/17 06:03 50 MG Pantoprazole Sodium (Protonix Tab) 40 mg DAILY PO 10/06/17 08:00 11/05/17 08:59 10/12/17 08:28 40 MG Albuterol Sulfate (Ventolin 0.083% 2.5MG/3ML Neb) 2.5 mg Q6R INH 10/05/17 15:00 11/04/17 14:59 10/12/17 06:54 2.5 MG Fluticasone Propionate (Flonase Nasal [place]) 2 sprays QAM PERLA 10/08/17 08:00 11/07/17 07:59 10/11/17 07:27 2 SPRAYS Prednisone (PredniSONE TAB) 40 mg DAILY PO 10/08/17 08:00 11/07/17 07:59 10/12/17 08:28 40 MG Acetaminophen (Tylenol Tab) 650 mg Q6H PRN PO 10/09/17 05:15 11/08/17 05:14 10/11/17 07:25 650 MG Cetirizine HCl (zyrTEC TAB) 10 mg QAM PO 10/10/17 08:00 11/09/17 07:59 10/12/17 08:28 10 MG Oxymetazoline HCl (Afrin 0.05% Nasal [place]) 2 sprays BID NA 10/10/17 20:00 10/13/17 19:59 10/12/17 08:29 2 SPRAYS Sodium Chloride ([place] Nasal [place]) 2 sprays Q4 NA 10/10/17 12:00 11/09/17 11:59 10/12/17 08:29 2 SPRAYS Ampicillin Sodium/ Sulbactam Sodium 3000 mg/Sodium Chloride 108 ml @ 200 mls/hr Q6H IV 10/10/17 13:00 10/17/17 01:33 10/12/17 05:55 200 MLS/HR Cefepime HCl 2000 mg/Syringe 20 ml @ 5 mls/min Q8 IV 10/10/17 14:00 10/20/17 13:59 10/12/17 05:55 5 MLS/MIN Objective Vital Signs Date Time Temp Pulse Resp B/P (MAP) Pulse Ox O2 Delivery O2 Flow Rate FiO2 10/12/17 08:00 Room Air 10/12/17 07:30 37.5 88 17 134/75 (94) 97 10/12/17 06:55 108 16 92 Room Air 10/12/17 00:00 36.6 10/12/17 00:00 92 Room Air 10/11/17 20:00 92 Room Air 10/11/17 19:56 36.3 106 20 119/70 (86) 93 Room Air 10/11/17 19:01 74 16 93 Room Air 10/11/17 16:00 93 Room Air 10/11/17 15:47 36.4 103 18 118/69 (85) 95 Room Air Physical Exam General Appearance: + mild distress ENT: + pertinent finding (+sinus tenderness/pressure) Respiratory/Chest: lungs clear, normal breath sounds, no respiratory distress, no accessory muscle use Cardiovascular: regular rate, rhythm, no edema, no murmur Extremities: normal inspection, no pedal edema Laboratory Results Last 24 Hours Test 10/11/17 16:17 10/11/17 20:09 10/12/17 05:35 10/12/17 07:37 Bedside Glucose 250 mg/dl 253 mg/dl 89 mg/dl White Blood Count 6.59 K/uL Red Blood Count 3.04 M/uL Hemoglobin 8.1 g/dL Hematocrit 25.7 % Mean Corpuscular Volume 84.5 fL Mean Corpuscular Hemoglobin 26.6 pg Mean Corpuscular Hemoglobin Concent 31.5 g/dl RDW Standard Deviation 56.0 fL RDW Coefficient of Variation 18.4 % Platelet Count 67 K/uL Mean Platelet Volume 10.2 fL Sodium Level 136 mmol/L Potassium Level 3.7 mmol/L Chloride Level 102 mmol/L Carbon Dioxide Level 26 mmol/L Anion Gap 8.0 mmol/L Blood Urea Nitrogen 13 mg/dl Creatinine 0.73 mg/dl Est Creatinine Clear Calc Drug Dose 90.2 ml/min Estimated GFR () 106.7 Estimated GFR (Non- 92.0 BUN/Creatinine Ratio 17.9 Random Glucose 79 mg/dl Calcium Level 8.3 mg/dl Phosphorus Level 2.0 mg/dl Magnesium Level 1.8 mg/dl Assessment and Plan This is a 72 year old male with a PMH of mantle cell lymphoma with ongoing chemotherapy with hx. of chemo-induced neutropenia/thrombocytopenia, hx. of emphysema, recurrent sinusitis presents with sinus congestion, shortness of breath and cough Acute on Chronic Maxillary Sinusitis Acute COPD Exacerbation 10/12 continue both Cefepime + Unasyn for now will give 1 unit or pRBCs recheck CBC in AM 10/11 appreciate ID and ENT input Cefepime + Unasyn will see how he improves clinically 10/10 appreciate ID and ENT input Cefepime + Unasyn as per ID Afrin, Zyrtec, Flonase 10/09 still spiking fevers even with Unasyn tried some Zyrtec and Flonase, but condition is not improving will consult ENT in the AM; possibly fungal sinusitis due to immunocompromised state? 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
[2017-10-12] MEDS: TRAMADOL HCL 50 MG TAB PO PRN (12:59)
--- NOTE | 2017-10-12 14:58 | Infectious Disease Progress Nt ---
Progress Note Date of Service Oct 12, 2017. Subjective Pt evaluation today including: conversation w/ patient, physical exam, chart review, lab review, review of studies, conversation w/ it security consultant, review of inpatient medication list Patient feeling better. Repeat ENT examination shows improvement. Offers no new complaints. Tolerating antibiotic without apparent difficulty. All Other Systems: Reviewed and Negative Medications Current Inpatient Medications Medications (Trade) Dose Ordered Sig/Flory Route Start Time Stop Time Status Last Admin Dose Admin Ondansetron HCl (Zofran Inj) 4 mg Q6H PRN IV 10/05/17 15:00 11/04/17 14:59 Cetirizine HCl (zyrTEC TAB) 10 mg UD PRN PO 10/05/17 15:00 11/04/17 14:59 Promethazine HCl (Phenergan Tab) 25 mg Q4H PRN PO 10/05/17 15:00 11/04/17 14:59 Ranitidine HCl (zANTac TAB) 150 mg DAILY PRN PO 10/05/17 15:00 11/04/17 14:59 10/06/17 18:44 150 MG Tramadol HCl (Ultram Tab) 50 mg Q6H PRN PO 10/05/17 15:00 11/04/17 14:59 10/12/17 12:59 50 MG Pantoprazole Sodium (Protonix Tab) 40 mg DAILY PO 10/06/17 08:00 11/05/17 08:59 10/12/17 08:28 40 MG Albuterol Sulfate (Ventolin 0.083% 2.5MG/3ML Neb) 2.5 mg Q6R INH 10/05/17 15:00 11/04/17 14:59 10/12/17 14:05 2.5 MG Fluticasone Propionate (Flonase Nasal [place]) 2 sprays QAM PERLA 10/08/17 08:00 11/07/17 07:59 10/11/17 07:27 2 SPRAYS Prednisone (PredniSONE TAB) 40 mg DAILY PO 10/08/17 08:00 11/07/17 07:59 10/12/17 08:28 40 MG Acetaminophen (Tylenol Tab) 650 mg Q6H PRN PO 10/09/17 05:15 11/08/17 05:14 10/11/17 07:25 650 MG Cetirizine HCl (zyrTEC TAB) 10 mg QAM PO 10/10/17 08:00 11/09/17 07:59 10/12/17 08:28 10 MG Oxymetazoline HCl (Afrin 0.05% Nasal [place]) 2 sprays BID NA 10/10/17 20:00 10/13/17 19:59 10/12/17 08:29 2 SPRAYS Sodium Chloride ([place] Nasal [place]) 2 sprays Q4 NA 10/10/17 12:00 11/09/17 11:59 10/12/17 12:05 2 SPRAYS Ampicillin Sodium/ Sulbactam Sodium 3000 mg/Sodium Chloride 108 ml @ 200 mls/hr Q6H IV 10/10/17 13:00 10/17/17 01:33 10/12/17 13:00 200 MLS/HR Cefepime HCl 2000 mg/Syringe 20 ml @ 5 mls/min Q8 IV 10/10/17 14:00 10/20/17 13:59 10/12/17 13:00 5 MLS/MIN Objective Vital Signs Date Time Temp Pulse Resp B/P (MAP) Pulse Ox O2 Delivery O2 Flow Rate FiO2 10/12/17 14:05 98 16 93 Room Air 10/12/17 08:00 Room Air 10/12/17 07:30 37.5 88 17 134/75 (94) 97 10/12/17 06:55 108 16 92 Room Air 10/12/17 00:00 36.6 10/12/17 00:00 92 Room Air 10/11/17 20:00 92 Room Air 10/11/17 19:56 36.3 106 20 119/70 (86) 93 Room Air 10/11/17 19:01 74 16 93 Room Air 10/11/17 16:00 93 Room Air 10/11/17 15:47 36.4 103 18 118/69 (85) 95 Room Air Physical Exam General Appearance: WD/WN, no apparent distress Eyes: normal inspection, EOMI, sclerae normal ENT: normal ENT inspection, pharynx normal Neck: supple, no adenopathy, thyroid normal, trachea midline Respiratory/Chest: chest non-tender, lungs clear, normal breath sounds, no respiratory distress Cardiovascular: regular rate, rhythm, no gallop, no murmur Abdomen: normal bowel sounds, non tender, soft, no organomegaly Extremities: non-tender, no calf tenderness Neurologic/Psychiatric: alert, oriented x 3 Skin: normal color, warm/dry, no rash Lymphatic: no adenopathy Laboratory Results --------- RUN DATE: 10/12/17 [facility] LAB PAGE 1 RUN TIME: 1431 Specimen Inquiry PATIENT: NAVYA ANDERSEN LOC: [place] [facility] # : [id number] AGE/SX: 72/M ROOM: [facility] REG : 10/05/[address]: Clint Tyson DO : 1945 BED: 1 DIS : STATUS: ADM IN TLOC: SPEC #: [id number] DOYLE: 10/10/17 STATUS: RES REQ #: [id number] RECD: 10/10/[address]: Keron Ellsworth D.O. SOURCE: SIN/ANT ENTR: 10/10/[address]: Mikael Cain M.D. [facility]: Bc Chun M.D. Haroon, Salman A., DO ORDERED: AER/LUCY CULTSMR COMMENTS: Has Specimen Been Obtained/Collected? Y Procedure Result Verified Site GRAM STAIN Final 10/11/17-075 RESULT MANY WBCs SEEN NO ORGANISMS SEEN OR AER/LUCY CULT Preliminary 10/12/17143 NO GROWTH TO DATE. Last 24 Hours Test 10/11/17 16:17 10/11/17 20:09 10/12/17 05:35 10/12/17 07:37 Bedside Glucose 250 mg/dl 253 mg/dl 89 mg/dl White Blood Count 6.59 K/uL Red Blood Count 3.04 M/uL Hemoglobin 8.1 g/dL Hematocrit 25.7 % Mean Corpuscular Volume 84.5 fL Mean Corpuscular Hemoglobin 26.6 pg Mean Corpuscular Hemoglobin Concent 31.5 g/dl RDW Standard Deviation 56.0 fL RDW Coefficient of Variation 18.4 % Platelet Count 67 K/uL Mean Platelet Volume 10.2 fL Sodium Level 136 mmol/L Potassium Level 3.7 mmol/L Chloride Level 102 mmol/L Carbon Dioxide Level 26 mmol/L Anion Gap 8.0 mmol/L Blood Urea Nitrogen 13 mg/dl Creatinine 0.73 mg/dl Est Creatinine Clear Calc Drug Dose 90.2 ml/min Estimated GFR () 106.7 Estimated GFR (Non- 92.0 BUN/Creatinine Ratio 17.9 Random Glucose 79 mg/dl Calcium Level 8.3 mg/dl Phosphorus Level 2.0 mg/dl Magnesium Level 1.8 mg/dl Assessment and Plan Right maxillary sinusitis in the setting of aggressive lymphoma on chemotherapy. Cultures have been all negative, suggesting that Unasyn sterilized secretions. However, given immunocompromised status, would continue broad-spectrum coverage, but could consider transition to oral therapy with Augmentin and levofloxacin tomorrow if remains improved. Will likely need a more prolonged course, i.e.. 3-4 weeks given multiple recurrences of sinusitis. Will discuss.
[2017-10-13] VITALS: O2SAT 92
[2017-10-13] MEDS: AMPICILLIN/SULBACTAM SOD INJ 3,000 MG in SODIUM CHLORIDE 0.9% 100ML 100 ML IV SCH ×2 (01:00→06:19)
[2017-10-13] MEDS: SODIUM CHLORIDE 0.65% NA SOLN 45 ML (OCEAN) SCH ×3 (01:00→08:07)
[2017-10-13] MEDS: ALBUTEROL 0.083% NEBU SOLN 3 ML VIAL INH SCH ×2 (01:41→07:07)
[2017-10-13 05:47] LABS: HEMOGLOBIN 9.7 g/dL (14.0-18.0); MEAN CELL VOLUME 84.7 fL (80-100); MEAN CORPUSCULAR HEMOGLOBIN 27.4 pg (25-34); MEAN CORPUSCULAR HGB CONC 32.3 g/dl (32-36); RED CELL DISTRIBUTION WIDTH CV 17.6 % (11.5-14.5); RED CELL DISTRIBUTION WIDTH SD 54.4 fL (36.4-46.3); WHITE BLOOD COUNT 6.72 K/uL (4.8-10.8)
[2017-10-13 05:52] LABS: MEAN PLATELET VOLUME 9.8 fL (7.4-10.4); PLATELET COUNT 68 K/uL (130-400)
[2017-10-13 06:19] LABS: CALCIUM 8.7 mg/dl (8.5-10.1); CREATININE 0.67 mg/dl (0.60-1.40); POTASSIUM 4.2 mmol/L (3.5-5.1)
[2017-10-13] MEDS: CEFEPIME IV 2,000 MG in SYRINGE 7.5 ML IV SCH (06:19)
[2017-10-13 07:03] VITALS: BP 127/66; PULSE 86; TEMP 36.9; O2SAT 92
[2017-10-13 07:07] VITALS: PULSE 89; O2SAT 90
[2017-10-13] MEDS: FLUTICASONE PROPIONATE NA SPR 16 GM BTL NAE SCH (08:00)
[2017-10-13] MEDS: PANTOprazole SOD 40 MG TAB PO SCH (08:07)
[2017-10-13] MEDS: OXYMETAZOLINE HCL 0.05% NA SPR 15 ML BTL SCH (08:07)
[2017-10-13] MEDS: CETIRIZINE HCL 10 MG TAB PO SCH (08:07)
--- NOTE | 2017-10-13 10:14 | Progress Note ---
Medicine Progress Note Date & Time of Visit: Oct 13, 2017 at 10:14 . Subjective CC: Follow-up visit for sepsis due to sinusitis. HPI: Feels much better. No fever. No sinus pain / pressure. Minimal nonproductive cough. No SOB. ROS: General- no fever, no chills Resp- jaye noted above in HPI Cardiac- no chest pain, no edema GI- no nausea, no vomiting, no diarrhea, no constipation - no dysuria, no difficulty voiding . Objective Last 8 Hrs Date Time Temp Pulse Resp B/P (MAP) Pulse Ox O2 Delivery O2 Flow Rate FiO2 10/13/17 08:00 Room Air 10/13/17 07:07 89 16 90 Room Air 10/13/17 07:03 36.9 86 20 127/66 (86) 92 Room Air Physical Exam: General- sitting in chair; no distress ENT- mild oral thrush; no pharyngeal erythema Lungs- few basilar rales that improve with deep inspiration; minimal wheezing; no resp distress Cardiovascular- RRR, no gallop appreciated; no JVD; no dependent edema Abdomen- + BS, soft, nontender Extremities- no cyanosis; no calf tenderness Neuro- alert, oriented Skin- warm and dry . Laboratory Results: Last 24 Hours Test 10/12/17 16:38 10/12/17 20:08 10/13/17 05:18 10/13/17 07:33 Bedside Glucose 224 mg/dl 166 mg/dl 86 mg/dl White Blood Count 6.72 K/uL Red Blood Count 3.54 M/uL Hemoglobin 9.7 g/dL Hematocrit 30.0 % Mean Corpuscular Volume 84.7 fL Mean Corpuscular Hemoglobin 27.4 pg Mean Corpuscular Hemoglobin Concent 32.3 g/dl RDW Standard Deviation 54.4 fL RDW Coefficient of Variation 17.6 % Platelet Count 68 K/uL Mean Platelet Volume 9.8 fL Sodium Level 136 mmol/L Potassium Level 4.2 mmol/L Chloride Level 101 mmol/L Carbon Dioxide Level 29 mmol/L Anion Gap 6.0 mmol/L Blood Urea Nitrogen 13 mg/dl Creatinine 0.67 mg/dl Est Creatinine Clear Calc Drug Dose 98.2 ml/min Estimated GFR () 110.5 Estimated GFR (Non- 95.3 BUN/Creatinine Ratio 19.2 Random Glucose 79 mg/dl Calcium Level 8.7 mg/dl Assessment & Plan SEPSIS Met criteria for sepsis per 2001 definition and current [facility] guidelines- tachycardia, tachypnea, elevated lactate. Serum lactate 3.7, repeat 5.1. Received IV fluids. Blood cultures obtained. Received broad-spectrum antibiotic therapy, initially with cefepime and vancomycin. Source = sinusitis as discussed below. SINUSITIS CT sinuses demonstrated right maxillary sinusitis. ENT and ID consulted. Nonsurgical management recommended. Antibiotic therapy changed to cefepime + ampicillin / sulbactam. Prolonged course of antibiotics recommended. Transitioned to oral therapy with levofloxacin and amoxicillin / clavulanic acid to complete 4 weeks of total therapy. COPD EXACERBATION Secondary to sinobronchitis. Discharge on prednisone taper. MANTLE CELL LYMPHOMA Per Hematology / Oncology. VTE PROPHYLAXIS No anticoagulants due to thrombocytopenia. SCD's. Ambulating. DISPOSITION DC to home. Family Medicine follow-up with Dr. Cain. Hematology / Oncology follow-up with Dr. John Mistry. . Current Inpatient Medications: Current Inpatient Medications Medications (Trade) Dose Ordered Sig/Flory Route Start Time Stop Time Status Last Admin Dose Admin Ondansetron HCl (Zofran Inj) 4 mg Q6H PRN IV 10/05/17 15:00 11/04/17 14:59 Cetirizine HCl (zyrTEC TAB) 10 mg UD PRN PO 10/05/17 15:00 11/04/17 14:59 Promethazine HCl (Phenergan Tab) 25 mg Q4H PRN PO 10/05/17 15:00 11/04/17 14:59 Ranitidine HCl (zANTac TAB) 150 mg DAILY PRN PO 10/05/17 15:00 11/04/17 14:59 10/06/17 18:44 150 MG Tramadol HCl (Ultram Tab) 50 mg Q6H PRN PO 10/05/17 15:00 11/04/17 14:59 10/12/17 12:59 50 MG Pantoprazole Sodium (Protonix Tab) 40 mg DAILY PO 10/06/17 08:00 11/05/17 08:59 10/13/17 08:07 40 MG Albuterol Sulfate (Ventolin 0.083% 2.5MG/3ML Neb) 2.5 mg Q6R INH 10/05/17 15:00 11/04/17 14:59 10/13/17 07:07 2.5 MG Fluticasone Propionate (Flonase Nasal [place]) 2 sprays QAM PERLA 10/08/17 08:00 11/07/17 07:59 10/11/17 07:27 2 SPRAYS Prednisone (PredniSONE TAB) 40 mg DAILY PO 10/08/17 08:00 11/07/17 07:59 10/13/17 08:07 40 MG Acetaminophen (Tylenol Tab) 650 mg Q6H PRN PO 10/09/17 05:15 11/08/17 05:14 10/11/17 07:25 650 MG Cetirizine HCl (zyrTEC TAB) 10 mg QAM PO 10/10/17 08:00 11/09/17 07:59 10/13/17 08:07 10 MG Oxymetazoline HCl (Afrin 0.05% Nasal [place]) 2 sprays BID NA 10/10/17 20:00 10/13/17 19:59 10/13/17 08:07 2 SPRAYS Sodium Chloride ([place] Nasal [place]) 2 sprays Q4 NA 10/10/17 12:00 11/09/17 11:59 10/13/17 08:07 2 SPRAYS Ampicillin Sodium/ Sulbactam Sodium 3000 mg/Sodium Chloride 108 ml @ 200 mls/hr Q6H IV 10/10/17 13:00 10/17/17 01:33 10/13/17 06:19 200 MLS/HR Cefepime HCl 2000 mg/Syringe 20 ml @ 5 mls/min Q8 IV 10/10/17 14:00 10/20/17 13:59 10/13/17 06:19 5 MLS/MIN
[2017-10-13] MEDS ORDERED: [UNRECOGNIZED DRUG - CODE] IV (10:26)
[2017-10-13] MEDS ORDERED: [UNRECOGNIZED DRUG - CODE] IV (10:26)
[2017-10-13] MEDS ORDERED: LEVO-366 PO (10:30)
[2017-10-13] MEDS ORDERED: PRD10 PO (10:30)
[2017-10-13] MEDS ORDERED: AMOX875T PO (10:30)
--- NOTE | 2017-10-13 10:40 | Discharge Instructions ---
Discharge Instructions Date of Service Oct 13, 2017. Admission Reason for Admission: fever . Discharge Discharge Diagnosis / Problem: severe sinus infection with sepsis Discharge Goals Goal(s): Improve disease control Activity Recommendations Activity Limitations: as noted below Lifting Limitations: gradually increase as tolerated Exercise/Sports Limitations: gradually increase as tolerated . Instructions / Follow-Up Instructions / Follow-Up APPOINTMENTS: FAMILY MEDICINE 10/16/2017 10:40 AM Mikael Cain MD HEMATOLOGY / ONCOLOGY Dr. John Mistry Office will contact you with next appointment. OTHER INSTRUCTIONS: Please take the following antibiotics for 20 days to treat your sinus infection: levofloxacin (Levaquin) 500 mg daily amoxicillin / clavulanic acid (Augmentin) 875 mg twice a day with food Take prednisone for sinus inflammation: 4 pills 40 mg daily for 2 days 3 pills 30 mg daily for 2 days 2 pills 20 mg daily for 2 days 1 pill 10 mg daily for 2 days then stop Use saline nasal spray 4 sprays each nostril 4 times a day until better. May use decongestant nasal sprays like Afrin 12 hour twice a day as needed for severe nasal congestion, but do not use more than 3 days in a row. Seek medical attention if you have: * temperature above 101 * severe facial pain * chest pain or trouble breathing * abdominal pain, nausea, vomiting * diarrhea, dark stools or bloody stools * any unanswered questions or concerns Call [phone] if symptoms are severe. Call if you have any questions or problems. My cell # is [phone]. You can also reach a [facility] hospitalist on duty at [facility] 24 hours a day by calling [phone]. Please take good care of yourself. Bhanu Bragg . Current Hospital Diet Patient's current hospital diet: Regular Diet Discharge Diet Recommended Diet: Regular Diet Pending Studies Studies pending at discharge: no Laboratory Results Last 24 Hours Test 10/12/17 16:38 10/12/17 20:08 10/13/17 05:18 10/13/17 07:33 Bedside Glucose 224 mg/dl 166 mg/dl 86 mg/dl White Blood Count 6.72 K/uL Red Blood Count 3.54 M/uL Hemoglobin 9.7 g/dL Hematocrit 30.0 % Mean Corpuscular Volume 84.7 fL Mean Corpuscular Hemoglobin 27.4 pg Mean Corpuscular Hemoglobin Concent 32.3 g/dl RDW Standard Deviation 54.4 fL RDW Coefficient of Variation 17.6 % Platelet Count 68 K/uL Mean Platelet Volume 9.8 fL Sodium Level 136 mmol/L Potassium Level 4.2 mmol/L Chloride Level 101 mmol/L Carbon Dioxide Level 29 mmol/L Anion Gap 6.0 mmol/L Blood Urea Nitrogen 13 mg/dl Creatinine 0.67 mg/dl Est Creatinine Clear Calc Drug Dose 98.2 ml/min Estimated GFR () 110.5 Estimated GFR (Non- 95.3 BUN/Creatinine Ratio 19.2 Random Glucose 79 mg/dl Calcium Level 8.7 mg/dl Medical Emergencies . Who to Call and When: Medical Emergencies: If at any time you feel your situation is an emergency, please call 911 immediately. . Non-Emergent Contact Non-Emergency issues call your: Primary Care Provider, Hospital Doctor, Oncologist . . "Provider Documentation" section prepared by Bhanu Bragg. . VTE Core Measure Inpt VTE Proph given/why not?: SCD's
[2017-10-13 10:56] VITALS: BP 127/66; PULSE 89; TEMP 36.9; O2SAT 90
--- NOTE | 2017-10-13 11:04 | Infectious Disease Progress Nt ---
Progress Note Date of Service Oct 13, 2017. Subjective Pt evaluation today including: conversation w/ patient, physical exam, chart review, lab review, review of studies, conversation w/ construction consultant, review of inpatient medication list Patient states that he continues to improve daily. Denies any significant sinus pain. Feeling better after transfusion. No fever. All Other Systems: Reviewed and Negative Medications Current Inpatient Medications Medications (Trade) Dose Ordered Sig/Flory Route Start Time Stop Time Status Last Admin Dose Admin Ondansetron HCl (Zofran Inj) 4 mg Q6H PRN IV 10/05/17 15:00 11/04/17 14:59 Cetirizine HCl (zyrTEC TAB) 10 mg UD PRN PO 10/05/17 15:00 11/04/17 14:59 Promethazine HCl (Phenergan Tab) 25 mg Q4H PRN PO 10/05/17 15:00 11/04/17 14:59 Ranitidine HCl (zANTac TAB) 150 mg DAILY PRN PO 10/05/17 15:00 11/04/17 14:59 10/06/17 18:44 150 MG Tramadol HCl (Ultram Tab) 50 mg Q6H PRN PO 10/05/17 15:00 11/04/17 14:59 10/12/17 12:59 50 MG Pantoprazole Sodium (Protonix Tab) 40 mg DAILY PO 10/06/17 08:00 11/05/17 08:59 10/13/17 08:07 40 MG Albuterol Sulfate (Ventolin 0.083% 2.5MG/3ML Neb) 2.5 mg Q6R INH 10/05/17 15:00 11/04/17 14:59 10/13/17 07:07 2.5 MG Fluticasone Propionate (Flonase Nasal [place]) 2 sprays QAM PERLA 10/08/17 08:00 11/07/17 07:59 10/11/17 07:27 2 SPRAYS Prednisone (PredniSONE TAB) 40 mg DAILY PO 10/08/17 08:00 11/07/17 07:59 10/13/17 08:07 40 MG Acetaminophen (Tylenol Tab) 650 mg Q6H PRN PO 10/09/17 05:15 11/08/17 05:14 10/11/17 07:25 650 MG Cetirizine HCl (zyrTEC TAB) 10 mg QAM PO 10/10/17 08:00 11/09/17 07:59 10/13/17 08:07 10 MG Oxymetazoline HCl (Afrin 0.05% Nasal [place]) 2 sprays BID NA 10/10/17 20:00 10/13/17 19:59 10/13/17 08:07 2 SPRAYS Sodium Chloride ([place] Nasal [place]) 2 sprays Q4 NA 10/10/17 12:00 11/09/17 11:59 10/13/17 08:07 2 SPRAYS Ampicillin Sodium/ Sulbactam Sodium 3000 mg/Sodium Chloride 108 ml @ 200 mls/hr Q6H IV 10/10/17 13:00 10/17/17 01:33 10/13/17 06:19 200 MLS/HR Cefepime HCl 2000 mg/Syringe 20 ml @ 5 mls/min Q8 IV 10/10/17 14:00 10/20/17 13:59 10/13/17 06:19 5 MLS/MIN Objective Vital Signs Date Time Temp Pulse Resp B/P (MAP) Pulse Ox O2 Delivery O2 Flow Rate FiO2 10/13/17 10:56 36.9 89 16 90 Room Air 10/13/17 08:00 Room Air 10/13/17 07:07 89 16 90 Room Air 10/13/17 07:03 36.9 86 20 127/66 (86) 92 Room Air 10/13/17 00:00 92 Room Air 10/12/17 23:35 36.6 80 20 110/66 (81) 94 Room Air 10/12/17 20:10 36.5 89 20 126/71 94 10/12/17 19:40 36.6 80 20 128/75 96 10/12/17 19:29 98 16 93 Room Air 10/12/17 18:40 36.6 85 20 134/71 96 10/12/17 18:10 36.6 85 20 134/71 96 10/12/17 17:55 36.4 91 20 127/73 93 10/12/17 17:38 36.6 89 20 133/80 91 10/12/17 16:00 Room Air 10/12/17 15:19 36.8 118 18 108/61 (77) 93 Room Air 10/12/17 14:05 98 16 93 Room Air Physical Exam General Appearance: WD/WN, no apparent distress Eyes: normal inspection, EOMI, sclerae normal ENT: normal ENT inspection, pharynx normal Neck: supple, no adenopathy, trachea midline Respiratory/Chest: chest non-tender, lungs clear, normal breath sounds, no respiratory distress Cardiovascular: regular rate, rhythm, no gallop, no murmur Abdomen: normal bowel sounds, non tender, soft, no organomegaly Extremities: non-tender, no calf tenderness Neurologic/Psychiatric: alert, oriented x 3 Skin: normal color, warm/dry, no rash Lymphatic: no adenopathy Laboratory Results Last 24 Hours Test 10/12/17 16:38 10/12/17 20:08 10/13/17 05:18 10/13/17 07:33 Bedside Glucose 224 mg/dl 166 mg/dl 86 mg/dl White Blood Count 6.72 K/uL Red Blood Count 3.54 M/uL Hemoglobin 9.7 g/dL Hematocrit 30.0 % Mean Corpuscular Volume 84.7 fL Mean Corpuscular Hemoglobin 27.4 pg Mean Corpuscular Hemoglobin Concent 32.3 g/dl RDW Standard Deviation 54.4 fL RDW Coefficient of Variation 17.6 % Platelet Count 68 K/uL Mean Platelet Volume 9.8 fL Sodium Level 136 mmol/L Potassium Level 4.2 mmol/L Chloride Level 101 mmol/L Carbon Dioxide Level 29 mmol/L Anion Gap 6.0 mmol/L Blood Urea Nitrogen 13 mg/dl Creatinine 0.67 mg/dl Est Creatinine Clear Calc Drug Dose 98.2 ml/min Estimated GFR () 110.5 Estimated GFR (Non- 95.3 BUN/Creatinine Ratio 19.2 Random Glucose 79 mg/dl Calcium Level 8.7 mg/dl Assessment and Plan Right maxillary sinusitis in the setting of aggressive lymphoma on chemotherapy. Cultures have been all negative, suggesting that Unasyn sterilized secretions. However, given immunocompromised status, would continue broad-spectrum coverage, but could consider transition to oral therapy with Augmentin and levofloxacin. Will likely need several more weeks of antibiotic therapy, would like to follow up as an outpatient in 2 weeks to assess need for further therapy.
[2017-10-13] MEDS ORDERED: NYSS5 PO (20:29)
--- NOTE | 2017-10-14 02:27 | Discharge Summary ---
Discharge Summary Date of Service Oct 14, 2017. Discharge Summary Admission Date: Oct 05, 2017 at 14:51 Discharge Date: Oct 13, 2017 Discharge Disposition: Home Principal Diagnosis: sepsis secondary to maxillary sinusitis . Secondary Diagnoses/Problems: Medical Problems: (1) Mantle cell lymphoma Status: Chronic Surgical Problems: (1) History of appendectomy Status: Resolved . Procedures: CT sinuses IV medications IV fluids . Consultations: ENT ID . Medication Reconciliation New Medications: Amoxicillin & Pot Clavulanate (Augmentin 875-125 mg) 1 Tab Tab 875 MG PO BID, #40 TAB Take with food. Levofloxacin (Levaquin) 500 Mg Tab 500 MG PO DAILY, #20 TAB Nystatin (Nystatin) 5 Ml Susp 5 ML PO QID PRN for thrush, #473 ML 5 Refills Prednisone (Prednisone) 10 Mg Tab 0 PO UD, #20 TAB Taper [id number], then stop. Continued Medications: Bendamustine HCl (Bendeka) 100 Mg/4 Ml Inj 0 IV UD Cetirizine (Zyrtec) 10 Mg Tab 10 MG PO UD PRN for PRIOR TO CHEMO, TAB Cytarabine (Cytarabine) 100 Mg/Ml Inj 0 IV UD Dexamethasone (Decadron) 4 Mg Tab 0 PO UD as directed with chemotherapy Omeprazole (Prilosec) 20 Mg Capcr 20 MG PO DAILY Ondansetron (Ondansetron HCl) 8 Mg Tab 8 MG PO Q8 PRN for Nausea or Vomiting Promethazine Hcl (Phenergan) 25 Mg Tab 25 MG PO Q4 PRN for Nausea Ranitidine HCl (Ranitidine HCl) 150 Mg Tab 150 MG PO UD 1 TABLET IN THE MORNING BEGINNING 5 DAYS BEFORE RITUXAN TREATMENT Rituximab (Rituxan) 10 Mg/Ml Inj 1 DOSE IV UD Tramadol HCl (Tramadol HCl) 50 Mg Tab 50 MG PO Q6 PRN for Pain Admission Information HPI (per Admitting provider): HISTORY OF PRESENT COMPLAINT: He is a 72-year-old male with significant past medical history of diffuse large B cell lymphoma with ongoing chemotherapy and also history of chemotherapy-induced neutropenia and thrombocytopenia, nephrolithiasis, GERD and also history of emphysema, apparently was discharged from the hospital following an attack of neutropenia on 22 of September. According to the patient, he has not been feeling well since discharge. He complained about sinus congestion with postnasal drip and cough, following the cough he has had attack of wheezing with some shortness of breath. He received his chemotherapy about 3 weeks ago and he is supposed to receive 1 chemo tomorrow. He has had chills and also fever yesterday and this morning and that is the reason he was brought into the Emergency Room. He denies to have any chest pain, but does have cough with productive of whitish yellow phlegm with some wheezing and some shortness of breath. He complains to have pain in the sinus area, mostly maxillary on right side with some postnasal drip. He does not have any abdominal pain, no nausea, no vomiting. He denies to have any numbness or tingling in the extremities, but he complained to have nonspecific pain at the back, thigh and the legs and he has been generally weak. He does not have any headache, any blurred vision, any numbness or tingling in the extremities or any weakness involving any side. . Physical Exam (per Admitting): GENERAL: On examination in the Emergency Room, he was having moderate distress at rest with some shortness of breath and wheezing. VITAL SIGNS: Temperature 37.7, pulse initially 137.91 that went down to 129, blood pressure 147/76, saturation 94% on room air. HEENT: Remarkable for flushed facies with right maxillary sinus area tenderness. NECK: Supple. No JVD, no bruit. CHEST: Decreased breath sounds all over with wheezing all over. HEART: S1, S2 regular. ABDOMEN: Soft, benign, nontender, no organomegaly. Bowel sounds present. EXTREMITIES: Negative for any edema. MUSCULOSKELETAL: Did not show any acute arthritis involving any joint. CENTRAL NERVOUS SYSTEM: He was alert, awake, oriented x3, no focal sensory and/or motor deficit appreciated. SPINE: Examination of the lumbar spine did not show any significant abnormality. . Hospital Course SEPSIS Presented to ED fever, sinus pressure, cough, SOB. Met criteria for sepsis per 2001 definition and current CMS guidelines- tachycardia, tachypnea, elevated lactate. Serum lactate 3.7, repeat 5.1. Received IV fluids. Blood cultures obtained. Received broad-spectrum antibiotic therapy, initially with cefepime and vancomycin. Source = sinusitis as discussed below. SINUSITIS CT sinuses demonstrated right maxillary sinusitis. ENT and ID consulted. Nonsurgical management recommended. Antibiotic therapy changed to cefepime + ampicillin / sulbactam. Prolonged course of antibiotics recommended. Transitioned to oral therapy with levofloxacin and amoxicillin / clavulanic acid to complete 4 weeks of total therapy. COPD EXACERBATION Secondary to sinobronchitis. Discharge on prednisone taper. MANTLE CELL LYMPHOMA Per Hematology / Oncology. VTE PROPHYLAXIS No anticoagulants due to thrombocytopenia. SCD's. Ambulating. DISPOSITION DC to home. Family Medicine follow-up with Dr. Cain. Hematology / Oncology follow-up with Dr. John Mistry. . Total time spent on discharge = 40 min. This includes examination of the patient, discharge planning, medication reconciliation, and communication with other providers. . Discharge Instructions Date of Service Oct 13, 2017. Admission Reason for Admission: fever . Discharge Discharge Diagnosis / Problem: severe sinus infection with sepsis Discharge Goals Goal(s): Improve disease control Activity Recommendations Activity Limitations: as noted below Lifting Limitations: gradually increase as tolerated Exercise/Sports Limitations: gradually increase as tolerated . Instructions / Follow-Up Instructions / Follow-Up APPOINTMENTS: FAMILY MEDICINE 10/16/2017 10:40 AM Mikael Cain MD HEMATOLOGY / ONCOLOGY Dr. John Mistry Office will contact you with next appointment. OTHER INSTRUCTIONS: Please take the following antibiotics for 20 days to treat your sinus infection: levofloxacin (Levaquin) 500 mg daily amoxicillin / clavulanic acid (Augmentin) 875 mg twice a day with food Take prednisone for sinus inflammation: 4 pills 40 mg daily for 2 days 3 pills 30 mg daily for 2 days 2 pills 20 mg daily for 2 days 1 pill 10 mg daily for 2 days then stop Use saline nasal spray 4 sprays each nostril 4 times a day until better. May use decongestant nasal sprays like Afrin 12 hour twice a day as needed for severe nasal congestion, but do not use more than 3 days in a row. Seek medical attention if you have: * temperature above 101 * severe facial pain * chest pain or trouble breathing * abdominal pain, nausea, vomiting * diarrhea, dark stools or bloody stools * any unanswered questions or concerns Call [phone] if symptoms are severe. Call if you have any questions or problems. My cell # is [phone]. You can also reach a [facility] hospitalist on duty at [facility] 24 hours a day by calling [phone]. Please take good care of yourself. Bhanu Bragg . Current Hospital Diet Patient's current hospital diet: Regular Diet Discharge Diet Recommended Diet: Regular Diet Pending Studies Studies pending at discharge: no Laboratory Results Last 24 Hours Test 10/12/17 16:38 10/12/17 20:08 10/13/17 05:18 10/13/17 07:33 Bedside Glucose 224 mg/dl 166 mg/dl 86 mg/dl White Blood Count 6.72 K/uL Red Blood Count 3.54 M/uL Hemoglobin 9.7 g/dL Hematocrit 30.0 % Mean Corpuscular Volume 84.7 fL Mean Corpuscular Hemoglobin 27.4 pg Mean Corpuscular Hemoglobin Concent 32.3 g/dl RDW Standard Deviation 54.4 fL RDW Coefficient of Variation 17.6 % Platelet Count 68 K/uL Mean Platelet Volume 9.8 fL Sodium Level 136 mmol/L Potassium Level 4.2 mmol/L Chloride Level 101 mmol/L Carbon Dioxide Level 29 mmol/L Anion Gap 6.0 mmol/L Blood Urea Nitrogen 13 mg/dl Creatinine 0.67 mg/dl Est Creatinine Clear Calc Drug Dose 98.2 ml/min Estimated GFR () 110.5 Estimated GFR (Non- 95.3 BUN/Creatinine Ratio 19.2 Random Glucose 79 mg/dl Calcium Level 8.7 mg/dl Medical Emergencies . Who to Call and When: Medical Emergencies: If at any time you feel your situation is an emergency, please call 911 immediately. . Non-Emergent Contact Non-Emergency issues call your: Primary Care Provider, Hospital Doctor, Oncologist . . "Provider Documentation" section prepared by Bhanu Bragg. . VTE Core Measure Inpt VTE Proph given/why not?: SCD's .
== END 2017-10-13 13:03 | disposition home or self-care (01) | DRG 871 ==
LOC: C.EDB 10:51 → C.4E 14:51 → UNDOADMIN 14:51 → ENRESERV 15:28
PROVIDERS: ADMIT Internal Medicine; ATTEND Hospitalist
PROC: 09JK8ZZ Inspection of Nasal Mucosa and Soft Tissue, Via Natural or Artificial Opening Endoscopic (ICD-10-PCS; principal; 2017-10-11)
DX: A41.9 Sepsis, unspecified organism (principal); D61.811 Other drug-induced pancytopenia; C83.10 Mantle cell lymphoma, unspecified site; J44.1 Chronic obstructive pulmonary disease with (acute) exacerbation; J01.00 Acute maxillary sinusitis, unspecified; K21.9 Gastro-esophageal reflux disease without esophagitis; K63.9 Disease of intestine, unspecified; J32.0 Chronic maxillary sinusitis; T45.1X5A Adverse effect of antineoplastic and immunosuppressive drugs, initial encounter; Y92.019 Unspecified place in single-family (private) house as the place of occurrence of the external cause; Z82.49 Family history of ischemic heart disease and other diseases of the circulatory system; Z87.442 Personal history of urinary calculi

== ENCOUNTER 2017-10-14 10:08 | Inpatient (IN) | payer OTHER ==
[~2017-10-14] VITALS: Ht 175.3 cm; Wt 71.1 kg
[~2017-10-14 10:08] MED LIST changes: +AMOX875T PO; +CETI10TA84 PO; +LEVO-366 PO; +NYSS5 PO; +PRD10 PO; +RANI150T2 PO; +[UNRECOGNIZED DRUG - CODE] IV; +[UNRECOGNIZED DRUG - CODE] IV
[2017-10-14] MEDS ORDERED: SODIUM CHLORIDE 0.9% 1000ML 1,000 ML IV ONE (10:35)
--- NOTE | 2017-10-14 10:37 | EMERGENCY ROOM VISIT NOTE ---
History Report prepared by Myesha: Odin Cope Under the Supervision of: Dr. Truman Ca D.O. First contact with patient: 10:27 Chief Complaint: FEVER Stated Complaint: FEVER,DOC REFERRED History of Present Illness The patient is a 72 year old male with lymphoma who presents to the Emergency Room with complaints of a persistent fever that was detected this morning. The patient talked to Dr. Bragg this morning and was told to come here for further evaluation. He states that he was just hospitalized here for a sinus infection, and was sent home yesterday. He received 1 unit of blood here. The patient says that he woke up this morning, and could hardly walk. He notes that he took his temperature and it was up to 102. He adds that he had an episode of watery diarrhea this morning, and still feels so weak. He says that he did not notice mucous in the diarrhea, and he has no history of C. difficile. The patient denies any headaches, nausea, vomiting, rashes, runny nose, cough, urinary symptoms, or abdominal pain. He states that he is not currently taking any antibiotics, and has not taken any Motrin or Tylenol today. Source of History: patient, spouse/significant other Onset: Detected this morning Position: other (global - fever) Symptom Intensity: up to 102 Quality: other (has lymphoma) Timing: other (persistent) Associated Symptoms: + diarrhea, + weakness, No headache, No cough, No nausea, No vomiting, No abdominal pain, No urinary symptoms, No rash Note: Denies runny nose. Review of Systems See HPI for pertinent positives & negatives. A total of 10 systems reviewed and were otherwise negative. Past Medical & Surgical Medical Problems: (1) Fever (2) Mantle cell lymphoma (3) Right maxillary sinusitis Surgical Problems: (1) History of appendectomy (2) Status post chemotherapy Family History FH: CAD (coronary artery disease) FATHER MOTHER FH: lung cancer SISTER Social History Smoking Status: Never Smoker Alcohol Use: none Drug Use: none Marital Status: Housing Status: lives with family Occupation Status: retired Current/Historical Medications Scheduled Amoxicillin & Pot Clavulanate (Augmentin 875-125 mg), 875 MG PO BID Bendamustine HCl (Bendeka), 0 IV UD Cytarabine (Cytarabine), 0 IV UD Dexamethasone (Decadron), 0 PO UD Levofloxacin (Levaquin), 500 MG PO DAILY Omeprazole (Prilosec), 20 MG PO DAILY Prednisone (Prednisone), 0 PO UD Ranitidine HCl (Ranitidine HCl), 150 MG PO UD Rituximab (Rituxan), 1 DOSE IV UD Scheduled PRN Cetirizine (Zyrtec), 10 MG PO UD PRN for PRIOR TO CHEMO Nystatin (Nystatin), 5 ML PO QID PRN for thrush Ondansetron (Ondansetron HCl), 8 MG PO Q8 PRN for Nausea or Vomiting Promethazine Hcl (Phenergan), 25 MG PO Q4 PRN for Nausea Tramadol HCl (Tramadol HCl), 50 MG PO Q6 PRN for Pain Allergies Coded Allergies: Tetracycline (Verified Allergy, Unknown, water blisters, 10/14/17) Physical Exam Vital Signs Date Time Temp Pulse Resp B/P (MAP) Pulse Ox O2 Delivery O2 Flow Rate FiO2 10/14/17 14:00 109 18 144/48 10/14/17 13:30 88 Room Air 10/14/17 12:02 114 10/14/17 11:44 115 16 99/53 88 Room Air 10/14/17 11:40 88 Room Air 10/14/17 10:11 37.0 128 20 123/71 94 Physical Exam GENERAL: Patient is awake, alert, mildly anxious appearing but overall comfortable. EYES: The conjunctivae are clear. The pupils are round and reactive. EARS, NOSE, MOUTH AND THROAT: The nose is without any evidence of any deformity. Mucous membranes are moist tongue is midline NECK: The neck is nontender and supple. RESPIRATORY: Lung sounds were diminished throughout with scattered rhonchi. There were rales at both bases. CARDIOVASCULAR: Heart sounds were tachycardic but regular, no definite murmur noted to auscultation. GASTROINTESTINAL: The abdomen is soft. Bowel sounds are present in all quadrants. Abdomen is nontender MUSCULOSKELETAL/EXTREMITIES: There is no evidence of gross deformity full range of motion is noted in the hips and shoulders SKIN: There is no obvious evidence of any rash. There are no petechiae, pallor or cyanosis noted. NEUROLOGIC: Patient is awake alert and oriented x3. Medical Decision & Procedures ER Provider Diagnostic Interpretation: X-ray results as stated below per interpretation by me and the radiologist. CHEST ONE VIEW PORTABLE CLINICAL HISTORY: Sepsis dyspnea COMPARISON STUDY: 10/05/2017 FINDINGS: Subtle increase in interstitial markings in the mid to lower lung regions on the left as well as right. No well-defined or consolidative infiltrative change. Central catheter remains in superior vena cava. Upper lungs are clear. IMPRESSION: Mild interval accentuation of the basilar markings on the left and to a lesser extent right. Possibly of a developing basilar pneumonitis is considered The above report was generated using voice recognition software. It may contain grammatical, syntax or spelling errors. Electronically signed by: José Romero M.D. 10/14/2017 11:20 AM Dictated Date/Time: 10/14/2017 11:19 AM Laboratory Results 10/14/17 10:55 Red Blood Count 3.34, Mean Corpuscular Volume 84.7, Mean Corpuscular Hemoglobin 27.5, Mean Corpuscular Hemoglobin Concent 32.5, Mean Platelet Volume 9.8 Test 10/14/17 10:55 10/14/17 13:05 White Blood Count 7.78 K/uL (4.8-10.8) Red Blood Count 3.34 M/uL (4.7-6.1) Hemoglobin 9.2 g/dL (14.0-18.0) Hematocrit 28.3 % (42-52) Mean Corpuscular Volume 84.7 fL (80-100) Mean Corpuscular Hemoglobin 27.5 pg (25-34) Mean Corpuscular Hemoglobin Concent 32.5 g/dl (32-36) Platelet Count 74 K/uL (130-400) Mean Platelet Volume 9.8 fL (7.4-10.4) RDW Standard Deviation 56.0 fL (36.4-46.3) RDW Coefficient of Variation 17.9 % (11.5-14.5) Neutrophils % (Manual) 80.9 % Lymphocytes % (Manual) 11.3 % Monocytes % (Manual) 5.2 % Eosinophils % (Manual) 0.9 % Myelocytes % 1.7 % Neutrophils # (Manual) 6.29 K/uL (1.4-6.5) Total Absolute Neutrophils 6.29 K/uL (1.4-6.5) Lymphocytes # (Manual) 0.88 K/uL (1.2-3.4) Total Absolute Lymphocytes 0.88 K/uL (1.2-3.4) Monocytes # (Manual) 0.40 K/uL (0.11-0.59) Eosinophils # (Manual) 0.07 K/uL (0-0.5) Myelocytes # 0.13 K/uL (0-0) Blood Smear Review Poikilocytosis PRESENT Erythrocyte Sedimentation Rate 38 mm/hr (0-14) Prothrombin Time 11.4 SECONDS (9.0-12.0) Prothromb Time International Ratio 1.1 (0.9-1.1) Activated Partial Thromboplast Time 27.3 SECONDS (21.0-31.0) Partial Thromboplastin Ratio 1.1 Est Creatinine Clear Calc Drug Dose 86.6 ml/min Magnesium Level 1.5 mg/dl (1.8-2.4) Total Bilirubin 0.5 mg/dl (0.2-1) Aspartate Amino Transf (AST/SGOT) 17 U/L (15-37) Alanine Aminotransferase (ALT/SGPT) 23 U/L (12-78) Alkaline Phosphatase 68 U/L (45-117) Total Creatine Kinase 9 U/L (39-308) C-Reactive Protein 9.69 mg/dl (0-0.29) Total Protein 5.8 gm/dl (6.4-8.2) Albumin 2.4 gm/dl (3.4-5.0) Globulin 3.4 gm/dl (2.5-4.0) Albumin/Globulin Ratio 0.7 (0.9-2) Lipase 172 U/L (73-393) Procalcitonin 0.31 ng/ml (0-0.5) Urine Color YELLOW Urine Appearance CLEAR (CLEAR) Urine pH 5.0 (4.5-7.5) Urine Specific [place] 1.021 (1.000-1.030) Urine Protein TRACE (NEG) Urine Glucose (UA) NEG (NEG) Urine Ketones NEG (NEG) Urine Occult Blood NEG (NEG) Urine Nitrite NEG (NEG) Urine Bilirubin NEG (NEG) Urine Urobilinogen NEG (NEG) Urine Leukocyte Esterase NEG (NEG) Urine WBC (Auto) 1-5 /hpf (0-5) Urine RBC (Auto) 0-4 /hpf (0-4) Urine Hyaline Casts (Auto) 1-5 /lpf (0-5) Urine Epithelial Cells (Auto) 0-5 /lpf (0-5) Urine Bacteria (Auto) NEG (NEG) Laboratory results per my review. Medications Administered Medications (Trade) Dose Ordered Sig/Flory Route Start Time Stop Time Status Last Admin Dose Admin Sodium Chloride 1,000 ml @ 999 mls/hr Q1H1M ONCE IV 10/14/17 10:35 10/14/17 11:35 DC 10/14/17 11:40 999 MLS/HR Sodium Chloride 1,000 ml @ 999 mls/hr Q1H1M STAT IV 10/14/17 12:58 10/14/17 13:58 DC 10/14/17 13:30 999 MLS/HR Ampicillin Sodium/ Sulbactam Sodium 3000 mg/Sodium Chloride 108 ml @ 200 mls/hr NOW ONCE IV 10/14/17 14:30 10/14/17 15:02 DC 10/14/17 15:22 200 MLS/HR Levofloxacin (Levaquin / D5W) 750 mg NOW ONCE IV 10/14/17 14:30 10/14/17 14:32 DC 10/14/17 15:50 750 MG Daptomycin 450 mg/ Syringe 9 ml @ 4.5 mls/min NOW STAT IV 10/14/17 14:32 10/14/17 14:33 DC 10/14/17 15:22 4.5 MLS/MIN ED Course 1030: The patient was evaluated in room B5. A complete history and physical examination were performed. 1035: Ordered NSS 1000 ml @ 999 mls/hr IV. 1303: Upon reevaluation, the patient is resting comfortably. I discussed results and treatment plan with him. He verbalizes agreement and understanding. The patient will be evaluated for further management and care. 1320: I discussed the patient with Matilde Jordan. The patient will be evaluated for further treatment. 1345: I discussed the patient with Dr. Mahsa Jordan vest busheler - he will come down to see the patient. Medical Decision Differential diagnosis: Etiologies such as viral syndrome, otitis, pharyngitis, pneumonia, influenza, meningitis, urinary tract infection, sepsis, bacteremia, as well as others were entertained. Nursing notes reviewed. Additional history is obtained from the patient's significant other. The patient's previous electronic medical records reviewed. The patient is a 72-year-old male who presented to the emergency department for an evaluation of fever. The patient has a history of hematologic cancer and is had chemotherapy recent. He was recently admitted to our facility for a fever and his diagnosis on discharge was sinusitis. The patient presents today with fever and generalized weakness. I discussed the patient's laboratory and radiographic studies with him. The patient was treated with IV fluids. I discussed his case with the on-call Nik[facility] hospitalist. I will defer antibiotic treatment to their decision-making as the patient was recently here and was on antibiotics in the hospital. The patient was feeling much better on subsequent reevaluation. Medication Reconcilliation Current Medication List: was personally reviewed by me Blood Pressure Screening Patient's blood pressure: Normal blood pressure Consults Time Called: 1315 Consulting Physician: Matilde Jordan Returned Call: 1320 I discussed the patient with Matilde Jordan. The patient will be evaluated for further treatment. Additional Consults: Time Called: 1320 Consulted Physician: Dr. Mahsa Jordan vest busheler Returned Call: 1345 Additional Comments: I discussed the patient with Dr. Mahsa Jordan vest busheler - he will come down to see the patient. Impression Primary Impression: Fever Additional Impression: Pneumonia Scribe Attestation The scribe's documentation has been prepared under my direction and personally reviewed by me in its entirety. I confirm that the note above accurately reflects all work, treatment, procedures, and medical decision making performed by me. Departure Information Dispostion Being Evaluated By Hospitalist Referrals Mikael Cain M.D. (PCP) Patient Instructions My [facility] Problem Qualifiers Primary Impression: Fever Fever type: unspecified Qualified Codes: R50.9 - Fever, unspecified Additional Impression: Pneumonia Pneumonia type: due to unspecified organism Laterality: unspecified laterality Lung location: unspecified part of lung Qualified Codes: J18.9 - Pneumonia, unspecified organism
[2017-10-14 11:10] LABS: HEMATOCRIT 28.3 % (42-52); HEMOGLOBIN 9.2 g/dL (14.0-18.0); MEAN CELL VOLUME 84.7 fL (80-100); MEAN CORPUSCULAR HEMOGLOBIN 27.5 pg (25-34); MEAN CORPUSCULAR HGB CONC 32.5 g/dl (32-36); RED CELL DISTRIBUTION WIDTH CV 17.9 % (11.5-14.5); WHITE BLOOD COUNT 7.78 K/uL (4.8-10.8)
[2017-10-14 11:18] LABS: INR 1.1 (0.9-1.1); PTT PATIENT 27.3 SECONDS (21.0-31.0)
--- NOTE | 2017-10-14 11:21 | DIAGNOSTIC IMAGING REPORT ---
CHEST ONE VIEW PORTABLE CLINICAL HISTORY: Sepsis dyspnea COMPARISON STUDY: 10/05/2017 FINDINGS: Subtle increase in interstitial markings in the mid to lower lung regions on the left as well as right. No well-defined or consolidative infiltrative change. Central catheter remains in superior vena cava. Upper lungs are clear. IMPRESSION: Mild interval accentuation of the basilar markings on the left and to a lesser extent right. Possibly of a developing basilar pneumonitis is considered The above report was generated using voice recognition software. It may contain grammatical, syntax or spelling errors. Electronically signed by: José Romero M.D. 10/14/2017 11:20 AM Dictated Date/Time: 10/14/2017 11:19 AM
[2017-10-14 11:24] LABS: MEAN PLATELET VOLUME 9.8 fL (7.4-10.4); PLATELET COUNT 74 K/uL (130-400)
[2017-10-14 11:27] LABS: ALBUMIN 2.4 gm/dl (3.4-5.0); CALCIUM 8.1 mg/dl (8.5-10.1); CREATININE 0.76 mg/dl (0.60-1.40); POTASSIUM 3.6 mmol/L (3.5-5.1)
[2017-10-14 11:31] LABS: TOTAL PROTEIN 5.8 gm/dl (6.4-8.2)
[2017-10-14] MEDS ORDERED: SODIUM CHLORIDE 0.9% 1000ML 1,000 ML IV STA (12:58)
[2017-10-14 13:30] VITALS: O2SAT 88; BMI 24.7
[2017-10-14] MEDS ORDERED: LEVAQUIN 750MG / 150ML D5W IV ONE (14:30)
[2017-10-14] MEDS ORDERED: DAPTOmycin IV 450 MG in SODIUM CHLORIDE 0.9% 50ML 50 ML IV ONE (14:30)
[2017-10-14] MEDS ORDERED: AMPICILLIN/SULBACTAM SOD INJ 3,000 MG in SODIUM CHLORIDE 0.9% 100ML 100 ML IV ONE (14:30)
[2017-10-14] MEDS ORDERED: DAPTOmycin IV 450 MG in SYRINGE 0 ML IV STA (14:32)
--- NOTE | 2017-10-14 14:42 | History and Physical ---
History & Physical Date & Time of Service: Oct 14, 2017 at 14:42 . Chief Complaint: fever . Primary Care Physician: Mikael Cain M.D. . History of Present Illness Source: patient, family, clinic records, hospital records 72 YO male followed by Dr. Cain for Family Medicine and Dr. John Mistry for Hematology / Oncology. History of mantle cell lymphoma and other problems noted below. Admitted to [facility] 10/05/17 with fever / sepsis. CT demonstrated right maxillary sinusitis. ID and ENT consulted. Nonsurgical management recommended in light of thrombocytopenia. Received IV cefepime and ampicillin / sulbactam with improvement of sinus pressure / drainage. Transition to oral therapy with levofloxacin and amoxicillin / clavulanic acid recommended. Yesterday he felt well. No fever x 2 days. Sinus symptoms improved. Minimal cough. Ambulating. Discharged to home with prescriptions for levofloxacin and amoxicillin / clavulanic acid transmitted to his pharmacy. Did not potato picker his prescriptions yesterday. [place] well yesterday and last evening. This morning he had a fever as high as 102 associated with some chills, but no sweats. No headache. No increased sinus pressure / drainage. Occasional cough, minimally productive. No abdominal pain. Had 1 large loose stool without hematochezia. No urinary symptoms. Has some low back pain which is chronic and unchanged. . Past Medical/Surgical History Chronic and Resolved Medical Problems: (1) GERD (gastroesophageal reflux disease) Status: Chronic (2) Mantle cell lymphoma Status: Chronic Surgical Problems: (1) Status post appendectomy Status: Chronic (2) Status post lymph node biopsy Status: Chronic (3) Status post placement vascular access device Permanent Comment: 2015 [facility] [place]: Chronic . Family History FH: CAD (coronary artery disease) FATHER MOTHER FH: lung cancer SISTER Social History Smoking Status: Never Smoker Alcohol Use: none Drug Use: none Marital Status: Occupational Status: retired Immunizations History of Influenza Vaccine: Yes History of Tetanus Vaccine?: Yes Tetanus Immunization Date: Oct 05, 2011 History of Pneumococcal: Yes Pneumococcal Date: Aug 08, 2015 Allergies Coded Allergies: Tetracycline (Verified Allergy, Unknown, water blisters, 10/14/17) Home Medications Scheduled Amoxicillin & Pot Clavulanate (Augmentin 875-125 mg), 875 MG PO BID Bendamustine HCl (Bendeka), 0 IV UD Cytarabine (Cytarabine), 0 IV UD Dexamethasone (Decadron), 0 PO UD Levofloxacin (Levaquin), 500 MG PO DAILY Omeprazole (Prilosec), 20 MG PO DAILY Prednisone (Prednisone), 0 PO UD Ranitidine HCl (Ranitidine HCl), 150 MG PO UD Rituximab (Rituxan), 1 DOSE IV UD Scheduled PRN Cetirizine (Zyrtec), 10 MG PO UD PRN for PRIOR TO CHEMO Nystatin (Nystatin), 5 ML PO QID PRN for thrush Ondansetron (Ondansetron HCl), 8 MG PO Q8 PRN for Nausea or Vomiting Promethazine Hcl (Phenergan), 25 MG PO Q4 PRN for Nausea Tramadol HCl (Tramadol HCl), 50 MG PO Q6 PRN for Pain Review of Systems As noted above in HPI. . Physical Exam Vital Signs Date Time Temp Pulse Resp B/P (MAP) Pulse Ox O2 Delivery O2 Flow Rate FiO2 10/14/17 14:00 109 18 144/48 10/14/17 13:30 88 Room Air 10/14/17 12:02 114 10/14/17 11:44 115 16 99/53 88 Room Air 10/14/17 11:40 88 Room Air 10/14/17 10:11 37.0 128 20 123/71 94 General Appearance: WD/WN, + mild distress Eyes: PERRL, EOMI, sclerae normal, + pertinent finding (conjunctivae clear) ENT: hearing grossly normal, pharynx normal, + pertinent finding (minimal thrush on tongue) Neck: supple, no adenopathy, thyroid normal, trachea midline Respiratory/Chest: no respiratory distress, + pertinent finding (few scattred rhonchi, few rales left base, mild wheezing) Cardiovascular: regular rate, rhythm, no edema, no JVD, normal peripheral pulses, + tachycardia Abdomen/GI: normal bowel sounds, non tender, soft, no organomegaly, no pulsatile mass Back: no CVA tenderness Extremities/Musculoskelatal: no calf tenderness, normal capillary refill Neurologic/Psych: 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 as tested (PERRL, EOMI), no motor/sensory deficits (motor strength extremities grossly intact), alert, oriented x 3 Skin: normal color, warm/dry, no rash Lymphatic: no adenopathy (cervical) Diagnostics Laboratory Results Results Past 24 Hours Test 10/14/17 10:55 10/14/17 13:05 Range/Units White Blood Count 7.78 4.8-10.8 K/uL Red Blood Count 3.34 4.7-6.1 M/uL Hemoglobin 9.2 14.0-18.0 g/dL Hematocrit 28.3 42-52 % Mean Corpuscular Volume 84.7 80-100 fL Mean Corpuscular Hemoglobin 27.5 25-34 pg Mean Corpuscular Hemoglobin Concent 32.5 32-36 g/dl Platelet Count 74 130-400 K/uL Mean Platelet Volume 9.8 7.4-10.4 fL RDW Standard Deviation 56.0 36.4-46.3 fL RDW Coefficient of Variation 17.9 11.5-14.5 % Neutrophils % (Manual) 80.9 % Lymphocytes % (Manual) 11.3 % Monocytes % (Manual) 5.2 % Eosinophils % (Manual) 0.9 % Myelocytes % 1.7 % Neutrophils # (Manual) 6.29 1.4-6.5 K/uL Total Absolute Neutrophils 6.29 1.4-6.5 K/uL Lymphocytes # (Manual) 0.88 1.2-3.4 K/uL Total Absolute Lymphocytes 0.88 1.2-3.4 K/uL Monocytes # (Manual) 0.40 0.11-0.59 K/uL Eosinophils # (Manual) 0.07 0-0.5 K/uL Myelocytes # 0.13 0-0 K/uL Blood Smear Review Poikilocytosis PRESENT Erythrocyte Sedimentation Rate 38 0-14 mm/hr Prothrombin Time 11.4 9.0-12.0 SECONDS Prothromb Time International Ratio 1.1 0.9-1.1 Activated Partial Thromboplast Time 27.3 21.0-31.0 SECONDS Partial Thromboplastin Ratio 1.1 Sodium Level 137 136-145 mmol/L Potassium Level 3.6 3.5-5.1 mmol/L Chloride Level 104 98-107 mmol/L Carbon Dioxide Level 22 21-32 mmol/L Anion Gap 11.0 3-11 mmol/L Blood Urea Nitrogen 10 7-18 mg/dl Creatinine 0.76 0.60-1.40 mg/dl Est Creatinine Clear Calc Drug Dose 86.6 ml/min Estimated GFR () 104.9 Estimated GFR (Non- 90.5 BUN/Creatinine Ratio 12.7 10-20 Random Glucose 87 70-99 mg/dl Calcium Level 8.1 8.5-10.1 mg/dl Magnesium Level 1.5 1.8-2.4 mg/dl Total Bilirubin 0.5 0.2-1 mg/dl Aspartate Amino Transf (AST/SGOT) 17 15-37 U/L Alanine Aminotransferase (ALT/SGPT) 23 12-78 U/L Alkaline Phosphatase 68 45-117 U/L Total Creatine Kinase 9 39-308 U/L C-Reactive Protein 9.69 0-0.29 mg/dl Total Protein 5.8 6.4-8.2 gm/dl Albumin 2.4 3.4-5.0 gm/dl Globulin 3.4 2.5-4.0 gm/dl Albumin/Globulin Ratio 0.7 0.9-2 Lipase 172 73-393 U/L Procalcitonin 0.31 0-0.5 ng/ml Urine Color YELLOW Urine Appearance CLEAR CLEAR Urine pH 5.0 4.5-7.5 Urine Specific [place] 1.021 1.000-1.030 Urine Protein TRACE NEG Urine Glucose (UA) NEG NEG Urine Ketones NEG NEG Urine Occult Blood NEG NEG Urine Nitrite NEG NEG Urine Bilirubin NEG NEG Urine Urobilinogen NEG NEG Urine Leukocyte Esterase NEG NEG Urine WBC (Auto) 1-5 0-5 /hpf Urine RBC (Auto) 0-4 0-4 /hpf Urine Hyaline Casts (Auto) 1-5 0-5 /lpf Urine Epithelial Cells (Auto) 0-5 0-5 /lpf Urine Bacteria (Auto) NEG NEG Microbiology Results 10/14/17 Blood Culture, Ordered Pending 10/14/17 Blood Culture, Received Pending 10/14/17 Blood Culture, Received Pending Diagnostic Radiology CHEST ONE VIEW PORTABLE FINDINGS: Subtle increase in interstitial markings in the mid to lower lung regions on the left as well as right. No well-defined or consolidative infiltrative change. Central catheter remains in superior vena cava. Upper lungs are clear. IMPRESSION: Mild interval accentuation of the basilar markings on the left and to a lesser extent right. Possibly of a developing basilar pneumonitis is considered The above report was generated using voice recognition software. It may contain grammatical, syntax or spelling errors. Electronically signed by: José Romero M.D. 10/14/2017 11:20 AM . Impression Assessment and Plan FEVER Recently diagnosed right maxillary sinusitis, improving with antibiotic therapy. Now with recurrent fever. POC 5.32 in ED. Systolic BP's > 90. 2 peripheral blood cultures obtained; additional blood culture via vascular access device ordered. Received fluid resuscitation in ED. Fever, tachycardia, elevated lactate suggest possible sepsis, although procalcitonin of 0.31 argues against it. Source of infection uncertain. Consider persistent sinus infection, pneumonia, C diff, line sepsis, other source. Broad-spectrum antibiotic therapy with daptomycin, ampicillin / sulbactam, levofloxacin ordered. Check repeat lactate. Consider f/u CT sinuses. Consult ID. MANTLE CELL LYMPHOMA Discuss current status with Hematology / Oncology. GERD Continue PPI. VTE PROPHYLAXIS No anticoagulants due to thrombocytopenia. SCD's. Ambulate. DISPOSITION Expected discharge to home. Family Medicine follow-up with Dr. Cain. Hematology / Oncology follow-up with Dr. John Mistry. . Advanced Directives Existing Living Will: Yes Existing Power of Race Board Attendant: Yes VTE Prophylaxis VTE Risk Assessment Done? Y/N: Yes Risk Level: Moderate Given or contraindicated: SCD's
[2017-10-14] MEDS ORDERED: ACETAMINOPHEN 325 MG TAB PO PRN (14:45)
[2017-10-14] MEDS ORDERED: ACETAMINOPHEN 500 MG TAB PO ONE (15:15)
[2017-10-14] MEDS ORDERED: ACETAMINOPHEN 500 MG TAB PO PRN (15:15)
[2017-10-14 16:00] VITALS: BP 127/78; PULSE 111; TEMP 36.8; O2SAT 90
[2017-10-14] MEDS ORDERED: LEVALBUTEROL 0.63MG/3 ML NEB INH PRN (16:30)
[2017-10-14] MEDS ORDERED: SODIUM CHLORIDE 0.9% 500ML 500 ML IV SCH (16:53)
[2017-10-14] MEDS ORDERED: METHYLPREDNISOLONE IV 40 MG in SYRINGE 0 ML IV ONE (17:15)
[2017-10-14] MEDS: NYSTATIN SUSP 500,000 U/5 ML UDC PO SCH ×2 (17:23→21:12)
[2017-10-14 18:42] LABS: CALCIUM 7.6 mg/dl (8.5-10.1); CREATININE 0.69 mg/dl (0.60-1.40); POTASSIUM 3.2 mmol/L (3.5-5.1)
[2017-10-14 19:18] VITALS: BP 102/60; PULSE 105; TEMP 36.9; O2SAT 98
[2017-10-14] MEDS ORDERED: POTASSIUM CHLORIDE 20 MEQ TABCR PO ONE (20:30)
[2017-10-14] MEDS ORDERED: MAGNESIUM SULFATE 1GM / D5W 1 GM in PREMIXED IN D5W 100 ML IV ONE (20:30)
[2017-10-14] MEDS: SODIUM CHLORIDE 0.65% NA SOLN 45 ML (OCEAN) SCH (21:00)
[2017-10-14 21:55] LABS: INFLUENZA B ANTIGEN Neg for Influ B (NEG)
[2017-10-14] MEDS: AMPICILLIN/SULBACTAM SOD INJ 3,000 MG in SODIUM CHLORIDE 0.9% 100ML 100 ML IV SCH (22:18)
[2017-10-14 23:20] VITALS: BP 162/71; PULSE 115; TEMP 39.2; O2SAT 92
[2017-10-15] VITALS (11 sets, daily range): BP systolic 82–145; BP diastolic 53–82; PULSE 91–118; TEMP 36.5–37.2; O2SAT 85–96; Ht 175.3 cm; Wt 71.1 kg
[2017-10-15] MEDS: AMPICILLIN/SULBACTAM SOD INJ 3,000 MG in SODIUM CHLORIDE 0.9% 100ML 100 ML IV SCH ×3 (03:35→16:00)
[2017-10-15 04:04] LABS: HEMATOCRIT 29.2 % (42-52); HEMOGLOBIN 9.3 g/dL (14.0-18.0); MEAN CELL VOLUME 84.6 fL (80-100); MEAN CORPUSCULAR HGB CONC 31.8 g/dl (32-36); RED CELL DISTRIBUTION WIDTH SD 56.1 fL (36.4-46.3); WHITE BLOOD COUNT 7.91 K/uL (4.8-10.8)
[2017-10-15 04:21] LABS: MEAN PLATELET VOLUME 9.2 fL (7.4-10.4); PLATELET COUNT 68 K/uL (130-400)
[2017-10-15 04:26] LABS: BASO % 0.3 %; BASO ABS # 0.02 K/uL (0-0.2); EOS ABS # 0.08 K/uL (0-0.5); IG# 0.16 K/uL (0.00-0.02); LYMPH % 11.6 %; LYMPH ABS # 0.92 K/uL (1.2-3.4); MONO % 6.7 %; MONO ABS # 0.53 K/uL (0.11-0.59); NEUT % 78.4 %
[2017-10-15 04:31] LABS: CALCIUM 8.1 mg/dl (8.5-10.1); CREATININE 0.55 mg/dl (0.60-1.40); POTASSIUM 3.9 mmol/L (3.5-5.1)
[2017-10-15] MEDS: MAGNESIUM SULFATE 1GM / D5W 1 GM in PREMIXED IN D5W 100 ML IV SCH ×2 (05:50→07:10)
[2017-10-15] MEDS: SODIUM CHLORIDE 0.65% NA SOLN 45 ML (OCEAN) SCH ×4 (07:10→21:32)
[2017-10-15] MEDS: PANTOprazole SOD 40 MG TAB PO SCH (07:10)
[2017-10-15] MEDS: NYSTATIN SUSP 500,000 U/5 ML UDC PO SCH ×4 (07:11→21:31)
[2017-10-15] MEDS ORDERED: TRAMADOL HCL 50 MG TAB PO PRN (07:45)
--- NOTE | 2017-10-15 07:56 | DIAGNOSTIC IMAGING REPORT ---
CHEST ONE VIEW PORTABLE HISTORY: fever COMPARISON: Chest 10/14/2017. FINDINGS: The heart is normal in size. Right jugular Port-A-Cath terminates in the distal SVC. No pneumothorax. No pleural effusions. Stable bilateral hilar prominence. Developing mild perihilar interstitial thickening. No new focal lung consolidations. IMPRESSION: 1. Mild perihilar interstitial thickening. This could be due to mild congestive change. 2. Bilateral hilar prominence persists. Electronically signed by: Fran Rubio M.D. 10/15/2017 7:55 AM Dictated Date/Time: 10/15/2017 7:53 AM
[2017-10-15] MEDS ORDERED: TRAMADOL HCL 50 MG TAB ONE (08:12)
[2017-10-15] MEDS ORDERED: METHYLPREDNISOLONE IV 20 MG in SYRINGE 0 ML IV SCH (09:00)
--- NOTE | 2017-10-15 09:31 | Progress Note ---
Medicine Progress Note Date & Time of Visit: Oct 15, 2017 at 09:00 . Subjective CC: Follow-up visit for fever and other problems. HPI: Spiked temp last night. Feels a bit better today, but fatigued. No sinus pain / pressure. No pharyngitis. No significant cough. Anorexic; no nausea or vomiting. No further loose stools. No dysuria. Chronic back pain, unchanged. ROS: as noted above in HPI . Objective Last 8 Hrs Date Time Temp Pulse Resp B/P (MAP) Pulse Ox O2 Delivery O2 Flow Rate FiO2 10/15/17 08:00 92 Nasal Cannula 10/15/17 07:53 37.0 103 18 138/62 (87) 91 Nasal Cannula 3.0 10/15/17 04:00 Nasal Cannula 3.0 10/15/17 03:45 36.5 101 20 124/67 (86) 96 Nasal Cannula 3.0 Physical Exam: General- no acute distress Eyes- anicteric ENT- minimal oral thrush Neck- supple Lungs- few rales left base, otherwise clear Cardiovascular- RRR, I/ systolic murmur at base, no gallop; no JVD; no pretibial edema Abdomen- + BS, soft, nontender Extremities- no cyanosis; no calf tenderness Neuro- alert Skin- warm and dry; no rash . Laboratory Results: Last 24 Hours Test 10/14/17 10:55 10/14/17 13:05 10/14/17 18:05 10/14/17 20:20 White Blood Count 7.78 K/uL Red Blood Count 3.34 M/uL Hemoglobin 9.2 g/dL Hematocrit 28.3 % Mean Corpuscular Volume 84.7 fL Mean Corpuscular Hemoglobin 27.5 pg Mean Corpuscular Hemoglobin Concent 32.5 g/dl Platelet Count 74 K/uL Mean Platelet Volume 9.8 fL RDW Standard Deviation 56.0 fL RDW Coefficient of Variation 17.9 % Neutrophils % (Manual) 80.9 % Lymphocytes % (Manual) 11.3 % Monocytes % (Manual) 5.2 % Eosinophils % (Manual) 0.9 % Myelocytes % 1.7 % Neutrophils # (Manual) 6.29 K/uL Total Absolute Neutrophils 6.29 K/uL Lymphocytes # (Manual) 0.88 K/uL Total Absolute Lymphocytes 0.88 K/uL Monocytes # (Manual) 0.40 K/uL Eosinophils # (Manual) 0.07 K/uL Myelocytes # 0.13 K/uL Blood Smear Review Poikilocytosis PRESENT Erythrocyte Sedimentation Rate 38 mm/hr Prothrombin Time 11.4 SECONDS Prothromb Time International Ratio 1.1 Activated Partial Thromboplast Time 27.3 SECONDS Partial Thromboplastin Ratio 1.1 Sodium Level 137 mmol/L 138 mmol/L Potassium Level 3.6 mmol/L 3.2 mmol/L Chloride Level 104 mmol/L 107 mmol/L Carbon Dioxide Level 22 mmol/L 22 mmol/L Anion Gap 11.0 mmol/L 9.0 mmol/L Blood Urea Nitrogen 10 mg/dl 8 mg/dl Creatinine 0.76 mg/dl 0.69 mg/dl Est Creatinine Clear Calc Drug Dose 86.6 ml/min 95.4 ml/min Estimated GFR () 104.9 109.2 Estimated GFR (Non- 90.5 94.2 BUN/Creatinine Ratio 12.7 12.1 Random Glucose 87 mg/dl 86 mg/dl Calcium Level 8.1 mg/dl 7.6 mg/dl Magnesium Level 1.5 mg/dl Total Bilirubin 0.5 mg/dl Aspartate Amino Transf (AST/SGOT) 17 U/L Alanine Aminotransferase (ALT/SGPT) 23 U/L Alkaline Phosphatase 68 U/L Total Creatine Kinase 9 U/L C-Reactive Protein 9.69 mg/dl Total Protein 5.8 gm/dl Albumin 2.4 gm/dl Globulin 3.4 gm/dl Albumin/Globulin Ratio 0.7 Lipase 172 U/L Procalcitonin 0.31 ng/ml Urine Color YELLOW Urine Appearance CLEAR Urine pH 5.0 Urine Specific [place] 1.021 Urine Protein TRACE Urine Glucose (UA) NEG Urine Ketones NEG Urine Occult Blood NEG Urine Nitrite NEG Urine Bilirubin NEG Urine Urobilinogen NEG Urine Leukocyte Esterase NEG Urine WBC (Auto) 1-5 /hpf Urine RBC (Auto) 0-4 /hpf Urine Hyaline Casts (Auto) 1-5 /lpf Urine Epithelial Cells (Auto) 0-5 /lpf Urine Bacteria (Auto) NEG Lactic Acid Level 4.5 mmol/L Influenza Type A Antigen Neg for Influ A Influenza Type B Antigen Neg for Influ B Test 10/15/17 03:52 White Blood Count 7.91 K/uL Red Blood Count 3.45 M/uL Hemoglobin 9.3 g/dL Hematocrit 29.2 % Mean Corpuscular Volume 84.6 fL Mean Corpuscular Hemoglobin 27.0 pg Mean Corpuscular Hemoglobin Concent 31.8 g/dl Platelet Count 68 K/uL Mean Platelet Volume 9.2 fL Neutrophils (%) (Auto) 78.4 % Lymphocytes (%) (Auto) 11.6 % Monocytes (%) (Auto) 6.7 % Eosinophils (%) (Auto) 1.0 % Basophils (%) (Auto) 0.3 % Neutrophils # (Auto) 6.20 K/uL Lymphocytes # (Auto) 0.92 K/uL Monocytes # (Auto) 0.53 K/uL Eosinophils # (Auto) 0.08 K/uL Basophils # (Auto) 0.02 K/uL RDW Standard Deviation 56.1 fL RDW Coefficient of Variation 18.0 % Immature Granulocyte % (Auto) 2.0 % Immature Granulocyte # (Auto) 0.16 K/uL Tear Drop Cells 1+ Ovalocytes 1+ Sodium Level 135 mmol/L Potassium Level 3.9 mmol/L Chloride Level 103 mmol/L Carbon Dioxide Level 25 mmol/L Anion Gap 7.0 mmol/L Blood Urea Nitrogen 7 mg/dl Creatinine 0.55 mg/dl Est Creatinine Clear Calc Drug Dose 119.7 ml/min Estimated GFR () 119.8 Estimated GFR (Non- 103.4 BUN/Creatinine Ratio 12.7 Random Glucose 78 mg/dl Lactic Acid Level 2.0 mmol/L Calcium Level 8.1 mg/dl Magnesium Level 1.6 mg/dl Procalcitonin 0.34 ng/ml Date/Time Source Procedure Growth Status 10/14/17 14:50 Blood Blood Culture Pending Received 10/14/17 11:00 Blood Blood Culture Pending Received 10/14/17 10:55 Blood Blood Culture Pending Received 10/14/17 20:20 Nasal MRSA DNA Surveillance Screen - Final Specimen Negative for MRSA by DNA Probe Complete 10/14/17 18:36 Stool Shiga Toxin Test Pending Received 10/14/17 18:36 Stool Stool Culture Pending Received 10/14/17 18:36 Stool WBC Smear - Final Complete 10/14/17 18:36 Stool C.difficile Toxin B Gene (PCR) - Final No C. difficile toxin B gene detected Complete Assessment & Plan FEVER Recently diagnosed right maxillary sinusitis, improved with antibiotic therapy. Presented to ED with recurrent fever. POC lactate 5.32 in ED. Systolic BP's > 90. Blood cultures obtained peripherally and via venous access device. Received fluid resuscitation in ED. Fever, tachycardia, elevated lactate suggest possible sepsis, although procalcitonin of 0.31 argues against it. Source of infection uncertain. Consider persistent sinus infection, pneumonia, C diff, line sepsis, other source. Broad-spectrum antibiotic therapy with daptomycin, ampicillin / sulbactam, levofloxacin initiated. Repeat lactate improved. Check f/u CT of sinuses. Consider MRI or CT of lumbar spine / retroperitoneum. ID consulted. Continue broad spectrum antibiotics pending culture results, then de-escalate. MANTLE CELL LYMPHOMA Discussed current status with Hematology / Oncology. GERD Continue PPI. VTE PROPHYLAXIS No anticoagulants due to thrombocytopenia. SCD's. Ambulate. DISPOSITION Expected discharge to home. Family Medicine follow-up with Dr. Cain. Hematology / Oncology follow-up with Dr. John Mistry. given update by phone. ADDENDUM: Patient refused antibiotics this evening. He felt that they weren't helping and that he felt worse after receiving them. Concerns about persistent infection discussed. Condition has improved since admission. No temp since last night. Tachycardia improved. Cultures negative so far. CT sinuses shows some improvement. Patient agreed to receive 1 or 2 more doses of daptomycin pending culture results. Transition from IV ampicillin /sulbactam to oral amoxicillin / clavulanic acid. Transition from IV levofloxacin to oral. . Current Inpatient Medications: Current Inpatient Medications Medications (Trade) Dose Ordered Sig/[place]ory Route Start Time Stop Time Status Last Admin Dose Admin Acetaminophen (Tylenol Tab) 650 mg Q4H PRN PO 10/14/17 14:45 11/13/17 14:44 Nystatin (Mycostatin Susp) 5 ml QID PO 10/14/17 17:00 10/24/17 16:59 10/15/17 07:11 5 ML Acetaminophen (Tylenol Tab) 1,000 mg Q8H PRN PO 10/14/17 15:15 11/13/17 15:14 10/14/17 23:24 1,000 MG Levalbuterol (Xopenex 0.63 Mg/ 3 Ml Neb) 0.63 mg Q4H PRN INH 10/14/17 16:30 11/13/17 16:29 Sodium Chloride ([place] Nasal [place]) 4 sprays QID NA 10/14/17 21:00 11/13/17 20:59 10/15/17 07:10 4 SPRAYS Pantoprazole Sodium (Protonix Tab) 40 mg QAM PO 10/15/17 09:00 11/14/17 08:59 10/15/17 07:10 40 MG Ampicillin Sodium/ Sulbactam Sodium 3000 mg/Sodium Chloride 108 ml @ 200 mls/hr Q6@0400,1000,1600,2200 IV 10/14/17 22:00 10/24/17 21:59 10/15/17 03:35 200 MLS/HR Levofloxacin 750 mg/Prmx 150 ml @ 100 mls/hr DAILY@1600 IV 10/15/17 16:00 10/20/17 17:29 Daptomycin 450 mg/ Syringe 9 ml @ 270 mls/hr DAILY@1600 IV 10/15/17 16:00 10/17/17 15:59 Methylprednisolone Sodium Succinate 20 mg/Syringe 0.32 ml @ 1.5 mls/min BID IV 10/15/17 09:00 11/14/17 08:59 10/15/17 08:18 1.5 MLS/MIN Tramadol HCl (Ultram Tab) 50 mg Q6H PRN PO 10/15/17 07:45 11/14/17 07:44
--- NOTE | 2017-10-15 10:29 | Medical Consult ---
Consultation Date of Consultation: Oct 15, 2017. Attending Physician: Bhanu Bragg M.D. Reason for Consultation: Fever History of Present Illness 72-year-old male well known to me from recent hospitalizations, with history of mantle cell lymphoma, with recent diagnosis of relapse, awaiting chemotherapy, who was recently hospitalized for acute maxillary sinusitis which was treated with IV antibiotics with improvement, and patient was discharged home on combination of Augmentin and levofloxacin. However patient failed to flower buncher or picker his prescriptions. He presented last night with recurrent fever of 103 degrees. He states that his sinus symptoms have remained improved, no obvious worsening, has slight cough, with only major complaint currently is low back pain which has been chronic but severe more recently. He was started empirically on Unasyn, levofloxacin, and daptomycin. Cultures are pending. C difficile PCR negative. MRSA screen negative. Chest x-ray, read by me, shows basilar changes but not really consistent with pneumonia. No obvious ill contacts. Patient has been on dexamethasone chronically, not clear whether he is taking his steroid therapy appropriately. Past Medical/Surgical History Medical Problems: (1) Anemia Status: Acute (2) Bronchitis Status: Acute (3) COPD exacerbation Status: Acute (4) High serum lactate Status: Acute (5) Ischemic bowel disease Status: Acute (6) Lactic acidosis Status: Acute (7) Myalgia Status: Acute (8) Neutropenia Status: Acute (9) Palpitations Status: Acute (10) Shortness of breath Status: Acute (11) Splenic laceration Status: Acute (12) Thrombocytopenia Status: Acute (13) Weakness Status: Acute Medical Problems: (1) GERD (gastroesophageal reflux disease) (2) Mantle cell lymphoma Surgical Problems: (1) Status post appendectomy (2) Status post lymph node biopsy (3) Status post placement vascular access device Family History FH: CAD (coronary artery disease) FATHER MOTHER FH: lung cancer SISTER Social History Smoking Status: Never Smoker Alcohol Use: none Drug Use: none Marital Status: Housing Status: lives with family Occupation Status: retired Allergies Coded Allergies: Tetracycline (Verified Allergy, Unknown, water blisters, 10/14/17) Current Inpatient Medications Current Inpatient Medications Medications (Trade) Dose Ordered Sig/Flory Route Start Time Stop Time Status Last Admin Dose Admin Acetaminophen (Tylenol Tab) 650 mg Q4H PRN PO 10/14/17 14:45 11/13/17 14:44 Nystatin (Mycostatin Susp) 5 ml QID PO 10/14/17 17:00 10/24/17 16:59 10/15/17 07:11 5 ML Acetaminophen (Tylenol Tab) 1,000 mg Q8H PRN PO 10/14/17 15:15 11/13/17 15:14 10/14/17 23:24 1,000 MG Levalbuterol (Xopenex 0.63 Mg/ 3 Ml Neb) 0.63 mg Q4H PRN INH 10/14/17 16:30 11/13/17 16:29 Sodium Chloride ([place] Nasal [place]) 4 sprays QID NA 10/14/17 21:00 11/13/17 20:59 10/15/17 07:10 4 SPRAYS Pantoprazole Sodium (Protonix Tab) 40 mg QAM PO 10/15/17 09:00 11/14/17 08:59 10/15/17 07:10 40 MG Ampicillin Sodium/ Sulbactam Sodium 3000 mg/Sodium Chloride 108 ml @ 200 mls/hr Q6@0400,1000,1600,2200 IV 10/14/17 22:00 10/24/17 21:59 10/15/17 10:12 200 MLS/HR Levofloxacin 750 mg/Prmx 150 ml @ 100 mls/hr DAILY@1600 IV 10/15/17 16:00 10/20/17 17:29 Daptomycin 450 mg/ Syringe 9 ml @ 270 mls/hr DAILY@1600 IV 10/15/17 16:00 10/17/17 15:59 Tramadol HCl (Ultram Tab) 50 mg Q6H PRN PO 10/15/17 07:45 11/14/17 07:44 Dexamethasone Sodium Phosphate 4 mg/Syringe 1 ml @ 1 mls/min BID IV 10/15/17 21:00 11/14/17 20:59 Review of Systems Constitutional: + fever, + chills, + weakness Eyes: No problem reported ENT: No problem reported Respiratory: + cough, No shortness of breath, No hemoptysis Cardiovascular: No problem reported Abdomen: No problem reported Musculoskeletal: + problem reported (Back pain ) Genitourinary - Male: No problem reported Neurologic: No problem reported Psychiatric: No problem reported Endocrine: No problem reported Hematologic / Lymphatic: No problem reported Integumentary: No problem reported Allergic / Immunologic: No problem reported Physical Exam Date Time Temp Pulse Resp B/P (MAP) Pulse Ox O2 Delivery O2 Flow Rate FiO2 10/15/17 08:00 92 Nasal Cannula 10/15/17 07:53 37.0 103 18 138/62 (87) 91 Nasal Cannula 3.0 10/15/17 04:00 Nasal Cannula 3.0 10/15/17 03:45 36.5 101 20 124/67 (86) 96 Nasal Cannula 3.0 10/15/17 00:59 37.2 10/15/17 00:01 Nasal Cannula 3.0 10/14/17 23:20 39.2 115 22 162/71 (101) 92 Nasal Cannula 3.0 10/14/17 20:00 Nasal Cannula 2.0 10/14/17 19:18 36.9 105 19 102/60 (74) 98 Nasal Cannula 2.0 10/14/17 16:00 36.8 111 20 127/78 (94) 90 Room Air 10/14/17 16:00 90 Room Air 10/14/17 16:00 36.8 111 20 127/78 (94) 90 Room Air 10/14/17 15:32 37.5 10/14/17 15:26 111 20 131/60 90 Room Air 10/14/17 14:00 109 18 144/48 10/14/17 13:30 88 Room Air 10/14/17 12:02 114 10/14/17 11:44 115 16 99/53 88 Room Air 10/14/17 11:40 88 Room Air General Appearance: WD/WN, no apparent distress Head: normocephalic, atraumatic Eyes: normal inspection, EOMI, sclerae normal ENT: normal ENT inspection, pharynx normal Neck: supple, no adenopathy, thyroid normal, trachea midline Respiratory/Chest: chest non-tender, no respiratory distress, no accessory muscle use, + rales Cardiovascular: regular rate, rhythm, no gallop, no murmur Abdomen/GI: normal bowel sounds, non tender, soft, no organomegaly Back: normal inspection, no CVA tenderness Extremities/Musculoskelatal: no calf tenderness, non-tender Neurologic/Psych: alert, normal mood/affect, oriented x 3 Skin: normal color, warm/dry, no rash, + pertinent finding (No obvious infection of [id number]) Lymphatic: no adenopathy Laboratory Results Date/Time Source Procedure Growth Status 10/14/17 14:50 Blood Blood Culture Pending Received 10/14/17 11:00 Blood Blood Culture Pending Received 10/14/17 10:55 Blood Blood Culture Pending Received 10/14/17 20:20 Nasal MRSA DNA Surveillance Screen - Final Specimen Negative for MRSA by DNA Probe Complete 10/14/17 18:36 Stool Shiga Toxin Test Pending Received 10/14/17 18:36 Stool Stool Culture Pending Received 10/14/17 18:36 Stool WBC Smear - Final Complete 10/14/17 18:36 Stool C.difficile Toxin B Gene (PCR) - Final No C. difficile toxin B gene detected Complete Last 24 Hours Test 10/14/17 10:55 10/14/17 13:05 10/14/17 18:05 10/14/17 20:20 White Blood Count 7.78 K/uL Red Blood Count 3.34 M/uL Hemoglobin 9.2 g/dL Hematocrit 28.3 % Mean Corpuscular Volume 84.7 fL Mean Corpuscular Hemoglobin 27.5 pg Mean Corpuscular Hemoglobin Concent 32.5 g/dl Platelet Count 74 K/uL Mean Platelet Volume 9.8 fL RDW Standard Deviation 56.0 fL RDW Coefficient of Variation 17.9 % Neutrophils % (Manual) 80.9 % Lymphocytes % (Manual) 11.3 % Monocytes % (Manual) 5.2 % Eosinophils % (Manual) 0.9 % Myelocytes % 1.7 % Neutrophils # (Manual) 6.29 K/uL Total Absolute Neutrophils 6.29 K/uL Lymphocytes # (Manual) 0.88 K/uL Total Absolute Lymphocytes 0.88 K/uL Monocytes # (Manual) 0.40 K/uL Eosinophils # (Manual) 0.07 K/uL Myelocytes # 0.13 K/uL Blood Smear Review Poikilocytosis PRESENT Erythrocyte Sedimentation Rate 38 mm/hr Prothrombin Time 11.4 SECONDS Prothromb Time International Ratio 1.1 Activated Partial Thromboplast Time 27.3 SECONDS Partial Thromboplastin Ratio 1.1 Sodium Level 137 mmol/L 138 mmol/L Potassium Level 3.6 mmol/L 3.2 mmol/L Chloride Level 104 mmol/L 107 mmol/L Carbon Dioxide Level 22 mmol/L 22 mmol/L Anion Gap 11.0 mmol/L 9.0 mmol/L Blood Urea Nitrogen 10 mg/dl 8 mg/dl Creatinine 0.76 mg/dl 0.69 mg/dl Est Creatinine Clear Calc Drug Dose 86.6 ml/min 95.4 ml/min Estimated GFR () 104.9 109.2 Estimated GFR (Non- 90.5 94.2 BUN/Creatinine Ratio 12.7 12.1 Random Glucose 87 mg/dl 86 mg/dl Calcium Level 8.1 mg/dl 7.6 mg/dl Magnesium Level 1.5 mg/dl Total Bilirubin 0.5 mg/dl Aspartate Amino Transf (AST/SGOT) 17 U/L Alanine Aminotransferase (ALT/SGPT) 23 U/L Alkaline Phosphatase 68 U/L Total Creatine Kinase 9 U/L C-Reactive Protein 9.69 mg/dl Total Protein 5.8 gm/dl Albumin 2.4 gm/dl Globulin 3.4 gm/dl Albumin/Globulin Ratio 0.7 Lipase 172 U/L Procalcitonin 0.31 ng/ml Urine Color YELLOW Urine Appearance CLEAR Urine pH 5.0 Urine Specific [place] 1.021 Urine Protein TRACE Urine Glucose (UA) NEG Urine Ketones NEG Urine Occult Blood NEG Urine Nitrite NEG Urine Bilirubin NEG Urine Urobilinogen NEG Urine Leukocyte Esterase NEG Urine WBC (Auto) 1-5 /hpf Urine RBC (Auto) 0-4 /hpf Urine Hyaline Casts (Auto) 1-5 /lpf Urine Epithelial Cells (Auto) 0-5 /lpf Urine Bacteria (Auto) NEG Lactic Acid Level 4.5 mmol/L Influenza Type A Antigen Neg for Influ A Influenza Type B Antigen Neg for Influ B Test 10/15/17 03:52 White Blood Count 7.91 K/uL Red Blood Count 3.45 M/uL Hemoglobin 9.3 g/dL Hematocrit 29.2 % Mean Corpuscular Volume 84.6 fL Mean Corpuscular Hemoglobin 27.0 pg Mean Corpuscular Hemoglobin Concent 31.8 g/dl Platelet Count 68 K/uL Mean Platelet Volume 9.2 fL Neutrophils (%) (Auto) 78.4 % Lymphocytes (%) (Auto) 11.6 % Monocytes (%) (Auto) 6.7 % Eosinophils (%) (Auto) 1.0 % Basophils (%) (Auto) 0.3 % Neutrophils # (Auto) 6.20 K/uL Lymphocytes # (Auto) 0.92 K/uL Monocytes # (Auto) 0.53 K/uL Eosinophils # (Auto) 0.08 K/uL Basophils # (Auto) 0.02 K/uL RDW Standard Deviation 56.1 fL RDW Coefficient of Variation 18.0 % Immature Granulocyte % (Auto) 2.0 % Immature Granulocyte # (Auto) 0.16 K/uL Tear Drop Cells 1+ Ovalocytes 1+ Sodium Level 135 mmol/L Potassium Level 3.9 mmol/L Chloride Level 103 mmol/L Carbon Dioxide Level 25 mmol/L Anion Gap 7.0 mmol/L Blood Urea Nitrogen 7 mg/dl Creatinine 0.55 mg/dl Est Creatinine Clear Calc Drug Dose 119.7 ml/min Estimated GFR () 119.8 Estimated GFR (Non- 103.4 BUN/Creatinine Ratio 12.7 Random Glucose 78 mg/dl Lactic Acid Level 2.0 mmol/L Calcium Level 8.1 mg/dl Magnesium Level 1.6 mg/dl Procalcitonin 0.34 ng/ml [~ rep ct add3]] CHEST ONE VIEW PORTABLE HISTORY: fever COMPARISON: Chest 10/14/2017. FINDINGS: The heart is normal in size. Right jugular Port-A-Cath terminates in the distal SVC. No pneumothorax. No pleural effusions. Stable bilateral hilar prominence. Developing mild perihilar interstitial thickening. No new focal lung consolidations. IMPRESSION: 1. Mild perihilar interstitial thickening. This could be due to mild congestive change. 2. Bilateral hilar prominence persists. Electronically signed by: Fran Rubio M.D. 10/15/2017 7:55 AM Dictated Date/Time: 10/15/2017 7:53 AM The status of this report is Signed. Draft = Not yet reviewed or approved by Radiologist. Signed = Reviewed Assessment & Plan 72-year-old male with relapsed mantle cell lymphoma, recent maxillary sinusitis , now readmitted with 1 day of fever to 103 degrees without obvious source apparent. Multiple potential sources of fever including infection of his Infuse -A-Port, less likely developing pneumonia, possibility of diskitis or lumbar infection given worsening back pain, as well as possibility that fever related to his underlying lymphoma. For now, patient should be continued on broad- spectrum antibiotics pending final culture results. Would consider CT or MRI of lumbar spine as soon as feasible to rule out infection at that site. Case discussed with Dr. Bragg. Will follow.
--- NOTE | 2017-10-15 11:17 | DIAGNOSTIC IMAGING REPORT ---
SINUS CT CT DOSE: 627.38 mGy.cm HISTORY: fever, recent maxillary sinusitis TECHNIQUE: Multiaxial CT images of the paranasal sinuses were performed and reformatted in the coronal plane without the use of contrast. A dose lowering technique was utilized adhering to the principles of ALARA. COMPARISON: Maxillofacial CT 10/05/2017. FINDINGS: Slight improvement in the fluid and bubbly secretions within the right maxillary sinus resulting in near-complete opacification. This is consistent with acute sinusitis. The remaining paranasal sinuses and mastoid air cells are clear. No bony destruction identified. Mild left nasal septal deviation. The lamina papyracea and orbital floors are intact. The bilateral ostiomeatal units are patent. The orbits are unremarkable. IMPRESSION: Slight improvement in the acute right maxillary sinusitis. Electronically signed by: Fran Rubio M.D. 10/15/2017 11:15 AM Dictated Date/Time: 10/15/2017 11:12 AM
[2017-10-15] MEDS ORDERED: LEVOFLOXACIN / D5W 750 MG in PREMIXED IN D5W 150 ML IV SCH (16:00)
[2017-10-15] MEDS: DAPTOmycin IV 450 MG in SYRINGE 0 ML IV SCH ×2 (16:00→18:19)
[2017-10-15] MEDS ORDERED: AMOXICILLIN/CLAVULANATE TAB 875 MG TAB PO ONE (18:04)
[2017-10-15] MEDS ORDERED: DEXAMETHASONE INJ 4 MG in SYRINGE 0 ML IV SCH (20:00)
[2017-10-15] MEDS: DEXAMETHASONE 4 MG TAB PO SCH (21:31)
[2017-10-16 00:12] VITALS: BP 120/70; PULSE 93
[2017-10-16 04:04] VITALS: BP 118/73; PULSE 83; TEMP 36.6; O2SAT 91
[2017-10-16 06:24] LABS: HEMATOCRIT 29.3 % (42-52); HEMOGLOBIN 9.5 g/dL (14.0-18.0); MEAN CELL VOLUME 83.5 fL (80-100); MEAN CORPUSCULAR HEMOGLOBIN 27.1 pg (25-34); MEAN CORPUSCULAR HGB CONC 32.4 g/dl (32-36); RED CELL DISTRIBUTION WIDTH SD 55.6 fL (36.4-46.3); WHITE BLOOD COUNT 6.57 K/uL (4.8-10.8)
[2017-10-16 06:29] LABS: MEAN PLATELET VOLUME 9.7 fL (7.4-10.4); PLATELET COUNT 77 K/uL (130-400)
[2017-10-16 06:51] LABS: CALCIUM 8.5 mg/dl (8.5-10.1); CREATININE 0.6 mg/dl (0.60-1.40); POTASSIUM 4.2 mmol/L (3.5-5.1)
[2017-10-16 06:52] LABS: BASO % 0.2 %; BASO ABS # 0.01 K/uL (0-0.2); IG# 0.06 K/uL (0.00-0.02); LYMPH % 12.8 %; LYMPH ABS # 0.84 K/uL (1.2-3.4); MONO % 7.9 %; MONO ABS # 0.52 K/uL (0.11-0.59); NEUT % 78.2 %; NEUT ABS # 5.14 K/uL (1.4-6.5)
[2017-10-16 07:39] VITALS: BP 109/73; PULSE 80; TEMP 36.5; O2SAT 92
[2017-10-16] MEDS: PANTOprazole SOD 40 MG TAB PO SCH (08:35)
[2017-10-16] MEDS: NYSTATIN SUSP 500,000 U/5 ML UDC PO SCH ×4 (08:35→20:45)
[2017-10-16] MEDS: DEXAMETHASONE 4 MG TAB PO SCH ×2 (08:35→20:45)
[2017-10-16] MEDS: AMOXICILLIN/CLAVULANATE TAB 875 MG TAB PO SCH ×2 (08:35→17:31)
[2017-10-16] MEDS: SODIUM CHLORIDE 0.65% NA SOLN 45 ML (OCEAN) SCH ×4 (08:36→20:45)
[2017-10-16] MEDS: LEVOFLOXACIN 500 MG TAB PO SCH (11:09)
[2017-10-16 11:20] VITALS: BP 117/73; PULSE 83; TEMP 36.6; O2SAT 90
[2017-10-16] MEDS ORDERED: GADAVIST IV PRN (15:00)
--- NOTE | 2017-10-16 15:00 | DIAGNOSTIC IMAGING REPORT ---
LUMBAR SPINE COMBINATION HISTORY: Pain. Fever. fever, back pain, lymphoma TECHNIQUE: Multiplanar multisequence MRI of the lumbar spine was performed both before and after the intravenous administration of contrast. COMPARISON: None. FINDINGS: For the purpose of the report the L5-S1 disc space will be located on axial image 27 of 30. Signal characteristics the vertebral bodies are unremarkable. There is no bone marrow replacing process. Postcontrast sagittal images are considered negative for an enhancing process. No evidence for abnormal mass or collection. L1-L2: No significant central canal or neural foraminal narrowing. L2-L3: No significant central canal or neural foraminal narrowing. L3-L4: No significant central canal or neural foraminal narrowing. L4-L5: No significant central canal or neural foraminal narrowing. L5-S1: No significant central canal or neural foraminal narrowing. IMPRESSION: 1. No evidence for disc herniation or spinal stenosis. 2. Mild degenerative disc change of the entire lumbar region. 3. No abnormal postcontrast enhancement. The above report was generated using voice recognition software. It may contain grammatical, syntax or spelling errors. Electronically signed by: José Romero M.D. 10/16/2017 2:59 PM Dictated Date/Time: 10/16/2017 2:56 PM
--- NOTE | 2017-10-16 20:29 | Infectious Disease Progress Nt ---
Progress Note Date of Service Oct 16, 2017. Subjective Pt evaluation today including: conversation w/ patient, physical exam, chart review, lab review, review of studies, conversation w/ vocational rehab consultant, review of inpatient medication list Overall feeling better. Back pain improved. MRI without evidence of spinal infection. Remains afebrile. All Other Systems: Reviewed and Negative Medications Current Inpatient Medications Medications (Trade) Dose Ordered Sig/Flory Route Start Time Stop Time Status Last Admin Dose Admin Acetaminophen (Tylenol Tab) 650 mg Q4H PRN PO 10/14/17 14:45 11/13/17 14:44 Nystatin (Mycostatin Susp) 5 ml QID PO 10/14/17 17:00 10/24/17 16:59 10/16/17 17:32 5 ML Acetaminophen (Tylenol Tab) 1,000 mg Q8H PRN PO 10/14/17 15:15 11/13/17 15:14 10/14/17 23:24 1,000 MG Levalbuterol (Xopenex 0.63 Mg/ 3 Ml Neb) 0.63 mg Q4H PRN INH 10/14/17 16:30 11/13/17 16:29 Sodium Chloride ([place] Nasal [place]) 4 sprays QID NA 10/14/17 21:00 11/13/17 20:59 10/16/17 17:31 4 SPRAYS Pantoprazole Sodium (Protonix Tab) 40 mg QAM PO 10/15/17 09:00 11/14/17 08:59 10/16/17 08:35 40 MG Tramadol HCl (Ultram Tab) 50 mg Q6H PRN PO 10/15/17 07:45 11/14/17 07:44 Amoxicillin/ Clavulanate Potassium (Augmentin Tab) 875 mg BIDM PO 10/16/17 08:00 10/26/17 07:59 10/16/17 17:31 875 MG Levofloxacin (Levaquin Tab) 500 mg DAILY@11 PO 10/16/17 11:00 10/26/17 10:59 10/16/17 11:09 500 MG Dexamethasone (Decadron Tab) 4 mg BID PO 10/15/17 20:00 11/14/17 19:59 10/16/17 08:35 4 MG Gadobutrol (Gadavist) 7 mmol UD PRN IV 10/16/17 15:00 10/20/17 14:59 Objective Vital Signs Date Time Temp Pulse Resp B/P (MAP) Pulse Ox O2 Delivery O2 Flow Rate FiO2 10/16/17 16:00 Room Air 10/16/17 11:20 36.6 83 18 117/73 (88) 90 Room Air 10/16/17 09:57 Room Air 10/16/17 07:39 36.5 80 18 109/73 (85) 92 Room Air 10/16/17 04:04 36.6 83 20 118/73 (88) 91 Room Air 10/16/17 00:12 93 120/70 (87) 10/16/17 00:00 Room Air 10/15/17 23:34 37.1 91 20 82/53 (63) 91 Room Air Physical Exam General Appearance: WD/WN, no apparent distress Eyes: normal inspection, EOMI, sclerae normal ENT: normal ENT inspection, pharynx normal Neck: supple, no adenopathy, trachea midline Respiratory/Chest: chest non-tender, lungs clear, normal breath sounds, no respiratory distress Cardiovascular: regular rate, rhythm, no gallop, no murmur Abdomen: normal bowel sounds, non tender, soft, no organomegaly Extremities: non-tender, no calf tenderness Neurologic/Psychiatric: alert, oriented x 3 Skin: normal color, warm/dry, no rash Lymphatic: no adenopathy Laboratory Results Last 24 Hours Test 10/16/17 06:02 White Blood Count 6.57 K/uL Red Blood Count 3.51 M/uL Hemoglobin 9.5 g/dL Hematocrit 29.3 % Mean Corpuscular Volume 83.5 fL Mean Corpuscular Hemoglobin 27.1 pg Mean Corpuscular Hemoglobin Concent 32.4 g/dl Platelet Count 77 K/uL Mean Platelet Volume 9.7 fL Neutrophils (%) (Auto) 78.2 % Lymphocytes (%) (Auto) 12.8 % Monocytes (%) (Auto) 7.9 % Eosinophils (%) (Auto) 0.0 % Basophils (%) (Auto) 0.2 % Neutrophils # (Auto) 5.14 K/uL Lymphocytes # (Auto) 0.84 K/uL Monocytes # (Auto) 0.52 K/uL Eosinophils # (Auto) 0.00 K/uL Basophils # (Auto) 0.01 K/uL RDW Standard Deviation 55.6 fL RDW Coefficient of Variation 18.0 % Immature Granulocyte % (Auto) 0.9 % Immature Granulocyte # (Auto) 0.06 K/uL Poikilocytosis PRESENT Sodium Level 135 mmol/L Potassium Level 4.2 mmol/L Chloride Level 101 mmol/L Carbon Dioxide Level 25 mmol/L Anion Gap 9.0 mmol/L Blood Urea Nitrogen 12 mg/dl Creatinine 0.60 mg/dl Est Creatinine Clear Calc Drug Dose 109.7 ml/min Estimated GFR () 115.6 Estimated GFR (Non- 99.7 BUN/Creatinine Ratio 20.2 Random Glucose 160 mg/dl Calcium Level 8.5 mg/dl Magnesium Level 2.1 mg/dl Assessment and Plan 72-year-old male with relapsed mantle cell lymphoma, recent maxillary sinusitis , now readmitted with 1 day of fever to 103 degrees without obvious source apparent.
--- NOTE | 2017-10-16 22:58 | Progress Note ---
Medicine Progress Note Date & Time of Visit: Oct 16, 2017 at 11:58 . Subjective CC: Follow-up visit for febrile illness. HPI: Feels better. No fever or chills. No sinus pressure or drainage. No pharyngitis. No cough. No nausea, vomiting, diarrhea. No dysuria. Back pain improved. ROS: as noted above in HPI . Objective Last 8 Hrs Date Time Temp Pulse Resp B/P (MAP) Pulse Ox O2 Delivery O2 Flow Rate FiO2 10/16/17 11:20 36.6 83 18 117/73 (88) 90 Room Air 10/16/17 09:57 Room Air 10/16/17 07:39 36.5 80 18 109/73 (85) 92 Room Air 10/16/17 04:04 36.6 83 20 118/73 (88) 91 Room Air Physical Exam: General- no distress Eyes- anicteric ENT- Neck- supple Lungs- few rales left base, otherwise clear Cardiovascular- RRR, I/ systolic murmur at base, no gallop; no JVD; no pretibial edema Abdomen- + BS, soft, nontender Extremities- no cyanosis; no calf tenderness Neuro- alert Skin- warm and dry; no rash . Laboratory Results: Last 24 Hours Test 10/16/17 06:02 White Blood Count 6.57 K/uL Red Blood Count 3.51 M/uL Hemoglobin 9.5 g/dL Hematocrit 29.3 % Mean Corpuscular Volume 83.5 fL Mean Corpuscular Hemoglobin 27.1 pg Mean Corpuscular Hemoglobin Concent 32.4 g/dl Platelet Count 77 K/uL Mean Platelet Volume 9.7 fL Neutrophils (%) (Auto) 78.2 % Lymphocytes (%) (Auto) 12.8 % Monocytes (%) (Auto) 7.9 % Eosinophils (%) (Auto) 0.0 % Basophils (%) (Auto) 0.2 % Neutrophils # (Auto) 5.14 K/uL Lymphocytes # (Auto) 0.84 K/uL Monocytes # (Auto) 0.52 K/uL Eosinophils # (Auto) 0.00 K/uL Basophils # (Auto) 0.01 K/uL RDW Standard Deviation 55.6 fL RDW Coefficient of Variation 18.0 % Immature Granulocyte % (Auto) 0.9 % Immature Granulocyte # (Auto) 0.06 K/uL Poikilocytosis PRESENT Sodium Level 135 mmol/L Potassium Level 4.2 mmol/L Chloride Level 101 mmol/L Carbon Dioxide Level 25 mmol/L Anion Gap 9.0 mmol/L Blood Urea Nitrogen 12 mg/dl Creatinine 0.60 mg/dl Est Creatinine Clear Calc Drug Dose 109.7 ml/min Estimated GFR () 115.6 Estimated GFR (Non- 99.7 BUN/Creatinine Ratio 20.2 Random Glucose 160 mg/dl Calcium Level 8.5 mg/dl Magnesium Level 2.1 mg/dl Date/Time Source Procedure Growth Status 10/16/17 06:02 Blood Cryptococcal Antigen - Final Complete Assessment & Plan FEVER Recently diagnosed right maxillary sinusitis, improved with antibiotic therapy. Presented to ED with recurrent fever. POC lactate 5.32 in ED. Systolic BP's > 90. Blood cultures obtained peripherally and via venous access device. Received fluid resuscitation in ED. Fever, tachycardia, elevated lactate suggested possible sepsis, although procalcitonin of 0.31 argued against it. Source of infection uncertain. Considered persistent sinus infection, pneumonia, C diff, line sepsis, other source. Broad-spectrum antibiotic therapy with daptomycin, ampicillin / sulbactam, levofloxacin initiated. Repeat lactate improved. Follow-up CT of sinuses showed slight improvement of right maxillary sinusitis. Check MRI lumbar spine to rule out epidural abscess, osteomyelitis, etc. ID consulted. De-escalate antibiotics- will DC daptomycin if blood cultures neg and MRI does not show any apparent infectious process. MANTLE CELL LYMPHOMA Discussed current status with Hematology / Oncology. GERD Continue PPI. VTE PROPHYLAXIS No anticoagulants due to thrombocytopenia. SCD's. Ambulate. DISPOSITION Expected discharge to home. Family Medicine follow-up with Dr. Cain. Hematology / Oncology follow-up with Dr. John Mistry. given update by phone. -U-X-B-E-N-D-U-M--:- -Q-o-s-i-e-n-t- -g-m-w-u-s-e-d- -c-y-t-t-l-w-o-t-i-c-s- -t-h-i-s- -s-y-m-n-i-n-g-.- -H-e- -f-e-l-t- -t-h-a-t- -t-h-e-y- -w-e-r-e-n--'--t- -r-v-h-p-i-n-g- -a-n-d- -t-h-a-t- -h-e- -f-e-l-t- -w-o-r-s-e- -a-f-t-e-r- -f-b-q-m-b-o-i-n-g- -t-h-e-m-.- -R-t-i-c-e-r-n-s- -a-b-o-u-t- -q-d-g-g-f-e-t-e-n-t- -i-y-w-c-x-i-i-o-n- -w-d-y-k-z-u-s-e-d-.- -J-m-m-r-f-u-i-o-n- -h-a-s- -x-u-z-r-o-v-e-d- -s-i-n-c-e- -v-v-n-c-a-l-i-o-n-.- -N-o- -t-e-m-p- -s-i-n-c-e- -l-a-s-t- -n-i-g-h-t-.- -B-y-g-b-l-x-a-r-d-i-a- -u-y-l-r-o-v-e-d-.- -F-o-v-t-u-r-e-s- -t-p-p-a-t-i-v-e- -s-o- -f-a-r-.- -C-T- -j-n-p-u-s-e-s- -s-h-o-w-s- -s-o-m-e- -i-b-a-j-i-s-e-m-e-n-t-.- -L-o-m-i-e-n-t- -y-b-r-e-e-d- -t-o- -y-b-r-e-i-v-e- -1- -o-r- -2- -m-o-r-e- -d-o-s-e-s- -o-f- -q-u-z-b-k-e-y-c-i-n- -s-d-d-d-i-n-g- -v-d-o-t-u-r-e- -m-x-v-u-l-t-s-.- -Z-q-q-c-o-b-t-i-o-n- -f-r-o-m- -I-V- -w-y-m-x-s-y-l-l-i-n- -/- -w-m-i-v-p-e-t-a-m- -t-o- -o-r-a-l- -q-y-w-g-w-d-i-l-l-i-n- -/- -v-x-i-x-m-x-a-n-i-c- -a-c-i-d-.- -D-i-i-b-x-u-t-i-o-n- -f-r-o-m- -I-V- -r-h-m-u-g-n-d-p-k-c-i-n- -t-o- -o-r-a-l-.- [error ROSALEE corrected 10/17/17 @ 20:35] . Current Inpatient Medications: Current Inpatient Medications Medications (Trade) Dose Ordered Sig/Flory Route Start Time Stop Time Status Last Admin Dose Admin Acetaminophen (Tylenol Tab) 650 mg Q4H PRN PO 10/14/17 14:45 11/13/17 14:44 Nystatin (Mycostatin Susp) 5 ml QID PO 10/14/17 17:00 10/24/17 16:59 10/16/17 08:35 5 ML Acetaminophen (Tylenol Tab) 1,000 mg Q8H PRN PO 10/14/17 15:15 11/13/17 15:14 10/14/17 23:24 1,000 MG Levalbuterol (Xopenex 0.63 Mg/ 3 Ml Neb) 0.63 mg Q4H PRN INH 10/14/17 16:30 11/13/17 16:29 Sodium Chloride ([place] Nasal [place]) 4 sprays QID NA 10/14/17 21:00 11/13/17 20:59 10/16/17 08:36 4 SPRAYS Pantoprazole Sodium (Protonix Tab) 40 mg QAM PO 10/15/17 09:00 11/14/17 08:59 10/16/17 08:35 40 MG Daptomycin 450 mg/ Syringe 9 ml @ 270 mls/hr DAILY@1600 IV 10/15/17 16:00 10/16/17 15:59 10/15/17 18:19 270 MLS/HR Tramadol HCl (Ultram Tab) 50 mg Q6H PRN PO 10/15/17 07:45 11/14/17 07:44 Amoxicillin/ Clavulanate Potassium (Augmentin Tab) 875 mg BIDM PO 10/16/17 08:00 10/26/17 07:59 10/16/17 08:35 875 MG Levofloxacin (Levaquin Tab) 500 mg DAILY@11 PO 10/16/17 11:00 10/26/17 10:59 10/16/17 11:09 500 MG Dexamethasone (Decadron Tab) 4 mg BID PO 10/15/17 20:00 11/14/17 19:59 10/16/17 08:35 4 MG
[2017-10-16 23:56] VITALS: BP 130/81; PULSE 87; TEMP 36.7; O2SAT 96
[2017-10-17 03:55] VITALS: BP 111/69; PULSE 80; TEMP 36.8; O2SAT 94
[2017-10-17 07:30] LABS: HEMATOCRIT 27.5 % (42-52); HEMOGLOBIN 8.8 g/dL (14.0-18.0); MEAN CELL VOLUME 84.4 fL (80-100); PLATELET COUNT 77 K/uL (130-400); WHITE BLOOD COUNT 7.84 K/uL (4.8-10.8)
[2017-10-17 07:31] LABS: CALCIUM 8.7 mg/dl (8.5-10.1); CREATININE 0.72 mg/dl (0.60-1.40); POTASSIUM 4.3 mmol/L (3.5-5.1)
[2017-10-17 07:34] VITALS: BP 117/71; PULSE 85; TEMP 36.6; O2SAT 93
[2017-10-17] MEDS: DEXAMETHASONE 4 MG TAB PO SCH (08:15)
[2017-10-17] MEDS: NYSTATIN SUSP 500,000 U/5 ML UDC PO SCH ×2 (08:15→12:11)
[2017-10-17] MEDS: PANTOprazole SOD 40 MG TAB PO SCH (08:16)
[2017-10-17] MEDS: SODIUM CHLORIDE 0.65% NA SOLN 45 ML (OCEAN) SCH ×2 (08:20→12:11)
[2017-10-17] MEDS: AMOXICILLIN/CLAVULANATE TAB 875 MG TAB PO SCH (08:34)
[2017-10-17] MEDS: LEVOFLOXACIN 500 MG TAB PO SCH (11:01)
--- NOTE | 2017-10-17 11:41 | Progress Note ---
Medicine Progress Note Date & Time of Visit: Oct 17, 2017 at 11:41 . Subjective Feels well. Ready to be discharged. No fever (last temp evening of 10/14). No sinus pain or pressure; minimal clear sinus drainage. No cough. No nausea, vomiting, diarrhea. No dysuria. No back pain x 2 days. . Objective Last 8 Hrs Date Time Temp Pulse Resp B/P (MAP) Pulse Ox O2 Delivery O2 Flow Rate FiO2 10/17/17 08:00 Room Air 10/17/17 07:34 36.6 85 20 117/71 (86) 93 Room Air 10/17/17 03:55 36.8 80 16 111/69 (83) 94 Room Air Physical Exam: General- no distress Eyes- anicteric ENT- thrush essentially resolved Neck- supple Lungs- few rales left base, otherwise clear Cardiovascular- RRR, I/ systolic murmur at base, no gallop; no JVD; no pretibial edema Abdomen- + BS, soft, nontender Extremities- no cyanosis; no calf tenderness Neuro- alert, oriented Skin- warm and dry; no rash . Laboratory Results: Last 24 Hours Test 10/17/17 06:23 White Blood Count 7.84 K/uL Red Blood Count 3.26 M/uL Hemoglobin 8.8 g/dL Hematocrit 27.5 % Mean Corpuscular Volume 84.4 fL Mean Corpuscular Hemoglobin 27.0 pg Mean Corpuscular Hemoglobin Concent 32.0 g/dl Platelet Count 77 K/uL Sodium Level 138 mmol/L Potassium Level 4.3 mmol/L Chloride Level 102 mmol/L Carbon Dioxide Level 24 mmol/L Anion Gap 12.0 mmol/L Blood Urea Nitrogen 17 mg/dl Creatinine 0.72 mg/dl Est Creatinine Clear Calc Drug Dose 91.4 ml/min Estimated GFR () 107.3 Estimated GFR (Non- 92.5 BUN/Creatinine Ratio 23.3 Random Glucose 138 mg/dl Calcium Level 8.7 mg/dl Assessment & Plan FEVER (most likely due to persistent right maxillary sinusitis) Recently diagnosed right maxillary sinusitis, improved with antibiotic therapy. Returned to ED with recurrent fever. WBC 7780. POC lactate 5.32 in ED. Systolic BP's > 90. Blood cultures obtained peripherally and via venous access device. Received fluid resuscitation in ED. Fever, tachycardia, elevated lactate suggested possible sepsis, although procalcitonin of 0.31 argued against it. Source of infection uncertain. Considered persistent sinus infection, pneumonia, C diff, line sepsis, other source. Broad-spectrum antibiotic therapy with daptomycin, ampicillin / sulbactam, levofloxacin initiated. Repeat lactate improved. Follow-up CT of sinuses showed slight improvement of right maxillary sinusitis. ID consulted. Blood cultures negative. Serum cryptococcal Ag negative. Blood CMV PCR pending. MRI did not show any signs of infection. Stopped daptomycin in light of negative blood cultures and negative MRI lumbar spine. Ampicillin / sulbactam transitioned to oral therapy with amoxicillin / clavulanic acid. Levofloxacin transitioned from IV to oral therapy. Most likely cause of fever appeared to be persistent sinusitis. Continue amoxicillin / clavulanic acid and levofloxacin to complete ~ 4 wks of therapy. [facility] Clinic med list and med reconciliation did not reflect daily dexamethasone use, but spouse reported that patient had been on dexamethasone for several months with a slow taper. Discharge on dexamethasone 4 mg daily. Further management per Heme / Onc. GERD Continue PPI. VTE PROPHYLAXIS No anticoagulants due to thrombocytopenia. SCD's. Ambulate. DISPOSITION Discharge to home. Family Medicine follow-up with Dr. Cain. Hematology / Oncology follow-up with Dr. John Mistry. . Current Inpatient Medications: Current Inpatient Medications Medications (Trade) Dose Ordered Sig/Flory Route Start Time Stop Time Status Last Admin Dose Admin Acetaminophen (Tylenol Tab) 650 mg Q4H PRN PO 10/14/17 14:45 11/13/17 14:44 Nystatin (Mycostatin Susp) 5 ml QID PO 10/14/17 17:00 10/24/17 16:59 10/17/17 08:15 5 ML Acetaminophen (Tylenol Tab) 1,000 mg Q8H PRN PO 10/14/17 15:15 11/13/17 15:14 10/14/17 23:24 1,000 MG Levalbuterol (Xopenex 0.63 Mg/ 3 Ml Neb) 0.63 mg Q4H PRN INH 10/14/17 16:30 11/13/17 16:29 Sodium Chloride ([place] Nasal [place]) 4 sprays QID NA 10/14/17 21:00 11/13/17 20:59 10/17/17 08:20 4 SPRAYS Pantoprazole Sodium (Protonix Tab) 40 mg QAM PO 10/15/17 09:00 11/14/17 08:59 10/17/17 08:16 40 MG Tramadol HCl (Ultram Tab) 50 mg Q6H PRN PO 10/15/17 07:45 11/14/17 07:44 Amoxicillin/ Clavulanate Potassium (Augmentin Tab) 875 mg BIDM PO 10/16/17 08:00 10/26/17 07:59 10/17/17 08:34 875 MG Levofloxacin (Levaquin Tab) 500 mg DAILY@11 PO 10/16/17 11:00 10/26/17 10:59 10/17/17 11:01 500 MG Dexamethasone (Decadron Tab) 4 mg BID PO 10/15/17 20:00 11/14/17 19:59 10/17/17 08:15 4 MG Gadobutrol (Gadavist) 7 mmol UD PRN IV 10/16/17 15:00 10/20/17 14:59
[2017-10-17] MEDS ORDERED: DXM/4 PO (13:47)
--- NOTE | 2017-10-17 13:57 | Discharge Instructions ---
Discharge Instructions Date of Service Oct 17, 2017. Admission Reason for Admission: fever . Discharge Discharge Diagnosis / Problem: fever, probably due to persisent sinus infection Discharge Goals Goal(s): Improve disease control Activity Recommendations Activity Limitations: as noted below Lifting Limitations: gradually increase as tolerated Exercise/Sports Limitations: gradually increase as tolerated . Instructions / Follow-Up Instructions / Follow-Up APPOINTMENTS: FAMILY MEDICINE 10/22/2017 12:40 PM Mikael Cain MD HEMATOLOGY / ONCOLOGY Dr. John Mistry. Office will contact you with next appointment. OTHER INSTRUCTIONS: Take amoxicillin / clavulanic acid (Augmentin) twice a day with food until gone. Next dose: supper Thursday10/17/17 Take levofloxacin (Levaquin) 500 mg daily at 11 AM until gone. Next dose: 11 AM Thursday10/18/17 Use nystatin suspension 5 ml (1 tsp) 4 times a day as needed for thrush. Take dexamethasone (Decadron) 4 mg daily until otherwise instructed by Dr. Mistry. May increase dose to 4 mg twice a day in the short term if you feel lousy, but please let Dr. Mistry know. New prescription for 60 pills with 1 refill sent to [facility]. Your blood sugars run a bit high when you are taking dexamethasone (Decadron). Try to avoid excessive sweets / carbs. Seek medical attention if you have: * temperature above 101, chills, or sweats * chest pain or trouble breathing * abdominal pain, nausea, vomiting * diarrhea, dark stools or bloody stools * worsening sinus pain / pressure / drainage * any unanswered questions or concerns Call 911 if symptoms are severe. Call if you have any questions or problems. My cell # is [phone]. You can also reach a [facility] hospitalist on duty at [facility] 24 hours a day by calling [phone]. Please take good care of yourself. Bhanu Bragg . Current Hospital Diet Patient's current hospital diet: Regular Diet Discharge Diet Recommended Diet: Regular Diet (but avoid excessive carbs / sweets) Procedures Procedures Performed: Chest x-ray- no definite pneumonia. CT sinuses- improving sinus infection MRI back- no apparent infection or enlarged lymph nodes Blood cultures- negative so far Stool tests for C diff, E coli, Salmonella- negative so far. MRSA test- negative. Pending Studies Studies pending at discharge: yes List of pending studies: Final blood culture results. Medical Emergencies . Who to Call and When: Medical Emergencies: If at any time you feel your situation is an emergency, please call 911 immediately. . Non-Emergent Contact Non-Emergency issues call your: Primary Care Provider, Hospital Doctor, Oncologist . . "Provider Documentation" section prepared by Bhanu Bragg. . VTE Core Measure Inpt VTE Proph given/why not?: SCD's
--- NOTE | 2017-10-17 20:46 | Discharge Summary ---
Discharge Summary Date of Service Oct 17, 2017. Discharge Summary Admission Date: Oct 14, 2017 at 14:51 Discharge Date: Oct 17, 2017 Discharge Disposition: Home Principal Diagnosis: fever, probably secondary to persistent right maxillary sinusitis . Secondary Diagnoses/Problems: Chronic and Resolved Medical Problems: (1) GERD (gastroesophageal reflux disease) Status: Chronic (2) Mantle cell lymphoma Status: Chronic Surgical Problems: (1) Status post appendectomy Status: Chronic (2) Status post lymph node biopsy Status: Chronic (3) Status post placement vascular access device Permanent Comment: 2015 [facility] Status: Chronic . Procedures: CT sinuses MRI lumbar spine . Consultations: ID with Dr. Boateng . Pending Studies/Follow-Up: final blood culture results 10/14/17 blood CMV PCR 10/16/17 . Medication Reconciliation New Medications: Dexamethasone (Decadron) 4 Mg Tab 0 PO UD, #60 TAB 1 Refill Take as directed. Dose will vary. Dose as of 10/17/17 = 4 mg daily. Continued Medications: Amoxicillin & Pot Clavulanate (Augmentin 875-125 mg) 1 Tab Tab 875 MG PO BID, #40 TAB Take with food. Bendamustine HCl (Bendeka) 100 Mg/4 Ml Inj 0 IV UD Cetirizine (Zyrtec) 10 Mg Tab 10 MG PO UD PRN for PRIOR TO CHEMO, TAB Cytarabine (Cytarabine) 100 Mg/Ml Inj 0 IV UD Dexamethasone (Decadron) 4 Mg Tab 0 PO UD as directed with chemotherapy Levofloxacin (Levaquin) 500 Mg Tab 500 MG PO DAILY, #20 TAB Nystatin (Nystatin) 5 Ml Susp 5 ML PO QID PRN for thrush, #473 ML 5 Refills Omeprazole (Prilosec) 20 Mg Capcr 20 MG PO DAILY Ondansetron (Ondansetron HCl) 8 Mg Tab 8 MG PO Q8 PRN for Nausea or Vomiting Promethazine Hcl (Phenergan) 25 Mg Tab 25 MG PO Q4 PRN for Nausea Ranitidine HCl (Ranitidine HCl) 150 Mg Tab 150 MG PO UD 1 TABLET IN THE MORNING BEGINNING 5 DAYS BEFORE RITUXAN TREATMENT Rituximab (Rituxan) 10 Mg/Ml Inj 1 DOSE IV UD Tramadol HCl (Tramadol HCl) 50 Mg Tab 50 MG PO Q6 PRN for Pain Discontinued Medications: Prednisone (Prednisone) 10 Mg Tab 0 PO UD, #20 TAB Taper [id number], then stop. Admission Information HPI (per Admitting provider): 72 YO male followed by Dr. Cain for Family Medicine and Dr. John Mistry for Hematology / Oncology. History of mantle cell lymphoma and other problems noted below. Admitted to [facility] 10/05/17 with fever / sepsis. CT demonstrated right maxillary sinusitis. ID and ENT consulted. Nonsurgical management recommended in light of thrombocytopenia. Received IV cefepime and ampicillin / sulbactam with improvement of sinus pressure / drainage. Transition to oral therapy with levofloxacin and amoxicillin / clavulanic acid recommended. Yesterday he felt well. No fever x 2 days. Sinus symptoms improved. Minimal cough. Ambulating. Discharged to home with prescriptions for levofloxacin and amoxicillin / clavulanic acid transmitted to his pharmacy. Did not cone picker his prescriptions yesterday. [place] well yesterday and last evening. This morning he had a fever as high as 102 associated with some chills, but no sweats. No headache. No increased sinus pressure / drainage. Occasional cough, minimally productive. No abdominal pain. Had 1 large loose stool without hematochezia. No urinary symptoms. Has some low back pain which is chronic and unchanged. . Physical Exam (per Admitting): General Appearance: WD/WN, + mild distress Eyes: PERRL, EOMI, sclerae normal, + pertinent finding (conjunctivae clear) ENT: hearing grossly normal, pharynx normal, + pertinent finding (minimal thrush on tongue) Neck: supple, no adenopathy, thyroid normal, trachea midline Respiratory/Chest: no respiratory distress, + pertinent finding (few scattred rhonchi, few rales left base, mild wheezing) Cardiovascular: regular rate, rhythm, no edema, no JVD, normal peripheral pulses, + tachycardia Abdomen/GI: normal bowel sounds, non tender, soft, no organomegaly, no pulsatile mass Back: no CVA tenderness Extremities/Musculoskelatal: no calf tenderness, normal capillary refill Neurologic/Psych: 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 Returned to ED with recurrent fever. WBC 7780. POC lactate 5.32 in ED. Systolic BP's > 90. Blood cultures obtained peripherally and via venous access device. Received fluid resuscitation in ED. Fever, tachycardia, elevated lactate suggested possible sepsis, although procalcitonin of 0.31 argued against it. Source of infection uncertain. Considered persistent sinus infection, pneumonia, C diff, line sepsis, other source. Broad-spectrum antibiotic therapy with daptomycin, ampicillin / sulbactam, levofloxacin initiated. Repeat lactate improved. Follow-up CT of sinuses showed slight improvement of right maxillary sinusitis. ID consulted. Blood cultures negative. Serum cryptococcal Ag negative. Blood CMV PCR pending. MRI did not show any signs of infection. Stopped daptomycin in light of negative blood cultures and negative MRI lumbar spine. Ampicillin / sulbactam transitioned to oral therapy with amoxicillin / clavulanic acid. Levofloxacin transitioned from IV to oral therapy. Most likely cause of fever appeared to be persistent sinusitis. Consider noninfectious etiology (e.g., lymphoma) if patient has recurrent fever without clear source of infection. Continue amoxicillin / clavulanic acid and levofloxacin to complete ~ 4 wks of therapy for sinusitis. [facility] CELL [facility] Clinic med list and med reconciliation did not reflect daily dexamethasone use, but spouse reported that patient had been on dexamethasone for several months with a slow taper. Discharge on dexamethasone 4 mg daily. Further management per Heme / Onc. GERD Continue PPI. VTE PROPHYLAXIS No anticoagulants due to thrombocytopenia. SCD's. Ambulate. DISPOSITION Discharge to home. Family Medicine follow-up with Dr. Cain. Hematology / Oncology follow-up with Dr. John Mistry. . Total time spent on discharge = 45 min. This includes examination of the patient, discharge planning, medication reconciliation, and communication with other providers. . Discharge Instructions Date of Service Oct 17, 2017. Admission Reason for Admission: fever . Discharge Discharge Diagnosis / Problem: fever, probably due to persisent sinus infection Discharge Goals Goal(s): Improve disease control Activity Recommendations Activity Limitations: as noted below Lifting Limitations: gradually increase as tolerated Exercise/Sports Limitations: gradually increase as tolerated . Instructions / Follow-Up Instructions / Follow-Up APPOINTMENTS: FAMILY MEDICINE 10/22/2017 12:40 PM Mikael Cain MD HEMATOLOGY / ONCOLOGY Dr. John Mistry. Office will contact you with next appointment. OTHER INSTRUCTIONS: Take amoxicillin / clavulanic acid (Augmentin) twice a day with food until gone. Next dose: supper Thursday10/17/17 Take levofloxacin (Levaquin) 500 mg daily at 11 AM until gone. Next dose: 11 AM Thursday10/18/17 Use nystatin suspension 5 ml (1 tsp) 4 times a day as needed for thrush. Take dexamethasone (Decadron) 4 mg daily until otherwise instructed by Dr. Mistry. May increase dose to 4 mg twice a day in the short term if you feel lousy, but please let Dr. Mistry know. New prescription for 60 pills with 1 refill sent to [facility]. Your blood sugars run a bit high when you are taking dexamethasone (Decadron). Try to avoid excessive sweets / carbs. Seek medical attention if you have: * temperature above 101, chills, or sweats * chest pain or trouble breathing * abdominal pain, nausea, vomiting * diarrhea, dark stools or bloody stools * worsening sinus pain / pressure / drainage * any unanswered questions or concerns Call 911 if symptoms are severe. Call if you have any questions or problems. My cell # is [phone]. You can also reach a [facility] hospitalist on duty at [facility] 24 hours a day by calling [phone]. Please take good care of yourself. Bhanu Bragg . Current Hospital Diet Patient's current hospital diet: Regular Diet Discharge Diet Recommended Diet: Regular Diet (but avoid excessive carbs / sweets) Procedures Procedures Performed: Chest x-ray- no definite pneumonia. CT sinuses- improving sinus infection MRI back- no apparent infection or enlarged lymph nodes Blood cultures- negative so far Stool tests for C diff, E coli, Salmonella- negative so far. MRSA test- negative. Pending Studies Studies pending at discharge: yes List of pending studies: Final blood culture results. Medical Emergencies . Who to Call and When: Medical Emergencies: If at any time you feel your situation is an emergency, please call 911 immediately. . Non-Emergent Contact Non-Emergency issues call your: Primary Care Provider, Hospital Doctor, Oncologist . . "Provider Documentation" section prepared by Bhanu Bragg. . VTE Core Measure Inpt VTE Proph given/why not?: SCD's . Additional Copies To Mikael Cain M.D.; John Mistry M.D.
== END 2017-10-17 14:30 | disposition home or self-care (01) | DRG 872 ==
LOC: C.EDB 10:10 → EDBEDREQ 14:49 → C.2E 14:51 → ENRESERV 15:04 → C.4E 10-15 13:42
PROVIDERS: ADMIT Hospitalist; ATTEND Hospitalist
DX: A41.9 Sepsis, unspecified organism (principal); C83.10 Mantle cell lymphoma, unspecified site; J32.0 Chronic maxillary sinusitis; K21.9 Gastro-esophageal reflux disease without esophagitis; R50.9 Fever, unspecified; Z80.1 Family history of malignant neoplasm of trachea, bronchus and lung

== ENCOUNTER 2017-11-06 17:56 | Inpatient (IN) | payer OTHER ==
[~2017-11-06] VITALS: Ht 175.3 cm; Wt 72.1 kg
[~2017-11-06 17:56] MED LIST changes: -AMOX875T PO; -PRD10 PO; +VALG1TAB PO
[2017-11-06] MEDS ORDERED: SODIUM CHLORIDE 0.9% 1000ML 1,000 ML IV STA ×4 (18:17→23:41)
[2017-11-06] MEDS ORDERED: VANCOMYCIN 1GM/270ML NSS IV STA (18:17)
[2017-11-06] MEDS ORDERED: PIPERACILLIN/TAZOBACTAM 4.5 GM/100ML D5W IV STA (18:17)
[2017-11-06] MEDS ORDERED: AMOX875T PO (18:27)
[2017-11-06 18:59] LABS: HEMATOCRIT 27.4 % (42-52); HEMOGLOBIN 8.2 g/dL (14.0-18.0); MEAN CELL VOLUME 90.7 fL (80-100); MEAN CORPUSCULAR HEMOGLOBIN 27.2 pg (25-34); MEAN CORPUSCULAR HGB CONC 29.9 g/dl (32-36); NUCLEATED RED BLOOD CELL ABS 0.06 K/uL (0-0); RED CELL DISTRIBUTION WIDTH CV 21.8 % (11.5-14.5); RED CELL DISTRIBUTION WIDTH SD 69.7 fL (36.4-46.3); WHITE BLOOD COUNT 6.49 K/uL (4.8-10.8)
--- NOTE | 2017-11-06 19:07 | DIAGNOSTIC IMAGING REPORT ---
CHEST ONE VIEW PORTABLE CLINICAL HISTORY: 72 years-old Male presenting with Evaluate Fever/Sepsis. TECHNIQUE: Portable upright AP view of the chest was obtained. COMPARISON: 10/15/2017. FINDINGS: Right subclavian Mediport terminates at the superior cavoatrial junction. Atherosclerosis of aortic arch. Cardiac silhouette normal in size. Interval decrease in perihilar vague opacities. Slight prominence of the roberto. No new focal infiltrate. No large effusion or pneumothorax. Degenerative changes of the thoracic spine. Upper abdomen normal. IMPRESSION: 1. No acute cardiopulmonary disease. Electronically signed by: Mikael Langford M.D. 11/06/2017 7:06 PM Dictated Date/Time: 11/06/2017 7:04 PM
[2017-11-06 19:11] LABS: INR 1.1 (0.9-1.1); PTT PATIENT 28.9 SECONDS (21.0-31.0)
[2017-11-06 19:21] LABS: INFLUENZA B ANTIGEN Neg for Influ B (NEG)
[2017-11-06 19:26] LABS: ALT/SGPT 15 U/L (12-78); AST/SGOT 26 U/L (15-37); BLOOD UREA NITROGEN 12 mg/dl (7-18); CALCIUM 8.4 mg/dl (8.5-10.1); CARBON DIOXIDE 23 mmol/L (21-32); CREATININE 0.75 mg/dl (0.60-1.40); GLUCOSE 160 mg/dl (70-99); POTASSIUM 4.6 mmol/L (3.5-5.1); SODIUM 133 mmol/L (136-145)
[2017-11-06 19:31] LABS: ALKALINE PHOSPHATASE 76 U/L (45-117); TOTAL PROTEIN 6.2 gm/dl (6.4-8.2)
[2017-11-06 19:43] LABS: MEAN PLATELET VOLUME 10.5 fL (7.4-10.4); PLATELET COUNT 53 K/uL (130-400)
--- NOTE | 2017-11-06 19:49 | EMERGENCY ROOM VISIT NOTE ---
History Report prepared by Myesha: Nicolle Kate Under the Supervision of: Dr. Xavier Lockhart M.D. First contact with patient: 18:05 Chief Complaint: FEVER Stated Complaint: LYMPHONA, FEVER History of Present Illness The patient is a 72 year old white male with a past medical history of lymphoma , GERD, kidney stone who presents to the ED with a cc of persistent fever beginning this afternoon. The patient's temperature has spiked to 102 from 96. Patient has no other complaints. Negative sore throat, congestion, cough, nausea , vomiting, diarrhea, rash, leg swelling, abdominal pain, urinary symptoms, or change in bowel movement. He was treated with IVIG 1 week ago and has been taking Tylenol for fever since then. His temperature had been under control. After review of EMR, patient has a history of mantle cell lymphoma and previous large B cell lymphoma. He is on Rituxan, bendamustine, and cytarabine. He recently complete a course of Augmentin and Levaquin for sinusitis and vancyclovir for CMV. Source of History: patient, family Onset: this afternoon Position: other (global) Symptom Intensity: 102 Quality: other (fever) Timing: other (persistent) Associated Symptoms: No sorethroat, No cough, No nausea, No vomiting, No abdominal pain, No diarrhea, No urinary symptoms, No rash Review of Systems See HPI for pertinent positives and negatives. A total of ten systems were reviewed and were otherwise negative. Past Medical & Surgical Medical Problems: (1) CMV (cytomegalovirus) status positive (2) GERD (gastroesophageal reflux disease) (3) Mantle cell lymphoma Surgical Problems: (1) Status post appendectomy (2) Status post lymph node biopsy (3) Status post placement vascular access device Family History FH: CAD (coronary artery disease) FATHER MOTHER FH: lung cancer SISTER Social History Smoking Status: Never Smoker Alcohol Use: none Drug Use: none Marital Status: Housing Status: lives with family Occupation Status: retired Current/Historical Medications Scheduled Bendamustine HCl (Bendeka), 0 IV UD Cytarabine (Cytarabine), 0 IV UD Dexamethasone (Decadron), 0.5 TAB PO Q2D Omeprazole (Prilosec), 20 MG PO DAILY Ranitidine HCl (Ranitidine HCl), 150 MG PO UD Rituximab (Rituxan), 1 DOSE IV UD Valganciclovir HCl (Valganciclovir), 900 MG PO BID Scheduled PRN Ondansetron (Ondansetron HCl), 8 MG PO Q8 PRN for Nausea or Vomiting Promethazine Hcl (Phenergan), 25 MG PO Q4 PRN for Nausea Tramadol HCl (Tramadol HCl), 50 MG PO Q6 PRN for Pain Allergies Coded Allergies: Tetracycline (Verified Allergy, Unknown, water blisters, 11/06/17) Physical Exam Vital Signs Date Time Temp Pulse Resp B/P (MAP) Pulse Ox O2 Delivery O2 Flow Rate FiO2 11/06/17 21:14 121 31 92 11/06/17 20:59 121 27 96 11/06/17 20:44 119 32 98 11/06/17 20:29 120 31 98 11/06/17 20:24 122 31 97 Nasal Cannula 2.0 11/06/17 20:09 126 23 97 11/06/17 19:54 127 23 98 11/06/17 19:39 131 31 98 11/06/17 19:24 129 29 99 11/06/17 19:09 127 29 98 11/06/17 18:56 Nasal Cannula 2.0 11/06/17 18:56 93 Nasal Cannula 2.0 11/06/17 18:54 125 25 89 11/06/17 18:49 123/73 89 Room Air 11/06/17 18:45 94 Room Air 11/06/17 18:45 128 27 11/06/17 18:24 134 11/06/17 17:59 37.0 134 24 123/70 94 Room Air Physical Exam GENERAL: Awake, alert, well-appearing, NAD HENT: Normocephalic, atraumatic. EYES: Normal conjunctiva. Sclera non-icteric. NECK: Supple. No nuchal rigidity. FROM. RESPIRATORY: CTAB, no rhonchi, wheezing, crackles CARDIAC: Tachycardic and regular, no MRG ABDOMEN: Soft, NTND, BS+ MSK: Port in the right chest. No chest wall TTP, no LE edema. No CVA tenderness. NEURO: GCS 15, CN 2-12 intact, moves all 4s on command SKIN: No rash or jaundice noted. Medical Decision & Procedures ER Provider Diagnostic Interpretation: Xray results as stated below per my and radiologist interpretation: CHEST ONE VIEW PORTABLE CLINICAL HISTORY: 72 years-old Male presenting with Evaluate Fever/Sepsis. TECHNIQUE: Portable upright AP view of the chest was obtained. COMPARISON: 10/15/2017. FINDINGS: Right subclavian Mediport terminates at the superior cavoatrial junction. Atherosclerosis of aortic arch. Cardiac silhouette normal in size. Interval decrease in perihilar vague opacities. Slight prominence of the roberto. No new focal infiltrate. No large effusion or pneumothorax. Degenerative changes of the thoracic spine. Upper abdomen normal. IMPRESSION: 1. No acute cardiopulmonary disease. Electronically signed by: Mikael Langford M.D. 11/06/2017 7:06 PM Dictated Date/Time: 11/06/2017 7:04 PM Laboratory Results 11/06/17 18:45 Red Blood Count 3.02, Mean Corpuscular Volume 90.7, Mean Corpuscular Hemoglobin 27.2, Mean Corpuscular Hemoglobin Concent 29.9, Mean Platelet Volume 10.5 11/06/17 18:45 Test 11/06/17 18:45 11/06/17 19:39 11/06/17 20:20 White Blood Count 6.49 K/uL (4.8-10.8) Red Blood Count 3.02 M/uL (4.7-6.1) Hemoglobin 8.2 g/dL (14.0-18.0) Hematocrit 27.4 % (42-52) Mean Corpuscular Volume 90.7 fL (80-100) Mean Corpuscular Hemoglobin 27.2 pg (25-34) Mean Corpuscular Hemoglobin Concent 29.9 g/dl (32-36) Platelet Count 53 K/uL (130-400) Mean Platelet Volume 10.5 fL (7.4-10.4) RDW Standard Deviation 69.7 fL (36.4-46.3) RDW Coefficient of Variation 21.8 % (11.5-14.5) Nucleated RBC Absolute Count (auto) 0.06 K/uL (0-0) Neutrophils % (Manual) 45.6 % Lymphocytes % (Manual) 52.6 % Monocytes % (Manual) 1.8 % Nucleated Red Blood Cells % 0.9 % Neutrophils # (Manual) 2.96 K/uL (1.4-6.5) Total Absolute Neutrophils 2.96 K/uL (1.4-6.5) Lymphocytes # (Manual) 3.41 K/uL (1.2-3.4) Total Absolute Lymphocytes 3.41 K/uL (1.2-3.4) Monocytes # (Manual) 0.12 K/uL (0.11-0.59) Polychromasia 1+ Anisocytosis PRESENT Tear Drop Cells 1+ Prothrombin Time 11.3 SECONDS (9.0-12.0) Prothromb Time International Ratio 1.1 (0.9-1.1) Activated Partial Thromboplast Time 28.9 SECONDS (21.0-31.0) Partial Thromboplastin Ratio 1.1 Anion Gap 13.0 mmol/L (3-11) Est Creatinine Clear Calc Drug Dose 87.8 ml/min Estimated GFR () 105.5 Estimated GFR (Non- 91.0 BUN/Creatinine Ratio 16.1 (10-20) Calcium Level 8.4 mg/dl (8.5-10.1) Total Bilirubin 0.3 mg/dl (0.2-1) Direct Bilirubin 0.1 mg/dl (0-0.2) Aspartate Amino Transf (AST/SGOT) 26 U/L (15-37) Alanine Aminotransferase (ALT/SGPT) 15 U/L (12-78) Alkaline Phosphatase 76 U/L (45-117) Troponin I < 0.015 ng/ml (0-0.045) Total Protein 6.2 gm/dl (6.4-8.2) Albumin 2.0 gm/dl (3.4-5.0) Procalcitonin 0.26 ng/ml (0-0.5) Influenza Type A (RT-PCR) Neg for Influ A (NEG) Influenza Type A Antigen Neg for Influ A (NEG) Influenza Type B Antigen Neg for Influ B (NEG) Influenza Type B (RT-PCR) Neg for Influ B (NEG) Venous Blood pH 7.40 (7.36-7.41) Venous Blood Partial Pressure CO2 36 mmHg (38.0-50.0) Venous Blood Partial Pressure O2 29 mmHg Venous Blood HCO3 22 mmol/L Venous Blood Oxygen Saturation < 60.0 % Venous Blood Base Excess -2.5 mEq/L Urine Color DK YELLOW Urine Appearance CLEAR (CLEAR) Urine pH 5.0 (4.5-7.5) Urine Specific [place] 1.025 (1.000-1.030) Urine Protein 1+ (NEG) Urine Glucose (UA) NEG (NEG) Urine Ketones NEG (NEG) Urine Occult Blood NEG (NEG) Urine Nitrite NEG (NEG) Urine Bilirubin NEG (NEG) Urine Urobilinogen NEG (NEG) Urine Leukocyte Esterase NEG (NEG) Urine WBC (Auto) 1-5 /hpf (0-5) Urine RBC (Auto) 0-4 /hpf (0-4) Urine Hyaline Casts (Auto) 1-5 /lpf (0-5) Urine Epithelial Cells (Auto) 10-20 /lpf (0-5) Urine Bacteria (Auto) NEG (NEG) Laboratory results reviewed by me Medications Administered Medications (Trade) Dose Ordered Sig/Flory Route Start Time Stop Time Status Last Admin Dose Admin Vancomycin HCl (Vancomycin 1gm/ 270ml Nss) 1 gm NOW STAT IV 11/06/17 18:17 11/06/17 18:20 DC 11/06/17 20:41 1 GM Piperacillin Sod/ Tazobactam Sod (Zosyn Iv) 4.5 gm NOW STAT IV 11/06/17 18:17 11/06/17 18:20 DC 11/06/17 19:49 4.5 GM Sodium Chloride 1,000 ml @ 999 mls/hr Q1H1M STAT IV 11/06/17 18:17 11/06/17 19:17 DC 11/06/17 19:58 999 MLS/HR Sodium Chloride 1,000 ml @ 999 mls/hr Q1H1M STAT IV 11/06/17 19:40 11/06/17 20:40 DC 11/06/17 20:42 999 MLS/HR Sodium Chloride 1,000 ml @ 200 mls/hr Q5H STAT IV 11/06/17 20:36 11/06/17 23:38 DC 11/06/17 21:18 200 MLS/HR ECG Indication: tachycardia Rate (beats per minute): 129 Rhythm: sinus tachycardia Findings: ST depression (trace depression anterior), left axis deviation, other (normal intervals) Change: Patient's electrocardiogram interpreted by me. ED Course 1812: The patient was evaluated in room B12B. A complete history and physical exam was performed. 1910: Upon reexamination, the patient was resting comfortably. I discussed the test results and treatment plan with him. The patient will be evaluated for further management. 2019: I discussed the patient's case with [facility] The patient will be evaluated for further treatment and disposition. 2043: I rediscussed the patient's case with Dr. Barros. Medical Decision The patient is a 72 year old white male with a past medical history of lymphoma , GERD, kidney stone who presents to the ED with a cc of persistent fever beginning this afternoon. Differential diagnosis: Etiologies such as neutropenic fever, viral syndrome, otitis, pharyngitis, pneumonia, influenza, meningitis, urinary tract infection, sepsis, bacteremia, as well as others were entertained. Patient was seen and evaluated the bedside. Patient reportedly has had a fever to 102. On exam the patient is tachycardic and does appear dry. Patient was recently treated for CMV as well as for sinusitis. He has been seen by infectious disease. Patient did have blood work completed, blood cultures, urinalysis, chest x-ray, and flu swab. Patient's chest x-ray clear. Patient flu negative. Patient has a stable anemia with a hemoglobin of 8.2. White blood cell count is normal. Patient was given 2 L of IVF and empiric broad- spectrum antibiotics. Given the patient's tachycardia with fever I did discuss the patient's case with the hospitalist. Patient initial lactate was 10. Patient was ordered a third liter 200 mL an hour. Repeat [id number] lactate was obtained which was 8. Patient has a fairly normal gap at 13. Patient does not have an obvious source of infection as the patient has a negative chest x- ray, urinalysis, flu. Patient has a nontender abdomen I do not believe he requires further imaging of the abdomen. I did discuss discussed with the hospitalist possibility of a CT of the chest however less likely as the patient is not hypoxic believe this to be related likely to dehydration and possible infection. I did have pharmacy review the chart and agreed with the antibiotic choices. Patient was instructed to bring in his home valganciclovir. Medication Reconcilliation Current Medication List: was personally reviewed by me Blood Pressure Screening Patient's blood pressure: Normal blood pressure Blood pressure disposition: Did not require urgent referral Consults Time Called: 1948 Consulting Physician[facility] Returned Call: 2019 Discussed the patient's case. The patient will be evaluated for further treatment and disposition. Impression Primary Impression: Fever Additional Impressions: Mantle cell lymphoma CMV (cytomegalovirus) status positive Anemia Sepsis Critical Care I have personally spent greater than 35 minutes of critical care time in the direct management of this patient. This includes bedside care, interpretation of diagnostic studies, and testing, discussion with consultants, patient, and family members, and other required patient management activities. This 35 minutes is in excess of all separately billable procedures. Scribe Attestation The scribe's documentation has been prepared under my direction and personally reviewed by me in its entirety. I confirm that the note above accurately reflects all work, treatment, procedures, and medical decision making performed by me. Departure Information Dispostion Being Evaluated By Hospitalist Referrals No Doctor, Assigned (PCP) Patient Instructions [facility] Problem Qualifiers Primary Impression: Fever Fever type: unspecified Qualified Codes: R50.9 - Fever, unspecified Additional Impressions: Mantle cell lymphoma Lymphoma site: unspecified region Qualified Codes: C83.10 - Mantle cell lymphoma, unspecified site Anemia Anemia type: unspecified type Qualified Codes: D64.9 - Anemia, unspecified Sepsis Sepsis type: sepsis due to unspecified organism Qualified Codes: A41.9 - Sepsis, unspecified organism
[2017-11-06] MEDS ORDERED: ONDANSETRON INJ 2 MG/ML 2 ML VIAL IV PRN (21:30)
[2017-11-06] MEDS ORDERED: OPTIRAY 320 IV PRN (21:30)
[2017-11-06] MEDS ORDERED: SODIUM CHLORIDE 0.9% 1000ML 1,000 ML IV SCH (21:30)
[2017-11-06] MEDS ORDERED: ACETAMINOPHEN 325 MG TAB PO PRN (21:30)
[2017-11-06] MEDS ORDERED: LEVOFLOXACIN / D5W 750 MG in PREMIXED IN D5W 150 ML IV SCH (21:30)
[2017-11-06] MEDS ORDERED: ENOXAPARIN 40 MG/0.4 ML SYR SC SCH (21:30)
[2017-11-06] MEDS ORDERED: VANCOMYCIN CONSULT ACTIVE SCH (21:41)
[2017-11-06] MEDS ORDERED: VANCOMYCIN CONSULT ACTIVE PRN (21:45)
[2017-11-06] MEDS ORDERED: PIPERACILL/TAZOBAC CONSULT ACTIVE PRN (21:45)
[2017-11-06] MEDS ORDERED: TRAMADOL HCL 50 MG TAB PO PRN (21:45)
[2017-11-06 22:09] LABS: INFLUENZA A PCR Neg for Influ A (NEG); INFLUENZA B PCR Neg for Influ B (NEG)
--- NOTE | 2017-11-06 22:25 | History and Physical ---
History & Physical Date & Time of Service: Nov 06, 2017 ~ 21:00 Chief Complaint: Fever Primary Care Physician: Mikael Cain M.D. History of Present Illness 72 year old male who presents to the ED with fever. Patient has history of mantle cell lymphoma and has been admitted to [facility] 3 times recently. Most recent admission was 10/14 - 10/17 for persistent fevers felt to be due to persistent right maxillary sinusitis. Patient had been started on Levaquin and Augmentin during the admission prior to that. He was continued on those antibiotics at discharge. After discharge, his CMV blood test came back positive. He was started on valganciclovir 900mg BID x 21 days. Patient reports he has not totally recovered since his last admission. He reports good days and bad days. He was seen by Dr. Boateng yesterday who told him he could stop the Levaquin and Augmentin. He continues on the valganciclovir. He also received IVIG on 10/29. reports he has been running fevers since that time. He feels very weak some days and is unable to get out of bed. His appetite has been poor at times. He denies abdominal pain, nausea, vomiting, and diarrhea. No urinary symptoms. He denies sinus congestion. No cough or sputum production. He reports his nose feels very dry and ambrocio. In the ED, patient is tachycardic, hypoxic, and tachypneic. Saturations improved with oxygen 2L. CXR is negative for infiltrate. He was initially afebrile but spiked a temp of 38.4. BP is stable. Lactic acid is 10.3. He was given IVF, Vanco, and Zosyn. Past Medical/Surgical History Medical Problems: (1) CMV (cytomegalovirus) status positive Permanent Comment: blood PCR 10/16/17 Status: Chronic (2) GERD (gastroesophageal reflux disease) Status: Chronic (3) Mantle cell lymphoma Status: Chronic Surgical Problems: (1) Status post appendectomy Status: Chronic (2) Status post lymph node biopsy Status: Chronic (3) Status post placement vascular access device Permanent Comment: 2015 [facility] [place]: Chronic Family History FH: CAD (coronary artery disease) FATHER MOTHER FH: lung cancer SISTER Social History Smoking Status: Never Smoker Alcohol Use: none Marital Status: Immunizations History of Tetanus Vaccine?: Yes Tetanus Immunization Date: Oct 05, 2011 History of Pneumococcal: Yes Pneumococcal Date: Aug 08, 2015 Allergies Coded Allergies: Tetracycline (Verified Allergy, Unknown, water blisters, 11/06/17) Home Medications Scheduled Bendamustine HCl (Bendeka), 0 IV UD Cytarabine (Cytarabine), 0 IV UD Dexamethasone (Decadron), 0.5 TAB PO Q2D Omeprazole (Prilosec), 20 MG PO DAILY Ranitidine HCl (Ranitidine HCl), 150 MG PO UD Rituximab (Rituxan), 1 DOSE IV UD Valganciclovir HCl (Valganciclovir), 900 MG PO BID Scheduled PRN Ondansetron (Ondansetron HCl), 8 MG PO Q8 PRN for Nausea or Vomiting Promethazine Hcl (Phenergan), 25 MG PO Q4 PRN for Nausea Tramadol HCl (Tramadol HCl), 50 MG PO Q6 PRN for Pain Review of Systems ROS per HPI, all other systems reviewed and negative Physical Exam Vital Signs Date Time Temp Pulse Resp B/P (MAP) Pulse Ox O2 Delivery O2 Flow Rate FiO2 11/06/17 21:55 38.4 11/06/17 20:24 122 31 97 Nasal Cannula 2.0 11/06/17 20:09 126 23 97 11/06/17 19:54 127 23 98 11/06/17 19:39 131 31 98 11/06/17 19:24 129 29 99 11/06/17 19:09 127 29 98 11/06/17 18:56 Nasal Cannula 2.0 11/06/17 18:56 93 Nasal Cannula 2.0 11/06/17 18:54 125 25 89 11/06/17 18:49 123/73 89 Room Air 11/06/17 18:45 94 Room Air 11/06/17 18:45 128 27 11/06/17 18:24 134 11/06/17 17:59 37.0 134 24 123/70 94 Room Air General Appearance: WD/WN, + mild distress (ill appearing) Eyes: normal inspection, EOMI, sclerae normal ENT: hearing grossly normal, + pertinent finding (mucous membranes dry) Neck: supple, no JVD, trachea midline Respiratory/Chest: + respiratory distress (mild tachypnea ), + wheezing (faint , scattered, expiratory) Cardiovascular: no edema, normal peripheral pulses, + tachycardia (regular rhythm) Abdomen/GI: normal bowel sounds, non tender, soft, no organomegaly Extremities/Musculoskelatal: normal inspection, no calf tenderness, normal capillary refill Neurologic/Psych: no motor/sensory deficits, alert, normal mood/affect, oriented x 3 Skin: normal color, warm/dry Diagnostics Laboratory Results Results Past 24 Hours Test 11/06/17 18:45 11/06/17 19:39 11/06/17 20:20 Range/Units White Blood Count 6.49 4.8-10.8 K/uL Red Blood Count 3.02 4.7-6.1 M/uL Hemoglobin 8.2 14.0-18.0 g/dL Hematocrit 27.4 42-52 % Mean Corpuscular Volume 90.7 80-100 fL Mean Corpuscular Hemoglobin 27.2 25-34 pg Mean Corpuscular Hemoglobin Concent 29.9 32-36 g/dl Platelet Count 53 130-400 K/uL Mean Platelet Volume 10.5 7.4-10.4 fL RDW Standard Deviation 69.7 36.4-46.3 fL RDW Coefficient of Variation 21.8 11.5-14.5 % Nucleated RBC Absolute Count (auto) 0.06 0-0 K/uL Neutrophils % (Manual) 45.6 % Lymphocytes % (Manual) 52.6 % Monocytes % (Manual) 1.8 % Nucleated Red Blood Cells % 0.9 % Neutrophils # (Manual) 2.96 1.4-6.5 K/uL Total Absolute Neutrophils 2.96 1.4-6.5 K/uL Lymphocytes # (Manual) 3.41 1.2-3.4 K/uL Total Absolute Lymphocytes 3.41 1.2-3.4 K/uL Monocytes # (Manual) 0.12 0.11-0.59 K/uL Polychromasia 1+ Anisocytosis PRESENT Tear Drop Cells 1+ Prothrombin Time 11.3 9.0-12.0 SECONDS Prothromb Time International Ratio 1.1 0.9-1.1 Activated Partial Thromboplast Time 28.9 21.0-31.0 SECONDS Partial Thromboplastin Ratio 1.1 Sodium Level 133 136-145 mmol/L Potassium Level 4.6 3.5-5.1 mmol/L Chloride Level 97 98-107 mmol/L Carbon Dioxide Level 23 21-32 mmol/L Anion Gap 13.0 3-11 mmol/L Blood Urea Nitrogen 12 7-18 mg/dl Creatinine 0.75 0.60-1.40 mg/dl Est Creatinine Clear Calc Drug Dose 87.8 ml/min Estimated GFR () 105.5 Estimated GFR (Non- 91.0 BUN/Creatinine Ratio 16.1 10-20 Random Glucose 160 70-99 mg/dl Calcium Level 8.4 8.5-10.1 mg/dl Total Bilirubin 0.3 0.2-1 mg/dl Direct Bilirubin 0.1 0-0.2 mg/dl Aspartate Amino Transf (AST/SGOT) 26 15-37 U/L Alanine Aminotransferase (ALT/SGPT) 15 12-78 U/L Alkaline Phosphatase 76 45-117 U/L Troponin I < 0.015 0-0.045 ng/ml Total Protein 6.2 6.4-8.2 gm/dl Albumin 2.0 3.4-5.0 gm/dl Influenza Type A Antigen Neg for Influ A NEG Influenza Type B Antigen Neg for Influ B NEG Venous Blood pH 7.40 7.36-7.41 Venous Blood Partial Pressure CO2 36 38.0-50.0 mmHg Venous Blood Partial Pressure O2 29 mmHg Venous Blood HCO3 22 mmol/L Venous Blood Oxygen Saturation < 60.0 % Venous Blood Base Excess -2.5 mEq/L Lactic Acid Level 10.3 0.4-2.0 mmol/L Urine Color DK YELLOW Urine Appearance CLEAR CLEAR Urine pH 5.0 4.5-7.5 Urine Specific [place] 1.025 1.000-1.030 Urine Protein 1+ NEG Urine Glucose (UA) NEG NEG Urine Ketones NEG NEG Urine Occult Blood NEG NEG Urine Nitrite NEG NEG Urine Bilirubin NEG NEG Urine Urobilinogen NEG NEG Urine Leukocyte Esterase NEG NEG Urine WBC (Auto) 1-5 0-5 /hpf Urine RBC (Auto) 0-4 0-4 /hpf Urine Hyaline Casts (Auto) 1-5 0-5 /lpf Urine Epithelial Cells (Auto) 10-20 0-5 /lpf Urine Bacteria (Auto) NEG NEG Microbiology Results 11/06/17 Blood Culture, Received Pending 11/06/17 Blood Culture, Received Pending 11/06/17 Urine Culture, Received Pending Diagnostic Radiology CXR IMPRESSION: 1. No acute cardiopulmonary disease. Impression Assessment and Plan FEVER POSSIBLE SEVERE SEPSIS - admit to tele - patient presenting to the ED with intermittent fevers x 1 week; has had two admission to [facility] recently for fever which was felt to be due to a chronic right maxillary sinusitis; patient also tested positive for CMV - on presentation: initially afebrile however did spike temp of 38.4, tachycardic, tachypneic, hypoxic, lactic acid 10.3; BP stable - no obvious source of infection identified in the ED - check CT sinuses given history - given hypoxia and tachycardia, will check CTA chest for PE - CT abd/pelvis to evaluate for further infectious source - ? if due to worsening lymphoma - s/p Vanco and Zosyn in the ED; will continue with both and add Cefepime - IVF, continue to follow lactic acid levels - blood cultures - ID consult HX MANTEL CELL LYMPHOMA - heme/onc consult ANEMIA, THROMBOCYTOPENIA - hgb and platelets stable - likely due to chemo / lymphoma - continue to monitor GERD - continue PPI DVT PROPHYLAXIS - SCDs due to thrombocytopenia DISPO - In my clinical judgment this beneficiary meets acute admission criteria, established by [facility], that includes being hospitalized through two midnights. ADDENDUM: This is a 72 year old male with a PMH of mantle cell lymphoma, last received chemo in September 2017 due to repeated hospitalizations from recurrent fevers/ infections, immunosuppression - presented with worsening weakness/fevers. Has had numerous hospitalizations due to sinusitis, pneumonia/bronchitis; during previous admission, tested positive for CMV. Has been on Levaquin, Augmentin and Valganciclovir. Follows-up with ID, oncology as outpatient. He is significantly weak today during exam. +tachycardic Plan: will need broad spectrum antibiotics Vancomycin, Zosyn, Cefepime for now - ID consulted for further input continue antivirals oncology consulted severe lactic acidemia is concerning - unsure if sepsis vs. worsening lymphoma. continue IVFs Boost BID may need ENT input if fungal sinusitis is a concern. For now, will obtain a CT to r/o PE due to significant tachycardia. will check CT sinuses. CT abdomen/pelvis talked with patient and - patient is a DNR. May need palliative care VTE Prophylaxis VTE Risk Assessment Done? Y/N: Yes Risk Level: Moderate
--- NOTE | 2017-11-06 23:04 | DIAGNOSTIC IMAGING REPORT ---
ABD/PELVIS IV CONTRAST ONLY CLINICAL HISTORY: 72 years-old Male presenting with lactic acidosis, sepsis. TECHNIQUE: Multidetector CT of the abdomen and pelvis was performed without the use of intravenous contrast. IV contrast: None. A dose lowering technique was used consistent with the principles of ALARA (as low as reasonably achievable). COMPARISON: 07/30/2017. CT DOSE (mGy.cm): The estimated cumulative dose is 2288.33 mGy.cm. FINDINGS: Community Leader topogram: Unremarkable. Lung bases: Minimal basilar opacities, likely atelectasis. Mosaic attenuation noted. Emphysema. Partially visualized tip of a central venous catheter. Normal heart size. No pericardial or pleural effusion. Liver: Normal morphology. No liver lesion. Patent hepatic vasculature. Biliary: No intrahepatic or extrahepatic biliary ductal dilatation. Gallbladder contains gallstones. Pancreas: Mild parenchymal atrophy. Spleen: Splenomegaly increased from prior, now measuring 17 cm in maximal axial dimension, previously 13.4 cm. Adrenal glands: Normal. Kidneys and ureters: Nonspecific perinephric fat stranding. No hydronephrosis. Normal excretion from the bilateral kidneys. Parenchyma normal. Ureters normal. Bladder: Mild circumferential bladder wall thickening, possibly chronic outlet obstruction. Pelvic organs: Prostate and seminal vesicles normal. Bowel: Normal. No bowel obstruction. Peritoneal cavity: No free fluid or intraperitoneal gas. Lymph nodes: Numerous prominent retroperitoneal lymph nodes, overall stable in appearance from prior. Enlarged right inguinal lymph node may be slightly increased in size from prior. Vasculature: Atherosclerosis of the normal caliber abdominal aorta. IVC patent. Abdominal wall: Normal. Musculoskeletal: Degenerative changes of the spine. No destructive osseous lesion. IMPRESSION: 1. Worsened splenomegaly. 2. The majority of retroperitoneal lymphadenopathy is grossly stable from prior. However, slight increased size of right inguinal lymphadenopathy. 3. Emphysema. 4. Suggestion of chronic bladder outlet obstruction versus less likely cystitis. 5. No other evidence of acute intra-abdominal pathology. Electronically signed by: Mikael Langford M.D. 11/06/2017 11:03 PM Dictated Date/Time: 11/06/2017 10:56 PM
--- NOTE | 2017-11-06 23:12 | DIAGNOSTIC IMAGING REPORT ---
(CHEST FOR PE) ANGIO WITH CLINICAL HISTORY: 72 years-old Male presenting with ^hypoxia, tachycardia. TECHNIQUE: Multidetector CT angiography of the chest was performed after administration of intravenous contrast. 3-D volumetric and/or maximum intensity projection (MIP) images were subsequently reconstructed for review. IV contrast: 94 mL of Optiray 320. A dose lowering technique was used consistent with the principles of ALARA (as low as reasonably achievable). COMPARISON: 09/18/2017. CT DOSE (mGy.cm): The estimated cumulative dose is 2288.[address] abdomen and pelvis and CT sinus. FINDINGS: Credentialing Assistant topogram: Unremarkable. Pulmonary vasculature: The study is suboptimal for the assessment of the pulmonary vascular tree secondary to timing of the contrast bolus. Allowing for limited image quality, no central filling defect to suggest pulmonary embolus. Main pulmonary artery is not enlarged. No flattening of the interventricular septum. No intracardiac filling defect. No reflux of contrast into the hepatic veins. Remaining chest: On soft tissue windows, right internal jugular Mediport terminates in the superior cavoatrial junction. Scattered subcentimeter mediastinal and bilateral hilar lymph nodes similar to prior. Atherosclerosis of the aorta. Normal heart size. Coronary artery calcification. No pericardial or pleural effusion. Splenomegaly worsened from prior. On lung windows, emphysema. Dependent changes likely atelectasis or scarring. Solid 5 mm pulmonary nodule at the right apex (series 7 image 250), decreased in size and prominence. Solid 3 to 4 mm nodule in the left upper lobe (series 7 image 195), unchanged. No new nodule. Mosaic attenuation suggest small airways disease. Mild bronchial wall thickening may be present. Airways patent. On bone windows, degenerative changes of the spine. No destructive osseous lesion. IMPRESSION: 1. Allowing for suboptimal image quality, no evidence of pulmonary embolus. No acute intrathoracic pathology. 2. Emphysema. 3. Stable to slight decreased prominence of solid pulmonary nodules measuring up to 5 mm. No new nodule. 4. Persistent mediastinal and bilateral hilar lymphadenopathy. Electronically signed by: Mikael Langford M.D. 11/06/2017 11:11 PM Dictated Date/Time: 11/06/2017 11:03 PM
--- NOTE | 2017-11-06 23:22 | DIAGNOSTIC IMAGING REPORT ---
SINUSES-MAXILLOFACIAL WITH CLINICAL HISTORY: 72 years-old Male presenting with recurrent sinusitis. TECHNIQUE: Multidetector CT of the sinuses was performed after the administration of intravenous contrast. IV contrast: 94 mL of Optiray 320. A dose lowering technique was used consistent with the principles of ALARA (as low as reasonably achievable). COMPARISON: None. CT DOSE (mGy.cm): The estimated cumulative dose is 2288.[address] scans. 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 Aerated secretions in the right maxillary sinus. Trace fluid in the left mastoid air cells. Remaining paranasal sinuses and mastoid air cells clear. No convincing sclerosis of the maxillary sinus terry to suggest chronic sinusitis. Left maxillary antrostomy may be present. Nasofrontal ethmoidal recesses and ostiomeatal units patent. Denia bullosa of the left middle turbinate. No convincing evidence of bony dehiscence of the optic canals or carotid siphons. No other anatomic variants. Bony nasal septum midline. Atherosclerosis. Vessels patent. Limited intracranial evaluation within normal limits. IMPRESSION: 1. Findings suggest acute sinusitis of the right maxillary sinus. 2. Possible postsurgical changes of left maxillary antrostomy. 3. No significant anatomic variant. Electronically signed by: Mikael Langford M.D. 11/06/2017 11:20 PM Dictated Date/Time: 11/06/2017 11:15 PM
[2017-11-06 23:32] VITALS: BP 106/61; PULSE 113; TEMP 38.5; O2SAT 98; Ht 175.3 cm; Wt 72.1 kg
[2017-11-06] MEDS: CEFEPIME IV 2,000 MG in SYRINGE 7.5 ML IV SCH (23:55)
[2017-11-07] VITALS (21 sets, daily range): BP systolic 87–122; BP diastolic 44–76; PULSE 21–109; TEMP 35.8–38.9; O2SAT 90–98
[2017-11-07] MEDS ORDERED: IBUPROFEN 200 MG TAB PO ONE
[2017-11-07] MEDS ORDERED: SODIUM CHLORIDE 0.9% 1000ML 1,000 ML IV SCH ×2 (01:00→03:00)
[2017-11-07] MEDS ORDERED: VANCOMYCIN INJ 1,000 MG in SODIUM CHLORIDE 0.9% 250ML 250 ML IV ONE (01:00)
[2017-11-07] MEDS: PIPERACILL/TAZOBAC IV 4.5 GM in DEXTROSE 5% 100ML IV SCH ×3 (01:57→17:11)
[2017-11-07] MEDS ORDERED: SODIUM CHLORIDE 0.9% 1000ML 1,000 ML IV STA (02:19)
[2017-11-07] MEDS: MAGNESIUM SULFATE 1GM / D5W 1 GM in PREMIXED IN D5W 100 ML IV SCH ×4 (04:03→08:13)
[2017-11-07 05:54] LABS: HEMATOCRIT 20.7 % (42-52); HEMOGLOBIN 6.2 g/dL (14.0-18.0); MEAN CELL VOLUME 91.6 fL (80-100); MEAN CORPUSCULAR HEMOGLOBIN 27.4 pg (25-34); MEAN PLATELET VOLUME 11.5 fL (7.4-10.4); PLATELET COUNT 41 K/uL (130-400); RED CELL DISTRIBUTION WIDTH CV 21.4 % (11.5-14.5); RED CELL DISTRIBUTION WIDTH SD 70.8 fL (36.4-46.3); WHITE BLOOD COUNT 3.77 K/uL (4.8-10.8)
[2017-11-07 06:13] LABS: CALCIUM 7.3 mg/dl (8.5-10.1); CREATININE 0.59 mg/dl (0.60-1.40); POTASSIUM 3.8 mmol/L (3.5-5.1)
[2017-11-07] MEDS ORDERED: LACTATED RINGER'S 1000ML 1,000 ML IV SCH (06:30)
[2017-11-07] MEDS: BOOST VANILLA PO SCH ×2 (07:30→15:38)
[2017-11-07] MEDS: CEFEPIME IV 2,000 MG in SYRINGE 7.5 ML IV SCH ×2 (08:14→16:26)
[2017-11-07] MEDS: PANTOprazole SOD 40 MG TAB PO SCH (08:16)
[2017-11-07] MEDS: VALGANCICLOVIR HCL 450 MG PO SCH ×2 (08:17→21:50)
[2017-11-07] MEDS ORDERED: DEXAMETHASONE 1 MG TAB PO SCH (09:00)
[2017-11-07] MEDS ORDERED: ACETAMINOPHEN 500 MG TAB PO PRN (11:45)
[2017-11-07] MEDS: FLUDROCORTISONE ACETATE 0.1 MG TAB PO SCH ×2 (11:48→21:49)
[2017-11-07] MEDS: DEXAMETHASONE INJ 4 MG in SYRINGE 0 ML IV SCH ×2 (11:48→21:51)
--- NOTE | 2017-11-07 12:06 | Pharmacy Progress Note ---
Pharmacy Antibiotic Consult Date of Service: Nov 07, 2017. Pharmacy Dosing Scope Pharmacy is consulted to initiate vancomycin/zosyb IV dosing therapy, order appropriate labs and adjust drug dose/frequency. Subjective The patient is a 72 year old male admitted on Nov 06, 2017 at 21:19. Objective Height (Feet): 5 Height (Inches): 9.00 Weight (Kilograms): 72.100 Lab Results (24hrs): Test 11/06/17 18:45 11/06/17 19:39 11/06/17 20:20 11/06/17 21:54 White Blood Count 6.49 K/uL (4.8-10.8) Red Blood Count 3.02 M/uL (4.7-6.1) Hemoglobin 8.2 g/dL (14.0-18.0) Hematocrit 27.4 % (42-52) Mean Corpuscular Volume 90.7 fL (80-100) Mean Corpuscular Hemoglobin 27.2 pg (25-34) Mean Corpuscular Hemoglobin Concent 29.9 g/dl (32-36) Platelet Count 53 K/uL (130-400) Mean Platelet Volume 10.5 fL (7.4-10.4) RDW Standard Deviation 69.7 fL (36.4-46.3) RDW Coefficient of Variation 21.8 % (11.5-14.5) Nucleated RBC Absolute Count (auto) 0.06 K/uL (0-0) Neutrophils % (Manual) 45.6 % Lymphocytes % (Manual) 52.6 % Monocytes % (Manual) 1.8 % Nucleated Red Blood Cells % 0.9 % Neutrophils # (Manual) 2.96 K/uL (1.4-6.5) Total Absolute Neutrophils 2.96 K/uL (1.4-6.5) Lymphocytes # (Manual) 3.41 K/uL (1.2-3.4) Total Absolute Lymphocytes 3.41 K/uL (1.2-3.4) Monocytes # (Manual) 0.12 K/uL (0.11-0.59) Polychromasia 1+ Anisocytosis PRESENT Tear Drop Cells 1+ Prothrombin Time 11.3 SECONDS (9.0-12.0) Prothromb Time International Ratio 1.1 (0.9-1.1) Activated Partial Thromboplast Time 28.9 SECONDS (21.0-31.0) Partial Thromboplastin Ratio 1.1 Sodium Level 133 mmol/L (136-145) Potassium Level 4.6 mmol/L (3.5-5.1) Chloride Level 97 mmol/L (98-107) Carbon Dioxide Level 23 mmol/L (21-32) Anion Gap 13.0 mmol/L (3-11) Blood Urea Nitrogen 12 mg/dl (7-18) Creatinine 0.75 mg/dl (0.60-1.40) Est Creatinine Clear Calc Drug Dose 87.8 ml/min Estimated GFR () 105.5 Estimated GFR (Non- 91.0 BUN/Creatinine Ratio 16.1 (10-20) Random Glucose 160 mg/dl (70-99) Calcium Level 8.4 mg/dl (8.5-10.1) Magnesium Level 1.1 mg/dl (1.8-2.4) Total Bilirubin 0.3 mg/dl (0.2-1) Direct Bilirubin 0.1 mg/dl (0-0.2) Aspartate Amino Transf (AST/SGOT) 26 U/L (15-37) Alanine Aminotransferase (ALT/SGPT) 15 U/L (12-78) Alkaline Phosphatase 76 U/L (45-117) Troponin I < 0.015 ng/ml (0-0.045) Total Protein 6.2 gm/dl (6.4-8.2) Albumin 2.0 gm/dl (3.4-5.0) Procalcitonin 0.26 ng/ml (0-0.5) Influenza Type A (RT-PCR) Neg for Influ A (NEG) Influenza Type A Antigen Neg for Influ A (NEG) Influenza Type B Antigen Neg for Influ B (NEG) Influenza Type B (RT-PCR) Neg for Influ B (NEG) Venous Blood pH 7.40 (7.36-7.41) Venous Blood Partial Pressure CO2 36 mmHg (38.0-50.0) Venous Blood Partial Pressure O2 29 mmHg Venous Blood HCO3 22 mmol/L Venous Blood Oxygen Saturation < 60.0 % Venous Blood Base Excess -2.5 mEq/L Urine Color DK YELLOW Urine Appearance CLEAR (CLEAR) Urine pH 5.0 (4.5-7.5) Urine Specific [place] 1.025 (1.000-1.030) Urine Protein 1+ (NEG) Urine Glucose (UA) NEG (NEG) Urine Ketones NEG (NEG) Urine Occult Blood NEG (NEG) Urine Nitrite NEG (NEG) Urine Bilirubin NEG (NEG) Urine Urobilinogen NEG (NEG) Urine Leukocyte Esterase NEG (NEG) Urine WBC (Auto) 1-5 /hpf (0-5) Urine RBC (Auto) 0-4 /hpf (0-4) Urine Hyaline Casts (Auto) 1-5 /lpf (0-5) Urine Epithelial Cells (Auto) 10-20 /lpf (0-5) Urine Bacteria (Auto) NEG (NEG) Bedside Lactic Acid Venous 8.91 mmol/L (0.90-1.70) Test 11/07/17 00:48 11/07/17 05:19 Lactic Acid Level 8.0 mmol/L (0.4-2.0) 7.0 mmol/L (0.4-2.0) White Blood Count 3.77 K/uL (4.8-10.8) Red Blood Count 2.26 M/uL (4.7-6.1) Hemoglobin 6.2 g/dL (14.0-18.0) Hematocrit 20.7 % (42-52) Mean Corpuscular Volume 91.6 fL (80-100) Mean Corpuscular Hemoglobin 27.4 pg (25-34) Mean Corpuscular Hemoglobin Concent 30.0 g/dl (32-36) Platelet Count 41 K/uL (130-400) Mean Platelet Volume 11.5 fL (7.4-10.4) Neutrophils (%) (Auto) 37.9 % Lymphocytes (%) (Auto) 33.7 % Monocytes (%) (Auto) 24.7 % Eosinophils (%) (Auto) 0.5 % Basophils (%) (Auto) 0.3 % Neutrophils # (Auto) 1.43 K/uL (1.4-6.5) Lymphocytes # (Auto) 1.27 K/uL (1.2-3.4) Monocytes # (Auto) 0.93 K/uL (0.11-0.59) Eosinophils # (Auto) 0.02 K/uL (0-0.5) Basophils # (Auto) 0.01 K/uL (0-0.2) RDW Standard Deviation 70.8 fL (36.4-46.3) RDW Coefficient of Variation 21.4 % (11.5-14.5) Immature Granulocyte % (Auto) 2.9 % Immature Granulocyte # (Auto) 0.11 K/uL (0.00-0.02) Large Platelets 1+ Polychromasia 1+ Anisocytosis PRESENT Tear Drop Cells 1+ Ovalocytes 1+ Sodium Level 140 mmol/L (136-145) Potassium Level 3.8 mmol/L (3.5-5.1) Chloride Level 107 mmol/L (98-107) Carbon Dioxide Level 22 mmol/L (21-32) Anion Gap 11.0 mmol/L (3-11) Blood Urea Nitrogen 10 mg/dl (7-18) Creatinine 0.59 mg/dl (0.60-1.40) Est Creatinine Clear Calc Drug Dose 111.6 ml/min Estimated GFR () 116.4 Estimated GFR (Non- 100.4 BUN/Creatinine Ratio 17.1 (10-20) Random Glucose 76 mg/dl (70-99) Calcium Level 7.3 mg/dl (8.5-10.1) Albumin 1.5 gm/dl (3.4-5.0) Micro Results: Date/Time Source Procedure Growth Status 11/06/17 19:39 Blood Blood Culture Pending Received 11/06/17 18:45 Blood Blood Culture Pending Received 11/07/17 11:45 Nasal MRSA DNA Surveillance Screen Pending Hitesh Batch 11/06/17 20:20 Urine , Clean Catch Urine Culture Pending Received Recent Pertinent Medications Patient recently on levaquin/augmentin reportedly stopped by Dr. Boateng on 11/05. Currently on valganciclovir for CMV infection Assessment & Plan Assessment: * 72 yo male with mantle cell lymphoma presented to ED with fever, recent admission 10/14-10/17 also for fevers * Previous levaquin/augmentin use which was reportedly stopped by Dr. Boateng on 11/05 per physician notes. * Positive CMV and being treated with valganciclovir 900 mg BID x 21 days * WBC 3.7, Tmax 38.5 * urine cultures, Blood cultures pending * Started on vancomycin/zosyn in ED and continuing with addition of cefepime ( provider wants double pseudomonas coverage) * ID consulted Plan: Patient received 1 gm vancomycin in the ED and an additional 1 gm x 1 at 0100. Will start maintenance dose of 1250 mg (17 mg/kg) q12H PK: Age maximum CrCl 82, Ke 0.072, T1/2 ~10 Goal trough level estimate: between 15-20mcg/mL. Trough ordered for 11/09 @0130. Pharmacy will continue to follow and will adjust dose/frequency as necessary. Thank you
[2017-11-07 13:36] LABS: HEMATOCRIT 24.1 % (42-52); HEMOGLOBIN 7.5 g/dL (14.0-18.0); RETIC COUNT % 3.4 % (0.5-2.0)
[2017-11-07] MEDS: VANCOMYCIN INJ 1,250 MG in SODIUM CHLORIDE 0.9% 250ML 250 ML IV SCH (13:48)
--- NOTE | 2017-11-07 17:16 | Progress Note ---
Medicine Progress Note Date & Time of Visit: Nov 07, 2017 at 11:30 . Subjective CC: Follow-up visit for fever, suspected sepsis. HPI: Admitted last evening with fever and suspected sepsis. Lactic acid markedly elevated. Cultures obtained. Started on broad spectrum antibiotics. Received aggressive IV fluid resuscitation. Vital signs better today, but still very weak and discouraged. No headache, facial pain. No pharyngitis. No cough. No SOB. No chest pain. No nausea, vomiting, diarrhea. ROS: as noted above in HPI . Objective Last 8 Hrs Date Time Temp Pulse Resp B/P (MAP) Pulse Ox O2 Delivery O2 Flow Rate FiO2 11/07/17 17:00 36.8 21 81 111/66 92 11/07/17 16:00 Nasal Cannula 2.0 11/07/17 16:00 36.5 84 20 116/58 91 11/07/17 15:45 88 24 114/66 90 11/07/17 15:30 36.4 85 22 104/63 91 11/07/17 15:15 85 20 121/63 95 2.0 11/07/17 15:10 36.4 11/07/17 14:54 36.3 99 24 122/69 95 11/07/17 13:38 37.1 11/07/17 12:30 38.9 109 20 110/59 (76) 93 Nasal Cannula 2.0 11/07/17 12:00 Nasal Cannula 2.0 11/07/17 11:20 37.4 106 24 121/57 95 2.0 11/07/17 10:50 37.2 103 24 111/76 95 2.0 11/07/17 10:20 37.1 98 24 120/55 96 2.0 11/07/17 10:05 98 24 117/49 98 2.0 11/07/17 09:50 36.8 95 22 112/47 97 2.0 11/07/17 09:35 36.8 95 20 96/44 96 2.0 11/07/17 09:20 36.7 93 22 109/46 95 2.0 Physical Exam: General- lying in bed; appears to be acutely and chronically ill Lungs- clear to auscultation; no respiratory distress Cardiovascular- RRR; no gallop; no JVD; no pretibial edema Abdomen- + bowel sounds, soft, nontender Extremities- no cyanosis; no calf tenderness Neuro- alert, oriented Skin- warm & dry; no rash . Laboratory Results: Last 24 Hours Test 11/06/17 18:45 11/06/17 19:39 11/06/17 20:20 11/06/17 21:54 White Blood Count 6.49 K/uL Red Blood Count 3.02 M/uL Hemoglobin 8.2 g/dL Hematocrit 27.4 % Mean Corpuscular Volume 90.7 fL Mean Corpuscular Hemoglobin 27.2 pg Mean Corpuscular Hemoglobin Concent 29.9 g/dl Platelet Count 53 K/uL Mean Platelet Volume 10.5 fL RDW Standard Deviation 69.7 fL RDW Coefficient of Variation 21.8 % Nucleated RBC Absolute Count (auto) 0.06 K/uL Neutrophils % (Manual) 45.6 % Lymphocytes % (Manual) 52.6 % Monocytes % (Manual) 1.8 % Nucleated Red Blood Cells % 0.9 % Neutrophils # (Manual) 2.96 K/uL Total Absolute Neutrophils 2.96 K/uL Lymphocytes # (Manual) 3.41 K/uL Total Absolute Lymphocytes 3.41 K/uL Monocytes # (Manual) 0.12 K/uL Polychromasia 1+ Anisocytosis PRESENT Tear Drop Cells 1+ Prothrombin Time 11.3 SECONDS Prothromb Time International Ratio 1.1 Activated Partial Thromboplast Time 28.9 SECONDS Partial Thromboplastin Ratio 1.1 Sodium Level 133 mmol/L Potassium Level 4.6 mmol/L Chloride Level 97 mmol/L Carbon Dioxide Level 23 mmol/L Anion Gap 13.0 mmol/L Blood Urea Nitrogen 12 mg/dl Creatinine 0.75 mg/dl Est Creatinine Clear Calc Drug Dose 87.8 ml/min Estimated GFR () 105.5 Estimated GFR (Non- 91.0 BUN/Creatinine Ratio 16.1 Random Glucose 160 mg/dl Calcium Level 8.4 mg/dl Magnesium Level 1.1 mg/dl Total Bilirubin 0.3 mg/dl Direct Bilirubin 0.1 mg/dl Aspartate Amino Transf (AST/SGOT) 26 U/L Alanine Aminotransferase (ALT/SGPT) 15 U/L Alkaline Phosphatase 76 U/L Troponin I < 0.015 ng/ml Total Protein 6.2 gm/dl Albumin 2.0 gm/dl Procalcitonin 0.26 ng/ml Influenza Type A (RT-PCR) Neg for Influ A Influenza Type A Antigen Neg for Influ A Influenza Type B Antigen Neg for Influ B Influenza Type B (RT-PCR) Neg for Influ B Venous Blood pH 7.40 Venous Blood Partial Pressure CO2 36 mmHg Venous Blood Partial Pressure O2 29 mmHg Venous Blood HCO3 22 mmol/L Venous Blood Oxygen Saturation < 60.0 % Venous Blood Base Excess -2.5 mEq/L Lactic Acid Level 10.3 mmol/L Urine Color DK YELLOW Urine Appearance CLEAR Urine pH 5.0 Urine Specific [place] 1.025 Urine Protein 1+ Urine Glucose (UA) NEG Urine Ketones NEG Urine Occult Blood NEG Urine Nitrite NEG Urine Bilirubin NEG Urine Urobilinogen NEG Urine Leukocyte Esterase NEG Urine WBC (Auto) 1-5 /hpf Urine RBC (Auto) 0-4 /hpf Urine Hyaline Casts (Auto) 1-5 /lpf Urine Epithelial Cells (Auto) 10-20 /lpf Urine Bacteria (Auto) NEG Bedside Lactic Acid Venous 8.91 mmol/L Test 11/07/17 00:48 11/07/17 05:19 11/07/17 13:11 Lactic Acid Level 8.0 mmol/L 7.0 mmol/L 8.1 mmol/L White Blood Count 3.77 K/uL Red Blood Count 2.26 M/uL Hemoglobin 6.2 g/dL 7.5 g/dL Hematocrit 20.7 % 24.1 % Mean Corpuscular Volume 91.6 fL Mean Corpuscular Hemoglobin 27.4 pg Mean Corpuscular Hemoglobin Concent 30.0 g/dl Platelet Count 41 K/uL Mean Platelet Volume 11.5 fL Neutrophils (%) (Auto) 37.9 % Lymphocytes (%) (Auto) 33.7 % Monocytes (%) (Auto) 24.7 % Eosinophils (%) (Auto) 0.5 % Basophils (%) (Auto) 0.3 % Neutrophils # (Auto) 1.43 K/uL Lymphocytes # (Auto) 1.27 K/uL Monocytes # (Auto) 0.93 K/uL Eosinophils # (Auto) 0.02 K/uL Basophils # (Auto) 0.01 K/uL RDW Standard Deviation 70.8 fL RDW Coefficient of Variation 21.4 % Immature Granulocyte % (Auto) 2.9 % Immature Granulocyte # (Auto) 0.11 K/uL Large Platelets 1+ Polychromasia 1+ Anisocytosis PRESENT Tear Drop Cells 1+ Ovalocytes 1+ Sodium Level 140 mmol/L Potassium Level 3.8 mmol/L Chloride Level 107 mmol/L Carbon Dioxide Level 22 mmol/L Anion Gap 11.0 mmol/L Blood Urea Nitrogen 10 mg/dl Creatinine 0.59 mg/dl Est Creatinine Clear Calc Drug Dose 111.6 ml/min Estimated GFR () 116.4 Estimated GFR (Non- 100.4 BUN/Creatinine Ratio 17.1 Random Glucose 76 mg/dl Calcium Level 7.3 mg/dl Albumin 1.5 gm/dl Absolute Reticulocyte Count 0.09 10^6/uL Percent Reticulocyte Count 3.4 % Iron Level 12 mcg/dl Total Iron Binding Capacity 133 mcg/dl Transferrin 107 mg/dl Transferrin % Saturation 8 % Ferritin 944.1 ng/ml Vitamin B12 Level 1097 pg/mL Folate 13.05 ng/mL Date/Time Source Procedure Growth Status 11/06/17 19:39 Blood Blood Culture Pending Received 11/06/17 18:45 Blood Blood Culture Pending Received 11/07/17 11:45 Nasal MRSA DNA Surveillance Screen - Final Specimen Negative for MRSA by DNA Probe Complete 11/06/17 20:20 Urine , Clean Catch Urine Culture - Preliminary NO GROWTH - LESS THAN 1,000 COLONIES/... Resulted Assessment & Plan FEVER / PROBABLE SEPSIS Presented to ED with fever, tachycardia, tachypnea, hyperlactemia. Recently diagnosed right maxillary sinusitis treated with prolonged course of antibiotic therapy. 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 No cough or other specific symptoms to suggest infection. Serum lactate 10. Blood cultures obtained. Placed on broad-spectrum antibiotic coverage with vancomycin and cefepime. No infiltrates on chest x-ray or CT chest. No acute findings on CT of abdomen. CT sinuses shows marked improvement of right maxillary sinusitis. Discussed with ENT- unlikely that maxillary sinus is source of current fever. ID consulted. Continue broad spectrum antibiotics pending culture results, then de-escalate. CMV Check viral load. Continue antiviral therapy with valganciclovir. MANTLE CELL LYMPHOMA Has not had recent chemotherapy due to recurrent fevers. CT chest compared to 09/18/17: stable to slight decreased prominence of pulmonary nodules measuring up to [address] abdomen and pelvis compared to 07/30/17: worsening splenomegaly, mostly stable retroperitoneal adenopathy, slight increased size of right inguinal nodes. Management per Hematology / Oncology. GLUCOCORTICOID THERAPY Has been on dexamethasone for lymphoma for several months. It is being tapered under direction of Heme / Onc. Needs IV dexamethasone in light of acute illness; add fludrocortisone. Taper TATO. GERD Continue PPI. VTE PROPHYLAXIS No anticoagulants due to thrombocytopenia. SCD's. Ambulate. DISPOSITION Expected discharge to home if his condition improves. Family Medicine follow-up with Dr. Cain. Hematology / Oncology follow-up with Dr. John Mistry. given update this morning by phone. . Current Inpatient Medications: Current Inpatient Medications Medications (Trade) Dose Ordered Sig/Flory Route Start Time Stop Time Status Last Admin Dose Admin Ondansetron HCl (Zofran Inj) 4 mg Q6H PRN IV 11/06/17 21:30 12/06/17 21:29 Ioversol (Optiray 320) 100 ml UD PRN IV 11/06/17 21:30 11/10/17 21:29 Tramadol HCl (Ultram Tab) 50 mg Q6 PRN PO 11/06/17 21:45 12/06/17 21:44 Pantoprazole Sodium (Protonix Tab) 40 mg DAILY PO 11/07/17 09:00 12/07/17 08:59 11/07/17 08:16 40 MG Miscellaneous Information (Consult) 1 ea UD PRN N/A 11/06/17 21:45 12/06/17 21:44 Miscellaneous Information (Consult) 1 ea UD PRN N/A 11/06/17 21:45 12/06/17 21:44 Cefepime HCl 2000 mg/Syringe 20 ml @ 5 mls/min Q8H IV 11/07/17 00:00 11/09/17 00:00 11/07/17 16:26 5 MLS/MIN Enteral Nutritional Formula (Boost) 1 can BIDM PO 11/07/17 07:30 12/07/17 07:59 Piperacillin Sod/ Tazobactam Sod 4.5 gm/Dextrose 120 ml @ 30 mls/hr Q8H IV 11/07/17 02:00 11/09/17 01:59 11/07/17 17:11 30 MLS/HR Dexamethasone Sodium Phosphate 4 mg/Syringe 1 ml @ 1 mls/min Q12@0900,2100 IV 11/07/17 09:00 12/07/17 08:59 11/07/17 11:48 1 MLS/MIN Fludrocortisone Acetate (Florinef Tab) 0.1 mg BID PO 11/07/17 09:00 12/07/17 08:59 11/07/17 11:48 0.1 MG Vancomycin HCl 1250 mg/Sodium Chloride 275 ml @ 125 mls/hr Q12H IV 11/07/17 14:00 11/09/17 13:59 11/07/17 13:48 125 MLS/HR Acetaminophen (Tylenol Tab) 1,000 mg Q8 PRN PO 11/07/17 11:45 12/07/17 11:44 11/07/17 11:51 1,000 MG
[2017-11-07] MEDS ORDERED: BOOST VANILLA PO SCH (18:30)
[2017-11-07 18:35] LABS: CALCIUM 8.3 mg/dl (8.5-10.1); CREATININE 0.6 mg/dl (0.60-1.40)
[2017-11-07 19:08] LABS: POTASSIUM 4.8 mmol/L (3.5-5.1)
[2017-11-07] MEDS ORDERED: MAGNESIUM SULFATE 1GM / D5W 1 GM in PREMIXED IN D5W 100 ML IV ONE (20:00)
[2017-11-08 00:09] VITALS: BP 109/76; PULSE 85; TEMP 36.4; O2SAT 91
[2017-11-08] MEDS: CEFEPIME IV 2,000 MG in SYRINGE 7.5 ML IV SCH ×3 (00:40→16:29)
[2017-11-08] MEDS: VANCOMYCIN INJ 1,250 MG in SODIUM CHLORIDE 0.9% 250ML 250 ML IV SCH ×2 (02:42→14:09)
[2017-11-08 03:35] VITALS: BP 120/66; PULSE 82; TEMP 36.4; O2SAT 99
[2017-11-08] MEDS: PIPERACILL/TAZOBAC IV 4.5 GM in DEXTROSE 5% 100ML IV SCH ×3 (04:42→18:20)
[2017-11-08 06:50] LABS: HEMATOCRIT 28.9 % (42-52); HEMOGLOBIN 9.1 g/dL (14.0-18.0); MEAN CORPUSCULAR HEMOGLOBIN 27.4 pg (25-34); MEAN CORPUSCULAR HGB CONC 31.5 g/dl (32-36); RED CELL DISTRIBUTION WIDTH CV 19.9 % (11.5-14.5); WHITE BLOOD COUNT 4.45 K/uL (4.8-10.8)
[2017-11-08 07:18] LABS: CALCIUM 8.4 mg/dl (8.5-10.1); CREATININE 0.55 mg/dl (0.60-1.40); POTASSIUM 4.2 mmol/L (3.5-5.1)
[2017-11-08 07:23] LABS: MEAN PLATELET VOLUME 10.4 fL (7.4-10.4); PLATELET COUNT 43 K/uL (130-400)
[2017-11-08] MEDS ORDERED: VALGANCICLOVIR HCL 450 MG PO SCH ×2 (09:00)
[2017-11-08] MEDS: DEXAMETHASONE INJ 4 MG in SYRINGE 0 ML IV SCH ×2 (09:21→21:40)
[2017-11-08] MEDS: PANTOprazole SOD 40 MG TAB PO SCH (09:22)
[2017-11-08] MEDS: FLUDROCORTISONE ACETATE 0.1 MG TAB PO SCH ×2 (09:22→21:36)
[2017-11-08] MEDS: VALGANCICLOVIR HCL 450 MG PO SCH ×2 (09:23→21:37)
--- NOTE | 2017-11-08 09:56 | Progress Note ---
Medicine Progress Note Date & Time of Visit: Nov 08, 2017 at 09:30 . Subjective CC: Follow-up visit for fever, suspected sepsis. HPI: Better, but discouraged. No fever overnight. No headache, facial pain. No pharyngitis. No cough. No SOB. No chest pain. Had 1 loose stool this morning. No nausea, vomiting. ROS: as noted above in HPI . Objective Last 8 Hrs Date Time Temp Pulse Resp B/P (MAP) Pulse Ox O2 Delivery O2 Flow Rate FiO2 11/08/17 04:00 Room Air 11/08/17 03:35 36.4 82 16 120/66 (84) 99 Room Air Physical Exam: General- lying in bed; no acute distress ENT- mild oral thrush Lungs- clear to auscultation; no respiratory distress Cardiovascular- RRR; no gallop; no JVD; no pretibial edema Abdomen- + bowel sounds, soft, nontender Extremities- no cyanosis; no calf tenderness Neuro- alert, oriented Skin- warm & dry; no rash . Laboratory Results: Last 24 Hours Test 11/07/17 13:11 11/07/17 18:07 11/07/17 18:08 11/08/17 06:32 Hemoglobin 7.5 g/dL 9.1 g/dL Hematocrit 24.1 % 28.9 % Absolute Reticulocyte Count 0.09 10^6/uL Percent Reticulocyte Count 3.4 % Lactic Acid Level 8.1 mmol/L 6.7 mmol/L 4.6 mmol/L Iron Level 12 mcg/dl Total Iron Binding Capacity 133 mcg/dl Transferrin 107 mg/dl Transferrin % Saturation 8 % Ferritin 944.1 ng/ml Vitamin B12 Level 1097 pg/mL Folate 13.05 ng/mL Sodium Level 138 mmol/L 138 mmol/L Potassium Level 4.8 mmol/L 4.2 mmol/L Chloride Level 104 mmol/L 104 mmol/L Carbon Dioxide Level 23 mmol/L 22 mmol/L Anion Gap 10.0 mmol/L 12.0 mmol/L Blood Urea Nitrogen 10 mg/dl 14 mg/dl Creatinine 0.60 mg/dl 0.55 mg/dl Est Creatinine Clear Calc Drug Dose 109.7 ml/min 119.7 ml/min Estimated GFR () 115.6 119.8 Estimated GFR (Non- 99.7 103.4 BUN/Creatinine Ratio 16.9 25.8 Random Glucose 94 mg/dl 132 mg/dl Calcium Level 8.3 mg/dl 8.4 mg/dl Magnesium Level 1.7 mg/dl 1.8 mg/dl White Blood Count 4.45 K/uL Red Blood Count 3.32 M/uL Mean Corpuscular Volume 87.0 fL Mean Corpuscular Hemoglobin 27.4 pg Mean Corpuscular Hemoglobin Concent 31.5 g/dl Platelet Count 43 K/uL Mean Platelet Volume 10.4 fL RDW Standard Deviation 62.0 fL RDW Coefficient of Variation 19.9 % Neutrophils % (Manual) 56.5 % Lymphocytes % (Manual) 43.5 % Neutrophils # (Manual) 2.51 K/uL Total Absolute Neutrophils 2.51 K/uL Lymphocytes # (Manual) 1.94 K/uL Total Absolute Lymphocytes 1.94 K/uL Giant Platelets 1+ Anisocytosis PRESENT Procalcitonin 0.20 ng/ml Date/Time Source Procedure Growth Status 11/07/17 11:45 Nasal MRSA DNA Surveillance Screen - Final Specimen Negative for MRSA by DNA Probe Complete Assessment & Plan FEVER / PROBABLE SEPSIS Presented to ED with fever, tachycardia, tachypnea, hyperlactemia. Recently diagnosed right maxillary sinusitis treated with prolonged course of antibiotic therapy. 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 No cough or other specific symptoms to suggest infection. Serum lactate 10 at time of admission. Received fluid resuscitation. Blood cultures obtained. Placed on broad-spectrum antibiotic coverage with vancomycin and cefepime. No infiltrates on chest x-ray or CT chest. No acute findings on CT of abdomen. CT sinuses shows marked improvement of right maxillary sinusitis. Discussed with ENT- unlikely that maxillary sinus is source of current fever. ID consulted. Continue broad spectrum antibiotics pending culture results, then de-escalate. CMV Check viral load. Continue antiviral therapy with valganciclovir. MANTLE CELL LYMPHOMA Has not had recent chemotherapy due to recurrent fevers. CT chest compared to 09/18/17: stable to slight decreased prominence of pulmonary nodules measuring up to [address] abdomen and pelvis compared to 07/30/17: worsening splenomegaly, mostly stable retroperitoneal adenopathy, slight increased size of right inguinal nodes. Management per Hematology / Oncology. ANEMIA Chronic anemia with baseline Hgb 8-9. Anemia probably due to lymphoma and perhaps malnutrition. Hgb 8.2 on admission, fell to 6.2 with aggressive fluid resuscitation. No active bleeding. Retic count 3.4%. Fe 12, transferrin sat 8%. B12, folate OK. Received 2 units pRBC's. Hgb today = 9.1. Follow. PANCYTOPENIA Chronic pancytopenia due to lymphoma. Platelet counts 53K, 41K, 43K. No active bleeding. Follow. GLUCOCORTICOID THERAPY Has been on dexamethasone for lymphoma for several months. It is being tapered under direction of Heme / Onc. Needs IV dexamethasone in light of acute illness; add fludrocortisone. Taper as tolerated. GERD Continue PPI. NUTRITION Appetite poor; foods don't taste good. Patient and spouse concerned about nutritional status. Explained that enteral nutrition preferred over parenteral options. Food preferences / supplements as tolerated. Consult Circuit Court Judge. VTE PROPHYLAXIS No anticoagulants due to thrombocytopenia. SCD's. Ambulate. DISPOSITION Expected discharge to home if his condition improves. Family Medicine follow-up with Dr. Cain. Hematology / Oncology follow-up with Dr. John Mistry. given update this morning by phone. She is inquiring about transfer to [place] for chemotherapy. Will discuss with Heme / Onc. . Current Inpatient Medications: Current Inpatient Medications Medications (Trade) Dose Ordered Sig/Flory Route Start Time Stop Time Status Last Admin Dose Admin Ondansetron HCl (Zofran Inj) 4 mg Q6H PRN IV 11/06/17 21:30 12/06/17 21:29 Ioversol (Optiray 320) 100 ml UD PRN IV 11/06/17 21:30 11/10/17 21:29 Tramadol HCl (Ultram Tab) 50 mg Q6 PRN PO 11/06/17 21:45 12/06/17 21:44 Pantoprazole Sodium (Protonix Tab) 40 mg DAILY PO 11/07/17 09:00 12/07/17 08:59 11/08/17 09:22 40 MG Miscellaneous Information (Consult) 1 ea UD PRN N/A 11/06/17 21:45 12/06/17 21:44 Miscellaneous Information (Consult) 1 ea UD PRN N/A 11/06/17 21:45 12/06/17 21:44 Cefepime HCl 2000 mg/Syringe 20 ml @ 5 mls/min Q8H IV 11/07/17 00:00 11/09/17 00:00 11/08/17 09:21 5 MLS/MIN Piperacillin Sod/ Tazobactam Sod 4.5 gm/Dextrose 120 ml @ 30 mls/hr Q8H IV 11/07/17 02:00 11/09/17 01:59 11/08/17 04:42 30 MLS/HR Valganciclovir (Valganciclovir HCl) 900 mg BID PO 11/07/17 09:00 12/07/17 08:59 11/08/17 09:23 900 MG Dexamethasone Sodium Phosphate 4 mg/Syringe 1 ml @ 1 mls/min Q12@0900,2100 IV 11/07/17 09:00 12/07/17 08:59 11/08/17 09:21 1 MLS/MIN Fludrocortisone Acetate (Florinef Tab) 0.1 mg BID PO 11/07/17 09:00 12/07/17 08:59 11/08/17 09:22 0.1 MG Vancomycin HCl 1250 mg/Sodium Chloride 275 ml @ 125 mls/hr Q12H IV 11/07/17 14:00 11/09/17 13:59 11/08/17 02:42 125 MLS/HR Acetaminophen (Tylenol Tab) 1,000 mg Q8 PRN PO 11/07/17 11:45 12/07/17 11:44 11/07/17 11:51 1,000 MG
[2017-11-08 12:05] VITALS: BP 119/70; PULSE 84; TEMP 36.7; O2SAT 94
[2017-11-08] MEDS: BOOST BREEZE NUTRITION DRINK 1 BOX PO SCH ×2 (14:00→21:00)
[2017-11-08 15:54] VITALS: BP 118/68; PULSE 78; TEMP 36.5; O2SAT 95
--- NOTE | 2017-11-08 17:51 | Medical Consult ---
Consultation Date of Consultation: Nov 08, 2017. Attending Physician: Bhanu Bragg M.D. Reason for Consultation: History of lymphoma, persistent fever History of Present Illness 72-year-old male well known to the Infectious Disease service, with history of relapsed lymphoma, awaiting chemotherapy, was had several admissions over the last few months for recurrent fevers. Originally was diagnosed with chronic sinusitis, but responded well to antibiotic therapy with improvement in symptoms. He was readmitted to the hospital recently for fever, and found to have positive PCR for CMV. He has been receiving oral valganciclovir. However , he has progressively worsening weakness and fatigue, and now fever has recurred. Not associated with worsening sinus symptoms, cough, shortness of breath, GI or complaints. He has been restarted on broad-spectrum antibiotics, blood cultures are pending. Denies any other localizing complaints. Past Medical/Surgical History Medical Problems: (1) Anemia Status: Acute (2) Bronchitis Status: Acute (3) CMV (cytomegalovirus) status positive Permanent Comment: blood PCR 10/16/17 Status: Chronic (4) COPD exacerbation Status: Acute (5) High serum lactate Status: Acute (6) Ischemic bowel disease Status: Acute (7) Lactic acidosis Status: Acute (8) Mantle cell lymphoma Status: Chronic (9) Myalgia Status: Acute (10) Neutropenia Status: Acute (11) Palpitations Status: Acute (12) Shortness of breath Status: Acute (13) Splenic laceration Status: Acute (14) Thrombocytopenia Status: Acute (15) Weakness Status: Acute Medical Problems: (1) CMV (cytomegalovirus) status positive (2) GERD (gastroesophageal reflux disease) (3) Mantle cell lymphoma Surgical Problems: (1) Status post appendectomy (2) Status post lymph node biopsy (3) Status post placement vascular access device Family History FH: CAD (coronary artery disease) FATHER MOTHER FH: lung cancer SISTER Social History Smoking Status: Never Smoker Alcohol Use: none Marital Status: Housing Status: lives with family Allergies Coded Allergies: Tetracycline (Verified Allergy, Unknown, water blisters, 11/06/17) Current Inpatient Medications Current Inpatient Medications Medications (Trade) Dose Ordered Sig/Flory Route Start Time Stop Time Status Last Admin Dose Admin Ondansetron HCl (Zofran Inj) 4 mg Q6H PRN IV 11/06/17 21:30 12/06/17 21:29 Ioversol (Optiray 320) 100 ml UD PRN IV 11/06/17 21:30 11/10/17 21:29 Tramadol HCl (Ultram Tab) 50 mg Q6 PRN PO 11/06/17 21:45 12/06/17 21:44 Pantoprazole Sodium (Protonix Tab) 40 mg DAILY PO 11/07/17 09:00 12/07/17 08:59 11/08/17 09:22 40 MG Miscellaneous Information (Consult) 1 ea UD PRN N/A 11/06/17 21:45 12/08/17 23:59 Miscellaneous Information (Consult) 1 ea UD PRN N/A 11/06/17 21:45 12/06/17 21:44 Cefepime HCl 2000 mg/Syringe 20 ml @ 5 mls/min Q8H IV 11/07/17 00:00 11/10/17 23:59 11/08/17 16:29 5 MLS/MIN Piperacillin Sod/ Tazobactam Sod 4.5 gm/Dextrose 120 ml @ 30 mls/hr Q8H IV 11/07/17 02:00 11/09/17 01:59 11/08/17 10:21 30 MLS/HR Valganciclovir (Valganciclovir HCl) 900 mg BID PO 11/07/17 09:00 12/07/17 08:59 11/08/17 09:23 900 MG Dexamethasone Sodium Phosphate 4 mg/Syringe 1 ml @ 1 mls/min Q12@0900,2100 IV 11/07/17 09:00 12/07/17 08:59 11/08/17 09:21 1 MLS/MIN Fludrocortisone Acetate (Florinef Tab) 0.1 mg BID PO 11/07/17 09:00 12/07/17 08:59 11/08/17 09:22 0.1 MG Vancomycin HCl 1250 mg/Sodium Chloride 275 ml @ 125 mls/hr Q12H IV 11/07/17 14:00 11/10/17 23:59 11/08/17 14:09 125 MLS/HR Acetaminophen (Tylenol Tab) 1,000 mg Q8 PRN PO 11/07/17 11:45 12/07/17 11:44 11/07/17 11:51 1,000 MG Enteral Nutritional Formula (Boost Pudding) 1 cup BID PO 11/08/17 21:00 12/08/17 20:59 Enteral Nutritional Formula (Boost Breeze Nutritional Drink) 1 box TID PO 11/08/17 14:00 12/08/17 13:59 Nystatin (Mycostatin Susp) 5 ml QID PO 11/08/17 17:00 11/18/17 16:59 Review of Systems Constitutional: + fever, + chills, + sweats, + weight loss, + weakness, + fatigue Eyes: No problem reported ENT: No problem reported Respiratory: No problem reported Cardiovascular: No problem reported Abdomen: No problem reported Musculoskeletal: No problem reported Genitourinary - Male: No problem reported Neurologic: No problem reported Psychiatric: No problem reported Endocrine: No problem reported Hematologic / Lymphatic: + night sweats Integumentary: No problem reported Allergic / Immunologic: No problem reported Physical Exam Date Time Temp Pulse Resp B/P (MAP) Pulse Ox O2 Delivery O2 Flow Rate FiO2 11/08/17 16:00 Nasal Cannula 2.0 11/08/17 15:54 36.5 78 20 118/68 (85) 95 Room Air 11/08/17 12:05 36.7 84 16 119/70 (86) 94 Room Air 11/08/17 12:00 Nasal Cannula 2.0 11/08/17 08:00 Nasal Cannula 2.0 11/08/17 04:00 Room Air 11/08/17 03:35 36.4 82 16 120/66 (84) 99 Room Air 11/08/17 00:09 36.4 85 17 109/76 (87) 91 Room Air 11/07/17 23:59 Room Air 11/07/17 20:00 Room Air 11/07/17 19:57 35.8 82 20 120/69 (86) 94 Room Air General Appearance: WD/WN, no apparent distress Head: normocephalic, atraumatic Eyes: normal inspection, EOMI, sclerae normal ENT: normal ENT inspection, hearing grossly normal, pharynx normal Neck: supple, no adenopathy, thyroid normal, trachea midline Respiratory/Chest: chest non-tender, lungs clear, normal breath sounds, no respiratory distress Cardiovascular: regular rate, rhythm, no edema, no gallop, no murmur Abdomen/GI: normal bowel sounds, non tender, soft, no organomegaly Back: normal inspection, no CVA tenderness Extremities/Musculoskelatal: no calf tenderness, normal capillary refill, non- tender Neurologic/Psych: alert, normal mood/affect, oriented x 3 Skin: normal color, warm/dry, no rash Lymphatic: no adenopathy Laboratory Results RUN DATE: 11/08/17 [facility] LAB PAGE 1 RUN TIME: 729 Specimen Inquiry PATIENT: NAVYA ANDERSEN LOC: [facility] U # : [id number] AGE/SX: 72/M ROOM: [facility] REG : 11/06/[address]: Bhanu Bragg M.D. : 1945 BED: 1 DIS : STATUS: ADM IN TLOC: SPEC #: [id number] DOYLE: 11/06/17 STATUS: RES REQ #: [id number] RECD: 11/06/[address]: Xavier Lockhart M.D. SOURCE: BLOOD ENTR: 11/06/17-[address]: Poppy Stafford, Assigned [facility]: ORDERED: BLOOD CULTURE COMMENTS: Comments to [place] SAME TIME DIFFERENT SITES Procedure Result Verified Site BLD CULT Preliminary 11/08/17 NO GROWTH TO DATE. Last 24 Hours Test 11/07/17 18:07 11/07/17 18:08 11/08/17 06:32 Sodium Level 138 mmol/L 138 mmol/L Potassium Level 4.8 mmol/L 4.2 mmol/L Chloride Level 104 mmol/L 104 mmol/L Carbon Dioxide Level 23 mmol/L 22 mmol/L Anion Gap 10.0 mmol/L 12.0 mmol/L Blood Urea Nitrogen 10 mg/dl 14 mg/dl Creatinine 0.60 mg/dl 0.55 mg/dl Est Creatinine Clear Calc Drug Dose 109.7 ml/min 119.7 ml/min Estimated GFR () 115.6 119.8 Estimated GFR (Non- 99.7 103.4 BUN/Creatinine Ratio 16.9 25.8 Random Glucose 94 mg/dl 132 mg/dl Calcium Level 8.3 mg/dl 8.4 mg/dl Magnesium Level 1.7 mg/dl 1.8 mg/dl Lactic Acid Level 6.7 mmol/L 4.6 mmol/L White Blood Count 4.45 K/uL Red Blood Count 3.32 M/uL Hemoglobin 9.1 g/dL Hematocrit 28.9 % Mean Corpuscular Volume 87.0 fL Mean Corpuscular Hemoglobin 27.4 pg Mean Corpuscular Hemoglobin Concent 31.5 g/dl Platelet Count 43 K/uL Mean Platelet Volume 10.4 fL RDW Standard Deviation 62.0 fL RDW Coefficient of Variation 19.9 % Neutrophils % (Manual) 56.5 % Lymphocytes % (Manual) 43.5 % Neutrophils # (Manual) 2.51 K/uL Total Absolute Neutrophils 2.51 K/uL Lymphocytes # (Manual) 1.94 K/uL Total Absolute Lymphocytes 1.94 K/uL Giant Platelets 1+ Anisocytosis PRESENT Procalcitonin 0.20 ng/ml Patient Name: NAVYA ANDERSEN Unit Number: [id number] Dictated: 11/06/172255 Transcribed: 11/06/172255 PBS Printed Date/Time: [~ rep prt dt]/[~ rep prt tm] [~ rep ct labl] - [~ rep ct ivnm] [facility] [place] [address] Dictated: 11/06/172255 Transcribed: 11/06/172255 PBS Printed Date/Time: [~ rep prt dt]/[~ rep prt tm] [~ rep ct labl] - [~ rep ct ivnm] ABD/PELVIS IV CONTRAST ONLY CLINICAL HISTORY: 72 years-old Male presenting with lactic acidosis, sepsis. TECHNIQUE: Multidetector CT of the abdomen and pelvis was performed without the use of intravenous contrast. IV contrast: None. A dose lowering technique was used consistent with the principles of ALARA (as low as reasonably achievable). COMPARISON: 07/30/2017. CT DOSE (mGy.cm): The estimated cumulative dose is 2288.33 mGy.cm. FINDINGS: Skein Bander topogram: Unremarkable. Lung bases: Minimal basilar opacities, likely atelectasis. Mosaic attenuation noted. Emphysema. Partially visualized tip of a central venous catheter. Normal heart size. No pericardial or pleural effusion. Liver: Normal morphology. No liver lesion. Patent hepatic vasculature. Biliary: No intrahepatic or extrahepatic biliary ductal dilatation. Gallbladder contains gallstones. Pancreas: Mild parenchymal atrophy. Spleen: Splenomegaly increased from prior, now measuring 17 cm in maximal axial dimension, previously 13.4 cm. Adrenal glands: Normal. Kidneys and ureters: Nonspecific perinephric fat stranding. No hydronephrosis. Normal excretion from the bilateral kidneys. Parenchyma normal. Ureters normal. Bladder: Mild circumferential bladder wall thickening, possibly chronic outlet obstruction. Pelvic organs: Prostate and seminal vesicles normal. Bowel: Normal. No bowel obstruction. Peritoneal cavity: No free fluid or intraperitoneal gas. Lymph nodes: Numerous prominent retroperitoneal lymph nodes, overall stable in appearance from prior. Enlarged right inguinal lymph node may be slightly increased in size from prior. Vasculature: Atherosclerosis of the normal caliber abdominal aorta. IVC patent. Abdominal wall: Normal. Musculoskeletal: Degenerative changes of the spine. No destructive osseous lesion. IMPRESSION: 1. Worsened splenomegaly. 2. The majority of retroperitoneal lymphadenopathy is grossly stable from prior. However, slight increased size of right inguinal lymphadenopathy. 3. Emphysema. 4. Suggestion of chronic bladder outlet obstruction versus less likely cystitis. 5. No other evidence of acute intra-abdominal pathology. Electronically signed by: Mikael Langford M.D. 11/06/2017 11:03 PM Dictated Date/Time: 11/06/2017 10:56 PM The status of this report is Signed. Draft = Not yet reviewed or approved by Radiologist. Signed = Reviewed and approved by Radiologist. <AttendingPhy></AttendingPhy> <FamilyPhy>John Mistry M.D.</FamilyPhy> < PrimaryPhy>Mikael Cain M.D.</PrimaryPhy> <UnitNumber>[id number]</UnitNumber> < VisitNumber>[id number]</VisitNumber> <PatientName>NAVYA ANDERSEN</ PatientName> <DateOfBirth>1945</DateOfBirth> <Location>[facility]</Location> < ServiceDate>11/06/17</ServiceDate> <MNE>ESINDI</MNE> <OrderingPhy>Radha Sagastume</OrderingPhy> <OrderingPhyMNE>f rep ord dr whitman</OrderingPhyMNE> < DictatingPhyMNE>f rep dict dr whitman</DictatingPhyMNE> <CCListMNE>f rep ct mne</ CCListMNE> <AdmittingPhyMNE>f pt admit dr whitman</AdmittingPhyMNE> <AttendingPhyMNE >f pt attend dr whitman</AttendingPhyMNE> <ConsultingPhyMNE>f pt consult dr whitman</ConsultingPhyMNE> <FamilyPhyMNE>f pt fam dr whitman</FamilyPhyMNE> <OtherPhyMNE>f pt other dr whitman</OtherPhyMNE> < PrimaryPhyMNE>f pt prim care dr whitman</PrimaryPhyMNE> <ReferringPhyMNE>f pt referring dr whitman</ReferringPhyMNE> Assessment & Plan 72-year-old male with relapsed lymphoma with persistent fever, anemia, and severe weakness and fatigue. Given low procalcitonin level, acute bacterial sepsis appears unlikely. I suspect that his fever is related to his lymphoma. Patient will be continued on broad-spectrum antibiotics pending final culture results, I will adjust these once results are available. Will follow.
[2017-11-08] MEDS: NYSTATIN SUSP 500,000 U/5 ML UDC PO SCH ×2 (18:21→21:36)
[2017-11-08 20:45] VITALS: BP 133/67; PULSE 86; TEMP 36.3; O2SAT 96
[2017-11-08] MEDS ORDERED: BOOST VANILLA PUDDING CUP PO SCH (21:00)
[2017-11-08 23:45] VITALS: BP 121/70; PULSE 79; TEMP 36.7; O2SAT 96
[2017-11-09] MEDS: CEFEPIME IV 2,000 MG in SYRINGE 7.5 ML IV SCH (00:30)
[2017-11-09] MEDS ORDERED: VANCOMYCIN TROUGH ONE (01:30)
[2017-11-09 01:39] LABS: HEMATOCRIT 25.4 % (42-52); HEMOGLOBIN 8.1 g/dL (14.0-18.0); MEAN CELL VOLUME 88.2 fL (80-100); MEAN CORPUSCULAR HEMOGLOBIN 28.1 pg (25-34); MEAN CORPUSCULAR HGB CONC 31.9 g/dl (32-36); RED CELL DISTRIBUTION WIDTH SD 63.7 fL (36.4-46.3); WHITE BLOOD COUNT 4.05 K/uL (4.8-10.8)
[2017-11-09 02:01] LABS: MEAN PLATELET VOLUME 11.3 fL (7.4-10.4); PLATELET COUNT 47 K/uL (130-400)
[2017-11-09 02:07] LABS: ALBUMIN 1.7 gm/dl (3.4-5.0); CALCIUM 8.4 mg/dl (8.5-10.1); CREATININE 0.63 mg/dl (0.60-1.40); POTASSIUM 4.2 mmol/L (3.5-5.1)
[2017-11-09 02:10] LABS: PHOSPHORUS 2.5 mg/dl (2.5-4.9); TOTAL PROTEIN 5.1 gm/dl (6.4-8.2)
[2017-11-09 02:12] LABS: BASO % 0.2 %; BASO ABS # 0.01 K/uL (0-0.2); IG# 0.21 K/uL (0.00-0.02); LYMPH % 25.4 %; LYMPH ABS # 1.03 K/uL (1.2-3.4); MONO % 26.7 %; MONO ABS # 1.08 K/uL (0.11-0.59); NEUT % 42.5 %; NEUT ABS # 1.72 K/uL (1.4-6.5)
[2017-11-09] MEDS: VANCOMYCIN INJ 1,250 MG in SODIUM CHLORIDE 0.9% 250ML 250 ML IV SCH (02:22)
[2017-11-09] MEDS ORDERED: SODIUM CHLORIDE 0.9% 1000ML 1,000 ML IV STA (03:44)
[2017-11-09] MEDS: MAGNESIUM SULFATE 1GM / D5W 1 GM in PREMIXED IN D5W 100 ML IV SCH ×2 (04:23→05:27)
[2017-11-09 04:29] VITALS: BP 129/72; PULSE 77; TEMP 36.2; O2SAT 97
--- NOTE | 2017-11-09 06:28 | Progress Note ---
Medicine Progress Note Date & Time of Visit: Nov 09, 2017 at 06:30 . Subjective Labs drawn at 0127. Lactic acid 8- received NSS x 1 L. Mg 1.5- received 2 mgs IV Mg sulfate. Feels well this morning. No fever, sweats last night. Had 1 loose stool yesterday without apparent melena or hematochezia. No chest pain, cough, SOB, nausea, vomiting, urinary symptoms. . Objective Last 8 Hrs Date Time Temp Pulse Resp B/P (MAP) Pulse Ox O2 Delivery O2 Flow Rate FiO2 11/09/17 04:29 36.2 77 17 129/72 (91) 97 Room Air 11/09/17 04:00 Room Air 11/08/17 23:59 Room Air 11/08/17 23:45 36.7 79 17 121/70 (87) 96 Room Air Physical Exam: General- lying in bed; appears to be chronically ill; no acute distress ENT- mild oral thrush Lungs- clear to auscultation; no respiratory distress Cardiovascular- RRR; no gallop; no JVD; no pretibial edema Abdomen- + bowel sounds, soft, nontender Extremities- no cyanosis; no calf tenderness Neuro- alert, oriented Skin- warm & dry . Laboratory Results: Last 24 Hours Test 11/08/17 06:32 11/09/17 01:27 11/09/17 06:00 White Blood Count 4.45 K/uL 4.05 K/uL Red Blood Count 3.32 M/uL 2.88 M/uL Hemoglobin 9.1 g/dL 8.1 g/dL Hematocrit 28.9 % 25.4 % Mean Corpuscular Volume 87.0 fL 88.2 fL Mean Corpuscular Hemoglobin 27.4 pg 28.1 pg Mean Corpuscular Hemoglobin Concent 31.5 g/dl 31.9 g/dl Platelet Count 43 K/uL 47 K/uL Mean Platelet Volume 10.4 fL 11.3 fL RDW Standard Deviation 62.0 fL 63.7 fL RDW Coefficient of Variation 19.9 % 20.0 % Neutrophils % (Manual) 56.5 % Lymphocytes % (Manual) 43.5 % Neutrophils # (Manual) 2.51 K/uL Total Absolute Neutrophils 2.51 K/uL Lymphocytes # (Manual) 1.94 K/uL Total Absolute Lymphocytes 1.94 K/uL Giant Platelets 1+ Anisocytosis PRESENT PRESENT Sodium Level 138 mmol/L 141 mmol/L Potassium Level 4.2 mmol/L 4.2 mmol/L Chloride Level 104 mmol/L 105 mmol/L Carbon Dioxide Level 22 mmol/L 21 mmol/L Anion Gap 12.0 mmol/L 15.0 mmol/L Blood Urea Nitrogen 14 mg/dl 15 mg/dl Creatinine 0.55 mg/dl 0.63 mg/dl Est Creatinine Clear Calc Drug Dose 119.7 ml/min 104.5 ml/min Estimated GFR () 119.8 113.3 Estimated GFR (Non- 103.4 97.8 BUN/Creatinine Ratio 25.8 24.1 Random Glucose 132 mg/dl 126 mg/dl Lactic Acid Level 4.6 mmol/L 8.4 mmol/L Calcium Level 8.4 mg/dl 8.4 mg/dl Magnesium Level 1.8 mg/dl 1.5 mg/dl Procalcitonin 0.20 ng/ml Neutrophils (%) (Auto) 42.5 % Lymphocytes (%) (Auto) 25.4 % Monocytes (%) (Auto) 26.7 % Eosinophils (%) (Auto) 0.0 % Basophils (%) (Auto) 0.2 % Neutrophils # (Auto) 1.72 K/uL Lymphocytes # (Auto) 1.03 K/uL Monocytes # (Auto) 1.08 K/uL Eosinophils # (Auto) 0.00 K/uL Basophils # (Auto) 0.01 K/uL Immature Granulocyte % (Auto) 5.2 % Immature Granulocyte # (Auto) 0.21 K/uL Large Platelets 1+ Ovalocytes 1+ Phosphorus Level 2.5 mg/dl Total Bilirubin 0.5 mg/dl Aspartate Amino Transf (AST/SGOT) 19 U/L Alanine Aminotransferase (ALT/SGPT) 12 U/L Alkaline Phosphatase 51 U/L Total Protein 5.1 gm/dl Albumin 1.7 gm/dl Globulin 3.4 gm/dl Albumin/Globulin Ratio 0.5 Vancomycin Level Trough 8.5 mcg/ml Assessment & Plan FEVER / POSSIBLE SEPSIS Presented to ED with fever, tachycardia, tachypnea, hyperlactemia. Recently diagnosed right maxillary sinusitis treated with prolonged course of antibiotic therapy. 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 No cough or other specific symptoms to suggest infection. Serum lactate 10 at time of admission. Received fluid resuscitation. Blood cultures obtained- negative at 48 hours. Placed on broad-spectrum antibiotic coverage with vancomycin and cefepime. No infiltrates on chest x-ray or CT chest. No acute findings on CT of abdomen. CT sinuses shows marked improvement of right maxillary sinusitis. Discussed with ENT- unlikely that maxillary sinus is source of current fever. ID consulted. Continue broad spectrum antibiotics pending culture results, then de-escalate. Consider possibility that fever secondary to lymphoma rather than infectious etiology. CMV Blood CMV PCR positive on 10/16/17. Viral load pending. Continue antiviral therapy with valganciclovir. MANTLE CELL LYMPHOMA Last chemotherapy per clinic Heme / Onc note: On 09/08/2017 started on following chemotherapy schedule: Rituxan 375 mg/M2 IV day 1 Bendamustine 70 mg/M2 IV days 2-3 Cytarabine 500 mg/M2 IV days 2, 3 & 4 Has not had further chemotherapy due to recurrent fevers. CT chest compared to 09/18/17: stable to slight decreased prominence of pulmonary nodules measuring up to [address] abdomen and pelvis compared to 07/30/17: worsening splenomegaly, mostly stable retroperitoneal adenopathy, slight increased size of right inguinal nodes. Patient / family requesting transfer to [facility] for further management. Case discussed with Dr. Paul Buchanan who accepted patient in transfer. Dr. John Mistry is local Occupational Rehabilitation Aide / Oncologist in [place]. Summary of evaluation and previous treatment from his clinic note added to end of this documentation. He is available by cell if further information is needed: [phone]. Further management per Hematology / Oncology. ANEMIA Chronic anemia with baseline Hgb 8-9. Anemia probably due to lymphoma and perhaps malnutrition. Hgb 8.2 on admission, fell to 6.2 with aggressive fluid resuscitation. No active bleeding. Retic count 3.4%. Fe 12, transferrin sat 8%. B12, folate OK. Received 2 units pRBC's. Hgb today = 8.1. Follow. PANCYTOPENIA Chronic pancytopenia due to lymphoma. Platelet counts 53K, 41K, 43K 47K. No active bleeding. Follow. GLUCOCORTICOID THERAPY Has been on dexamethasone for lymphoma for several months. It is being tapered under direction of Heme / Onc. Needs IV dexamethasone in light of acute illness; added fludrocortisone due to hemodynamic instability at time of admission. Taper as tolerated. GERD Continue PPI. NUTRITION Appetite poor; foods don't taste good. Patient and spouse concerned about nutritional status. Explained that enteral nutrition preferred over parenteral options. Food preferences / supplements as tolerated. Technician Anatomic Pathology consulted. VTE PROPHYLAXIS No anticoagulants due to thrombocytopenia. SCD's. Ambulate. DISPOSITION Arrangements being made for transfer to [facility] for further management of lymphoma. Family Medicine follow-up with Dr. Cain. Hematology / Oncology follow-up with Dr. John Mistry. HEME / ONC SUMMARY FROM DR. 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 -hypogammaglobinemia. CURRENT TREATMENT: ON 09/08/2017 started on following chemotherapy schedule: Rituxan 375 mg/M2 IV day 1 Bendamustine 70 mg/M2 IV days 2-3 Cytarabine 500 mg/M2 IV days 2, 3 & 4 Planning to start IVIG. PREVIOUS TREATMENT: - Bendamustine and Rituxan x4 between 03/29/2015-07/04/2015 - Rituxan x2 and steroid August, - R-CHOP September,-January, - Rituxan and Ibrutinib between 07/07/2017-09/02/2017. DIAGNOSTIC WORKUP: - Diagnosed a case of follicular lymphoma in 2008, he remained under observation. -In Feb, 2015 imaging study showed progressive lymphadenopathy, biopsy from the right neck lymph nodes showed grade 2/3A predominantly follicular pattern of lymphoma. He received 4 cycles of chemotherapy with bendamustine Rituxan between 03/29/2015 -07/04/2015. PET-CT scan done in August, showed very good response with no evidence of lymphoma. Follow-up PET-CT scan done in January, showed recurrence of lymphoma involving left axilla, right external iliac and right inguinal lymph nodes. He remained asymptomatic and so decided to observe. In June,, he started having more increasing fatigue, PET-CT scan done at that time showed marked progression of the lymphadenopathy in the mediastinal , hilar, periportal, portacaval, mesenteric and retroperitoneal region, bilateral inguinal lymph nodes, splenomegaly, diffuse activity noted in the bones consistent bone marrow infiltration. His platelet count was around 112, hemoglobin was 12, WBC was around 5400 at that time. -He received Rituxan in August, Biopsy of right groin node from 09/17/16 confirmed transformation to DLBCL. R-CHOP x 6 between September,-January,. PET-CT scan from 12/24/16 showed dramatic improvement in size, number, and metabolic activity in the extensive adenopathy, and in the spleen. 0.9 cm right inguinal node with SUV max 6.3 remains. Dramatic improvement in the skeleton including clavicles, scapula, ribs, diaphysis of bilateral humeri and femori, and osseous structures including acetabula. The most intense uptake is noted in T5 and L2. Deauville 4 , uptake slightly to moderately higher than the liver. PET-CT scan from 03/18/17: Subcentimeter mild metabolically active lymph node in right cervical area with SUV of 3.7 is new. Metabolically active lymph nodes in the left lower paratracheal, subcarinal, and bilateral hilar regions with SUV max 10 in the left hilum versus 4.1 on previous exam. Metabolically active mediastinal lymphadenopathy is new. Increased metabolic activity identified in 1.4 x 1.1 cm right inguinal node with SUV max of 24.1 previously 6.4. The spleen is borderline enlarged without significant activity. No discrete focal uptake at T5 or L2, where increased activity was seen on previous PET-CT. 06/24/[address] Yuliet Ochoa from [facility]: Pathology was reviewed over there, also tested positive for mantle cell lymphoma involvement. Pathology: - Right cervical excisional node biopsy from 03/21/15 showed follicular lymphoma grade 2-3A. - Excisional biopsy of right groin lymph node from 09/17/16 showed DLBCL positive for BCL-2 and positive for c-MYC (double expressor). Positive for additional copies of IGH gene ore chromosome 14, negative for gene rearrangements. - Right external iliac lymph node excisional biopsy from 04/10/17 reportedly again showed DLBCL non-GCB subtype. - Pathology reviewed at [facility], he also reported to have mantle cell lymphoma.(06/2017) His slides were reviewed at [facility] which confirmed follicular lymphoma involving the right cervical lymph node from 2014 but also mantle cell lymphoma involvement noted. - Rituxan and Ibrutinib between 07/07/2017-09/02/2017. -PET-CT scan done on 08/26/2017 showed progressive hypermetabolic lymphadenopathy noted in the neck, chest, abdomen and pelvis. Left T8 around vertebral lesion and right iliac wing the lesion noted. New splenomegaly noted. New multiple bilateral subcentimeter lung nodules noted. . Current Inpatient Medications: Current Inpatient Medications Medications (Trade) Dose Ordered Sig/Flory Route Start Time Stop Time Status Last Admin Dose Admin Ondansetron HCl (Zofran Inj) 4 mg Q6H PRN IV 11/06/17 21:30 12/06/17 21:29 Ioversol (Optiray 320) 100 ml UD PRN IV 11/06/17 21:30 11/10/17 21:29 Tramadol HCl (Ultram Tab) 50 mg Q6 PRN PO 11/06/17 21:45 12/06/17 21:44 Pantoprazole Sodium (Protonix Tab) 40 mg DAILY PO 11/07/17 09:00 12/07/17 08:59 11/08/17 09:22 40 MG Miscellaneous Information (Consult) 1 ea UD PRN N/A 11/06/17 21:45 12/08/17 23:59 Miscellaneous Information (Consult) 1 ea UD PRN N/A 11/06/17 21:45 12/06/17 21:44 Cefepime HCl 2000 mg/Syringe 20 ml @ 5 mls/min Q8H IV 11/07/17 00:00 11/10/17 23:59 11/09/17 00:30 5 MLS/MIN Valganciclovir (Valganciclovir HCl) 900 mg BID PO 11/07/17 09:00 12/07/17 08:59 11/08/17 21:37 900 MG Dexamethasone Sodium Phosphate 4 mg/Syringe 1 ml @ 1 mls/min Q12@0900,2100 IV 11/07/17 09:00 12/07/17 08:59 11/08/17 21:40 1 MLS/MIN Fludrocortisone Acetate (Florinef Tab) 0.1 mg BID PO 11/07/17 09:00 12/07/17 08:59 11/08/17 21:36 0.1 MG Vancomycin HCl 1250 mg/Sodium Chloride 275 ml @ 125 mls/hr Q12H IV 11/07/17 14:00 11/10/17 23:59 11/09/17 02:22 125 MLS/HR Acetaminophen (Tylenol Tab) 1,000 mg Q8 PRN PO 11/07/17 11:45 12/07/17 11:44 11/07/17 11:51 1,000 MG Enteral Nutritional Formula (Boost Pudding) 1 cup BID PO 11/08/17 21:00 12/08/17 20:59 Enteral Nutritional Formula (Boost Breeze Nutritional Drink) 1 box TID PO 11/08/17 14:00 12/08/17 13:59 Nystatin (Mycostatin Susp) 5 ml QID PO 11/08/17 17:00 11/18/17 16:59 11/08/17 21:36 5 ML Magnesium Sulfate 1 gm/Prmx 100 ml @ 100 mls/hr Q1H IV 11/09/17 04:15 11/09/17 06:14 11/09/17 05:27 100 MLS/HR
--- NOTE | 2017-11-09 06:59 | Discharge Summary ---
Discharge Summary Date of Service Nov 09, 2017. Discharge Summary Admission Date: Nov 06, 2017 at 21:19 Discharge Date: Nov 09, 2017 Discharge Disposition: Acute care facility ([facility]) Principal Diagnosis: febrile illness, possible sepsis mantle cell lymphoma OTHER ACUTE DIAGNOSES: hyperlactemia anemia thrombocytopenia hypomagnesemia . Secondary Diagnoses/Problems: Chronic and Resolved Medical Problems: (1) CMV (cytomegalovirus) status positive Permanent Comment: blood PCR 10/16/17 Status: Chronic (2) GERD (gastroesophageal reflux disease) Status: Chronic (3) Mantle cell lymphoma Status: Chronic Surgical Problems: (1) Status post appendectomy Status: Chronic (2) Status post lymph node biopsy Status: Chronic (3) Status post placement vascular access device Permanent Comment: [facility] [place]: [place] . Procedures: cardiac monitoring IV fluids IV meds CT sinuses CTA chest CT abdomen and pelvis transfusion 2 units pRBC's . Consultations: ID . Pending Studies/Follow-Up: final blood culture reports from 11/06/17 CMV viral load . Admission Information HPI (per Admitting provider): 72 year old male who presents to the ED with fever. Patient has history of mantle cell lymphoma and has been admitted to [facility] 3 times recently. Most recent admission was 10/14 - 10/17 for persistent fevers felt to be due to persistent right maxillary sinusitis. Patient had been started on Levaquin and Augmentin during the admission prior to that. He was continued on those antibiotics at discharge. After discharge, his CMV blood test came back positive. He was started on valganciclovir 900mg BID x 21 days. Patient reports he has not totally recovered since his last admission. He reports good days and bad days. He was seen by Dr. Boateng yesterday who told him he could stop the Levaquin and Augmentin. He continues on the valganciclovir. He also received IVIG on 10/29. reports he has been running fevers since that time. He feels very weak some days and is unable to get out of bed. His appetite has been poor at times. He denies abdominal pain, nausea, vomiting, and diarrhea. No urinary symptoms. He denies sinus congestion. No cough or sputum production. He reports his nose feels very dry and ambrocio. In the ED, patient is tachycardic, hypoxic, and tachypneic. Saturations improved with oxygen 2L. CXR is negative for infiltrate. He was initially afebrile but spiked a temp of 38.4. BP is stable. Lactic acid is 10.3. He was given IVF, Vanco, and Zosyn. . Physical Exam (per Admitting): General Appearance: WD/WN, + mild distress (ill appearing) Eyes: normal inspection, EOMI, sclerae normal ENT: hearing grossly normal, + pertinent finding (mucous membranes dry) Neck: supple, no JVD, trachea midline Respiratory/Chest: + respiratory distress (mild tachypnea ), + wheezing ( faint, scattered, expiratory) Cardiovascular: no edema, normal peripheral pulses, + tachycardia (regular rhythm) Abdomen/GI: normal bowel sounds, non tender, soft, no organomegaly Extremities/Musculoskelatal: normal inspection, no calf tenderness, normal capillary refill Neurologic/Psych: no motor/sensory deficits, alert, normal mood/affect, oriented x 3 Skin: normal color, warm/dry Hospital Course FEVER / POSSIBLE SEPSIS Presented to ED with fever, tachycardia, tachypnea, hyperlactemia. Recently diagnosed right maxillary sinusitis treated with prolonged course of antibiotic therapy. 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 No cough or other specific symptoms to suggest infection. Serum lactate 10 at time of admission. Received fluid resuscitation. Blood cultures obtained- negative at 48 hours. Placed on broad-spectrum antibiotic coverage with vancomycin and cefepime. No infiltrates on chest x-ray or CT chest. No acute findings on CT of abdomen. CT sinuses shows marked improvement of right maxillary sinusitis. Discussed with ENT- unlikely that maxillary sinus is source of current fever. ID consulted. Continue broad spectrum antibiotics pending culture results, then de-escalate. Consider possibility that fever secondary to lymphoma rather than infectious etiology. CMV Blood CMV PCR positive on 10/16/17. Viral load pending. Continue antiviral therapy with valganciclovir. MANTLE CELL LYMPHOMA Last chemotherapy per clinic Heme / Onc note: On 09/08/2017 started on following chemotherapy schedule: Rituxan 375 mg/M2 IV day 1 Bendamustine 70 mg/M2 IV days 2-3 Cytarabine 500 mg/M2 IV days 2, 3 & 4 Has not had further chemotherapy due to recurrent fevers. CT chest compared to 09/18/17: stable to slight decreased prominence of pulmonary nodules measuring up to [address] abdomen and pelvis compared to 07/30/17: worsening splenomegaly, mostly stable retroperitoneal adenopathy, slight increased size of right inguinal nodes. Patient / family requesting transfer to [facility] for further management. Case discussed with Dr. Paul Buchanan who accepted patient in transfer. Dr. John Mistry is local Newborn Hearing Screener / Oncologist in [place]. Summary of evaluation and previous treatment from his clinic note added to end of this documentation. He is available by cell if further information is needed: [phone]. Further management per Hematology / Oncology. ANEMIA Chronic anemia with baseline Hgb 8-9. Anemia probably due to lymphoma and perhaps malnutrition. Hgb 8.2 on admission, fell to 6.2 with aggressive fluid resuscitation. No active bleeding. Retic count 3.4%. Fe 12, transferrin sat 8%. B12, folate OK. Received 2 units pRBC's. Hgb today = 8.1. Follow. PANCYTOPENIA Chronic pancytopenia due to lymphoma. Platelet counts 53K, 41K, 43K 47K. No active bleeding. Follow. GLUCOCORTICOID THERAPY Has been on dexamethasone for lymphoma for several months. It is being tapered under direction of Heme / Onc. Needs IV dexamethasone in light of acute illness; added fludrocortisone due to hemodynamic instability at time of admission. Taper as tolerated. GERD Continue PPI. NUTRITION Appetite poor; foods don't taste good. Patient and spouse concerned about nutritional status. Explained that enteral nutrition preferred over parenteral options. Food preferences / supplements as tolerated. Production Potter consulted. VTE PROPHYLAXIS No anticoagulants due to thrombocytopenia. SCD's. Ambulate. DISPOSITION Arrangements being made for transfer to [facility] for further management of lymphoma. Family Medicine follow-up with Dr. Cain. Hematology / Oncology follow-up with Dr. John Mistry. HEME / ONC SUMMARY FROM DR. 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 -hypogammaglobinemia. CURRENT TREATMENT: ON 09/08/2017 started on following chemotherapy schedule: Rituxan 375 mg/M2 IV day 1 Bendamustine 70 mg/M2 IV days 2-3 Cytarabine 500 mg/M2 IV days 2, 3 & 4 Planning to start IVIG. PREVIOUS TREATMENT: - Bendamustine and Rituxan x4 between 03/29/2015-07/04/2015 - Rituxan x2 and steroid August, - R-CHOP September,-January, - Rituxan and Ibrutinib between 07/07/2017-09/02/2017. DIAGNOSTIC WORKUP: - Diagnosed a case of follicular lymphoma in 2008, he remained under observation. -In Feb, 2015 imaging study showed progressive lymphadenopathy, biopsy from the right neck lymph nodes showed grade 2/3A predominantly follicular pattern of lymphoma. He received 4 cycles of chemotherapy with bendamustine Rituxan between 03/29/2015 -07/04/2015. PET-CT scan done in August, showed very good response with no evidence of lymphoma. Follow-up PET-CT scan done in January, showed recurrence of lymphoma involving left axilla, right external iliac and right inguinal lymph nodes. He remained asymptomatic and so decided to observe. In June,, he started having more increasing fatigue, PET-CT scan done at that time showed marked progression of the lymphadenopathy in the mediastinal , hilar, periportal, portacaval, mesenteric and retroperitoneal region, bilateral inguinal lymph nodes, splenomegaly, diffuse activity noted in the bones consistent bone marrow infiltration. His platelet count was around 112, hemoglobin was 12, WBC was around 5400 at that time. -He received Rituxan in August, Biopsy of right groin node from 09/17/16 confirmed transformation to DLBCL. R-CHOP x 6 between September,-January,. PET-CT scan from 12/24/16 showed dramatic improvement in size, number, and metabolic activity in the extensive adenopathy, and in the spleen. 0.9 cm right inguinal node with SUV max 6.3 remains. Dramatic improvement in the skeleton including clavicles, scapula, ribs, diaphysis of bilateral humeri and femori, and osseous structures including acetabula. The most intense uptake is noted in T5 and L2. Deauville 4 , uptake slightly to moderately higher than the liver. PET-CT scan from 03/18/17: Subcentimeter mild metabolically active lymph node in right cervical area with SUV of 3.7 is new. Metabolically active lymph nodes in the left lower paratracheal, subcarinal, and bilateral hilar regions with SUV max 10 in the left hilum versus 4.1 on previous exam. Metabolically active mediastinal lymphadenopathy is new. Increased metabolic activity identified in 1.4 x 1.1 cm right inguinal node with SUV max of 24.1 previously 6.4. The spleen is borderline enlarged without significant activity. No discrete focal uptake at T5 or L2, where increased activity was seen on previous PET-CT. 06/24/[address] Yuliet Ochoa from [facility]: Pathology was reviewed over there, also tested positive for mantle cell lymphoma involvement. Pathology: - Right cervical excisional node biopsy from 03/21/15 showed follicular lymphoma grade 2-3A. - Excisional biopsy of right groin lymph node from 09/17/16 showed DLBCL positive for BCL-2 and positive for c-MYC (double expressor). Positive for additional copies of IGH gene ore chromosome 14, negative for gene rearrangements. - Right external iliac lymph node excisional biopsy from 04/10/17 reportedly again showed DLBCL non-GCB subtype. - Pathology reviewed at [facility], he also reported to have mantle cell lymphoma.(06/2017) His slides were reviewed at [facility] which confirmed follicular lymphoma involving the right cervical lymph node from 2014 but also mantle cell lymphoma involvement noted. - Rituxan and Ibrutinib between 07/07/2017-09/02/2017. -PET-CT scan done on 08/26/2017 showed progressive hypermetabolic lymphadenopathy noted in the neck, chest, abdomen and pelvis. Left T8 around vertebral lesion and right iliac wing the lesion noted. New splenomegaly noted. New multiple bilateral subcentimeter lung nodules noted. . Total time spent on discharge = 50 min. This includes examination of the patient, discharge planning, medication reconciliation, and communication with other providers. . Discharge Instructions TRANSFER INFORMATION: CONDITION: stable ALLERGIES: tetracycline VITALS: per unit routine ACTIVITY: ad annamarie with assistance DIET: regular with supplements VTE PROPHYLAXIS: SCD's ADVANCE DIRECTIVES: no not resuscitate Reported Home Medications Medications Dose Route/Sig Max Daily Dose Days Date Category Dose Instructions Valganciclovir (Valganciclovir HCl) 450 Mg Tab 900 Mg PO BID 21 10/20/17 Rx Bendeka (Bendamustine HCl) 100 Mg/4 Ml Inj 0 IV UD 10/13/17 Reported Cytarabine 100 Mg/Ml Inj 0 IV UD 10/13/17 Reported Ranitidine HCl 150 Mg Tab 150 Mg PO UD 10/05/17 Reported 1 TABLET IN THE MORNING BEGINNING 5 DAYS BEFORE RITUXAN TREATMENT Decadron (Dexamethasone) 4 Mg Tab 0.5 Tab PO Q2D 09/18/17 Reported 3 doses remaining - 11/07, 11/09, 11/11 Phenergan (Promethazine HCl) 25 Mg Tab 25 Mg PO Q4 PRN 09/18/17 Reported Tramadol HCl 50 Mg Tab 50 Mg PO Q6 PRN 09/18/17 Reported Rituxan (Rituximab) 10 Mg/Ml Inj 1 Dose IV UD 07/30/17 Reported Ondansetron HCl (Ondansetron) 8 Mg Tab 8 Mg PO Q8 PRN 09/14/16 Reported Prilosec (Omeprazole) 20 Mg Capcr 20 Mg PO DAILY 04/02/15 Reported Current Inpatient Medications Medications (Trade) Dose Ordered Sig/Flory Route Start Time Stop Time Status Last Admin Dose Admin Ondansetron HCl (Zofran Inj) 4 mg Q6H PRN IV 11/06/17 21:30 12/06/17 21:29 Ioversol (Optiray 320) 100 ml UD PRN IV 11/06/17 21:30 11/10/17 21:29 Tramadol HCl (Ultram Tab) 50 mg Q6 PRN PO 11/06/17 21:45 12/06/17 21:44 Pantoprazole Sodium (Protonix Tab) 40 mg DAILY PO 11/07/17 09:00 12/07/17 08:59 11/08/17 09:22 40 MG Miscellaneous Information (Consult) 1 ea UD PRN N/A 11/06/17 21:45 12/08/17 23:59 Miscellaneous Information (Consult) 1 ea UD PRN N/A 11/06/17 21:45 12/06/17 21:44 Cefepime HCl 2000 mg/Syringe 20 ml @ 5 mls/min Q8H IV 11/07/17 00:00 11/10/17 23:59 11/09/17 00:30 5 MLS/MIN Valganciclovir (Valganciclovir HCl) 900 mg BID PO 11/07/17 09:00 12/07/17 08:59 11/08/17 21:37 900 MG Dexamethasone Sodium Phosphate 4 mg/Syringe 1 ml @ 1 mls/min Q12@0900,2100 IV 11/07/17 09:00 12/07/17 08:59 11/08/17 21:40 1 MLS/MIN Fludrocortisone Acetate (Florinef Tab) 0.1 mg BID PO 11/07/17 09:00 12/07/17 08:59 11/08/17 21:36 0.1 MG Vancomycin HCl 1250 mg/Sodium Chloride 275 ml @ 125 mls/hr Q12H IV 11/07/17 14:00 11/10/17 23:59 11/09/17 02:22 125 MLS/HR Acetaminophen (Tylenol Tab) 1,000 mg Q8 PRN PO 11/07/17 11:45 12/07/17 11:44 11/07/17 11:51 1,000 MG Enteral Nutritional Formula (Boost Pudding) 1 cup BID PO 11/08/17 21:00 12/08/17 20:59 Enteral Nutritional Formula (Boost Breeze Nutritional Drink) 1 box TID PO 11/08/17 14:00 12/08/17 13:59 Nystatin (Mycostatin Susp) 5 ml QID PO 11/08/17 17:00 11/18/17 16:59 11/08/17 21:36 5 ML LABS Last 24 Hours Test 11/09/17 01:27 11/09/17 06:13 11/09/17 06:16 White Blood Count 4.05 K/uL Red Blood Count 2.88 M/uL Hemoglobin 8.1 g/dL Hematocrit 25.4 % Mean Corpuscular Volume 88.2 fL Mean Corpuscular Hemoglobin 28.1 pg Mean Corpuscular Hemoglobin Concent 31.9 g/dl Platelet Count 47 K/uL Mean Platelet Volume 11.3 fL Neutrophils (%) (Auto) 42.5 % Lymphocytes (%) (Auto) 25.4 % Monocytes (%) (Auto) 26.7 % Eosinophils (%) (Auto) 0.0 % Basophils (%) (Auto) 0.2 % Neutrophils # (Auto) 1.72 K/uL Lymphocytes # (Auto) 1.03 K/uL Monocytes # (Auto) 1.08 K/uL Eosinophils # (Auto) 0.00 K/uL Basophils # (Auto) 0.01 K/uL RDW Standard Deviation 63.7 fL RDW Coefficient of Variation 20.0 % Immature Granulocyte % (Auto) 5.2 % Immature Granulocyte # (Auto) 0.21 K/uL Large Platelets 1+ Anisocytosis PRESENT Ovalocytes 1+ Sodium Level 141 mmol/L Potassium Level 4.2 mmol/L Chloride Level 105 mmol/L Carbon Dioxide Level 21 mmol/L Anion Gap 15.0 mmol/L Blood Urea Nitrogen 15 mg/dl Creatinine 0.63 mg/dl Est Creatinine Clear Calc Drug Dose 104.5 ml/min Estimated GFR () 113.3 Estimated GFR (Non- 97.8 BUN/Creatinine Ratio 24.1 Random Glucose 126 mg/dl Lactic Acid Level 8.4 mmol/L Calcium Level 8.4 mg/dl Phosphorus Level 2.5 mg/dl Magnesium Level 1.5 mg/dl Total Bilirubin 0.5 mg/dl Aspartate Amino Transf (AST/SGOT) 19 U/L Alanine Aminotransferase (ALT/SGPT) 12 U/L Alkaline Phosphatase 51 U/L Total Protein 5.1 gm/dl Albumin 1.7 gm/dl Globulin 3.4 gm/dl Albumin/Globulin Ratio 0.5 Vancomycin Level Trough 8.5 mcg/ml CHEST ONE VIEW PORTABLE 11/06/17 FINDINGS: Right subclavian Mediport terminates at the superior cavoatrial junction. Atherosclerosis of aortic arch. Cardiac silhouette normal in size. Interval decrease in perihilar vague opacities. Slight prominence of the roberto. No new focal infiltrate. No large effusion or pneumothorax. Degenerative changes of the thoracic spine. Upper abdomen normal. IMPRESSION: 1. No acute cardiopulmonary disease. Electronically signed by: Mikael Langford M.D. 11/06/2017 7:06 PM Dictated Date/Time: 11/06/2017 7:04 PM SINUSES-MAXILLOFACIAL WITH 11/06/17 FINDINGS: Soaker Meat topogram: Right internal jugular Mediport terminates in the lower SVC. Aerated secretions in the right maxillary sinus. Trace fluid in the left mastoid air cells. Remaining paranasal sinuses and mastoid air cells clear. No convincing sclerosis of the maxillary sinus terry to suggest chronic sinusitis. Left maxillary antrostomy may be present. Nasofrontal ethmoidal recesses and ostiomeatal units patent. Denia bullosa of the left middle turbinate. No convincing evidence of bony dehiscence of the optic canals or carotid siphons. No other anatomic variants. Bony nasal septum midline. Atherosclerosis. Vessels patent. Limited intracranial evaluation within normal limits. IMPRESSION: 1. Findings suggest acute sinusitis of the right maxillary sinus. 2. Possible postsurgical changes of left maxillary antrostomy. 3. No significant anatomic variant. Electronically signed by: Mikael Langford M.D. 11/06/2017 11:20 PM Dictated Date/Time: 11/06/2017 11:15 PM (CHEST FOR PE) ANGIO WITH 11/06/17 FINDINGS: Soaker Meat topogram: Unremarkable. Pulmonary vasculature: The study is suboptimal for the assessment of the pulmonary vascular tree secondary to timing of the contrast bolus. Allowing for limited image quality, no central filling defect to suggest pulmonary embolus. Main pulmonary artery is not enlarged. No flattening of the interventricular septum. No intracardiac filling defect. No reflux of contrast into the hepatic veins. Remaining chest: On soft tissue windows, right internal jugular Mediport terminates in the superior cavoatrial junction. Scattered subcentimeter mediastinal and bilateral hilar lymph nodes similar to prior. Atherosclerosis of the aorta. Normal heart size. Coronary artery calcification. No pericardial or pleural effusion. Splenomegaly worsened from prior. On lung windows, emphysema. Dependent changes likely atelectasis or scarring. Solid 5 mm pulmonary nodule at the right apex (series 7 image 250), decreased in size and prominence. Solid 3 to 4 mm nodule in the left upper lobe (series 7 image 195), unchanged. No new nodule. Mosaic attenuation suggest small airways disease. Mild bronchial wall thickening may be present. Airways patent. On bone windows, degenerative changes of the spine. No destructive osseous lesion. IMPRESSION: 1. Allowing for suboptimal image quality, no evidence of pulmonary embolus. No acute intrathoracic pathology. 2. Emphysema. 3. Stable to slight decreased prominence of solid pulmonary nodules measuring up to 5 mm. No new nodule. 4. Persistent mediastinal and bilateral hilar lymphadenopathy. Electronically signed by: Mikael Langford M.D. 11/06/2017 11:11 PM Dictated Date/Time: 11/06/2017 11:03 PM ABD/PELVIS IV CONTRAST ONLY 11/06/17 FINDINGS: Soaker Meat topogram: Unremarkable. Lung bases: Minimal basilar opacities, likely atelectasis. Mosaic attenuation noted. Emphysema. Partially visualized tip of a central venous catheter. Normal heart size. No pericardial or pleural effusion. Liver: Normal morphology. No liver lesion. Patent hepatic vasculature. Biliary: No intrahepatic or extrahepatic biliary ductal dilatation. Gallbladder contains gallstones. Pancreas: Mild parenchymal atrophy. Spleen: Splenomegaly increased from prior, now measuring 17 cm in maximal axial dimension, previously 13.4 cm. Adrenal glands: Normal. Kidneys and ureters: Nonspecific perinephric fat stranding. No hydronephrosis. Normal excretion from the bilateral kidneys. Parenchyma normal. Ureters normal. Bladder: Mild circumferential bladder wall thickening, possibly chronic outlet obstruction. Pelvic organs: Prostate and seminal vesicles normal. Bowel: Normal. No bowel obstruction. Peritoneal cavity: No free fluid or intraperitoneal gas. Lymph nodes: Numerous prominent retroperitoneal lymph nodes, overall stable in appearance from prior. Enlarged right inguinal lymph node may be slightly increased in size from prior. Vasculature: Atherosclerosis of the normal caliber abdominal aorta. IVC patent. Abdominal wall: Normal. Musculoskeletal: Degenerative changes of the spine. No destructive osseous lesion. IMPRESSION: 1. Worsened splenomegaly. 2. The majority of retroperitoneal lymphadenopathy is grossly stable from prior. However, slight increased size of right inguinal lymphadenopathy. 3. Emphysema. 4. Suggestion of chronic bladder outlet obstruction versus less likely cystitis. 5. No other evidence of acute intra-abdominal pathology. Electronically signed by: Mikael Langford M.D. 11/06/2017 11:03 PM Dictated Date/Time: 11/06/2017 10:56 PM Thank you for receiving this patient in transfer. Please call if you have any questions. Bhanu Bragg .
[2017-11-09 07:06] LABS: CALCIUM 8.2 mg/dl (8.5-10.1); CREATININE 0.55 mg/dl (0.60-1.40); POTASSIUM 3.9 mmol/L (3.5-5.1)
[2017-11-09 08:14] VITALS: BP 123/71; PULSE 72; TEMP 36.3; O2SAT 96
[2017-11-09] MEDS ORDERED: VANCOMYCIN INJ 1,250 MG in SODIUM CHLORIDE 0.9% 250ML 250 ML IV SCH (10:00)
== END 2017-11-09 08:00 | disposition short-term general hospital (02) | DRG 872 ==
LOC: C.EDB 17:57 → C.2E 21:19 → EDBEDREQ 21:22 → ENRESERV 21:24
PROVIDERS: ADMIT Family Medicine; ATTEND Hospitalist
DX: A41.9 Sepsis, unspecified organism (principal); C83.10 Mantle cell lymphoma, unspecified site; D61.818 Other pancytopenia; E46 Unspecified protein-calorie malnutrition; K21.9 Gastro-esophageal reflux disease without esophagitis; Z79.899 Other long term (current) drug therapy; Z68.23 Body mass index [BMI] 23.0-23.9, adult